=== PATIENT | male | born 1935 | race Caucasian/White ===

== ENCOUNTER 2017-07-12 15:07 | Inpatient (IN) | payer OTHER, MEDICARE ==
[~2017-07-12] VITALS: Ht 172.7 cm; Wt 68.7 kg
[2017-07-12] VITALS (7 sets, daily range): BP systolic 93–150; BP diastolic 59–80; PULSE 50–80; RESP 16–20; TEMP 96.1–97.6; O2SAT 94–99
[~2017-07-12 15:07] MED LIST: GLYB1TAB51 PO; HYDR-2768 PO; LISI-366 PO; METO25 PO; PRAV20TA PO; SPIR25TA PO
[2017-07-12] MEDS ORDERED: METO25TA3 PO (15:36)
[2017-07-12] MEDS ORDERED: SPIR25TA PO (15:36)
[2017-07-12] MEDS ORDERED: TAMS0.4C4 PO (15:36)
[2017-07-12] MEDS ORDERED: MULTTAB67 PO (15:36)
[2017-07-12] MEDS ORDERED: FURO20TA PO (15:36)
[2017-07-12] MEDS ORDERED: LISI40TA PO (15:36)
[2017-07-12] MEDS ORDERED: POTA10CA PO (15:36)
[2017-07-12] MEDS ORDERED: SODIUM CHLORIDE 0.9% FLUSH 10 ML FLUSH IV FLUSH PRN ×2 (15:45→17:15)
[2017-07-12 15:54] LABS: AUTOMATED NEUTROPHIL # 9.4 TH/MM3 (1.8-7.7); BASOPHIL # 0.1 TH/MM3 (0-0.2); BASOPHIL % 0.6 % (0.0-2.0); EOSINOPHIL # 0.1 TH/MM3 (0-0.4); EOSINOPHIL % 0.6 % (0.0-4.0); HEMATOCRIT 44.3 % (39.0-51.0); HEMOGLOBIN 14.8 GM/DL (13.0-17.0); LYMPH % 7.7 % (9.0-44.0); LYMPHOCYTE # 0.9 TH/MM3 (1.0-4.8); MEAN CELL VOLUME 103.2 FL (80.0-100.0); MEAN CORPUSCULAR HEMOGLOBIN 34.5 PG (27.0-34.0); MEAN CORPUSCULAR HGB CONC 33.4 % (32.0-36.0); MEAN PLATELET VOLUME 7.7 FL (7.0-11.0); MONO % 5.6 % (0.0-8.0); MONOCYTE # 0.6 TH/MM3 (0-0.9); NEUT % 85.5 % (16.0-70.0); PLATELET COUNT 197 TH/MM3 (150-450); RED BLOOD COUNT 4.29 MIL/MM3 (4.50-5.90); RED CELL DISTRIBUTION WIDTH 12.1 % (11.6-17.2); WHITE BLOOD COUNT 11.1 TH/MM3 (4.0-11.0)
--- NOTE | 2017-07-12 15:56 | PD ---
HPI Chief Complaint: General Weakness Time Seen by Provider: 15:21 Travel History International Travel<30 days: No Contact w/Intl Traveler<30days: No Traveled to known affect area: No History of Present Illness HPI 82-year-old male arrives with weakness a few months. Additional complaints include 10 days of abdominal distention. Any oral intake leads to vomiting. Appetite has been decreased. Patient reports he is not too weak to stand up. No new or different medication. The patient has not followed with the primary doctor in years. No fever. Patient reports if he stands for more than a few minutes he becomes weak and requires chair. PFSH Past Medical History Diabetes: Yes Hypertension: Yes ?: Not Social History Alcohol Use: Yes Tobacco Use: Yes Allergies-Medications (Allergen,Severity, Reaction): Coded Allergies: citalopram (Verified Allergy, Severe, 07/12/17) Reported Meds & Prescriptions Reported Meds & Active Scripts Active Reported Lisinopril 40 Mg Tab 40 Mg PO DAILY Spironolactone 25 Mg Tab 25 Mg PO DAILY Tamsulosin (Tamsulosin HCl) 0.4 Mg Cap 0.8 Mg PO HS Furosemide 20 Mg Tab 20 Mg PO DAILY Potassium Chloride ER (Potassium Chloride) 10 Meq Cap 10 Meq PO BID Multiple Vitamin 1 Tab 1 Tab PO DAILY Metoprolol Tartrate 25 Mg Tab 25 Mg PO BID Review of Systems Except as stated in HPI: all other systems reviewed are Neg General / Constitutional: No: Fever Eyes: No: Blurred Vision Physical Exam Narrative GENERAL: 82-year-old male well-nourished well-developed no acute distress Vital Signs Date Time Temp Pulse Resp B/P (MAP) Pulse Ox O2 Delivery O2 Flow Rate FiO2 07/12/17 15:11 97.6 80 18 134/63 (86) 98 SKIN: Warm and dry. HEAD: Atraumatic. Normocephalic. EYES: Pupils equal and round. No scleral icterus. No injection or drainage. ENT: No nasal bleeding or discharge. Mucous membranes pink and moist. NECK: Trachea midline. No JVD. CARDIOVASCULAR: Regular rate and rhythm. RESPIRATORY: No accessory muscle use. Clear to auscultation. Breath sounds equal bilaterally. GASTROINTESTINAL: Soft. Abdomen is slightly distended without tenderness. MUSCULOSKELETAL: Extremities without clubbing, cyanosis, or edema. No obvious deformities. NEUROLOGICAL: Awake and alert. No obvious cranial nerve deficits. Motor grossly within normal limits. Five out of 5 muscle strength in the arms and legs. Normal speech. PSYCHIATRIC: Appropriate mood and affect; insight and judgment normal. Data Data Last Documented VS Vital Signs Date Time Temp Pulse Resp B/P (MAP) Pulse Ox O2 Delivery O2 Flow Rate FiO2 07/12/17 15:20 80 16 98 07/12/17 15:11 97.6 134/63 (86) Orders Orders Electrocardiogram (07/12/17 15:32) Ammonia (07/12/17 15:32) Complete Blood Count With Diff (07/12/17 15:32) Comprehensive Metabolic Panel (07/12/17 15:32) Creatine Kinase (Cpk) (07/12/17 15:32) Prothrombin Time / Inr (Pt) (07/12/17 15:32) Act Partial Throm Time (Ptt) (07/12/17 15:32) Troponin I (07/12/17 15:32) Thyroid Stimulating Hormone (07/12/17 15:32) Urinalysis - C+S If Indicated (07/12/17 15:32) Blood Glucose (07/12/17 15:32) Ecg Monitoring (07/12/17 15:32) Iv Access Insert/Monitor (07/12/17 15:32) Oximetry (07/12/17 15:32) Sodium Chloride 0.9% Flush (Ns Flush) (07/12/17 15:45) Lipase (07/12/17 15:32) Drug Screen, Random Urine (07/12/17 15:32) Ct Abd/Pel W/O Iv Contrast (07/12/17 16:30) Urinary Catheter Insert/Apply (07/12/17 16:51) Admit Order (Ed Use Only) (07/12/17 ) Closing Supervisor / Telemetry BURT.Q8H (07/12/17 17:04) Vital Signs (Adult) Q4H (07/12/17 17:04) Diet Heart Healthy (07/12/17 Dinner) Activity Bed Rest (07/12/17 17:04) Labs Laboratory Tests Test 07/12/17 15:40 White Blood Count 11.1 TH/MM3 Red Blood Count 4.29 MIL/MM3 Hemoglobin 14.8 GM/DL Hematocrit 44.3 % Mean Corpuscular Volume 103.2 FL Mean Corpuscular Hemoglobin 34.5 PG Mean Corpuscular Hemoglobin Concent 33.4 % Red Cell Distribution Width 12.1 % Platelet Count 197 TH/MM3 Mean Platelet Volume 7.7 FL Neutrophils (%) (Auto) 85.5 % Lymphocytes (%) (Auto) 7.7 % Monocytes (%) (Auto) 5.6 % Eosinophils (%) (Auto) 0.6 % Basophils (%) (Auto) 0.6 % Neutrophils # (Auto) 9.4 TH/MM3 Lymphocytes # (Auto) 0.9 TH/MM3 Monocytes # (Auto) 0.6 TH/MM3 Eosinophils # (Auto) 0.1 TH/MM3 Basophils # (Auto) 0.1 TH/MM3 CBC Comment DIFF FINAL Differential Comment Prothrombin Time 9.9 SEC Prothromb Time International Ratio 1.0 RATIO Activated Partial Thromboplast Time 25.0 SEC Blood Urea Nitrogen 119 MG/DL Creatinine 7.30 MG/DL Random Glucose 126 MG/DL Total Protein 6.9 GM/DL Albumin 3.1 GM/DL Calcium Level 12.1 MG/DL Alkaline Phosphatase 92 U/L Aspartate Amino Transf (AST/SGOT) 12 U/L Alanine Aminotransferase (ALT/SGPT) 17 U/L Total Bilirubin 0.8 MG/DL Sodium Level 131 MEQ/L Potassium Level 5.8 MEQ/L Chloride Level 94 MEQ/L Carbon Dioxide Level 24.8 MEQ/L Anion Gap 12 MEQ/L Estimat Glomerular Filtration Rate 7 ML/MIN Protein Corrected Calcium 12.3 MG/DL Ammonia LESS THAN 10 MCMOL/L Total Creatine Kinase 43 U/L Troponin I 0.03 NG/ML Lipase 54 U/L Thyroid Stimulating Hormone 3rd Gen 1.620 uIU/ML [facility] Medical Decision Making Medical Screen Exam Complete: Yes Emergency Medical Condition: Yes Medical Record Reviewed: Yes Differential Diagnosis Constipation, Gastritis, Acute Cholecystitis, Biliary Colic, Pancreatitis, WARD , Hepatitis, Bowel Obstruction, Cystitis, Mesenteric Ischemia, AAA, Appendicitis , Renal Stone/Hydronephrosis, GERD, perforated viscous Narrative Course CBC & BMP Diagram 07/12/17 15:40 Total Protein 6.9, Albumin 3.1 L, Calcium Level 12.1 *H, Alkaline Phosphatase 92 , Aspartate Amino Transf (AST/SGOT) 12 L, Alanine Aminotransferase (ALT/SGPT) 17 , Total Bilirubin 0.8 Ammonia 10 Protein Corrected Calcium 12.3 TSH 1.620 Lipase 54 U tox negative Last Impressions Abdomen/Pelvis CT 07/12/17 1630 Signed Impressions: Service Date/Time: July 16:36 - CONCLUSION: 1. Markedly distended urinary bladder and bilateral hydronephrosis/hydroureter. Differential considerations include neurogenic bladder and bladder outlet obstruction. 2. 2 cm exophytic intermediate density lesion protruding from the midpole of the right kidney. Differential considerations include a solid tumor and complicated cysts. 3. Small calcified gallstone. 4. Small fat containing left inguinal hernia. Armando Luo MD Gann catheter placed Sacral wound noted, stage III, approx 10cm diameter EKG: Atrial fibrillation, rate 72, LBBB d/w Dr Muñoz for [facility] Critical Care Narrative Aggregate critical care time was 35 minutes. Time to perform other separately billable procedures was not included in the critical care time. My time did not include minutes spent treating any other patients simultaneously or on activities that did not directly contribute to the patient's treatment. The services I provided to this patient were to treat and/or prevent clinically significant deterioration that could result in: arrhythmia, cardiopulmonary arrest I provided critical care services requiring my management, as noted below: Chart data review, documentation time, medication orders and management, vital sign assessments/reviewing monitor data, ordering and reviewing lab tests, ordering and interpreting/reviewing x-rays and diagnostic studies, care of the patient and discussion of the patient with the admitting physicians. Diagnosis Primary Impression: Urinary (tract) obstruction Additional Impressions: Renal failure Qualified Codes: N17.9 - Acute kidney failure, unspecified Hyperkalemia Generalized weakness Sacral decubitus ulcer, stage III Admitting Information Admitting Physician Requests: Admit Shin Bruno MD Jul 12, 2017 15:56
[2017-07-12 16:10] LABS: PROTHROMBIN TIME - PATIENT 9.9 SEC (9.8-11.6)
[2017-07-12 16:15] LABS: ALBUMIN 3.1 GM/DL (3.4-5.0); BICARBONATE 24.8 MEQ/L (21.0-32.0); CALCIUM 12.1 MG/DL (8.5-10.1); CREATININE 7.3 MG/DL (0.60-1.30); TOTAL BILIRUBIN ADULT 0.8 MG/DL (0.2-1.0); TOTAL PROTEIN 6.9 GM/DL (6.4-8.2)
[2017-07-12 16:19] LABS: CALCIUM-PROTEIN CORRECTED 12.3 MG/DL (8.5-10.1)
[2017-07-12 16:26] LABS: TROPONIN I 0.03 NG/ML (0.02-0.05)
--- NOTE | 2017-07-12 16:56 | RADRPT ---
EXAM DATE/TIME: 07/12/2017 16:36 [place] COMPARISON: No previous studies available for comparison. INDICATIONS : General weakness. Abdominal pain. ORAL CONTRAST: No oral contrast ingested. RADIATION DOSE: 16.12 CTDIvol (mGy) MEDICAL HISTORY : Cardiovascular disease. Hypertension. Diabetes mellitus type 2. SURGICAL HISTORY : None. ENCOUNTER: Initial ACUITY: 1 day PAIN SCALE: 1/10 LOCATION: Abdomen. TECHNIQUE: Volumetric scanning of the abdomen and pelvis was performed. Using automated exposure control and ad justment of the mA and/or kV according to patient size, radiation dose was kept as low as reasonably achievable to obtain optimal diagnostic quality images. DICOM format image data is available electro nically for review and comparison. FINDINGS: LOWER LUNGS: The visualized lower lungs are clear. Multiple hemoclips in the GE junction. LIVER: Homogeneous density without lesion for noncontrast technique. There is no dilation of the biliary tr ee. There is a tiny calcified gallstone near the neck.. SPLEEN: Normal size without lesion. PANCREAS: The pancreas is atrophic. KIDNEYS: There is moderate severity bilateral hydronephrosis and bilateral hydroureter. No calcified stones s een on either side. There is an exophytic intermediate density lesion protruding from the posterior midpole the right kidney measuring 2.3 cm, mean CT density 40 Hounsfield units. No associated calcif ications. ADRENAL GLANDS: Within normal limits. VASCULAR: There is no aortic aneurysm. BOWEL/MESENTERY: No dilated loops of small or large bowel. Multiple hemoclips in the upper abdomen. ABDOMINAL WALL: Within normal limits. RETROPERITONEUM: There is no lymphadenopathy. BLADDER: Marked distention of the urinary bladder measuring in excess of 19 cm in superior/inferior extent. T here are 2 small diverticula protruding from the posterior lateral margin. No calcifications within the lumen of the ureter. Bladder. REPRODUCTIVE: The prostate is mildly prominent measuring 4.7 cm in superior inferior dimension and 4.8 cm in width. INGUINAL: Small fat containing left inguinal hernia. MUSCULOSKELETAL: Within normal limits for patient age. CONCLUSION: 1. Markedly distended urinary bladder and bilateral hydronephrosis/hydroureter. Differential conside rations include neurogenic bladder and bladder outlet obstruction. 2. 2 cm exophytic intermediate density lesion protruding from the midpole of the right kidney. Diffe rential considerations include a solid tumor and complicated cysts. 3. Small calcified gallstone. 4. Small fat containing left inguinal hernia. Armando Luo MD on July 12, 2017 at 16:46 Board Certified Radiologist. This report was verified electronically.
[2017-07-12] MEDS ORDERED: SODIUM CHLOR 0.45% 1000 ML INJ 1,000 ML IV SCH (17:10)
[2017-07-12] MEDS ORDERED: ACETAMINOPHEN 325 MG TAB PO PRN (17:15)
[2017-07-12] MEDS ORDERED: SENNOSIDES 8.6 MG TAB PO PRN (17:15)
[2017-07-12] MEDS ORDERED: NALOXONE HCL 0.4 MG/ML AMP IV PUSH PRN (17:15)
[2017-07-12] MEDS ORDERED: BISACODYL 10 MG SUPP RECTAL PRN (17:15)
[2017-07-12 17:32] LABS: BILIRUBIN, URINE NEG (NEG); BLOOD, URINE LARGE (NEG); GLUCOSE,URINE NEG (NEG); KETONE, URINE NEG (NEG); NITRITE,URINE NEG (NEG); PH, URINE 5.5 (5.0-8.5); URINE COLOR YELLOW (YELLW/STRAW); URINE LEUKOCYTE ESTERASE TRACE (NEG)
--- NOTE | 2017-07-12 17:55 | HHI.HP ---
[facility] Service [facility] Primary Care Physician Salas Lema MD Admission Diagnosis ARF; Urinary Obstruction; Sacral Wound; HyperK; AFib Diagnoses: Chief Complaint: Abdominal distention and pain Travel History International Travel<30 Days: No Contact w/Intl Traveler <30 Da: No Traveled to Known Affected Are: No History of Present Illness This is a pleasant 82-year-old male patient with a known medical history of hypertension and borderline diabetes who presented to the ED with complaints of abdominal disc distention and pain 10 days. Patient also admits that he has been generally weak for the past few weeks. He states that his appetite has been poor and he has been unable to tolerate anything by mouth for the last couple weeks due to nausea and vomiting. He does live at home alone, is visited by his significant other frequently. Patient denies any recent fever, chills, cough, headache, sore throat, diarrhea or dysuria. Patient last saw his PCP in November with no changes in medications. Patient does not follow with industrial coffee grinder or urologist. Microfilmer is Dr. Beach. He does state he has asymptomatic bradycardia. Denies any history of kidney disease or distention. He states that his last PSA was drawn roughly 5 years ago and was reportedly negative. He does admit to daily tobacco use. Creatinine on presentation 7.3, GFR 7, BUN 119, sodium 131, potassium 5.8, calcium 12.1. UA pending. Abdomen/pelvis CT showing distended urinary bladder and bilateral hydronephrosis hydroureter likely secondary to bladder outlet obstruction/ retention. Patient does state that he has been prescribed Lasix as needed for lower extremity swelling as well as supplemental potassium. Patient states that he has not been taking his Lasix really at all but has continued his daily potassium supplementation. Review of Systems Constitutional: COMPLAINS OF: Fatigue, DENIES: Fever, Chills Eyes: DENIES: Blurred vision, Diplopia Ears, nose, mouth, throat: DENIES: Hearing loss Respiratory: DENIES: Cough, Sputum production, Shortness of breath Cardiovascular: DENIES: Chest pain, Palpitations Gastrointestinal: COMPLAINS OF: Abdominal pain, Nausea, Vomiting, DENIES: Black stools, Bloody stools, Constipation, Diarrhea Genitourinary: DENIES: Urinary frequency, Urinary incontinence Musculoskeletal: DENIES: Joint pain Psychiatric: DENIES: Anxiety Except as stated in HPI: all other systems reviewed are Neg Past Family Social History Past Medical History Hypertension Borderline diabetes Tobaccoism Daily alcohol use Past Surgical History History of hemicolectomy History of resection and anastomosis Unspecified abdominal surgeries 4 Tonsillectomy Reported Medications Active Reported Lisinopril 40 Mg Tab 40 Mg PO DAILY Spironolactone 25 Mg Tab 25 Mg PO DAILY Tamsulosin (Tamsulosin HCl) 0.4 Mg Cap 0.8 Mg PO HS Furosemide 20 Mg Tab 20 Mg PO DAILY as needed for lower extremity swelling. Potassium Chloride ER (Potassium Chloride) 10 Meq Cap 10 Meq PO BID Multiple Vitamin 1 Tab 1 Tab PO DAILY Metoprolol Tartrate 25 Mg Tab 25 Mg PO BID Allergies: Coded Allergies: citalopram (Verified Allergy, Severe, 07/12/17) Active Ordered Medications Current Medications Medications (Trade) Dose Ordered Sig/Omar Route Start Time Stop Time Status Last Admin (NS Flush) 2 ml UNSCH PRN IV FLUSH 07/12/17 15:45 Sodium Chloride 1,000 ml @ 75 mls/hr [id number] IV 07/12/17 17:10 (NS Flush) 2 ml UNSCH PRN IV FLUSH 07/12/17 17:15 (NS Flush) 2 ml BID IV FLUSH 07/12/17 21:00 (Tylenol) 650 mg Q4H PRN PO 07/12/17 17:15 (Zofran Inj) 4 mg Q6H PRN IVP 07/12/17 18:00 (Heparin Inj) 5,000 units Q12HR SQ 07/12/17 21:00 (Narcan Inj) 0.4 mg UNSCH PRN IV PUSH 07/12/17 17:15 (July-Colace) 1 tab BID PO 07/12/17 21:00 (Milk Of Magnesia Liq) 30 ml Q12H PRN PO 07/12/17 18:00 (Senokot) 17.2 mg Q12H PRN PO 07/12/17 17:15 (Dulcolax Supp) 10 mg DAILY PRN RECTAL 07/12/17 17:15 Family History Family history significant for stroke and hypertension on paternal side. Social History Patient does admit to smoking two thirds pack per cigarettes daily. Does admit to 1 alcoholic drink daily. Denies any illicit drug use. Physical Exam Vital Signs Vital Signs Date Time Temp Pulse Resp B/P (MAP) Pulse Ox O2 Delivery O2 Flow Rate FiO2 07/12/17 15:20 80 16 98 07/12/17 15:11 97.6 80 18 134/63 (86) 98 Physical Exam GENERAL: Well-developed, well-nourished patient in NAD. SKIN: Warm and dry. No rash. Sacral wound present. HEAD: Normocephalic. Atraumatic. EYES: Pupils equal and round. No scleral icterus. No injection or drainage. ENT: No nasal bleeding or discharge. Mucous membranes pink and moist. NECK: Supple. Trachea midline. CARDIOVASCULAR: Regular rate and rhythm. S1, S2 noted. No murmur appreciated. RESPIRATORY: No accessory muscle use. Clear to auscultation. Breath sounds equal bilaterally. : Gann catheter present, ever colored urine. GASTROINTESTINAL: Abdomen soft, non-tender, nondistended. Normoactive bowel sounds x4. MUSCULOSKELETAL: No obvious deformities. Extremities without clubbing, cyanosis , or edema. NEUROLOGICAL: Awake and alert. No obvious cranial nerve deficits. Motor grossly within normal limits. 5/5 muscle strength in bilateral upper and lower extremities. Normal speech. PSYCHIATRIC: Appropriate mood and affect; insight and judgment normal. Laboratory Laboratory Tests Test 07/12/17 15:40 07/12/17 17:15 White Blood Count 11.1 Red Blood Count 4.29 Hemoglobin 14.8 Hematocrit 44.3 Mean Corpuscular Volume 103.2 Mean Corpuscular Hemoglobin 34.5 Mean Corpuscular Hemoglobin Concent 33.4 Red Cell Distribution Width 12.1 Platelet Count 197 Mean Platelet Volume 7.7 Neutrophils (%) (Auto) 85.5 Lymphocytes (%) (Auto) 7.7 Monocytes (%) (Auto) 5.6 Eosinophils (%) (Auto) 0.6 Basophils (%) (Auto) 0.6 Neutrophils # (Auto) 9.4 Lymphocytes # (Auto) 0.9 Monocytes # (Auto) 0.6 Eosinophils # (Auto) 0.1 Basophils # (Auto) 0.1 CBC Comment DIFF FINAL Differential Comment Prothrombin Time 9.9 Prothromb Time International Ratio 1.0 Activated Partial Thromboplast Time 25.0 Blood Urea Nitrogen 119 Creatinine 7.30 Random Glucose 126 Total Protein 6.9 Albumin 3.1 Calcium Level 12.1 Alkaline Phosphatase 92 Aspartate Amino Transf (AST/SGOT) 12 Alanine Aminotransferase (ALT/SGPT) 17 Total Bilirubin 0.8 Sodium Level 131 Potassium Level 5.8 Chloride Level 94 Carbon Dioxide Level 24.8 Anion Gap 12 Estimat Glomerular Filtration Rate 7 Protein Corrected Calcium 12.3 Ammonia LESS THAN 10 Total Creatine Kinase 43 Troponin I 0.03 Lipase 54 Thyroid Stimulating Hormone 3rd Gen 1.620 Urine Barbiturates Screen NEG Urine Amphetamines Screen NEG Urine Benzodiazepines Screen NEG Urine Cocaine Screen NEG Urine Cannabinoids Screen NEG Result Diagram: 07/12/17 1540 07/12/17 1540 Imaging Last Impressions Abdomen/Pelvis CT 07/12/17 1630 Signed Impressions: Service Date/Time: July 16:36 - CONCLUSION: 1. Markedly distended urinary bladder and bilateral hydronephrosis/hydroureter. Differential considerations include neurogenic bladder and bladder outlet obstruction. 2. 2 cm exophytic intermediate density lesion protruding from the midpole of the right kidney. Differential considerations include a solid tumor and complicated cysts. 3. Small calcified gallstone. 4. Small fat containing left inguinal hernia. Armando Luo MD Septic Shock Reassessment Septic shock perfusion: reassessment completed Caprini VTE Risk Assessment Caprini VTE Risk Assessment: Mod/High Risk (score >= 2) Caprini Risk Assessment Model Point Value = 1 Point Value = 2 Point Value = 3 Point Value = 5 Age 41-60 Minor surgery BMI > 25 kg/m2 Swollen legs Varicose veins or History of unexplained or recurrent spontaneous Oral contraceptives or hormone replacement Sepsis (< 1 month) Serious lung disease, including pneumonia (< 1 month) Abnormal pulmonary function Acute myocardial infarction Congestive heart failure (< 1 month) History of inflammatory bowel disease Medical patient at bed rest Age 61-74 Arthroscopic surgery Major open surgery (> 45 min) Laparoscopic surgery (> 45 min) Malignancy Confined to bed (> 72 hours) Immobilizing plaster cast Central venous access Age >= 75 History of VTE Family history of VTE Factor V Leiden Prothrombin [id number] Lupus anticoagulant Anticardiolipin antibodies Elevated serum homocysteine Heparin-induced thrombocytopenia Other congenital or acquired thrombophilia Stroke (< 1 month) Elective arthroplasty Hip, pelvis, or leg fracture Acute spinal cord injury (< 1 month) Prophylaxis Regimen Total Risk Factor Score Risk Level Prophylaxis Regimen 0-1 Low Early ambulation 2 Moderate Order ONE of the following: *Sequential Compression Device (SCD) *Heparin 5000 units SQ BID 3-4 Higher Order ONE of the following medications: *Heparin 5000 units SQ TID *Enoxaparin/Lovenox 40 mg SQ daily (WT < 150 kg, CrCl > 30 mL/min) *Enoxaparin/Lovenox 30 mg SQ daily (WT < 150 kg, CrCl > 10-29 mL/min) *Enoxaparin/Lovenox 30 mg SQ BID (WT < 150 kg, CrCl > 30 mL/min) AND/OR *Sequential Compression Device (SCD) 5 or more Highest Order ONE of the following medications: *Heparin 5000 units SQ TID (Preferred with Epidurals) *Enoxaparin/Lovenox 40 mg SQ daily (WT < 150 kg, CrCl > 30 mL/min) *Enoxaparin/Lovenox 30 mg SQ daily (WT < 150 kg, CrCl > 10-29 mL/min) *Enoxaparin/Lovenox 30 mg SQ BID (WT < 150 kg, CrCl > 30 mL/min) AND *Sequential Compression Device (SCD) Assessment and Plan Problem List: (1) Urinary (tract) obstruction ICD Code: N13.9 - Obstructive and reflux uropathy, unspecified Status: Acute (2) Hyperkalemia ICD Code: E87.5 - Hyperkalemia Status: Acute (3) Renal failure ICD Code: N19 - Unspecified kidney failure Status: Acute (4) Generalized weakness ICD Code: R53.1 - Weakness Status: Acute (5) Sacral decubitus ulcer, stage III ICD Code: L89.153 - Pressure ulcer of sacral region, stage 3 Status: Acute Assessment and Plan This is a pleasant 82-year-old male patient with a known medical history of hypertension and borderline diabetes who presented to the ED with complaints of abdominal disc distention and pain 10 days. Patient also admits that he has been generally weak for the past few weeks. Acute kidney injury with associated hyperkalemia suspect secondary to bladder outlet obstruction with urinary retention Hyperkalemia suspect secondary to above - Creatinine on presentation 7.3, GFR 7, BUN 119, sodium 131, potassium 5.8, calcium 12.1. - Patient denies any history of kidney disease or urinary retention in the past. - Abdominal/pelvis CT reviewed showing markedly distended urinary bladder and bilateral hydronephrosis/hydroureter. 2 cm exophytic intermediate density lesion protruding from the midpole of the right kidney. - Gann catheter placed in ED. Will continue. - Will administer IV insulin, IV dextrose and Kayexalate for hyperkalemia. - UA negative. - Repeat BMP at 2000 as well as with morning labs. - We will continue Flomax. Possible consult to nephrology/urology in a.m. if BMP does not improve. - Avoid nephrotoxins. Will hydrate with IV fluid. - Monitor intake and output closely. - Will place on cardiac telemetry overnight, monitor for any arrhythmias related to hyperkalemia. Patient does state he has history of asymptomatic bradycardia, will monitor closely. - Supportive care. Leukocytosis, mild: White blood cell 11.1. UA negative. Wound culture ordered for sacral wound, could be secondary to wound. Continue to monitor for infection. Afebrile at this time. Will hold off on antibiotics at this time. Hypertension, chronic: Continue home Lopressor. Will hold lisinopril due to kidney injury. Avoid nephrotoxins. Monitor BP trends. Tobaccoism: Encouraged cessation. Offered nicotine patch. Sacral decubitus ulcer, stage III - Present on presentation, states he has had this for many months. Will obtain wound culture. Monitor CBC for infection. Monitor for fever. - Case management consulted for discharge plans. Patient will likely need rehab upon discharge or arrangements for assisted living. - PT eval ordered, appreciate input recommendations. DVT prophylaxis: SCDs. Heparin. Problem Qualifiers (1) Renal failure: Qualified Codes: N17.9 - Acute kidney failure, unspecified Paulina Stokes Jul 12, 2017 17:55
[2017-07-12 17:58] LABS: SQUAMOUS EPITHELIAL CELL URINE 0-5 /hpf (0-5); WBC, URINE 0-2 /hpf (0-5)
[2017-07-12] MEDS ORDERED: ONDANSETRON HCL 4 MG/2 ML VIAL IVP PRN (18:00)
[2017-07-12] MEDS ORDERED: MAGNESIUM HYDROXIDE SUSP 30 ML CUP PO PRN (18:00)
[2017-07-12] MEDS ORDERED: DEXTROSE 50% IN WATER 50 ML VIAL(D50) IV PUSH ONE (18:00)
[2017-07-12] MEDS ORDERED: INSULIN HUMAN REGULAR 1,000 UNITS/10 ML VIAL IV PUSH ONE (18:45)
[2017-07-12] MEDS: SODIUM POLYSTYRENE SULFONATE SUSP 15 GM/60 ML CUP PO SCH ×2 (18:55→22:11)
[2017-07-12 20:47] LABS: CHLORIDE 98 MEQ/L (98-107); SODIUM (NA) 132 MEQ/L (136-145)
[2017-07-12] MEDS: METOPROLOL TARTRATE 25 MG TAB PO SCH (21:00)
[2017-07-12] MEDS: SODIUM CHLORIDE 0.9% FLUSH 10 ML FLUSH IV FLUSH SCH (21:00)
[2017-07-12 21:03] LABS: BICARBONATE 24.6 MEQ/L (21.0-32.0); BLOOD UREA NITROGEN 120 MG/DL (7-18); CALCIUM 11.7 MG/DL (8.5-10.1); GLOMERULAR FILTRATION RATE 8 ML/MIN (>89); GLUCOSE,RANDOM 177 MG/DL (74-106)
[2017-07-12] MEDS: DOCUSATE SODIUM 50 MG/SENNA 8.6 MG TAB PO SCH (22:12)
[2017-07-12] MEDS: HEPARIN SODIUM - SQ 10,000 UNITS/ML VIAL SQ SCH (22:12)
[2017-07-12] MEDS: TAMSULOSIN HCL 0.4 MG CAP PO SCH (22:12)
[2017-07-13] VITALS (11 sets, daily range): BP systolic 89–129; BP diastolic 54–85; PULSE 51–74; RESP 16–20; TEMP 96.3–98; O2SAT 94–98
--- NOTE | 2017-07-13 05:43 | EKG ---
Date Performed: 07/12/2017 Time Performed: 15:22:31 PTAGE: 82 years EKG: ATRIAL FIBRILLATION LEFT AXIS DEVIATION LEFT BUNDLE BRANCH BLOCK ABNORMAL ECG PREVIOUS TRACING : 12/05/2011 08.59 No significant change from previous tracing noted. DOCTOR: Efrain Cottrell Interpretating Date/Time 07/13/2017 05:42:51
[2017-07-13 07:02] LABS: AUTOMATED NEUTROPHIL # 6.4 TH/MM3 (1.8-7.7); BASOPHIL % 0.2 % (0.0-2.0); EOSINOPHIL # 0.2 TH/MM3 (0-0.4); EOSINOPHIL % 1.9 % (0.0-4.0); HEMATOCRIT 39.6 % (39.0-51.0); HEMOGLOBIN 13.7 GM/DL (13.0-17.0); LYMPH % 13.6 % (9.0-44.0); LYMPHOCYTE # 1.2 TH/MM3 (1.0-4.8); MEAN CELL VOLUME 103.6 FL (80.0-100.0); MEAN CORPUSCULAR HEMOGLOBIN 35.8 PG (27.0-34.0); MEAN CORPUSCULAR HGB CONC 34.6 % (32.0-36.0); MEAN PLATELET VOLUME 8.7 FL (7.0-11.0); MONO % 10.5 % (0.0-8.0); MONOCYTE # 0.9 TH/MM3 (0-0.9); NEUT % 73.8 % (16.0-70.0); PLATELET COUNT 167 TH/MM3 (150-450); RED BLOOD COUNT 3.83 MIL/MM3 (4.50-5.90); RED CELL DISTRIBUTION WIDTH 11.8 % (11.6-17.2); WHITE BLOOD COUNT 8.7 TH/MM3 (4.0-11.0)
[2017-07-13 07:53] LABS: BICARBONATE 23.9 MEQ/L (21.0-32.0); CALCIUM 10.6 MG/DL (8.5-10.1); CREATININE 5.3 MG/DL (0.60-1.30)
--- NOTE | 2017-07-13 08:17 | HHI.PR ---
Subjective Remarks Follow-up acute kidney injury electrolyte imbalance and sacral wound. Patient seen and examined lying in bed comfortably, had a good night slept well. Denies any pain. Has been urinating, Gann catheter in place, some hematuria noted. Creatinine trending down. Vital signs are stable. Afebrile. Patient eating well, denies any abdominal pain, nausea or vomiting. Nephrology consulted, appreciate input recommendations. Objective Vitals Vital Signs Date Time Temp Pulse Resp B/P (MAP) Pulse Ox O2 Delivery O2 Flow Rate FiO2 07/13/17 07:47 98 21 07/13/17 04:00 97.3 56 20 96/55 (69) 95 07/13/17 00:00 96.3 56 20 123/85 (98) 98 07/12/17 23:45 94 21 07/12/17 20:02 51 07/12/17 20:00 96.6 52 18 93/59 (70) 98 07/12/17 18:52 57 07/12/17 18:30 96.1 57 20 150/80 (103) 94 07/12/17 16:50 50 16 116/73 (87) 99 07/12/17 15:20 80 16 98 07/12/17 15:11 97.6 80 18 134/63 (86) 98 I/O 07/12/17 07/12/17 07/12/17 07/13/17 07/13/17 07/13/17 06:59 14:59 22:59 06:59 14:59 22:59 Intake Total 1362 ml Output Total 2000 ml 1000 ml Balance -2000 ml 362 ml Intake Oral 500 ml IV Total 862 ml Output Urine Total 2000 ml 1000 ml # Voids 0 # Bowel Movements 1 4 Result Diagram: 07/13/17 0610 07/13/17 0610 Imaging Last Impressions Abdomen/Pelvis CT 07/12/17 1630 Signed Impressions: Service Date/Time: July 16:36 - CONCLUSION: 1. Markedly distended urinary bladder and bilateral hydronephrosis/hydroureter. Differential considerations include neurogenic bladder and bladder outlet obstruction. 2. 2 cm exophytic intermediate density lesion protruding from the midpole of the right kidney. Differential considerations include a solid tumor and complicated cysts. 3. Small calcified gallstone. 4. Small fat containing left inguinal hernia. Armando Luo MD Objective Remarks GENERAL: Well-developed, well-nourished patient in NAD. SKIN: Warm and dry. No rash. Sacral wound with optic foam in place. Appears to be a DTI with some sloughing, minimal drainage and scattered erythema. HEAD: Normocephalic. Atraumatic. EYES: Pupils equal and round. No scleral icterus. No injection or drainage. ENT: No nasal bleeding or discharge. Mucous membranes pink and moist. NECK: Supple. Trachea midline. CARDIOVASCULAR: Regular rate and rhythm. S1, S2 noted. No murmur appreciated. RESPIRATORY: No accessory muscle use. Clear to auscultation. Breath sounds equal bilaterally. GASTROINTESTINAL: Abdomen soft, non-tender, nondistended. Normoactive bowel sounds x4. MUSCULOSKELETAL: No obvious deformities. Extremities without clubbing, cyanosis , or edema. NEUROLOGICAL: Awake and alert. No obvious cranial nerve deficits. Motor grossly within normal limits. 5/5 muscle strength in bilateral upper and lower extremities. Normal speech. PSYCHIATRIC: Appropriate mood and affect; insight and judgment normal. A/P Problem List: (1) Urinary (tract) obstruction ICD Code: N13.9 - Obstructive and reflux uropathy, unspecified Status: Acute (2) Hyperkalemia ICD Code: E87.5 - Hyperkalemia Status: Acute (3) Renal failure ICD Code: N19 - Unspecified kidney failure Status: Acute (4) Generalized weakness ICD Code: R53.1 - Weakness Status: Acute (5) Sacral decubitus ulcer, stage III ICD Code: L89.153 - Pressure ulcer of sacral region, stage 3 Status: Acute Assessment and Plan This is a pleasant 82-year-old male patient with a known medical history of hypertension and borderline diabetes who presented to the ED with complaints of abdominal disc distention and pain 10 days. Patient also admits that he has been generally weak for the past few weeks. Acute kidney injury with associated hyperkalemia suspect secondary to bladder outlet obstruction with urinary retention Hyperkalemia suspect secondary to above - Creatinine on presentation 7.3, GFR 7, BUN 119, sodium 131, potassium 5.8, calcium 12.1. - Patient denies any history of kidney disease or urinary retention in the past. - Creatinine is trending down. Nephrology consulted, appreciate input recommendations. Continue Gann catheter for now. - Abdominal/pelvis CT reviewed showing markedly distended urinary bladder and bilateral hydronephrosis/hydroureter. 2 cm exophytic intermediate density lesion protruding from the midpole of the right kidney. - Gann catheter placed in ED. Will continue. - Will administer IV insulin, IV dextrose and Kayexalate for hyperkalemia. Hyperkalemia resolved. Continue to monitor BMP. - UA negative. - We will continue Flomax. - Avoid nephrotoxins. Will hydrate with IV fluid. - Monitor intake and output closely. - Will place on cardiac telemetry overnight, monitor for any arrhythmias related to hyperkalemia. Patient does state he has history of asymptomatic bradycardia, will monitor closely. -Arrhythmia/10 beat run of V. tach noted on telemetry this a.m., patient has been asymptomatic, suspect secondary to electrolyte imbalance. We will continue to monitor. - Supportive care. Leukocytosis, mild: Improved. White blood cell 11.1. Down to 8000 today. UA negative. Wound culture ordered for sacral wound, could be secondary to wound. Continue to monitor for infection. Afebrile at this time. Will hold off on antibiotics at this time. Hypertension, chronic: Continue home Lopressor. Will hold lisinopril due to kidney injury. Avoid nephrotoxins. Monitor BP trends. Tobaccoism: Encouraged cessation. Offered nicotine patch. Sacral decubitus ulcer, stage III - Present on presentation, states he has had this for many months. Will obtain wound culture. Monitor CBC for infection. Monitor for fever. - Case management consulted for discharge plans. Patient will likely need rehab upon discharge or arrangements for assisted living. - PT eval ordered, appreciate input recommendations. DVT prophylaxis: SCDs. Heparin. Problem Qualifiers (1) Renal failure: Qualified Codes: N17.9 - Acute kidney failure, unspecified Paulina Stokes Jul 13, 2017 08:17
--- NOTE | 2017-07-13 08:50 | PD.CONS ---
HPI Service Nephrology Consult Requested By Reason for Consult HUSSEIN Primary Care Physician Salas Lema MD History of Present Illness This is an 82 y/o male patient who came to ER for severe abdominal distention for one week. On arrival imaging showed obstructive uropathy with bilateral hydronephrosis. His creatinine oin arrival was 7.3, and has improved to 5.3 today. He has some hematuria with 3L urine output since admission. He was hyperkalemci as well, treated with IV insulin and dextrose. He admits to taking KCL supplements without lasix as he noticed he was not able to make or drain his urine. Potassium has improved today. He is on IVF. Imaging also suggests possible renal mass. He is a full code. (Rose Mcgowan) Review of Systems Cardiovascular: DENIES: Chest pain Gastrointestinal: COMPLAINS OF: Abdominal pain, Nausea, DENIES: Vomiting Genitourinary: COMPLAINS OF: Hematuria (Rose Mcgowan) Past Family Social History Allergies: Coded Allergies: citalopram (Verified Allergy, Severe, 07/12/17) Past Medical History Hypertension Borderline diabetes Tobaccoism Daily alcohol use Past Surgical History History of hemicolectomy History of resection and anastomosis Unspecified abdominal surgeries 4 Tonsillectomy Reported Medications Lisinopril 40 Mg Tab 40 Mg PO DAILY Spironolactone 25 Mg Tab 25 Mg PO DAILY Tamsulosin (Tamsulosin HCl) 0.4 Mg Cap 0.8 Mg PO HS Furosemide 20 Mg Tab 20 Mg PO DAILY as needed for lower extremity swelling. Potassium Chloride ER (Potassium Chloride) 10 Meq Cap 10 Meq PO BID Multiple Vitamin 1 Tab 1 Tab PO DAILY Metoprolol Tartrate 25 Mg Tab 25 Mg PO BID Active Ordered Medications Current Medications Medications (Trade) Dose Ordered Sig/Omar Route Start Time Stop Time Status Last Admin (NS Flush) 2 ml UNSCH PRN IV FLUSH 07/12/17 15:45 (NS Flush) 2 ml UNSCH PRN IV FLUSH 07/12/17 17:15 (NS Flush) 2 ml BID IV FLUSH 07/12/17 21:00 (Tylenol) 650 mg Q4H PRN PO 07/12/17 17:15 (Zofran Inj) 4 mg Q6H PRN IVP 07/12/17 18:00 (Heparin Inj) 5,000 units Q12HR SQ 07/12/17 21:00 07/12/17 22:12 (Narcan Inj) 0.4 mg UNSCH PRN IV PUSH 07/12/17 17:15 (July-Colace) 1 tab BID PO 07/12/17 21:00 07/12/17 22:12 (Milk Of Magnesia Liq) 30 ml Q12H PRN PO 07/12/17 18:00 (Senokot) 17.2 mg Q12H PRN PO 07/12/17 17:15 (Dulcolax Supp) 10 mg DAILY PRN RECTAL 07/12/17 17:15 (Lopressor) 25 mg BID PO 07/12/17 21:00 (Flomax) 0.8 mg HS PO 07/12/17 21:00 07/12/17 22:12 (Theragran) 1 tab DAILY PO 07/13/17 09:00 (Lasix Inj) 20 mg DAILY IV PUSH 07/13/17 09:00 (Pneumovax-23 Inj) 25 mcg ONCE ONCE IM 07/13/17 10:00 07/13/17 10:01 Family History Non contributory Social History , lives alone Not very active Daily smoker Daily ETOH Full code (Rose Mcgowan) Physical Exam Vital Signs Vital Signs Date Time Temp Pulse Resp B/P (MAP) Pulse Ox O2 Delivery O2 Flow Rate FiO2 07/13/17 08:00 97.1 55 18 129/63 (85) 97 07/13/17 07:47 98 21 07/13/17 04:00 97.3 56 20 96/55 (69) 95 07/13/17 00:00 96.3 56 20 123/85 (98) 98 07/12/17 23:45 94 21 07/12/17 20:02 51 07/12/17 20:00 96.6 52 18 93/59 (70) 98 07/12/17 18:52 57 07/12/17 18:30 96.1 57 20 150/80 (103) 94 07/12/17 16:50 50 16 116/73 (87) 99 07/12/17 15:20 80 16 98 07/12/17 15:11 97.6 80 18 134/63 (86) 98 Physical Exam Disheveled elderly male Awake, alert, oriented S1/S2 RRR Lungs clear Abd soft Horton with clearing hematuria, some sediment is noted No edema, Laboratory Laboratory Tests Test 07/12/17 15:40 07/12/17 17:15 07/12/17 20:28 07/13/17 06:10 White Blood Count 11.1 8.7 Red Blood Count 4.29 3.83 Hemoglobin 14.8 13.7 Hematocrit 44.3 39.6 Mean Corpuscular Volume 103.2 103.6 Mean Corpuscular Hemoglobin 34.5 35.8 Mean Corpuscular Hemoglobin Concent 33.4 34.6 Red Cell Distribution Width 12.1 11.8 Platelet Count 197 167 Mean Platelet Volume 7.7 8.7 Neutrophils (%) (Auto) 85.5 73.8 Lymphocytes (%) (Auto) 7.7 13.6 Monocytes (%) (Auto) 5.6 10.5 Eosinophils (%) (Auto) 0.6 1.9 Basophils (%) (Auto) 0.6 0.2 Neutrophils # (Auto) 9.4 6.4 Lymphocytes # (Auto) 0.9 1.2 Monocytes # (Auto) 0.6 0.9 Eosinophils # (Auto) 0.1 0.2 Basophils # (Auto) 0.1 0.0 CBC Comment DIFF FINAL DIFF FINAL Differential Comment Prothrombin Time 9.9 Prothromb Time International Ratio 1.0 Activated Partial Thromboplast Time 25.0 Blood Urea Nitrogen 119 120 106 Creatinine 7.30 6.80 5.30 Random Glucose 126 177 73 Total Protein 6.9 6.0 Albumin 3.1 Calcium Level 12.1 11.7 10.6 Alkaline Phosphatase 92 Aspartate Amino Transf (AST/SGOT) 12 Alanine Aminotransferase (ALT/SGPT) 17 Total Bilirubin 0.8 Sodium Level 131 132 136 Potassium Level 5.8 5.1 4.4 Chloride Level 94 98 100 Carbon Dioxide Level 24.8 24.6 23.9 Anion Gap 12 9 12 Estimat Glomerular Filtration Rate 7 8 10 Protein Corrected Calcium 12.3 Ammonia LESS THAN 10 Total Creatine Kinase 43 Troponin I 0.03 Lipase 54 Thyroid Stimulating Hormone 3rd Gen 1.620 Urine Color YELLOW Urine Turbidity CLEAR Urine pH 5.5 Urine Specific [place] 1.010 Urine Protein NEG Urine Glucose (UA) NEG Urine Ketones NEG Urine Occult Blood LARGE Urine Nitrite NEG Urine Bilirubin NEG Urine Urobilinogen 0.2 Urine Leukocyte Esterase TRACE Urine RBC 10-14 Urine WBC 0-2 Urine Squamous Epithelial Cells 0-5 Microscopic Urinalysis Comment CATH-CULT NOT IND Urine Opiates Screen NEG Urine Barbiturates Screen NEG Urine Amphetamines Screen NEG Urine Benzodiazepines Screen NEG Urine Cocaine Screen NEG Urine Cannabinoids Screen NEG Date/Time Source Procedure Growth Status 07/12/17 23:13 Wound Buttock Gram Stain Pending Received 07/12/17 23:13 Wound Buttock Wound Culture Pending Received (Rose Mcgowan) Result Diagram: 07/13/17 0610 07/13/17 0610 Imaging Last 72 hours Impressions Abdomen/Pelvis CT 07/12/17 1630 Signed Impressions: Service Date/Time: July 16:36 - CONCLUSION: 1. Markedly distended urinary bladder and bilateral hydronephrosis/hydroureter. Differential considerations include neurogenic bladder and bladder outlet obstruction. 2. 2 cm exophytic intermediate density lesion protruding from the midpole of the right kidney. Differential considerations include a solid tumor and complicated cysts. 3. Small calcified gallstone. 4. Small fat containing left inguinal hernia. Armando Luo MD (Rose Mcgowan) Assessment and Plan Problem List: (1) Renal failure ICD Codes: N19 - Unspecified kidney failure Status: Acute Plan: Cr 1.2 in 2013 HUSSEIN due to obstructive uropathy, improved after horton placement (expect continued improvement) Creatinine improving Stop IVF, tolerating oral Stop scheduled Kayexalate Consult urology regarding possible mass Follow labs Avoid nephrotoxic agents (2) Urinary (tract) obstruction ICD Codes: N13.9 - Obstructive and reflux uropathy, unspecified Status: Acute Plan: Consult urology will need voiding trial See above (3) Hyperkalemia ICD Codes: E87.5 - Hyperkalemia Status: Acute Plan: Due to reduction in GFR and oral supplements Improved He was also on ESTEVAN inhibitor Assessment and Plan Obstructive uropathy related renal failure usually has rapid improvement in creatinine. We will sign off at this time. Please call us if needed. (Rose Mcgowan) Assessment and Plan Agree with above assessment and plan. Creatinine was 1.23 in 2013, HUSSEIN due to obstructive uropathy. Needs urology evaluation for renal mass. (Peewee Serrano MD) Problem Qualifiers (1) Renal failure: Qualified Codes: N17.9 - Acute kidney failure, unspecified Rose Mcgowan Jul 13, 2017 08:50 Peewee Serrano MD Jul 13, 2017 14:45
[2017-07-13] MEDS: FUROSEMIDE 20 MG/2 ML VIAL IV PUSH SCH (09:54)
[2017-07-13] MEDS: DOCUSATE SODIUM 50 MG/SENNA 8.6 MG TAB PO SCH ×2 (09:54→19:54)
[2017-07-13] MEDS: MULTIVITAMIN TAB PO SCH (09:54)
[2017-07-13] MEDS: METOPROLOL TARTRATE 25 MG TAB PO SCH ×2 (09:54→20:48)
[2017-07-13] MEDS: HEPARIN SODIUM - SQ 10,000 UNITS/ML VIAL SQ SCH ×2 (09:55→20:50)
[2017-07-13] MEDS: SODIUM CHLORIDE 0.9% FLUSH 10 ML FLUSH IV FLUSH SCH ×2 (09:58→20:49)
[2017-07-13] MEDS ORDERED: PNEUMOCOCCAL POLYVALENT INJ 25 MCG/0.5 ML SYR IM ONE (10:00)
--- NOTE | 2017-07-13 10:11 | PD.WCN.NOT ---
Wound Consult Description: Wound consult ordered by Marck MEDRANO Communicated with: Sandra GRAY , Marck MEDRANO Recommendation: 1. Please reposition patient every 2 hours for comfort and offloading.Ensure no devices are under patient. 2. Apply skin prep to bilateral heels (calcaneus) BID. Apply heel protector boots when in bed . 3. Cleanse sacral/buttocks area with warm soap and water rinse and pat dry. 4. Encrust Denuded areas BID (To encrust apply thin even layer of stoma powder spray with Cavilon skin prep repeat X2) creating artificial scab. 5. PLEASE DO NOT PLACE COTTON UNDERPADS UNDER PATIENT NOR USE FOAM DRESSING. Additional Information: Patient was seen today by procedure writer and DSC student on 3rd floor [facility] for wound management.Patient alert and oriented x3 laying in bed upon writers arrival.Denies any discomfort at this time.Containers Sales Representative was able to visualize bilateral calcaneus in which are reddened and boggy.Reddened areas are blanchable and cool to touch.Skin prep applied and heels were then floated on pillow to avoid contact with surface till heel protector boots available.Patient required 1 person assist to reposition to right side.Foam dressing removed from sacral area.Patient is incontinent of bowels/Gann catheter draining dark ileana urine.Containers Sales Representative performed mick/incontinent care.Containers Sales Representative was able to visualize sacral/buttock and notes blanchable Purple/ red Early stage DTI measuring ~10cm x ~12cm across bilateral buttocks presents in a butterfly shape.Patient has ~3 mixed etiology of moisture/friction denuded partial thickness wounds largest on R inner buttocks measuring ~1.8cm x ~0.3 liner in shape.Denuded areas were encrusted and skin prep applied to intact purple/red tissue.Patient tolerated wound care well and verbalized teaching of offloading using teach back method .Patient was offloaded to right side for comfort.Order placed for low air loss surface. Kb Fernandes [facility] Jul 13, 2017 10:11
--- NOTE | 2017-07-13 12:28 | RADRPT ---
EXAM DATE/TIME: 07/13/2017 11:32 [place] COMPARISON: CT ABDOMEN & PELVIS W/O CONTRAST, July 12, 2017, 16:36. INDICATIONS : Right renal mass seen on CT. MEDICAL HISTORY : Cardiovascular disease. Hypertension. Diabetes mellitus type 2. SURGICAL HISTORY : Colectomy. ENCOUNTER: Subsequent ACUITY: 1 day PAIN SCORE: 0/10 LOCATION: Bilateral flank MEASUREMENTS: RIGHT KIDNEY: 9.7 x 5.0 x 5.0 cm LEFT KIDNEY: 13.1 x 5.5 x 4.4 cm FINDINGS: RIGHT KIDNEY: Ultrasound confirms presence of multiple cortical and parapelvic cysts. In addition, there is a 3.1 x 2.8 x 2.2 cm lesion in the posterior lower pole of the right kidney which cannot be characterized as a simple cyst. This does show central vascularity. Findings are concerning for a neoplastic process. No stones. Pelvocaliectasis identified on the prior CT appears to have resolved. 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 Prior hydronephrosis appears to have resolved. BLADDER: Now decompressed with a Gann catheter. Hypoechoic area posterior to the urinary bladder may represen t the prostate. CONCLUSION: 1. 3.1 x 2.8 x 2.2 cm solid appearing lesion off the posterior mid to lower pole cortex of the right kidney shows internal vascularity and is concerning for a neoplastic process. 2. Otherwise, multiple bilateral renal cortical cysts, right greater than left. 3. On the prior CT, there was some pelvocaliectasis of the collecting systems bilaterally. This has r esolved, possibly secondary to interval decompression of the previously distended urinary bladder. 4. Hypoechoic area posterior to the urinary bladder may represent the prostate. Blayne Cha MD on July 13, 2017 at 12:20 Board Certified Radiologist. This report was verified electronically.
--- NOTE | 2017-07-13 15:42 | MB ---
cc: Grover Roberts DO DATE: 07/13/2017 HISTORY OF PRESENT ILLNESS: Mr. Lee is a pleasant 82-year-old male who presents with acute renal failure with bladder outlet obstruction. CT scan was performed in the emergency room, demonstrating bilateral hydroureteronephrosis with a marked distended bladder. A Gann catheter was put in to decompress the bladder. His creatinine on admission was up to 7.3 and today, it is 5.30. He does note a weak stream, which has been going on over quite some time, but states he only gets up 1 or 2 times at night. There is no family history of prostate cancer. ALLERGIES TO MEDICATIONS: . PAST MEDICAL HISTORY: Includes hypertension, borderline diabetes, tobacco usage and daily alcohol usage. PAST SURGICAL HISTORY: Noted for colon resection for diverticulitis, perirectal abscess drainage, pyloroplasty with vagotomy, tonsillectomy. MEDICATIONS: Please refer to the chart. FAMILY HISTORY: Denies any history of prostate cancer, although it is noted for CVA in the past and hypertension. SOCIAL HISTORY: Smokes 2/3 packs of cigarettes daily and drinks 1 alcoholic drink per day. Denies any drug use. REVIEW OF SYSTEMS: Denies chest pain, shortness of breath. Denies abdominal pain. Denies gait disturbances, bleeding disorders, psychiatric problems. The remaining review of systems were reviewed and were negative. PHYSICAL EXAMINATION: VITAL SIGNS: Presently, temperature 97.8, heart rate 57, respiratory rate 16, 95/54 blood pressure, 96% on room air. GENERAL: He is a well-developed, well-nourished, 82-year-old male in no acute distress. HEENT: Normocephalic, atraumatic. Pupils equal, round, regular, reactive to light. Extraocular movements intact. NECK: Supple. HEART: Regular rate and rhythm. LUNGS: Clear. ABDOMEN: Soft, nontender, nondistended. GENITOURINARY: Circumcised phallus. Testes are descended. Prostate is approximately 80 grams on exam. Gann catheter is in place. EXTREMITIES: Show no cyanosis, clubbing, or edema. NEUROLOGIC: Cranial nerves 2-12 are intact. LABORATORY DATA: White count 8.7, hemoglobin 13.7, hematocrit 39.6, platelet count of 167. Sodium 136, potassium 4.4, chloride 100, CO2 of 23.9, BUN of 12, creatinine is 5.3 today, down from 7.30. Glucose is 73. Urinalysis was negative. PT 9.9, INR 1.0, PTT 25.0. Initially, an abdominal CT scan without contrast showed markedly distended urinary bladder with bilateral hydroureteronephrosis and a 2.2 cm exophytic intermediate density protruding from the midpole of the right kidney. Followup renal ultrasound showed resolution of the hydronephrosis; however, there is a 2 x 3 cm exophytic renal mass involving the right lower pole of the kidney with increased vascularity concerning for a solid mass. ASSESSMENT: An 82-year-old male admitted with acute renal failure due to bladder outlet obstruction with urinary retention and findings of a 2 x 3 cm solid right renal mass on ultrasound with resolution of the hydroureteronephrosis. PLAN: Maintain the Gann catheter now and continue drainage for the next few weeks to allow the creatinine to baseline. The patient will need to follow up in the office to undergo a cystoscopy and possibly a transurethral resection of the prostate in the future. He is currently on Flomax, which has not been helpful in the past. Acute renal failure should resolve with bladder drainage. Would recommend possible a renal biopsy in the future after his creatinine has baselined. Would not do it in the acute setting in renal failure. May be amenable to cryoablation in the future, but this will be after his renal failure has resolved. Thank you for the consult and allowing me to participate in the care of this patient. DO GABRIELA Gifford/ABRAN , 03:22 PM , 03:41 PM
[2017-07-13 16:44] LABS: HEMOGLOBIN A1C 5.8 % (4.3-6.0)
[2017-07-13] MEDS: TAMSULOSIN HCL 0.4 MG CAP PO SCH (20:49)
[2017-07-14] VITALS (8 sets, daily range): BP systolic 82–112; BP diastolic 51–62; PULSE 46–80; RESP 20; TEMP 96–98.2; O2SAT 95–98
--- NOTE | 2017-07-14 08:34 | HHI.PR ---
Subjective Remarks Follow-up acute renal failure secondary to urinary obstruction and electrolyte imbalance. Patient seen and examined, lying in bed comfortably. Is eating well. Awaiting labs this morning. Creatinine improving. Urology has seen patient with recommendations to continue Gann catheter and follow-up in outpatient setting. Wound care recommendations appreciated. Wound care actually growing gram-negative rods. Will have to wait for wound culture before discharge. Objective Vitals Vital Signs Date Time Temp Pulse Resp B/P (MAP) Pulse Ox O2 Delivery O2 Flow Rate FiO2 07/14/17 04:00 96.0 80 20 82/53 (63) 95 07/14/17 00:00 96.4 79 20 109/57 (74) 96 07/13/17 20:49 94 21 07/13/17 20:11 52 07/13/17 20:00 98.0 64 20 89/54 (66) 96 07/13/17 16:00 96.6 51 20 113/62 (79) 95 07/13/17 12:49 97.8 57 16 95/54 (68) 96 I/O 07/13/17 07/13/17 07/13/17 07/14/17 07/14/17 07/14/17 07:00 15:00 23:00 07:00 15:00 23:00 Intake Total 1362 ml 200 ml 480 ml Output Total 1000 ml 1000 ml 1100 ml Balance 362 ml 200 ml -1000 ml -620 ml Intake Oral 500 ml 480 ml IV Total 862 ml 200 ml Output Urine Total 1000 ml 1000 ml 1100 ml # Bowel Movements 4 2 1 Result Diagram: 07/13/17 0610 07/13/17 0610 Imaging Last Impressions Renal Ultrasound 07/13/17 0000 Signed Impressions: Service Date/Time: Thursday, July 13, 2017 11:32 - CONCLUSION: 1. 3.1 x 2.8 x 2.2 cm solid appearing lesion off the posterior mid to lower pole cortex of the right kidney shows internal vascularity and is concerning for a neoplastic process. 2. Otherwise, multiple bilateral renal cortical cysts, right greater than left. 3. On the prior CT, there was some pelvocaliectasis of the collecting systems bilaterally. This has resolved, possibly secondary to interval decompression of the previously distended urinary bladder. 4. Hypoechoic area posterior to the urinary bladder may represent the prostate. Blayne Cha MD Abdomen/Pelvis CT 4/5/18 [id number] Signed Impressions: Service Date/Time: July 16:36 - CONCLUSION: 1. Markedly distended urinary bladder and bilateral hydronephrosis/hydroureter. Differential considerations include neurogenic bladder and bladder outlet obstruction. 2. 2 cm exophytic intermediate density lesion protruding from the midpole of the right kidney. Differential considerations include a solid tumor and complicated cysts. 3. Small calcified gallstone. 4. Small fat containing left inguinal hernia. Armando Luo MD Objective Remarks GENERAL: Well-developed, well-nourished patient in NAD. SKIN: Warm and dry. No rash. Sacral wound with optic foam in place. Appears to be a DTI with some sloughing, minimal drainage and scattered erythema. HEAD: Normocephalic. Atraumatic. EYES: Pupils equal and round. No scleral icterus. No injection or drainage. ENT: No nasal bleeding or discharge. Mucous membranes pink and moist. NECK: Supple. Trachea midline. CARDIOVASCULAR: Regular rate and rhythm. S1, S2 noted. No murmur appreciated. RESPIRATORY: No accessory muscle use. Clear to auscultation. Breath sounds equal bilaterally. GASTROINTESTINAL: Abdomen soft, non-tender, nondistended. Normoactive bowel sounds x4. MUSCULOSKELETAL: No obvious deformities. Extremities without clubbing, cyanosis , or edema. NEUROLOGICAL: Awake and alert. No obvious cranial nerve deficits. Motor grossly within normal limits. 5/5 muscle strength in bilateral upper and lower extremities. Normal speech. PSYCHIATRIC: Appropriate mood and affect; insight and judgment normal. A/P Problem List: (1) Urinary (tract) obstruction ICD Code: N13.9 - Obstructive and reflux uropathy, unspecified Status: Acute (2) Hyperkalemia ICD Code: E87.5 - Hyperkalemia Status: Acute (3) Renal failure ICD Code: N19 - Unspecified kidney failure Status: Acute (4) Generalized weakness ICD Code: R53.1 - Weakness Status: Acute (5) Sacral decubitus ulcer, stage III ICD Code: L89.153 - Pressure ulcer of sacral region, stage 3 Status: Acute Assessment and Plan This is a pleasant 82-year-old male patient with a known medical history of hypertension and borderline diabetes who presented to the ED with complaints of abdominal disc distention and pain 10 days. Patient also admits that he has been generally weak for the past few weeks. Acute kidney injury with associated hyperkalemia suspect secondary to bladder outlet obstruction with urinary retention Hyperkalemia suspect secondary to above - Creatinine on presentation 7.3, GFR 7, BUN 119, sodium 131, potassium 5.8, calcium 12.1. - Patient denies any history of kidney disease or urinary retention in the past. - Creatinine is trending down. Nephrology consulted, appreciate input/ recommendations. Urology has seen patient with recommendations to continue Gann catheter and follow-up in office. - Abdominal/pelvis CT reviewed showing markedly distended urinary bladder and bilateral hydronephrosis/hydroureter. 2 cm exophytic intermediate density lesion protruding from the midpole of the right kidney. - Status post IV insulin, IV dextrose and Kayexalate for hyperkalemia. Hyperkalemia resolved. Continue to monitor BMP. - UA negative. - We will continue Flomax. - Avoid nephrotoxins. Will hydrate with IV fluid. - Monitor intake and output closely. - Continue telemetry. patient does state he has history of asymptomatic bradycardia, will monitor closely. No events overnight. - Arrhythmia/10 beat run of V. tach noted on telemetry yesterday., patient has been asymptomatic, suspect secondary to electrolyte imbalance. We will continue to monitor. - Supportive care. Leukocytosis, mild: Improved. White blood cell 11.1. Down to 8000 today. UA negative. Wound culture ordered for sacral wound, could be secondary to wound. Growing gram-negative rods. Continue to monitor for infection. Afebrile at this time. Will place on Augmentin. Await JADIEL and sensitivity. Hypertension, chronic: Continue home Lopressor, decrease dose due to bradycardia. Will hold lisinopril due to kidney injury. Avoid nephrotoxins. Monitor BP trends. Tobaccoism: Encouraged cessation. Offered nicotine patch. Sacral decubitus ulcer, stage III - Present on presentation, states he has had this for many months. Culture growing gram-negative rods. Monitor CBC for infection. Monitor for fever. - Case management consulted for discharge plans, likely rehab placement. - PT eval ordered, appreciate input recommendations. DVT prophylaxis: SCDs. Heparin. Discharge Planning Awaiting wound culture growth, will discharge once sensitivity available. Problem Qualifiers (1) Renal failure: Qualified Codes: N17.9 - Acute kidney failure, unspecified Kike,Paulina CALCINER OPERATOR HELPER Jul 14, 2017 08:34
[2017-07-14] MEDS: DOCUSATE SODIUM 50 MG/SENNA 8.6 MG TAB PO SCH ×2 (09:01→21:00)
[2017-07-14] MEDS: MULTIVITAMIN TAB PO SCH (09:01)
[2017-07-14] MEDS: METOPROLOL TARTRATE 25 MG TAB PO SCH ×2 (09:01→21:00)
[2017-07-14] MEDS: HEPARIN SODIUM - SQ 10,000 UNITS/ML VIAL SQ SCH ×2 (09:02→21:00)
[2017-07-14] MEDS: FUROSEMIDE 20 MG/2 ML VIAL IV PUSH SCH (09:03)
[2017-07-14] MEDS: SODIUM CHLORIDE 0.9% FLUSH 10 ML FLUSH IV FLUSH SCH ×2 (09:03→21:00)
--- NOTE | 2017-07-14 11:05 | HHI.DS ---
Discharge Summary Admission Date Jul 13, 2017 at 10:19 Discharge Date: Jul 14, 2017 Admitting Diagnosis ARF; Urinary Obstruction; Sacral Wound; HyperK; AFib (1) Urinary (tract) obstruction ICD Code: N13.9 - Obstructive and reflux uropathy, unspecified Status: Acute (2) Hyperkalemia ICD Code: E87.5 - Hyperkalemia Status: Acute (3) Renal failure ICD Code: N19 - Unspecified kidney failure Status: Acute (4) Generalized weakness ICD Code: R53.1 - Weakness Status: Acute (5) Sacral decubitus ulcer, stage III ICD Code: L89.153 - Pressure ulcer of sacral region, stage 3 Status: Acute Procedures See below. Brief History - From Admission This is a pleasant 82-year-old male patient with a known medical history of hypertension and borderline diabetes who presented to the ED with complaints of abdominal disc distention and pain 10 days. Patient also admits that he has been generally weak for the past few weeks. He states that his appetite has been poor and he has been unable to tolerate anything by mouth for the last couple weeks due to nausea and vomiting. He does live at home alone, is visited by his significant other frequently. Patient denies any recent fever, chills, cough, headache, sore throat, diarrhea or dysuria. Patient last saw his PCP in November with no changes in medications. Patient does not follow with grocery department manager or urologist. Municipal Services Manager is Dr. Beach. He does state he has asymptomatic bradycardia. Denies any history of kidney disease or distention. He states that his last PSA was drawn roughly 5 years ago and was reportedly negative. He does admit to daily tobacco use. Creatinine on presentation 7.3, GFR 7, BUN 119, sodium 131, potassium 5.8, calcium 12.1. UA pending. Abdomen/pelvis CT showing distended urinary bladder and bilateral hydronephrosis hydroureter likely secondary to bladder outlet obstruction/ retention. Patient does state that he has been prescribed Lasix as needed for lower extremity swelling as well as supplemental potassium. Patient states that he has not been taking his Lasix really at all but has continued his daily potassium supplementation. CBC/BMP: 07/13/17 0610 07/13/17 0610 Significant Findings Laboratory Tests Test 07/12/17 15:40 07/12/17 17:15 07/12/17 20:28 07/13/17 06:10 White Blood Count 11.1 TH/MM3 (4.0-11.0) Red Blood Count 4.29 MIL/MM3 (4.50-5.90) 3.83 MIL/MM3 (4.50-5.90) Mean Corpuscular Volume 103.2 FL (80.0-100.0) 103.6 FL (80.0-100.0) Mean Corpuscular Hemoglobin 34.5 PG (27.0-34.0) 35.8 PG (27.0-34.0) Neutrophils (%) (Auto) 85.5 % (16.0-70.0) 73.8 % (16.0-70.0) Lymphocytes (%) (Auto) 7.7 % (9.0-44.0) Neutrophils # (Auto) 9.4 TH/MM3 (1.8-7.7) Lymphocytes # (Auto) 0.9 TH/MM3 (1.0-4.8) Blood Urea Nitrogen 119 MG/DL (7-18) 120 MG/DL (7-18) 106 MG/DL (7-18) Creatinine 7.30 MG/DL (0.60-1.30) 6.80 MG/DL (0.60-1.30) 5.30 MG/DL (0.60-1.30) Random Glucose 126 MG/DL (74-106) 177 MG/DL (74-106) 73 MG/DL (74-106) Albumin 3.1 GM/DL (3.4-5.0) Calcium Level 12.1 MG/DL (8.5-10.1) 11.7 MG/DL (8.5-10.1) 10.6 MG/DL (8.5-10.1) Aspartate Amino Transf (AST/SGOT) 12 U/L (15-37) Sodium Level 131 MEQ/L (136-145) 132 MEQ/L (136-145) Potassium Level 5.8 MEQ/L (3.5-5.1) Chloride Level 94 MEQ/L (98-107) Estimat Glomerular Filtration Rate 7 ML/MIN (>89) 8 ML/MIN (>89) 10 ML/MIN (>89) Protein Corrected Calcium 12.3 MG/DL (8.5-10.1) Ammonia LESS THAN 10 MCMOL/L Lipase 54 U/L (73-393) Urine Occult Blood LARGE (NEG) Urine Leukocyte Esterase TRACE (NEG) Urine RBC 10-14 /hpf (0-3) Total Protein 6.0 GM/DL (6.4-8.2) Monocytes (%) (Auto) 10.5 % (0.0-8.0) Imaging Last Impressions Renal Ultrasound 07/13/17 0000 Signed Impressions: Service Date/Time: Thursday, July 13, 2017 11:32 - CONCLUSION: 1. 3.1 x 2.8 x 2.2 cm solid appearing lesion off the posterior mid to lower pole cortex of the right kidney shows internal vascularity and is concerning for a neoplastic process. 2. Otherwise, multiple bilateral renal cortical cysts, right greater than left. 3. On the prior CT, there was some pelvocaliectasis of the collecting systems bilaterally. This has resolved, possibly secondary to interval decompression of the previously distended urinary bladder. 4. Hypoechoic area posterior to the urinary bladder may represent the prostate. Blayne Cha MD Abdomen/Pelvis CT 07/12/17 1630 Signed Impressions: Service Date/Time: July 16:36 - CONCLUSION: 1. Markedly distended urinary bladder and bilateral hydronephrosis/hydroureter. Differential considerations include neurogenic bladder and bladder outlet obstruction. 2. 2 cm exophytic intermediate density lesion protruding from the midpole of the right kidney. Differential considerations include a solid tumor and complicated cysts. 3. Small calcified gallstone. 4. Small fat containing left inguinal hernia. Armando Luo MD PE at Discharge GENERAL: Well-developed, well-nourished patient in NAD. SKIN: Warm and dry. No rash. Sacral wound with optic foam in place. Appears to be a DTI with some sloughing, minimal drainage and scattered erythema. HEAD: Normocephalic. Atraumatic. EYES: Pupils equal and round. No scleral icterus. No injection or drainage. ENT: No nasal bleeding or discharge. Mucous membranes pink and moist. NECK: Supple. Trachea midline. CARDIOVASCULAR: Regular rate and rhythm. S1, S2 noted. No murmur appreciated. RESPIRATORY: No accessory muscle use. Clear to auscultation. Breath sounds equal bilaterally. GASTROINTESTINAL: Abdomen soft, non-tender, nondistended. Normoactive bowel sounds x4. MUSCULOSKELETAL: No obvious deformities. Extremities without clubbing, cyanosis , or edema. NEUROLOGICAL: Awake and alert. No obvious cranial nerve deficits. Motor grossly within normal limits. 5/5 muscle strength in bilateral upper and lower extremities. Normal speech. PSYCHIATRIC: Appropriate mood and affect; insight and judgment normal. Hospital Course This is a pleasant 82-year-old male patient with a known medical history of hypertension and borderline diabetes who presented to the ED with complaints of abdominal disc distention and pain 10 days. Patient also admits that he has been generally weak for the past few weeks. Patient presented with acute kidney injury with associated hyperkalemia suspect secondary to bladder outlet obstruction with urinary retention as well as hyperkalemia. Creatinine on presentation 7.3, GFR 7, BUN 119, sodium 131, potassium 5.8, calcium 12.1. Patient does not have history of kidney disease or urinary retention in the past. Urology has seen patient in the hospital, continue Gann catheter follow- up in office in a few weeks upon discharge. Abdominal/pelvis CT showing markedly distended urinary bladder and bilateral hydronephrosis/hydroureter. 2 cm exophytic intermediate density lesion protruding from the midpole of the right kidney. Patient was given IV insulin, IV dextrose and Kayexalate for hyperkalemia. Hyperkalemia resolved upon discharge. UA was negative upon presentation. Continued on Flomax, voided nephrotoxins and monitor intake and output closely. Patient does have a history of asymptomatic bradycardia, some arrhythmia noted during hospitalization, suspect secondary to electrolyte imbalance. Monitored on cardiac telemetry throughout hospitalization with no further episodes. Patient also presented with a sacral decubitus ulcer, wound culture growing group D enterococcus. Wound care consulted during hospitalization. Specialty bed ordered. PT evaluation during hospitalization. Pt Condition on Discharge: Stable Discharge Disposition: Discharge to SNF Discharge Time: > 30 minutes Discharge Instructions DIET: Follow Instructions for: Heart Healthy Diet Speech Therapy-Diet Recommends: Regular Activities you can perform: Regular-No Restrictions Follow up Referrals: PCP Follow-up - 1 Week Urology - 1 Week New Medications: Metoprolol Tartrate (Metoprolol Tartrate) 25 Mg Tab 12.5 MG PO BID for 30 for 30 Days, #30 TAB 0 Refills Potassium Chloride ER (Potassium Chloride ER) 10 Meq Cap 10 MEQ PO DAILY for Electrolyte Replacement for 30 Days, #30 CAP 0 Refills Continued Medications: Furosemide (Furosemide) 20 Mg Tab 20 MG PO DAILY, #30 TAB 0 Refills Multiple Vitamin (Multiple Vitamin) 1 Tab 1 TAB PO DAILY for Nutritional Supplement, TAB 0 Refills Tamsulosin (Tamsulosin) 0.4 Mg Cap 0.8 MG PO HS for Manage Prostate Problems, #60 CAP 0 Refills Discontinued Medications: Lisinopril (Lisinopril) 40 Mg Tab 40 MG PO DAILY for Blood Pressure Management, #30 TAB 0 Refills Metoprolol Tartrate (Metoprolol Tartrate) 25 Mg Tab 25 MG PO BID, #60 TAB 0 Refills Potassium Chloride ER (Potassium Chloride ER) 10 Meq Cap 10 MEQ PO BID for Electrolyte Replacement, #60 CAP 0 Refills Spironolactone (Spironolactone) 25 Mg Tab 25 MG PO DAILY, #30 TAB 0 Refills Paulina Stokes Jul 14, 2017 11:05
[2017-07-14] MEDS ORDERED: POTA10CA PO (11:07)
[2017-07-14] MEDS ORDERED: METO25TA3 PO (11:07)
[2017-07-14 11:34] LABS: AUTOMATED NEUTROPHIL # 6.3 TH/MM3 (1.8-7.7); BASOPHIL # 0.1 TH/MM3 (0-0.2); BASOPHIL % 1.4 % (0.0-2.0); EOSINOPHIL # 0.3 TH/MM3 (0-0.4); EOSINOPHIL % 3.1 % (0.0-4.0); HEMATOCRIT 41.3 % (39.0-51.0); HEMOGLOBIN 13.6 GM/DL (13.0-17.0); LYMPH % 14.3 % (9.0-44.0); LYMPHOCYTE # 1.2 TH/MM3 (1.0-4.8); MEAN CELL VOLUME 103.3 FL (80.0-100.0); MEAN CORPUSCULAR HEMOGLOBIN 34.1 PG (27.0-34.0); MEAN PLATELET VOLUME 8.3 FL (7.0-11.0); MONO % 9.2 % (0.0-8.0); MONOCYTE # 0.8 TH/MM3 (0-0.9); PLATELET COUNT 186 TH/MM3 (150-450); RED CELL DISTRIBUTION WIDTH 11.7 % (11.6-17.2); WHITE BLOOD COUNT 8.7 TH/MM3 (4.0-11.0)
[2017-07-14 12:12] LABS: CALCIUM 9.2 MG/DL (8.5-10.1); CREATININE 3.4 MG/DL (0.60-1.30)
[2017-07-14] MEDS: AMOXICILLIN/CLAVULANATE K 875 MG TAB PO SCH ×2 (12:56→21:00)
[2017-07-14] MEDS: TAMSULOSIN HCL 0.4 MG CAP PO SCH (21:00)
[2017-07-15] VITALS (7 sets, daily range): BP systolic 95–175; BP diastolic 52–84; PULSE 51–68; RESP 16–20; TEMP 97–98.5; O2SAT 93–99
[2017-07-15] MEDS: SODIUM CHLORIDE 0.9% FLUSH 10 ML FLUSH IV FLUSH SCH ×2 (08:38→21:14)
[2017-07-15] MEDS: AMOXICILLIN/CLAVULANATE K 875 MG TAB PO SCH ×2 (08:38→21:15)
[2017-07-15] MEDS: HEPARIN SODIUM - SQ 10,000 UNITS/ML VIAL SQ SCH ×2 (08:38→21:17)
[2017-07-15] MEDS: MULTIVITAMIN TAB PO SCH (08:39)
[2017-07-15] MEDS: FUROSEMIDE 20 MG TAB PO SCH (08:39)
[2017-07-15] MEDS: DOCUSATE SODIUM 50 MG/SENNA 8.6 MG TAB PO SCH ×2 (08:39→21:15)
[2017-07-15] MEDS: METOPROLOL TARTRATE 25 MG TAB PO SCH ×2 (09:00→21:15)
--- NOTE | 2017-07-15 10:09 | HHI.PR ---
Subjective Remarks Follow-up acute renal failure secondary to urinary obstruction and electrolyte imbalance. Patient seen and examined, lying in bed comfortably, nursing at bedside. Eating well with no complaints of abdominal pain, nausea or vomiting. VSS and afebrile overnight. Wound growing group D enterococcus, awaiting JADIEL and sensitivity. Creatinine improving. Urinating well. Objective Vitals Vital Signs Date Time Temp Pulse Resp B/P (MAP) Pulse Ox O2 Delivery O2 Flow Rate FiO2 07/15/17 07:50 97.0 52 20 107/63 (78) 94 07/15/17 04:00 97.4 54 20 107/56 (73) 96 07/15/17 00:00 97.5 68 20 95/54 (68) 95 07/14/17 20:00 97.7 54 20 112/57 (75) 98 07/14/17 17:49 66 07/14/17 15:50 98.2 69 20 99/62 (74) 96 07/14/17 11:50 97.0 54 20 85/51 (62) 97 I/O 07/14/17 07/14/17 07/14/17 07/15/17 07/15/17 07/15/17 07:00 15:00 23:00 07:00 15:00 23:00 Intake Total 480 ml 900 ml 720 ml Output Total 1100 ml 800 ml 650 ml Balance -620 ml 100 ml 70 ml Intake Oral 480 ml 900 ml 720 ml Output Urine Total 1100 ml 800 ml 650 ml # Bowel Movements 1 1 1 Result Diagram: 07/14/17 1120 07/14/17 1120 Imaging Last Impressions Renal Ultrasound 07/13/17 0000 Signed Impressions: Service Date/Time: Thursday, July 13, 2017 11:32 - CONCLUSION: 1. 3.1 x 2.8 x 2.2 cm solid appearing lesion off the posterior mid to lower pole cortex of the right kidney shows internal vascularity and is concerning for a neoplastic process. 2. Otherwise, multiple bilateral renal cortical cysts, right greater than left. 3. On the prior CT, there was some pelvocaliectasis of the collecting systems bilaterally. This has resolved, possibly secondary to interval decompression of the previously distended urinary bladder. 4. Hypoechoic area posterior to the urinary bladder may represent the prostate. Blayne Cha MD Abdomen/Pelvis CT 07/12/17 1630 Signed Impressions: Service Date/Time: July 16:36 - CONCLUSION: 1. Markedly distended urinary bladder and bilateral hydronephrosis/hydroureter. Differential considerations include neurogenic bladder and bladder outlet obstruction. 2. 2 cm exophytic intermediate density lesion protruding from the midpole of the right kidney. Differential considerations include a solid tumor and complicated cysts. 3. Small calcified gallstone. 4. Small fat containing left inguinal hernia. Armando Luo MD Objective Remarks GENERAL: Well-developed, well-nourished patient in NAD. SKIN: Warm and dry. No rash. Sacral wound. Appears to be a DTI with some sloughing, minimal drainage and scattered erythema. HEAD: Normocephalic. Atraumatic. EYES: Pupils equal and round. No scleral icterus. No injection or drainage. ENT: No nasal bleeding or discharge. Mucous membranes pink and moist. NECK: Supple. Trachea midline. CARDIOVASCULAR: Regular rate and rhythm. S1, S2 noted. No murmur appreciated. RESPIRATORY: No accessory muscle use. Clear to auscultation. Breath sounds equal bilaterally. GASTROINTESTINAL: Abdomen soft, non-tender, nondistended. Normoactive bowel sounds x4. MUSCULOSKELETAL: No obvious deformities. Extremities without clubbing, cyanosis , or edema. NEUROLOGICAL: Awake and alert. No obvious cranial nerve deficits. Motor grossly within normal limits. 5/5 muscle strength in bilateral upper and lower extremities. Normal speech. PSYCHIATRIC: Appropriate mood and affect; insight and judgment normal. A/P Problem List: (1) Urinary (tract) obstruction ICD Code: N13.9 - Obstructive and reflux uropathy, unspecified Status: Acute (2) Hyperkalemia ICD Code: E87.5 - Hyperkalemia Status: Acute (3) Renal failure ICD Code: N19 - Unspecified kidney failure Status: Acute (4) Generalized weakness ICD Code: R53.1 - Weakness Status: Acute Assessment and Plan This is a pleasant 82-year-old male patient with a known medical history of hypertension and borderline diabetes who presented to the ED with complaints of abdominal disc distention and pain 10 days. Patient also admits that he has been generally weak for the past few weeks. Acute kidney injury with associated hyperkalemia suspect secondary to bladder outlet obstruction with urinary retention Hyperkalemia suspect secondary to above - Creatinine on presentation 7.3, GFR 7, BUN 119, sodium 131, potassium 5.8, calcium 12.1. - Patient denies any history of kidney disease or urinary retention in the past. - Creatinine is trending down. Nephrology consulted, appreciate input/ recommendations. Urology has seen patient with recommendations to continue Gann catheter and follow-up in office. - Abdominal/pelvis CT reviewed showing markedly distended urinary bladder and bilateral hydronephrosis/hydroureter. 2 cm exophytic intermediate density lesion protruding from the midpole of the right kidney. - Status post IV insulin, IV dextrose and Kayexalate for hyperkalemia. Hyperkalemia resolved. Continue to monitor BMP. Stable. - UA negative. - Will continue Flomax. - Avoid nephrotoxins. - Monitor intake and output closely. - Continue telemetry. Patient does state he has history of asymptomatic bradycardia, will monitor closely. No events overnight. - Arrhythmia/10 beat run of V. tach noted on telemetry early on during hospitalization, patient has been asymptomatic, suspect secondary to electrolyte imbalance. We will continue to monitor. No further episodes. - Supportive care. Leukocytosis, mild: Improved. White blood cell 11.1, improved. UA negative. Wound culture ordered for sacral wound, could be secondary to wound. Growing group D enterococcus. Continue to monitor for infection. Afebrile at this time. On Augmentin. Await JADIEL and sensitivity. Hypertension, chronic: Continue home Lopressor, decrease dose due to bradycardia. Will hold lisinopril due to kidney injury. Avoid nephrotoxins. Monitor BP trends. Tobaccoism: Encouraged cessation. Offered nicotine patch. Sacral decubitus ulcer, deep tendon injury - Present on presentation, states he has had this for many months. Group D enterococcus. Wound care nurse has seen patient with recommendations. - Specialty bed. - Case management consulted for discharge plans, likely rehab placement. - PT eval ordered, appreciate input recommendations. DVT prophylaxis: SCDs. Heparin. Discharge Planning Awaiting wound culture sensitivity. When available, plans to DC to rehab. CM assisting. Problem Qualifiers (1) Renal failure: Qualified Codes: N17.9 - Acute kidney failure, unspecified KikeMarybelPaulinamoshe MEDRANO Jul 15, 2017 10:09
[2017-07-15] MEDS: TAMSULOSIN HCL 0.4 MG CAP PO SCH (21:16)
[2017-07-16] VITALS: BP 121/63; PULSE 90; RESP 16; TEMP 98.3; O2SAT 93
[2017-07-16 04:00] VITALS: BP 99/55; PULSE 55; RESP 16; TEMP 97.7; O2SAT 95
[2017-07-16 08:39] LABS: CALCIUM 8.7 MG/DL (8.5-10.1)
[2017-07-16 08:40] LABS: BICARBONATE 26.7 MEQ/L (21.0-32.0)
[2017-07-16 08:43] LABS: CREATININE 2.4 MG/DL (0.60-1.30)
[2017-07-16 09:30] VITALS: BP 100/60
[2017-07-16] MEDS: METOPROLOL TARTRATE 25 MG TAB PO SCH ×2 (09:35→21:46)
[2017-07-16] MEDS: AMOXICILLIN/CLAVULANATE K 875 MG TAB PO SCH ×2 (09:50→21:45)
[2017-07-16] MEDS: HEPARIN SODIUM - SQ 10,000 UNITS/ML VIAL SQ SCH ×2 (09:53→21:48)
[2017-07-16] MEDS: FUROSEMIDE 20 MG TAB PO SCH (09:53)
[2017-07-16] MEDS: MULTIVITAMIN TAB PO SCH (09:53)
[2017-07-16] MEDS: DOCUSATE SODIUM 50 MG/SENNA 8.6 MG TAB PO SCH ×3 (09:53→21:46)
[2017-07-16] MEDS: SODIUM CHLORIDE 0.9% FLUSH 10 ML FLUSH IV FLUSH SCH ×2 (09:54→21:00)
[2017-07-16 13:01] VITALS: BP 94/60; PULSE 55; RESP 16; TEMP 98; O2SAT 96
[2017-07-16 17:31] VITALS: BP 115/71; PULSE 53; RESP 16; TEMP 97.7; O2SAT 97
--- NOTE | 2017-07-16 18:59 | HHI.PR ---
Subjective Remarks Patient seen and examined today for follow-up on urinary obstruction, renal failure, sacral wound. Patient is lying in bed comfortable. Denies any new complaints. Was awaiting culture for final disposition and possible discharge. However, nursing staff indicated that on telemetry patient was found to have ventricular tachycardia of 30+ beats. Previous documentation also indicates that the patient had a nonsustained V. tach of 10 beats. Review of telemetry indicates change in rhythm whether ventricular or atrial fibrillation unknown at this time. I contacted patient's mixer whipped topping, who indicated that she would be happy to come see him for evaluation. Patient is asymptomatic denies any lightheadedness, dizziness, chest pain Objective Vitals Vital Signs Date Time Temp Pulse Resp B/P (MAP) Pulse Ox O2 Delivery O2 Flow Rate FiO2 07/16/17 17:31 97.7 53 16 115/71 (86) 97 07/16/17 13:01 98.0 55 16 94/60 (71) 96 07/16/17 09:30 100/60 (73) 07/16/17 04:00 97.7 55 16 99/55 (70) 95 07/16/17 00:00 98.3 90 16 121/63 (82) 93 07/15/17 20:00 53 07/15/17 20:00 97.8 63 16 101/52 (68) 99 I/O 07/15/17 07/15/17 07/15/17 07/16/17 07/16/17 07/16/17 07:00 15:00 23:00 07:00 15:00 23:00 Intake Total 720 ml 1080 ml 700 ml Output Total 650 ml 800 ml 800 ml 300 ml Balance 70 ml 280 ml -800 ml 400 ml Intake Oral 720 ml 1080 ml 700 ml Output Urine Total 650 ml 800 ml 800 ml 300 ml # Bowel Movements 1 1 1 Result Diagram: 07/14/17 1120 07/16/17 0755 Imaging Last Impressions Renal Ultrasound 07/13/17 0000 Signed Impressions: Service Date/Time: Thursday, July 13, 2017 11:32 - CONCLUSION: 1. 3.1 x 2.8 x 2.2 cm solid appearing lesion off the posterior mid to lower pole cortex of the right kidney shows internal vascularity and is concerning for a neoplastic process. 2. Otherwise, multiple bilateral renal cortical cysts, right greater than left. 3. On the prior CT, there was some pelvocaliectasis of the collecting systems bilaterally. This has resolved, possibly secondary to interval decompression of the previously distended urinary bladder. 4. Hypoechoic area posterior to the urinary bladder may represent the prostate. Blayne Cha MD Abdomen/Pelvis CT 07/12/17 1630 Signed Impressions: Service Date/Time: July 16:36 - CONCLUSION: 1. Markedly distended urinary bladder and bilateral hydronephrosis/hydroureter. Differential considerations include neurogenic bladder and bladder outlet obstruction. 2. 2 cm exophytic intermediate density lesion protruding from the midpole of the right kidney. Differential considerations include a solid tumor and complicated cysts. 3. Small calcified gallstone. 4. Small fat containing left inguinal hernia. Armando Luo MD Objective Remarks GENERAL: Well-developed, well-nourished, in no acute distress. alert and orientated HEENT: Head is normocephalic without any lesions or masses noted. Facial features are symmetric. Eyes: Extraocular muscles are intact. Conjunctivae were clear. NECK: Supple without any masses. Trachea midline no deviation. No JVD, CARDIAC: Regular rhythm, regular rate. S1/S2 are heard. No murmurs gallops or rubs. LUNGS: Clear to auscultation bilaterally. No wheeze, rhonchi or rales. No use of accessory muscles on inspiration or expiration. ABDOMEN: Soft, nontender. Nondistended. Bowel sounds heard in all 4 quadrants. No organomegaly or masses. Negative rebound, negative guarding EXTREMITIES: No edema, pulses are equal bilaterally. No cyanosis or clubbing NEUROLOGY: Mood and affect appear appropriate. Cranial nerves II through XII grossly intact. Moving all extremities, speech is clear Procedures See below. Urinary Catheter: Yes Assessment to: Continue Gann insert reason: Obstruction/Retention Vascular Central Line Catheter: No A/P Assessment and Plan Acute renal failure with hyperkalemia secondary bladder outlet obstruction, improving CT scan was performed which did show a markedly distended urinary bladder with bilateral hydronephrosis/hydroureter Status post insulin, D50, Kayexalate for the hyperkalemia Nephrology consulted Urology consulted and following patient acute kidney injury with associated hyperkalemia suspect secondary to bladder outlet obstruction with urinary retention Gann inserted and recommended continue Gann management upon discharge Continue Flomax Discussed with urologist who indicated patient will likely require TURP for definitive treatment Arrhythmia with questionable ventricular tachycardia/atrial fibrillation Lamp Stack Developer consulted for recommendations Sacral decubitus ulcer, deep tendon injury Culture was taken which does show Enterococcus faecium Continue Augmentin Wound care nurse consulted for wound management Specially bed Case management consulted for rehab placement Hypertension, chronic: Continued home Lopressor, Lisinopril held due to acute kidney injury Tobaccoism: Encouraged cessation. Offered nicotine patch. DVT prevention Sequential compression devices Subcutaneous heparin Discharge Planning Anticipate discharge planning tomorrow to rehab facility once cleared by cardiology Keon Quiroz Jul 16, 2017 18:59
--- NOTE | 2017-07-16 19:03 | MB ---
cc: Selin Beach MD DATE: 07/16/2017 REASON FOR CONSULTATION: V-tach. HISTORY OF PRESENT ILLNESS: Mr. Lee is an 82-year-old man who does have a history of atrial fibrillation and ventricular tachycardia. He was hospitalized for acute renal failure and urinary obstruction. He has also had decubiti and is on antibiotics for this, currently on Augmentin for this. Cardiology was consulted secondary to concerns of a 10-beat and 30-beat run of ventricular tachycardia. The patient reports that he is asymptomatic from a cardiac perspective and specifically denies any chest pain, shortness of breath or palpitations. ALLERGIES: CITALOPRAM AND CELEXA. CURRENT MEDICATIONS: Per the record. OUTPATIENT MEDICATIONS: 1. Lasix 20 mg daily as needed. 2. Lisinopril 40 mg a day. 3. Metoprolol 25 mg b.i.d. 4. Potassium. 5. Spironolactone 25 mg a day. 6. Flomax. PAST MEDICAL HISTORY: Includes atrial fibrillation. His CHADS-VASc score is 6. The patient has declined anticoagulation secondary to prior GI bleed. He was also offered a Watchman left atrial occluder and ablation and as well declined those. He also has a history of cardiomyopathy, carotid stenosis, CHF, CKD, COPD, mild to moderate coronary artery disease with a recent nuclear stress test in October 2016 that did not show any ischemia. He has a history of diabetes, multiple falls, hypertension, hyperlipidemia, syncope and weakness. SOCIAL HISTORY: The patient does smoke and drink. FAMILY HISTORY: Noncontributory. PHYSICAL EXAMINATION: VITAL SIGNS: 97.7, 53, 16, 115/71. GENERAL: He is a well-appearing man, who is in no apparent distress. NECK: Free from JVD. LUNGS: Bilaterally clear to auscultation. CARDIOVASCULAR: He has a normal S1 and S2. Rhythm is irregularly irregular. ABDOMEN: Soft. EXTREMITIES: Free from edema. DATA: Telemetry was reviewed and shows atrial fibrillation with a preexisting interventricular conduction delay. The patient does appear to have episodes of rapid ventricular rate. I did not appreciate any atrial fibrillation. IMPRESSIONS: 1. Wide complex tachycardia - This is most consistent with atrial fibrillation and rapid ventricular rate. The patient has a history of mild coronary artery disease and a normal stress test in October of 2016. RECOMMENDATIONS: Thus, at this point, I would simply continue his metoprolol. The patient essentially still declines any anticoagulation. We did discuss anticoagulation again and the patient continues to decline any anticoagulation. I will be available on a p.r.n. basis. MD AAMIR Sousa/ABRAN , 06:26 PM , 07:01 PM
[2017-07-16 20:00] VITALS: BP 106/56; PULSE 58; PULSE 66; RESP 20; TEMP 96.1; O2SAT 97
[2017-07-16] MEDS: TAMSULOSIN HCL 0.4 MG CAP PO SCH (21:46)
[2017-07-17] VITALS: BP 123/65; PULSE 63; RESP 18; TEMP 97.1; O2SAT 95
[2017-07-17 04:00] VITALS: BP 90/55; PULSE 78; RESP 18; TEMP 97.1; O2SAT 96
[2017-07-17 08:00] VITALS: BP 96/59; PULSE 72; RESP 14; TEMP 96.4; O2SAT 95
[2017-07-17] MEDS: DOCUSATE SODIUM 50 MG/SENNA 8.6 MG TAB PO SCH (08:45)
[2017-07-17] MEDS: SODIUM CHLORIDE 0.9% FLUSH 10 ML FLUSH IV FLUSH SCH (08:45)
[2017-07-17] MEDS: FUROSEMIDE 20 MG TAB PO SCH (08:48)
[2017-07-17] MEDS: HEPARIN SODIUM - SQ 10,000 UNITS/ML VIAL SQ SCH (08:48)
[2017-07-17] MEDS: AMOXICILLIN/CLAVULANATE K 875 MG TAB PO SCH (08:48)
[2017-07-17] MEDS: MULTIVITAMIN TAB PO SCH (08:48)
[2017-07-17] MEDS: METOPROLOL TARTRATE 25 MG TAB PO SCH (08:49)
[2017-07-17] MEDS ORDERED: AMOX875T2 PO (08:57)
[2017-07-17 12:00] VITALS: BP 82/52; PULSE 90; RESP 14; TEMP 98; O2SAT 99
[2017-07-17 14:40] VITALS: PULSE 68
--- NOTE | 2017-07-17 15:02 | HHI.DS ---
Discharge Summary Admission Date Jul 13, 2017 at 10:19 Discharge Date: Jul 17, 2017 Admitting Diagnosis ARF; Urinary Obstruction; Sacral Wound; HyperK; AFib (1) Urinary (tract) obstruction ICD Code: N13.9 - Obstructive and reflux uropathy, unspecified Status: Acute (2) Hyperkalemia ICD Code: E87.5 - Hyperkalemia Status: Acute (3) Renal failure ICD Code: N19 - Unspecified kidney failure Status: Acute (4) Generalized weakness ICD Code: R53.1 - Weakness Status: Acute Procedures See below. Brief History - From Admission This is a pleasant 82-year-old male patient with a known medical history of hypertension and borderline diabetes who presented to the ED with complaints of abdominal disc distention and pain 10 days. Patient also admits that he has been generally weak for the past few weeks. He states that his appetite has been poor and he has been unable to tolerate anything by mouth for the last couple weeks due to nausea and vomiting. He does live at home alone, is visited by his significant other frequently. Patient denies any recent fever, chills, cough, headache, sore throat, diarrhea or dysuria. Patient last saw his PCP in November with no changes in medications. Patient does not follow with hook loader or urologist. Development Vice President is Dr. Beach. He does state he has asymptomatic bradycardia. Denies any history of kidney disease or distention. He states that his last PSA was drawn roughly 5 years ago and was reportedly negative. He does admit to daily tobacco use. Creatinine on presentation 7.3, GFR 7, BUN 119, sodium 131, potassium 5.8, calcium 12.1. UA pending. Abdomen/pelvis CT showing distended urinary bladder and bilateral hydronephrosis hydroureter likely secondary to bladder outlet obstruction/ retention. Patient does state that he has been prescribed Lasix as needed for lower extremity swelling as well as supplemental potassium. Patient states that he has not been taking his Lasix really at all but has continued his daily potassium supplementation. CBC/BMP: 07/14/17 1120 07/16/17 0755 Significant Findings Laboratory Tests Test 07/16/17 07:55 Blood Urea Nitrogen 82 MG/DL (7-18) Creatinine 2.40 MG/DL (0.60-1.30) Random Glucose 148 MG/DL (74-106) Sodium Level 132 MEQ/L (136-145) Estimat Glomerular Filtration Rate 26 ML/MIN (>89) Imaging Last Impressions Renal Ultrasound 07/13/17 0000 Signed Impressions: Service Date/Time: Thursday, July 13, 2017 11:32 - CONCLUSION: 1. 3.1 x 2.8 x 2.2 cm solid appearing lesion off the posterior mid to lower pole cortex of the right kidney shows internal vascularity and is concerning for a neoplastic process. 2. Otherwise, multiple bilateral renal cortical cysts, right greater than left. 3. On the prior CT, there was some pelvocaliectasis of the collecting systems bilaterally. This has resolved, possibly secondary to interval decompression of the previously distended urinary bladder. 4. Hypoechoic area posterior to the urinary bladder may represent the prostate. Blayne Cha MD Abdomen/Pelvis CT 07/12/17 1630 Signed Impressions: Service Date/Time: July 16:36 - CONCLUSION: 1. Markedly distended urinary bladder and bilateral hydronephrosis/hydroureter. Differential considerations include neurogenic bladder and bladder outlet obstruction. 2. 2 cm exophytic intermediate density lesion protruding from the midpole of the right kidney. Differential considerations include a solid tumor and complicated cysts. 3. Small calcified gallstone. 4. Small fat containing left inguinal hernia. Armando Luo MD PE at Discharge GENERAL: Well-developed, well-nourished, in no acute distress. alert and orientated HEENT: Head is normocephalic without any lesions or masses noted. Facial features are symmetric. Eyes: Extraocular muscles are intact. Conjunctivae were clear. NECK: Supple without any masses. Trachea midline no deviation. No JVD, CARDIAC: Regular rhythm, regular rate. S1/S2 are heard. No murmurs gallops or rubs. LUNGS: Clear to auscultation bilaterally. No wheeze, rhonchi or rales. No use of accessory muscles on inspiration or expiration. ABDOMEN: Soft, nontender. Nondistended. Bowel sounds heard in all 4 quadrants. No organomegaly or masses. Negative rebound, negative guarding EXTREMITIES: No edema, pulses are equal bilaterally. No cyanosis or clubbing NEUROLOGY: Mood and affect appear appropriate. Cranial nerves II through XII grossly intact. Moving all extremities, speech is clear Hospital Course This is a pleasant 82-year-old male patient with a known medical history of hypertension and borderline diabetes who presented to the ED with complaints of abdominal disc distention and pain 10 days. Patient also admits that he has been generally weak for the past few weeks. Patient presented with acute kidney injury with associated hyperkalemia suspect secondary to bladder outlet obstruction with urinary retention as well as hyperkalemia. Creatinine on presentation 7.3, GFR 7, BUN 119, sodium 131, potassium 5.8, calcium 12.1. Patient does not have history of kidney disease or urinary retention in the past. Urology has seen patient in the hospital, continue Gann catheter follow- up in office in a few weeks upon discharge. Abdominal/pelvis CT showing markedly distended urinary bladder and bilateral hydronephrosis/hydroureter. 2 cm exophytic intermediate density lesion protruding from the midpole of the right kidney. Patient was given IV insulin, IV dextrose and Kayexalate for hyperkalemia. Hyperkalemia resolved upon discharge. UA was negative upon presentation. Continued on Flomax, voided nephrotoxins and monitor intake and output closely. Patient does have a history of asymptomatic bradycardia, some arrhythmia noted during hospitalization, suspect secondary to electrolyte imbalance. Monitored on cardiac telemetry throughout hospitalization with no further episodes. Patient also presented with a sacral decubitus ulcer, wound culture growing group D enterococcus. Wound care consulted during hospitalization. Specialty bed ordered. PT evaluation during hospitalization. Previous information was taken from discharge summary that was performed on . Patient was asked to be discharged once culture came back for appropriate antibiotics. The culture did indicate enterococcus fast centimeters and is sensitive to ampicillin which patient was continued on Augmentin. Patient did have arrhythmias during his stay in the hospital with nonsustained ventricular tachycardia. Patient does have history of atrial fibrillation. Patient also had episodes of going in and out of atrial fibrillation, rhythm which did appear to look like sustained ventricular tachycardia. Cardiology was consulted who came and evaluated the patient who they have a long history together. There are previous discussions about anticoagulation due to his paroxysmal atrial fibrillation and patient did not want anticoagulation. This was again brought up and patient is still deferring it. Development Vice President indicated the continuation of the metoprolol and continue outpatient follow-up the patient may be discharged. Patient clinically stable at this time we will discharge patient accordingly. Pt Condition on Discharge: Stable Discharge Disposition: Discharge to SNF Discharge Time: > 30 minutes Discharge Instructions DIET: Follow Instructions for: Heart Healthy Diet Speech Therapy-Diet Recommends: Regular Activities you can perform: Regular-No Restrictions Follow up Referrals: PCP Follow-up - 1 Week Urology - 1 Week New Medications: Metoprolol Tartrate (Metoprolol Tartrate) 25 Mg Tab 12.5 MG PO BID for 30 for 30 Days, #30 TAB 0 Refills Amoxicillin-Clavulanate (Amoxicillin-Clavulanate) 875-125 mg Tab 875 MG PO Q12HR for Infection for 10 Days, TAB not for use in CrCl <30 mL/minute Continued Medications: Furosemide (Furosemide) 20 Mg Tab 20 MG PO DAILY, #30 TAB 0 Refills Multiple Vitamin (Multiple Vitamin) 1 Tab 1 TAB PO DAILY for Nutritional Supplement, TAB 0 Refills Tamsulosin (Tamsulosin) 0.4 Mg Cap 0.8 MG PO HS for Manage Prostate Problems, #60 CAP 0 Refills Discontinued Medications: Lisinopril (Lisinopril) 40 Mg Tab 40 MG PO DAILY for Blood Pressure Management, #30 TAB 0 Refills Metoprolol Tartrate (Metoprolol Tartrate) 25 Mg Tab 25 MG PO BID, #60 TAB 0 Refills Potassium Chloride ER (Potassium Chloride ER) 10 Meq Cap 10 MEQ PO BID for Electrolyte Replacement, #60 CAP 0 Refills Spironolactone (Spironolactone) 25 Mg Tab 25 MG PO DAILY, #30 TAB 0 Refills Keon Quiroz Jul 17, 2017 15:02
[2017-07-17 15:16] VITALS: BP 94/68
== END 2017-07-17 16:21 | DRG 682 ==
LOC: PHED 15:07 → INTOOBSV 17:05 → PHEDA 17:05 → PH3A 18:20 → OBSVTOIN 07-13 10:19
PROVIDERS: ADMIT Hospitalist; ATTEND Hospitalist
DX: N17.9 Acute kidney failure, unspecified (principal); L89.153 Pressure ulcer of sacral region, stage 3; B95.2 Enterococcus as the cause of diseases classified elsewhere; I47.2 Ventricular tachycardia; I42.9 Cardiomyopathy, unspecified; E87.5 Hyperkalemia; N32.0 Bladder-neck obstruction; R33.8 Other retention of urine; N13.30 Unspecified hydronephrosis; R73.03 Prediabetes; I10 Essential (primary) hypertension; F17.210 Nicotine dependence, cigarettes, uncomplicated; N28.89 Other specified disorders of kidney and ureter; I25.10 Atherosclerotic heart disease of native coronary artery without angina pectoris
CPT/HCPCS: 74176; 76775; 80048; 80053; 80307; 81001; 82140; 82550; 83036; 83690; 83970; 84155; 84443; 84484; 85025; 85610; 85730; 86403; 87070; 87077; 87186; 87205; 90732; 93005; 96372; G0378; J1644; J1815; J1940

== ENCOUNTER 2017-12-26 20:38 | Observation (INO) ==
[2017-12-26] MEDS ORDERED: Diphtheria/Tetanus/Pertussis Vaccine Inj 0.5 ML Syringe IM ONE (20:59)
--- NOTE | 2017-12-26 21:25 | ED ---
HPI General Chief Complaint: Fall Stated Complaint: Fall/Weakness Time Seen by Provider: 12/26/17 20:59 Source: patient Limitations: no limitations History of Present Illness HPI Narrative: Patient is in 82-year-old male, past medical history significant for prostate cancer and chronic self cathing, who presents with complaint of fall and generalized weakness. He states that he had cold symptoms about a week ago and has had worsening generalized weakness during that time, in addition to chronic lower extremity weakness last 40 years after he fractured his back. He denies any chest pain or shortness of breath at this time. He denies any abdominal pain, fever, chills. He denies nausea, vomiting, diarrhea. Today he was walking with his walker when he went to go to move to his chair. He miss-stepped and fell hitting the left side of his low chest/ upper abdominal area on an end table. He reports some pain with palpation of the area but no dyspnea. He did not hit his head nor lose consciousness. complaint: fall Onset (ago): hour(s) Fall from: standing Fall witnessed: yes, by family Place fall occurred: home Loss of consciousness: none Prolonged down time: no Symptoms prior to fall: none Severity: mild Associated symptoms (after fall): weakness Related Data Previous Rx's Medication Instructions Recorded cephalexin [Keflex] 500 mg PO QID 7 Days #28 cap 12/26/17 Allergies Allergy/AdvReac Type Severity Reaction Status Date / Time citalopram Allergy Severe Verified 07/12/17 15:17 Review of Systems ROS: all other systems reviewed are negative [facility] Social History Social History Substance History: No History of Abuse Smoking Status: Former smoker How Often Do You Have a Drink Containing Alcohol: Never Recent Travel in [facility] within the Last 8 Weeks: No Recent Out of Country Travel within the Last 8 Weeks: No Immunization History Tetanus Immunization: <5 Years Exam Narrative Exam Narrative: GENERAL: Well-appearing, elderly male in no acute distress SKIN: Focused skin assessment warm/dry. No bruises nor rashes. Skin tear to R forearm. HEAD: Atraumatic. Normocephalic. EYES: Pupils equal and round. No scleral icterus. No injection or drainage. ENT: No nasal bleeding or discharge. Mucous membranes pink and moist. NECK: Trachea midline. No JVD. CARDIOVASCULAR: Regular rate and rhythm. No murmur appreciated. RESPIRATORY: No accessory muscle use. Clear to auscultation. Breath sounds equal bilaterally. GASTROINTESTINAL: Abdomen soft, non-tender, nondistended. Hepatic and splenic margins not palpable. MUSCULOSKELETAL: No obvious deformities. No clubbing. No cyanosis. No edema. No tenderness on palpation of the C, T, L-spine. NEUROLOGICAL: Awake and alert. No obvious cranial nerve deficits. Motor within normal limits. Normal sensation. No past pointing. Normal speech. PSYCHIATRIC: Appropriate mood and affect; insight and judgment normal. Course Initial Documented Vital Signs Temperature 98.5 F 12/26/17 20:40 Pulse Rate 77 12/26/17 20:40 Respiratory Rate 18 12/26/17 20:40 Blood Pressure 160/83 H 12/26/17 20:40 Pulse Oximetry 93 L 12/26/17 20:40 Last Documented Vital Signs Temperature 98.5 F 12/26/17 20:40 Pulse Rate 64 12/26/17 22:40 Respiratory Rate 18 12/26/17 22:40 Blood Pressure 158/78 H 12/26/17 22:40 Pulse Oximetry 96 12/26/17 22:40 Medical Decision Making MDM Narrative Medical decision making narrative: 82-year-old male presents with complaint of worsening of his chronic lower extremity weakness over the last several days to weeks. He did fall today and sustained a skin tear to his right forearm. He refused CT of his head. Labs are unremarkable but urine is concerning for infection for which he has been started on Keflex. He was originally planned to be discharged home but the patient would have to be able to climb up several steps of stairs to get to his apartment and he is too weak to do so at this time. He lives alone and does not have anyone that would be able to help him do this. We called several different transport services and attempt to see if they would be able to assist him but this was not successful. I then spoke with Dr. Melendez, hospitalist on-call, who agreed to observation admission. Medical Screen Exam Complete: Yes Emergency Medical Condition: Yes Differential Diagnosis Differential Diagnosis: Differential diagnosis includes but is not limited to intracranial metastasis, electrolyte abnormality, infection, anemia. Medical Records Medical records reviewed: Yes I reviewed the patient's medical records. Lab Data Lab results reviewed: Yes I reviewed the patient's lab results. Result diagrams: 12/26/17 21:43 12/26/17 21:43 Lab Results 12/26/17 12/26/17 12/26/17 Range/Units 21:43 21:43 22:25 CBC w Diff Auto diff final WBC 9.2 (4.0-11.0) th/mm3 RBC 4.49 L (4.50-5.90) mil/mm3 Hgb 15.5 (13.0-17.0) gm/dL Hct 46.2 (39.0-51.0) % MCV 102.9 H (80.0-100.0) fL MCH 34.6 H (27.0-34.0) pg MCHC 33.6 (32.0-36.0) % RDW 13.9 (11.6-17.2) % Plt Count 180 (150-450) th/mm3 MPV 7.7 (7.0-11.0) fL Neut % (Auto) 84.8 H (16.0-70.0) % Lymph % (Auto) 6.4 L (9.0-44.0) % [place] % (Auto) 8.0 (0.0-8.0) % Eos % (Auto) 0.1 (0.0-4.0) % Baso % (Auto) 0.7 (0.0-2.0) % Neut # (Auto) 7.8 H (1.8-7.7) th/mm3 Lymph # (Auto) 0.6 L (1.0-4.8) th/mm3 [place] # (Auto) 0.7 (0.0-0.9) th/mm3 Eos # (Auto) 0.0 (0.0-0.4) th/mm3 Baso # (Auto) 0.1 (0.0-0.2) th/mm3 WBC Differential . Differential Comment . Sodium 135 L (136-145) meq/L Potassium 3.9 (3.5-5.1) meq/L Chloride 99 (98-107) meq/L Carbon Dioxide 27.4 (21.0-32.0) meq/L Anion Gap 9 (5-15) meq/L BUN 21 H (7-18) mg/dL Creatinine 1.30 (0.60-1.30) mg/dL Estimated GFR 53 L (>89) mL/min Random Glucose 153 H (74-106) mg/dL Calcium 8.4 L (8.5-10.1) mg/dL Total Bilirubin 2.7 H (0.2-1.0) mg/dL AST 23 (15-37) U/L ALT 23 (12-78) U/L Alkaline Phosphatase 123 H (45-117) U/L Troponin I Less than 0.02 L (0.02-0.05) ng/mL Total Protein 6.6 (6.4-8.2) g/dL Albumin 3.2 L (3.4-5.0) g/dL TSH 3.190 (0.358-3.740) uIU/mL Urine Color Yellow (Yellw/Straw) Urine Clarity Cloudy H (Clear) Urine pH 7.0 (5.0-8.5) Ur Specific [place] 1.015 (1.002-1.035) Urine Protein Trace (Neg-Trace) mg/dL Urine Glucose (UA) Negative (Negative) mg/dL Urine Ketones Negative (Negative) mg/dL Urine Occult Blood Trace (Negative) Urine Nitrate Positive H (Negative) Urine Bilirubin Negative (Negative) Urine Ictotest Negative (Negative) Urine Urobilinogen 1.0 (Less than 2) mg/dL Ur Leukocyte Esterase Large H (Negative) Urine RBC 0-3 (0-3) /hpf Urine WBC 51-189 H (0-5) /hpf Urine WBC Clumps Few H (None) Ur Squamous Epith Cells 0-5 (0-5) /hpf Urine Bacteria Many H (None) /hpf Micro UA Comment Cath-culture ind Ur Microscopic Review Microscopic reviewed Urine Culture Comments Cath-cult indicated Imaging Data Attestation: I personally reviewed and interpreted this imaging study as follows : My impression: CXR consistent with CHF. Patient refused Head CT. Radiologist's impression: Chest X-Ray 12/26/17 20:59 CONCLUSION: Cardiomegaly with bibasilar airspace disease and pleural effusions, likely CHF. ECG Data EKG Prior to Arrival: No Attestation: I personally reviewed and interpreted this ECG as follows: (Sinus rhythm at a rate of 100 bpm. There is a left bundle branch block. No ST or T- wave changes concerning for sgarbossa's criteria. This is unchanged from previous EKG.) Prior ECG tracings: available for review Discharge Plan Discharge Disposition Patient Disposition: 30 Still Patient Discharge Condition Condition: Stable Discharge Details Diagnosis: Acute UTI, Generalized weakness Physicians Team ED Provider: Tori Murillo Primary Care Provider: Primary Care Asiya Ames Attending Provider: Kelli Melendez Discharge Interventions Interventions: Vital Signs Last Done: 12/26/17 22:40 Status ED Status: Admitted Observation Patient
--- NOTE | 2017-12-26 21:27 | XR ---
EXAM DATE: 12/26/2017 9:24 PM EDT AGE/SEX: 82 years / Male INDICATIONS: . Fall, weakness. CLINICAL DATA: This is the patient's initial encounter. Patient reports that signs and symptoms have been present for 1 day and indicates a pain score of 0/10. MEDICAL/SURGICAL HISTORY: None. None. COMPARISON: No prior exams available for comparison. FINDINGS: PA and lateral views of the chest demonstrate cardiomegaly with small bilateral pleural effusions gre ater on the left. Bibasilar airspace disease and increase in pulmonary vascularity. Minimal patchy ai rspace disease in the right upper lobe. The cardiomediastinal contours are unremarkable. Osseous stru ctures are intact. CONCLUSION: Cardiomegaly with bibasilar airspace disease and pleural effusions, likely CHF. Electronically signed by: Micah Zhu MD 12/26/2017 9:26 PM EDT
[2017-12-26 21:49] LABS: Baso # (Auto) 0.1 th/mm3 (0.0-0.2); Baso % (Auto) 0.7 % (0.0-2.0); Eos % (Auto) 0.1 % (0.0-4.0); Hematocrit 46.2 % (39.0-51.0); Hemoglobin 15.5 gm/dL (13.0-17.0); Lymph # (Auto) 0.6 th/mm3 (1.0-4.8); Lymph % (Auto) 6.4 % (9.0-44.0); Mean Corpuscular HGB Conc 33.6 % (32.0-36.0); Mean Corpuscular Hemoglobin 34.6 pg (27.0-34.0); Mean Corpuscular Volume 102.9 fL (80.0-100.0); Mean Platelet Volume 7.7 fL (7.0-11.0); Mono # (Auto) 0.7 th/mm3 (0.0-0.9); Neut # (Auto) 7.8 th/mm3 (1.8-7.7); Neut % (Auto) 84.8 % (16.0-70.0); Platelet Count 180 th/mm3 (150-450); Red Blood Count 4.49 mil/mm3 (4.50-5.90); Red Cell Distribution Width 13.9 % (11.6-17.2); White Blood Count 9.2 th/mm3 (4.0-11.0)
[2017-12-26 21:55] LABS: Chloride 99 meq/L (98-107); Potassium 3.9 meq/L (3.5-5.1); Sodium 135 meq/L (136-145)
[2017-12-26 21:58] LABS: Calcium 8.4 mg/dL (8.5-10.1)
[2017-12-26 21:59] LABS: Albumin 3.2 g/dL (3.4-5.0); Anion Gap 9 meq/L (5-15); Blood Urea Nitrogen 21 mg/dL (7-18); Carbon Dioxide 27.4 meq/L (21.0-32.0); Glucose,Random 153 mg/dL (74-106)
[2017-12-26 22:02] LABS: Alanine Aminotransferase 23 U/L (12-78); Aspartate Aminotransferase 23 U/L (15-37); Glomerular Filtration Rate 53 mL/min (>89)
[2017-12-26 22:04] LABS: Total Protein 6.6 g/dL (6.4-8.2)
[2017-12-26 22:05] LABS: Alkaline Phosphatase 123 U/L (45-117)
[2017-12-26 22:31] LABS: Clarity,Urine Cloudy (Clear); Color,Urine Yellow (Yellw/Straw); Glucose,Urine (UA) Negative (Negative); Leukocyte Esterase,Urine Large (Negative); Nitrite,Urine Positive (Negative); Specific Gravity,Urine 1.015 (1.002-1.035)
[2017-12-26 22:43] LABS: Bilirubin,Urine Negative (Negative); Ictotest,Urine Negative (Negative)
[2017-12-26 22:45] LABS: RBC,Urine 0-3 /hpf (0-3); Squamous Epithelial Cell,Urine 0-5 /hpf (0-5); WBC,Urine 51-189 /hpf (0-5)
[2017-12-26 22:46] LABS: Bacteria,Urine Many /hpf
[2017-12-26] MEDS ORDERED: Bisacodyl 10 MG Supp RECTAL PRN (23:45)
[2017-12-26] MEDS ORDERED: Acetaminophen 325 MG Tablet PO PRN (23:45)
[2017-12-27 06:47] LABS: Baso % (Auto) 0.3 % (0.0-2.0); Eos # (Auto) 0.1 th/mm3 (0.0-0.4); Eos % (Auto) 0.8 % (0.0-4.0); Hematocrit 41.1 % (39.0-51.0); Lymph # (Auto) 1.3 th/mm3 (1.0-4.8); Lymph % (Auto) 15.4 % (9.0-44.0); Mean Corpuscular Hemoglobin 34.8 pg (27.0-34.0); Mean Corpuscular Volume 102.3 fL (80.0-100.0); Mean Platelet Volume 8.3 fL (7.0-11.0); Mono # (Auto) 0.9 th/mm3 (0.0-0.9); Mono % (Auto) 10.5 % (0.0-8.0); Neut # (Auto) 5.8 th/mm3 (1.8-7.7); Platelet Count 158 th/mm3 (150-450); Red Blood Count 4.02 mil/mm3 (4.50-5.90); Red Cell Distribution Width 13.7 % (11.6-17.2); White Blood Count 8.1 th/mm3 (4.0-11.0)
[2017-12-27 07:23] LABS: Chloride 102 meq/L (98-107); Potassium 3.5 meq/L (3.5-5.1); Sodium 138 meq/L (136-145)
[2017-12-27 07:32] LABS: Albumin 2.8 g/dL (3.4-5.0); Anion Gap 10 meq/L (5-15); Blood Urea Nitrogen 21 mg/dL (7-18); Carbon Dioxide 26.5 meq/L (21.0-32.0); Glucose,Random 106 mg/dL (74-106)
[2017-12-27 07:35] LABS: Alanine Aminotransferase 20 U/L (12-78); Aspartate Aminotransferase 19 U/L (15-37); Glomerular Filtration Rate 64 mL/min (>89)
[2017-12-27 07:37] LABS: Alkaline Phosphatase 106 U/L (45-117); Total Protein 5.8 g/dL (6.4-8.2)
[2017-12-27] MEDS: Senna/Docusate Sodium 8.6/50 MG Tablet PO SCH ×2 (09:09→21:21)
--- NOTE | 2017-12-27 10:02 | P.HP ---
History of Present Illness Primary Care Physician: No Primary Care Physician Chief Complaint: Generalized weakness History of Present Illness: This is an 82-year-old male patient with a known medical history of prostate cancer and Mnire's disease who presented to the ED status post fall and generalized weakness at home. Patient states that he has had generalized weakness and upper respiratory symptoms for about a week. He states that he was placed on Keflex a couple days ago from his primary care doctor for suspected UTI and over the course of the past week he has not been eating very much, with low appetite and has also generalized weakness and lost his balance, falling at home. He states he uses a walker and has a history of multiple falls in the past, states that he lives alone and at times he just feels like his legs give out from under him. He denies any dizziness, lightheadedness, headaches, denies ever hitting his head or losing consciousness. He does state that he hit the side of his left ribs and currently complains of pain and tenderness with activity. Denies any recent fevers, chills, cough, shortness of breath, abdominal pain, nausea, vomiting, diarrhea or dysuria. - Diagnosis (1) Acute UTI (2) Generalized weakness Review of Systems All other systems reviewed negative except as stated in HPI PMFSH - History History Provided By: Patient - Medical History Medical History: Medical History (Last Updated 12/27/17 @ 11:58 by Paulina Stokes) Fall at home Mnire's disease Prostate cancer Urinary retention - Surgical History Surgical History: Surgical History (Last Updated 12/27/17 @ 11:59 by Paulina Stokes) History of appendectomy History of hemicolectomy Hx of tonsillectomy - Family History Family History: Family History (Last Updated 12/27/17 @ 11:59 by Paulina Stokes) Other No pertinent family history - Tobacco History Second Hand Smoke Exposure: No Tobacco Use In Past 30 Days: Yes Smoking Status: Former smoker - Alcohol History How Often Do You Have a Drink Containing Alcohol: 4 or more times a week - Substance Use History Substance History: No History of Abuse - Travel History Recent Travel in the [place] Within the Last 8 Weeks: No Recent Travel Out of the Country Within the Last 8 Weeks: No - Immunization History Tetanus Immunization: <5 Years Medications and Allergies Active Medications: Active Medications Acetaminophen (Tylenol) 650 mg PO Q4H PRN PRN Reason: Temp > 100.4 Al Hydroxide/Mg Hydroxide (Milk Of Magnesia Liq) 30 ml PO Q12H PRN PRN Reason: Mild Constipation Bisacodyl (Dulcolax Supp) 10 mg RECTAL DAILY PRN PRN Reason: SEVERE CONSITIPATION Cephalexin Monohydrate (Keflex) 500 mg PO BID [facility] Last Admin: 12/27/17 09:09 Dose: 500 mg Lactulose (Lactulose Liq) 30 ml PO DAILY PRN PRN Reason: SEVERE CONSITIPATION Ondansetron HCl (Zofran Inj) 4 mg IV.PUSH Q6H PRN PRN Reason: NAUSEA OR VOMITING Senna/Docusate Sodium (July-Colace) 1 tab PO BID [facility] Last Admin: 12/27/17 09:09 Dose: Not Given Sennosides (Senokot) 17.2 mg PO Q12H PRN PRN Reason: Moderate Constipation Sodium Chloride (Ns Flush) 2 ml IV.FLUSH PRN PRN PRN Reason: FLUSH AFTER USING IV ACCESS Allergies Allergy/AdvReac Type Severity Reaction Status Date / Time citalopram Allergy Severe Verified 07/12/17 15:17 Home Medications Medication Instructions Recorded Confirmed Type bicalutamide 50 mg PO QID MDD 1 tab 12/27/17 12/27/17 History metoprolol tartrate 25 mg PO QID 12/27/17 12/27/17 History tamsulosin 0.4 mg PO QID 12/27/17 12/27/17 History Exam Vital signs: Vital Signs 12/26/17 20:40 12/26/17 21:17 12/26/17 22:40 Temperature 98.5 F Pulse Rate 77 63 64 Respiratory Rate 18 18 Blood Pressure 160/83 H 158/78 H Pulse Oximetry 93 L 96 12/27/17 01:30 12/27/17 04:00 12/27/17 08:00 Temperature 99.1 F 97.8 F 98.7 F Pulse Rate 93 H 84 93 H Respiratory Rate 20 20 20 Blood Pressure 137/96 H 135/86 128/81 Pulse Oximetry 93 L 94 L 95 Intake & Output 12/26/17 12/27/17 12/27/17 18:59 06:59 18:59 Intake Total 240 / 240 240 / 240 Output Total 125 / 125 201 / 201 Balance 115 / 115 39 / 39 Weight 73.5 kg Intake: Oral 240 / 240 240 / 240 Output: Urine 0 / 0 200 / 200 Stool 1 / 1 Urine Amount (Catheter) 125 / 125 Straight 125 / 125 Other: Date of Last Bowel Movement 12/27/17 # Bowel Movements 1 Weight On Admission 76.6 kg Narrative: GENERAL: Well-developed, well-nourished elderly male patient in [facility]. SKIN: Warm and dry. No rash. HEAD: Normocephalic. Atraumatic. EYES: Pupils equal and round. No scleral icterus. No injection or drainage. ENT: No nasal bleeding or discharge. Mucous membranes pink and moist. NECK: Supple. Trachea midline. CARDIOVASCULAR: Regular rate and rhythm. S1, S2 noted. No murmur appreciated. RESPIRATORY: No accessory muscle use. Clear to auscultation. Breath sounds equal bilaterally. GASTROINTESTINAL: Abdomen soft, non-tender, nondistended. Normoactive bowel sounds x4. MUSCULOSKELETAL: No obvious deformities. Extremities without clubbing, cyanosis , or edema. Tenderness to left rib cage area to palpation. No bruising. NEUROLOGICAL: Awake and alert. No obvious cranial nerve deficits. Motor grossly within normal limits. 5/5 muscle strength in bilateral upper and lower extremities. Normal speech. PSYCHIATRIC: Appropriate mood and affect; insight and judgment normal. Results - Labs CBC & Chem 7: 12/27/17 05:30 12/27/17 05:30 Labs: Laboratory Results - last 24 hr 12/26/17 12/26/17 12/26/17 21:43 21:43 22:25 CBC w Diff Auto diff final WBC 9.2 RBC 4.49 L Hgb 15.5 Hct 46.2 MCV 102.9 H MCH 34.6 H MCHC 33.6 RDW 13.9 Plt Count 180 MPV 7.7 Neut % (Auto) 84.8 H Lymph % (Auto) 6.4 L [place] % (Auto) 8.0 Eos % (Auto) 0.1 Baso % (Auto) 0.7 Neut # (Auto) 7.8 H Lymph # (Auto) 0.6 L [place] # (Auto) 0.7 Eos # (Auto) 0.0 Baso # (Auto) 0.1 WBC Differential . Differential Comment . Sodium 135 L Potassium 3.9 Chloride 99 Carbon Dioxide 27.4 Anion Gap 9 BUN 21 H Creatinine 1.30 Estimated GFR 53 L Random Glucose 153 H Calcium 8.4 L Total Bilirubin 2.7 H AST 23 ALT 23 Alkaline Phosphatase 123 H Troponin I Less than 0.02 L B-Natriuretic Peptide Total Protein 6.6 Albumin 3.2 L TSH 3.190 Urine Color Yellow Urine Clarity Cloudy H Urine pH 7.0 Ur Specific [place] 1.015 Urine Protein Trace Urine Glucose (UA) Negative Urine Ketones Negative Urine Occult Blood Trace Urine Nitrate Positive H Urine Bilirubin Negative Urine Ictotest Negative Urine Urobilinogen 1.0 Ur Leukocyte Esterase Large H Urine RBC 0-3 Urine WBC 51-189 H Urine WBC Clumps Few H Ur Squamous Epith Cells 0-5 Urine Bacteria Many H Micro UA Comment Cath-culture ind Ur Microscopic Review Microscopic reviewed Urine Culture Comments Cath-cult indicated 12/27/17 12/27/17 12/27/17 05:30 05:30 05:30 CBC w Diff Auto diff final WBC 8.1 RBC 4.02 L Hgb 14.0 Hct 41.1 MCV 102.3 H MCH 34.8 H MCHC 34.0 RDW 13.7 Plt Count 158 MPV 8.3 Neut % (Auto) 73.0 H Lymph % (Auto) 15.4 [place] % (Auto) 10.5 H Eos % (Auto) 0.8 Baso % (Auto) 0.3 Neut # (Auto) 5.8 Lymph # (Auto) 1.3 [place] # (Auto) 0.9 Eos # (Auto) 0.1 Baso # (Auto) 0.0 WBC Differential . Differential Comment . Sodium 138 Potassium 3.5 Chloride 102 Carbon Dioxide 26.5 Anion Gap 10 BUN 21 H Creatinine 1.10 Estimated GFR 64 L Random Glucose 106 Calcium 8.0 L Total Bilirubin 2.2 H AST 19 ALT 20 Alkaline Phosphatase 106 Troponin I B-Natriuretic Peptide 1529 H Total Protein 5.8 L D Albumin 2.8 L TSH Urine Color Urine Clarity Urine pH Ur Specific [place] Urine Protein Urine Glucose (UA) Urine Ketones Urine Occult Blood Urine Nitrate Urine Bilirubin Urine Ictotest Urine Urobilinogen Ur Leukocyte Esterase Urine RBC Urine WBC Urine WBC Clumps Ur Squamous Epith Cells Urine Bacteria Micro UA Comment Ur Microscopic Review Urine Culture Comments 12/27/17 05:55 CBC w Diff WBC RBC Hgb Hct MCV MCH MCHC RDW Plt Count MPV Neut % (Auto) Lymph % (Auto) [place] % (Auto) Eos % (Auto) Baso % (Auto) Neut # (Auto) Lymph # (Auto) [place] # (Auto) Eos # (Auto) Baso # (Auto) WBC Differential Differential Comment Sodium Cancelled Potassium Cancelled Chloride Cancelled Carbon Dioxide Cancelled Anion Gap Cancelled BUN Cancelled Creatinine Cancelled Estimated GFR Cancelled Random Glucose Cancelled Calcium Cancelled Total Bilirubin AST ALT Alkaline Phosphatase Troponin I B-Natriuretic Peptide Total Protein Albumin TSH Urine Color Urine Clarity Urine pH Ur Specific [place] Urine Protein Urine Glucose (UA) Urine Ketones Urine Occult Blood Urine Nitrate Urine Bilirubin Urine Ictotest Urine Urobilinogen Ur Leukocyte Esterase Urine RBC Urine WBC Urine WBC Clumps Ur Squamous Epith Cells Urine Bacteria Micro UA Comment Ur Microscopic Review Urine Culture Comments - Imaging Impressions Chest X-Ray 12/26/17 20:59 CONCLUSION: Cardiomegaly with bibasilar airspace disease and pleural effusions, likely CHF. Caprini VTE Risk Assessment Caprini VTE Risk Assessment: Moderate/High Risk (score >= 2) Caprini Risk Assessment Model: Point Value = 1 Point Value = 2 Point Value = 3 Point Value = 5 Age 41-60 Minor surgery BMI > 25 kg/m2 Swollen legs Varicose veins or History of unexplained or recurrent spontaneous Oral contraceptives or hormone replacement Sepsis (< 1 month) Serious lung disease, including pneumonia (< 1 month) Abnormal pulmonary function Acute myocardial infarction Congestive heart failure (< 1 month) History of inflammatory bowel disease Medical patient at bed rest Age 61-74 Arthroscopic surgery Major open surgery (> 45 min) Laparoscopic surgery (> 45 min) Malignancy Confined to bed (> 72 hours) Immobilizing plaster cast Central venous access Age >= 75 History of VTE Family history of VTE Factor V Leiden Prothrombin [id number] Lupus anticoagulant Anticardiolipin antibodies Elevated serum homocysteine Heparin-induced thrombocytopenia Other congenital or acquired thrombophilia Stroke (< 1 month) Elective arthroplasty Hip, pelvis, or leg fracture Acute spinal cord injury (< 1 month) Prophylaxis Regimen: Total Risk Factor Score Risk Level Prophylaxis Regimen 0-1 Low Early ambulation 2 Moderate Order ONE of the following: *Sequential Compression Device (SCD) *Heparin 5000 units SQ BID 3-4 Higher Order ONE of the following medications: *Heparin 5000 units SQ TID *Enoxaparin/Lovenox 40 mg SQ daily (WT < 150 kg, CrCl > 30 mL/min) *Enoxaparin/Lovenox 30 mg SQ daily (WT < 150 kg, CrCl > 10-29 mL/min) *Enoxaparin/Lovenox 30 mg SQ BID (WT < 150 kg, CrCl > 30 mL/min) AND/OR *Sequential Compression Device (SCD) 5 or more Highest Order ONE of the following medications: *Heparin 5000 units SQ TID (Preferred with Epidurals) *Enoxaparin/Lovenox 40 mg SQ daily (WT < 150 kg, CrCl > 30 mL/min) *Enoxaparin/Lovenox 30 mg SQ daily (WT < 150 kg, CrCl > 10-29 mL/min) *Enoxaparin/Lovenox 30 mg SQ BID (WT < 150 kg, CrCl > 30 mL/min) AND *Sequential Compression Device (SCD) Assessment and Plan - Assessment (1) Acute UTI Code(s): N39.0 - Urinary tract infection, site not specified Status: Acute (2) Generalized weakness Code(s): R53.1 - Weakness Status: Acute - Plan This is an 82-year-old male patient with: Generalized weakness Multiple falls at home Left sided rib pain secondary to above -Chest x-ray showing no rib fractures or abnormalities. -PT consulted, appreciate input and recommendations. At this time recs are for rehab upon discharge. -Supportive care. Denies any need for pain medication at this time. 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 -Continue home antineoplastic and home Flomax. Follows with Dr. Roberts. -Self cath as needed here while hospitalized. Monitor intake and output. -Continue Keflex as prescribed at home. Awaiting urine culture, follow growth. -CBC and BMP essentially unremarkable. Elevated BNP -Denies any prior history of heart failure. -CXR showing some cardiomegaly with bibasilar airspace disease possibly consistent with pleural effusions, CHF. -Patient is completely asymptomatic, denies any shortness of breath. Will hold on diuretics. Obtain ECHO. Continue beta jay. DVT prophylaxis: SCDs. Heparin.
[2017-12-27] MEDS ORDERED: Metoprolol Tartrate 25 MG Tablet PO SCH (13:00)
--- NOTE | 2017-12-27 20:40 | ECG ---
Date Performed: 12/26/2017 Time Performed: 21:06:38 PTAGE: 82 years EKG: SINUS TACHYCARDIA WITH FIRST DEGREE AV BLOCK MARKED LEFT AXIS DEVIATION LEFT BUNDLE BRANCH BLOCK Compared to previous tracing, rhythm is regular and appears to be sinus and the old EKG showed atrial fibrillation. Cannot exclude the possibility that this is not Sinus rhythm . Clinical correlation is recommended ABNORMAL ECG PREVIOUS TRACING : 07/12/2017 15.22 DOCTOR: Pa Hilario Interpretating Date/Time 12/27/2017 20:40:00
[2017-12-27] MEDS: Metoprolol Tartrate 25 MG Tablet PO SCH (21:21)
[2017-12-27] MEDS: Heparin - SQ 10,000 UNITS/ML Vial SQ SCH (21:21)
[2017-12-28 04:41] VITALS: O2SAT 95
--- NOTE | 2017-12-28 09:24 | P.PNIM ---
Subjective Interval history: Follow up UTI. Patient seen and examined, lying in bed comfortably in [facility]. No acute events overnight. Improved. Eating well with no n/v/d. Denies any fevers, headache, chest pain or sob. Urine culture + gram neg rods. Continue abx. Patient will be dcd to SNF today. Will follow urine culture for JADIEL and sensitivity. Physical Exam Vital signs: Vital Signs 12/27/17 12:00 12/27/17 16:00 12/27/17 20:00 Temperature 98.3 F 98.9 F 97 F L Pulse Rate 79 100 H 122 H Respiratory Rate 20 21 20 Blood Pressure 150/85 H 139/79 150/98 H Pulse Oximetry 95 96 94 L 12/28/17 00:00 12/28/17 04:00 12/28/17 08:00 Temperature 97.8 F 96.9 F L 97.2 F L Pulse Rate 82 90 93 H Respiratory Rate 20 20 19 Blood Pressure 126/76 136/94 H 152/90 H Pulse Oximetry 93 L 95 95 Intake & Output 12/27/17 12/28/17 12/28/17 18:59 06:59 18:59 Intake Total 480 / 480 120 / 120 360 / 360 Output Total 481 / 481 600 / 600 / 1 Balance -1 / -1 -480 / -480 359 / 359 Weight 73 kg Intake: Oral 480 / 480 120 / 120 360 / 360 Output: Urine 200 / 200 Stool / 1 Urine Amount (Catheter) 280 / 280 600 / 600 Straight 280 / 280 600 / 600 Other: Date of Last Bowel Movement 12/27/17 12/27/17 12/28/17 # Bowel Movements 1 Narrative: GENERAL: Well-developed, well-nourished patient in [facility]. SKIN: Warm and dry. No rash. HEAD: Normocephalic. Atraumatic. EYES: Pupils equal and round. No scleral icterus. No injection or drainage. ENT: No nasal bleeding or discharge. Mucous membranes pink and moist. NECK: Supple. Trachea midline. CARDIOVASCULAR: Regular rate and rhythm. S1, S2 noted. No murmur appreciated. RESPIRATORY: No accessory muscle use. Clear to auscultation. Breath sounds equal bilaterally. GASTROINTESTINAL: Abdomen soft, non-tender, nondistended. Normoactive bowel sounds x4. MUSCULOSKELETAL: No obvious deformities. Extremities without clubbing, cyanosis , or edema. NEUROLOGICAL: Awake and alert. No obvious cranial nerve deficits. Motor grossly within normal limits. 5/5 muscle strength in bilateral upper and lower extremities. Normal speech. PSYCHIATRIC: Appropriate mood and affect; insight and judgment normal. - Urinary Catheter Management Straight Cath placed during this visit: yes, but has since been removed by the nurse Reason for continuing: Not indwelling catheter Insertion date: 12/27/17 Insertion time: 13:12 Removal date: 12/27/17 Removal time: 13:12 Results - Labs CBC & Chem 7: 12/27/17 05:30 12/27/17 05:30 Laboratory Results - last 24 hr 12/26/17 22:25 Urine Color Yellow Urine Clarity Cloudy H Urine pH 7.0 Ur Specific [place] 1.015 Urine Protein Trace Urine Glucose (UA) Negative Urine Ketones Negative Urine Occult Blood Trace Urine Nitrate Positive H Urine Bilirubin Negative Urine Ictotest Negative Urine Urobilinogen 1.0 Ur Leukocyte Esterase Large H Urine RBC 0-3 Urine WBC 51-189 H Urine WBC Clumps Few H Ur Squamous Epith Cells 0-5 Urine Bacteria Many H Micro UA Comment Cath-culture ind Ur Microscopic Review Microscopic reviewed Urine Culture Comments Cath-cult indicated Microbiology 12/26/17 22:25 Catheterized Urine Urine Culture - Preliminary gram negative rods Assessment and Plan - Assessment (1) Acute UTI Code(s): N39.0 - Urinary tract infection, site not specified Status: Acute (2) Generalized weakness Code(s): R53.1 - Weakness Status: Acute - Plan This is an 82-year-old male patient with: Generalized weakness Multiple falls at home Left sided rib pain secondary to above. Improved. -Chest x-ray showing no rib fractures or abnormalities. -PT consulted, appreciate input and recommendations. At this time recs are for rehab upon discharge. -Supportive care. Denies any need for pain medication at this time. 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 -Continue home antineoplastic and home Flomax. Follows with Dr. Roberts. -Self cath as needed here while hospitalized. Monitor intake and output. -Continue Keflex as prescribed at home. UC growing gram neg kenneth. Will DC on Keflex and follow culture until JADIEL and sensitivity available. -CBC and BMP essentially unremarkable. Elevated BNP -Denies any prior history of heart failure. -CXR showing some cardiomegaly with bibasilar airspace disease possibly consistent with pleural effusions, CHF. -Patient is completely asymptomatic, denies any shortness of breath. Will hold on diuretics. Obtain ECHO, pending. Continue beta jay. DVT prophylaxis: SCDs. Heparin. Discharge Planning: Awaiting ECHO results. Will DC to SNF today.
[2017-12-28] MEDS: Heparin - SQ 10,000 UNITS/ML Vial SQ SCH (09:48)
[2017-12-28] MEDS: Metoprolol Tartrate 25 MG Tablet PO SCH (09:50)
[2017-12-28] MEDS: Senna/Docusate Sodium 8.6/50 MG Tablet PO SCH (09:50)
--- NOTE | 2017-12-28 13:29 | ECHRPT ---
Indication: HEART FAILURE CONCLUSIONS Normal left ventricular size. Mild concentric left ventricular hypertrophy. The left ventricular systolic function is severely reduced with an estimated ejection fraction in th e range of 30-35%. There is abnormal septal motion consistent with an intraventricular conduction delay. The left atrial size is lvtmfruj-hv-ubaavjqa dilated. The right atrial size is moderately dilated. Dmbanxdf-of-cjxctg mitral valve regurgitation. There is moderate tricuspid regurgitation. The estimated pulmonary arterial pressure is 52 mmHg. Small pleural effusion. BP: / HR: Rhythm: Atrial fibrillation MEASUREMENTS (Male / Female) Normal Values Technical Quality:Fair 2D ECHO LVOT Diameter 1.9 cm Aortic Root Diameter 3.5 cm M-MODE AV Cusp Separation MM 1.9 cm DOPPLER AV Peak Velocity 130.0 cm/s AV Peak Gradient 6.8 mmHg AV Mean Gradient 4.0 mmHg AV Velocity Time Integral 18.0 cm LVOT Peak Velocity 91.0 cm/s LVOT Peak Gradient 3.3 mmHg LVOT Velocity Time Integral 11.1 cm AV Area Cont Eq vti 1.7 cm AV Area Cont Eq pk 2.0 cm Mitral E Point Velocity 88.8 cm/s LV E' Lateral Velocity 6.2 cm/s Mitral E to LV E' Lateral Ratio 14.2 LV E' Septal Velocity 3.6 cm/s Mitral E to LV E' Septal Ratio 24.6 TR Peak Velocity 324.0 cm/s TR Peak Gradient 42.0 mmHg Right Atrial Pressure 10.0 mmHg Pulmonary Artery Systolic Pressu 52.0 mmHg Right Ventricular Systolic Press 52.0 mmHg PV Peak Velocity 59.4 cm/s PV Peak Gradient 1.4 mmHg FINDINGS LEFT VENTRICLE Normal left ventricular size. Mild concentric left ventricular hypertrophy. The left ventricular systolic function is severely reduced with an estimated ejection fraction in th e range of 30-35%. There is abnormal septal motion consistent with an intraventricular conduction delay. RIGHT VENTRICLE Normal right ventricular size and systolic function. LEFT ATRIUM The left atrial size is feacrpzn-es-cjbztnbj dilated. RIGHT ATRIUM The right atrial size is moderately dilated. ATRIAL SEPTUM No atrial level shunt is demonstrated by color flow Doppler interrogation. AORTA The aortic root and proximal ascending aorta are normal in size on limited imaging. MITRAL VALVE Nltgxqab-io-iqoacy mitral valve regurgitation. AORTIC VALVE Trileaflet aortic valve. No aortic valve stenosis or regurgitation. TRICUSPID VALVE There is moderate tricuspid regurgitation. The estimated pulmonary arterial pressure is 52 mmHg. PULMONARY VALVE No pulmonary valve regurgitation or stenosis. VESSELS The inferior vena cava is normal in size. PERICARDIUM Small pleural effusion. No pericardial effusion. Michael Bach MD, FACC (Electronically Signed) Final Date:28 December 2017 13:29
[2017-12-28] MEDS ORDERED: Lisinopril 10 MG Tablet PO SCH (14:15)
[2017-12-28 16:44] VITALS: BP 147/84; PULSE 94; RESP 20; TEMP 97.7
== END 2017-12-28 18:23 ==
LOC: PHEDA 20:38 → PHED 20:38 → PH3 12-27 01:32
PROVIDERS: ADMIT Internal Medicine; ATTEND Internal Medicine
DX: R29.6 Repeated falls; S51.811A Laceration without foreign body of right forearm, initial encounter; B96.20 Unspecified Escherichia coli [E. coli] as the cause of diseases classified elsewhere; R94.31 Abnormal electrocardiogram [ECG] [EKG]; W18.30XA Fall on same level, unspecified, initial encounter; Z87.891 Personal history of nicotine dependence; R53.1 Weakness; R79.89 Other specified abnormal findings of blood chemistry; N39.0 Urinary tract infection, site not specified; Y92.009 Unspecified place in unspecified non-institutional (private) residence as the place of occurrence of the external cause; I51.7 Cardiomegaly; Z90.49 Acquired absence of other specified parts of digestive tract

== ENCOUNTER 2018-02-05 07:11 | Inpatient (IN) ==
[2018-02-05] MEDS ORDERED: RESP: Albuterol Concentrated 2.5 MG/0.5 ML Neb ONE (08:00)
--- NOTE | 2018-02-05 08:03 | XR ---
EXAM DATE: 02/05/2018 7:57 AM EDT AGE/SEX: 82 years / Male INDICATIONS: Evaluate for pneumonia, pneumothorax, or any communicable disease. Pre op right side cr yo. Short of breath. CLINICAL DATA: This is the patient's initial encounter. Patient reports that signs and symptoms have been present for 1 day and indicates a pain score of 0/10. MEDICAL/SURGICAL HISTORY: . Cardiovascular disease. Hypertension. Diabetes mellitus type 2. No ne. COMPARISON: [facility], CHEST 2V PA&LAT, 12/26/2017. . FINDINGS: A single frontal expiratory view of the chest was performed. Patient is rotated to the left. There ar e diminished lung volumes. Cardiomegaly with increase in pulmonary vascularity and some interstitial prominence. Small left pleural effusion and left basilar density. No evidence of pneumothorax. Medi astinal structures are in the midline. CONCLUSION: 1. Cardiomegaly with increase in pulmonary vascularity and some interstitial prominence. 2. Small left pleural effusion and left basilar density likely atelectasis. 3. Would recommend PA and lateral views with better inspiration. Electronically signed by: Micah Zhu MD 02/05/2018 8:02 AM EDT
[2018-02-05] MEDS ORDERED: Sod Chloride 0.9% Inj 1,000 ML IV.SIG SCH (08:30)
[2018-02-05] MEDS ORDERED: ceFAZolin 2 GM IV; once IV.SIG SCH (08:30)
[2018-02-05 09:12] LABS: Baso % (Auto) 0.3 % (0.0-2.0); Eos # (Auto) 0.1 th/mm3 (0.0-0.4); Eos % (Auto) 2.3 % (0.0-4.0); Hematocrit 40.1 % (39.0-51.0); Hemoglobin 13.6 gm/dL (13.0-17.0); Lymph # (Auto) 0.4 th/mm3 (1.0-4.8); Lymph % (Auto) 6.3 % (9.0-44.0); Mean Corpuscular Hemoglobin 35.4 pg (27.0-34.0); Mean Corpuscular Volume 104.2 fL (80.0-100.0); Mean Platelet Volume 8.4 fL (7.0-11.0); Mono # (Auto) 0.6 th/mm3 (0.0-0.9); Mono % (Auto) 9.6 % (0.0-8.0); Neut # (Auto) 5.1 th/mm3 (1.8-7.7); Neut % (Auto) 81.5 % (16.0-70.0); Platelet Count 177 th/mm3 (150-450); Red Blood Count 3.85 mil/mm3 (4.50-5.90); Red Cell Distribution Width 15.4 % (11.6-17.2); White Blood Count 6.3 th/mm3 (4.0-11.0)
[2018-02-05 09:20] LABS: Activated Partial Thrombo Time 26.7 sec (24.3-30.1); Prothrombin Time 10.1 sec (9.8-11.6)
[2018-02-05 09:26] LABS: Calcium 8.7 mg/dL (8.5-10.1); Carbon Dioxide 27.1 meq/L (21.0-32.0); Potassium 4.8 meq/L (3.5-5.1)
[2018-02-05] MEDS ORDERED: Neostigmine Inj 5 MG/5 ML Syringe IV.PUSH ONE (10:15)
[2018-02-05] MEDS ORDERED: Lidocaine PF 1% Inj 5 ML Syringe OTHER ONE (10:15)
[2018-02-05] MEDS ORDERED: Phenylephrine/NS 1000 MCG/10ML Syringe IV.PUSH ONE (10:15)
[2018-02-05] MEDS ORDERED: Glycopyrrolate Inj 1 MG/5 ML Syringe IV.PUSH ONE (10:15)
--- NOTE | 2018-02-05 12:09 | P.RAD ---
Post Procedure Progress Note - Pre Procedure Diagnosis (1) Right renal mass - Post Procedure Diagnosis (1) Right renal mass - Procedure Information Procedure Date: 02/05/18 Supervising Radiologist: Shin Castro MD Estimated blood loss (mL): 0 Anesthesia: General - Plan of Activity Patient to Unit: PACU Patient Condition: Fair Additional Comments: Right renal mass biopsy and cryoablation preformed by Dr. Baxter. Excellent coverage of the lesion. No complication evident on follow up CT. Pt. tolerated the procedure well Full dictated report to follow. See PACS Report for procedural detail/treatment.
[2018-02-05] MEDS ORDERED: fentaNYL Citrate Inj 100 MCG/2 ML Ampul ONE (12:29)
[2018-02-05 13:18] LABS: Baso % (Auto) 0.3 % (0.0-2.0); Eos # (Auto) 0.1 th/mm3 (0.0-0.4); Eos % (Auto) 2.5 % (0.0-4.0); Hematocrit 40.3 % (39.0-51.0); Hemoglobin 13.9 gm/dL (13.0-17.0); Lymph # (Auto) 0.4 th/mm3 (1.0-4.8); Lymph % (Auto) 8.9 % (9.0-44.0); Mean Corpuscular HGB Conc 34.4 % (32.0-36.0); Mean Corpuscular Hemoglobin 35.6 pg (27.0-34.0); Mean Corpuscular Volume 103.5 fL (80.0-100.0); Mean Platelet Volume 8.1 fL (7.0-11.0); Mono # (Auto) 0.4 th/mm3 (0.0-0.9); Mono % (Auto) 7.7 % (0.0-8.0); Neut % (Auto) 80.6 % (16.0-70.0); Platelet Count 147 th/mm3 (150-450); Red Cell Distribution Width 15.5 % (11.6-17.2)
[2018-02-05 14:27] LABS: Baso % (Auto) 0.2 % (0.0-2.0); Eos # (Auto) 0.1 th/mm3 (0.0-0.4); Eos % (Auto) 1.4 % (0.0-4.0); Hematocrit 36.1 % (39.0-51.0); Hemoglobin 12.2 gm/dL (13.0-17.0); Lymph # (Auto) 0.4 th/mm3 (1.0-4.8); Lymph % (Auto) 5.7 % (9.0-44.0); Mean Corpuscular HGB Conc 33.8 % (32.0-36.0); Mean Corpuscular Hemoglobin 34.9 pg (27.0-34.0); Mean Corpuscular Volume 103.2 fL (80.0-100.0); Mean Platelet Volume 7.7 fL (7.0-11.0); Mono # (Auto) 0.6 th/mm3 (0.0-0.9); Mono % (Auto) 9.2 % (0.0-8.0); Neut # (Auto) 5.8 th/mm3 (1.8-7.7); Neut % (Auto) 83.5 % (16.0-70.0); Platelet Count 144 th/mm3 (150-450); Red Cell Distribution Width 15.7 % (11.6-17.2)
[2018-02-05] MEDS ORDERED: Acetaminophen 325 MG Tablet PO PRN (15:00)
--- NOTE | 2018-02-05 15:24 | XR ---
EXAM DATE: 02/05/2018 3:17 PM EDT AGE/SEX: 82 years / Male INDICATIONS: . Cough, short of breath. CLINICAL DATA: This is the patient's subsequent encounter. Patient reports that signs and symptoms h ave been present for 4 - 6 days and indicates a pain score of 0/10. MEDICAL/SURGICAL HISTORY: Cardiovascular disease. Hypertension. Diabetes mellitus type II. No ne. COMPARISON: [facility] [place], CHEST EXPIRATION ONLY, 02/05/2018. . FINDINGS: 2 view chest some associated bilateral pleural effusions left greater than right. There is perihilar vascular congestion. No visible pneumothorax. The heart is enlarged. Mild kyphosis lower thoracic spi ne CONCLUSION: Bilateral pleural effusions left greater than right. Diffuse pulmonary vascular prominence. Electronically signed by: Michael Steve MD 02/05/2018 3:22 PM EDT
--- NOTE | 2018-02-05 16:07 | P.HPIM ---
History of Present Illness Primary Care Physician: Salas Lema Chief Complaint: Here for procedure History of Present Illness: The patient is an 82-year-old male with a past medical history of atrial fibrillation, CHF and prostate cancer who is presenting to the hospital for an elective renal biopsy and cryoablation. The patient says that a right sided renal mass was noted on an ultrasound. He follows with the urologist and arrangements were made to have right renal biopsy with cryoablation. Following the procedure the patient started to require a significant amount of oxygen. Per nursing the patient was saturating in the low 90s and high 80s here. He is currently on 6 L of nasal cannula. He says he has a history of COPD and CHF. He has endorsed weakness recently. He has been working on getting home oxygen. He states he normally has a low blood pressure and heart rate. Review of Systems All other systems reviewed negative except as stated in HPI FORMERLY [facility], [facility] - History History Provided By: Patient, Family Member - Medical History Medical History: Medical History (Last Updated 02/05/18 @ 16:06 by Dale Barba DO) Atrial fibrillation CHF (congestive heart failure) COPD (chronic obstructive pulmonary disease) Fall at home Mnire's disease Prostate cancer Urinary retention - Surgical History Surgical History: Surgical History (Last Reviewed 02/05/18 @ 16:06 by Dale Barba DO) History of appendectomy History of hemicolectomy Hx of tonsillectomy - Family History Family History: Family History (Last Reviewed 02/05/18 @ 16:06 by Dale Barba DO) Other No pertinent family history - Social History I have reviewed the patient's Social History: Yes - Tobacco History Second Hand Smoke Exposure: No Tobacco Use In Past 30 Days: No Smoking Status: Former smoker - Alcohol History How Often Do You Have a Drink Containing Alcohol: 4 or more times a week - Substance Use History Substance History: No History of Abuse - Travel History Recent Travel in the [place] Within the Last 8 Weeks: No Recent Travel Out of the Country Within the Last 8 Weeks: No Medications and Allergies Active Medications: Active Medications Acetaminophen (Tylenol) 650 mg PO Q4H PRN PRN Reason: Temp > 100.4, pain 1-2 Albuterol (Duoneb Neb (Prn)) 1 ampul NEB Q2HR NEB PRN PRN Reason: DYSPNEA Bicalutamide (Casodex) 50 mg PO DAILY JEANMARIE Cefazolin Sodium/Dextrose (Ancef 2 Gm Premix Inj) 2 gm in 50 mls @ 100 mls/hr IV.SIG FIELD TECHNICIAN [facility] Stop: 02/05/18 23:59 Metoprolol Tartrate (Lopressor) 25 mg PO BID [facility] Miscellaneous Information (Misc Nursing Information) 0 each OTHER UNSCH PRN PRN Reason: SEE LABEL COMMENTS Stop: 02/06/18 12:21 Tamsulosin HCl (Flomax) 0.4 mg PO DAILY [facility] Trazodone HCl (Desyrel) 50 mg PO DAILY [facility] Allergies Allergy/AdvReac Type Severity Reaction Status Date / Time citalopram Allergy Severe Itching Verified 02/05/18 08:09 Home Medications Medication Instructions Recorded Confirmed Type bicalutamide 50 mg PO DAILY MDD 1 tab 12/27/17 02/05/18 History metoprolol tartrate 25 mg PO BID 12/27/17 02/05/18 History tamsulosin 0.4 mg PO DAILY 12/27/17 02/05/18 History ascorbic acid (vitamin C) [Vitamin 500 mg PO DAILY 02/05/18 02/05/18 History C] lisinopril 10 mg PO DAILY 02/05/18 02/05/18 History multivitamin 1 cap PO DAILY 02/05/18 02/05/18 History sulfamethoxazole-trimethoprim 2 tab PO Q12H 02/05/18 02/05/18 History trazodone 50 mg PO DAILY 02/05/18 02/05/18 History zinc 50 mg PO DAILY 02/05/18 02/05/18 History Exam Vital signs: Vital Signs 02/05/18 07:43 02/05/18 07:44 02/05/18 12:24 Temperature 97.9 F 98.0 F Pulse Rate 69 93 H Respiratory Rate 18 16 Blood Pressure 148/101 H 154/99 H Pulse Oximetry 84 L 95 91 L 02/05/18 12:30 02/05/18 12:45 02/05/18 13:10 Temperature 98.0 F Pulse Rate 92 H 86 89 Respiratory Rate 17 17 17 Blood Pressure 165/89 H 155/73 H 165/77 H Pulse Oximetry 92 L 91 L 94 L 02/05/18 13:25 02/05/18 13:55 02/05/18 14:25 Temperature 97.8 F Pulse Rate 92 H 60 89 Respiratory Rate 20 20 20 Blood Pressure 141/86 H 129/81 137/84 Pulse Oximetry 94 L 93 L 92 L 02/05/18 15:25 Temperature Pulse Rate 75 Respiratory Rate 20 Blood Pressure 135/88 Pulse Oximetry 94 L Intake & Output 02/04/18 02/05/18 02/05/18 18:59 06:59 18:59 Intake Total 1000 / 1000 Output Total 200 / 200 Balance 800 / 800 Weight 160 kg Intake: IV 1000 / 1000 NS Inj 1,000 ML @ 30 mls/hr IV. 1000 / 1000 SIG .Q24H JEANMARIE Rx#:[id number] Output: Urine 200 / 200 Other: Weight On Admission 160 kg Narrative: General: NAD HEENT: NC, AT Heart: RRR Lungs: CTAB GI: Soft, nontender Extremities: No edema Neuro: No gross deficits Results - Labs CBC & Chem 7: 02/05/18 14:14 02/05/18 08:40 Labs: Short CBC 02/05/18 02/05/18 02/05/18 Range/Units 08:40 12:47 14:14 WBC 6.3 5.0 7.0 (4.0-11.0) th/mm3 Hgb 13.6 13.9 12.2 L (13.0-17.0) gm/dL Hct 40.1 40.3 36.1 L (39.0-51.0) % Plt Count 177 147 L 144 L (150-450) th/mm3 BMP 02/05/18 08:40 Sodium 137 Potassium 4.8 Chloride 102 Carbon Dioxide 27.1 BUN 20 H Creatinine 1.69 H Calcium 8.7 - Imaging Impressions Chest X-Ray 02/05/18 07:40 CONCLUSION: 1. Cardiomegaly with increase in pulmonary vascularity and some interstitial prominence. 2. Small left pleural effusion and left basilar density likely atelectasis. 3. Would recommend PA and lateral views with better inspiration. Chest X-Ray 02/05/18 14:45 CONCLUSION: Bilateral pleural effusions left greater than right. Diffuse pulmonary vascular prominence. Caprini VTE Risk Assessment Caprini VTE Risk Assessment: Moderate/High Risk (score >= 2) Caprini Risk Assessment Model: Point Value = 1 Point Value = 2 Point Value = 3 Point Value = 5 Age 41-60 Minor surgery BMI > 25 kg/m2 Swollen legs Varicose veins or History of unexplained or recurrent spontaneous Oral contraceptives or hormone replacement Sepsis (< 1 month) Serious lung disease, including pneumonia (< 1 month) Abnormal pulmonary function Acute myocardial infarction Congestive heart failure (< 1 month) History of inflammatory bowel disease Medical patient at bed rest Age 61-74 Arthroscopic surgery Major open surgery (> 45 min) Laparoscopic surgery (> 45 min) Malignancy Confined to bed (> 72 hours) Immobilizing plaster cast Central venous access Age >= 75 History of VTE Family history of VTE Factor V Leiden Prothrombin [id number] Lupus anticoagulant Anticardiolipin antibodies Elevated serum homocysteine Heparin-induced thrombocytopenia Other congenital or acquired thrombophilia Stroke (< 1 month) Elective arthroplasty Hip, pelvis, or leg fracture Acute spinal cord injury (< 1 month) Prophylaxis Regimen: Total Risk Factor Score Risk Level Prophylaxis Regimen 0-1 Low Early ambulation 2 Moderate Order ONE of the following: *Sequential Compression Device (SCD) *Heparin 5000 units SQ BID 3-4 Higher Order ONE of the following medications: *Heparin 5000 units SQ TID *Enoxaparin/Lovenox 40 mg SQ daily (WT < 150 kg, CrCl > 30 mL/min) *Enoxaparin/Lovenox 30 mg SQ daily (WT < 150 kg, CrCl > 10-29 mL/min) *Enoxaparin/Lovenox 30 mg SQ BID (WT < 150 kg, CrCl > 30 mL/min) AND/OR *Sequential Compression Device (SCD) 5 or more Highest Order ONE of the following medications: *Heparin 5000 units SQ TID (Preferred with Epidurals) *Enoxaparin/Lovenox 40 mg SQ daily (WT < 150 kg, CrCl > 30 mL/min) *Enoxaparin/Lovenox 30 mg SQ daily (WT < 150 kg, CrCl > 10-29 mL/min) *Enoxaparin/Lovenox 30 mg SQ BID (WT < 150 kg, CrCl > 30 mL/min) AND *Sequential Compression Device (SCD) Assessment and Plan - Plan Right sided renal mass S/p renal biopsy and cryoablation. -outpt follow-up as scheduled. Acute on chronic respiratory failure/Acute systolic CHF exacerbation/COPD Currently requiring 6L NC. CXR indicative of pulmonary congestion. Recent echo with EF 30-35%. He also has COPD. Has been working on home oxygen. -Lasix 40 mg IV x 1. -oxygen and nebs as needed. -check an ABG. -cardiology consult requested. -check a lipid profile. -walk test prior to discharge. -PT eval. Renal insufficiency Creatinine is elevated. Has chronic Gann for urinary retention. -check UA, calculate FENa. -monitor BMP while diuresing. -continue Gann. PPx: SCDs H&P: Quality - VTE Deep Vein Thrombosis/Pulmonary Embolism Present on Admission: No
[2018-02-05 17:01] LABS: Hematocrit 36.9 % (39.0-51.0); Hemoglobin 12.4 gm/dL (13.0-17.0)
[2018-02-05 17:32] LABS: ABG Base Excess -1.7 mmol/L (-2-2); ABG PCO2 38 mmHg (38-42); ABG PO2 77 mmHG (61-120)
[2018-02-05 17:44] LABS: Chol/HDL Ratio 1.55 Ratio; HDL Cholesterol 93.7 mg/dL (40.0-60.0)
[2018-02-05 18:13] LABS: Bacteria,Urine Occasional /hpf; Bilirubin,Urine Negative (Negative); Clarity,Urine Hazy (Clear); Color,Urine Straw (Yellw/Straw); Glucose,Urine (UA) Negative (Negative); Leukocyte Esterase,Urine Moderate (Negative); Nitrite,Urine Negative (Negative); Specific Gravity,Urine 1.005 (1.002-1.035)
[2018-02-05] MEDS: Metoprolol Tartrate 25 MG Tablet PO SCH (20:03)
--- NOTE | 2018-02-06 01:01 | MB ---
cc: Reza Bruno DO DATE: 02/05/2018 REASON FOR CONSULTATION: Congestive heart failure. HISTORY OF PRESENT ILLNESS: Aris Lee is a pleasant 82-year-old male who sees my partner, Dr. Beach, in the office and underwent an elective renal biopsy and cryoablation today. He was found to have a right-sided renal mass noted on ultrasound, and arrangements were made by his urologist to have the right renal biopsy with cryoablation. Post-procedure, he was requiring a significant amount of oxygen with pulse oximetries in the high 80s and low 90s. He does have a history of cardiomyopathy which is apparently nonischemic as he had a stress test in 10/2016 which was normal other than a lowered ejection fraction. He also underwent an echocardiogram which showed an ejection fraction of 40%-45%. During the procedure, he was given 1 L of fluids. In seeing the patient, he states that he feels relatively okay but recently has been weak and has been trying to get on home oxygen for some time. PAST MEDICAL HISTORY: 1. Atrial fibrillation. 2. Nonischemic cardiomyopathy with an ejection fraction of 40%-45%. 3. Chronic obstructive pulmonary disease. 4. Meniere's disease. 5. Prostate cancer. 6. Urinary retention. 7. Right-sided renal mass. 8. History of GI bleeds. PAST SURGICAL HISTORY: 1. Renal biopsy and cryoablation (02/05/2018). 2. Appendectomy. 3. Hemicolectomy. 4. Tonsillectomy. ALLERGIES: CITALOPRAM. MEDICATIONS: 1. Flomax 0.4 mg daily. 2. Bicalutamide 50 mg daily. 3. Metoprolol tartrate 25 mg b.i.d. 4. Sulfamethoxazole/trimethoprim 800/160 two tablets b.i.d. 5. Zinc 50 mg daily. 6. Lisinopril 10 mg daily. 7. Trazodone 50 mg daily. FAMILY HISTORY: He denies premature coronary artery disease or sudden cardiac within the family. SOCIAL HISTORY: The patient is a former smoker. He occasionally drinks alcohol. He denies drug abuse. REVIEW OF SYSTEMS: Fourteen systems were reviewed including osteopathic. Pertinent positives and negatives above, otherwise negative. PHYSICAL EXAMINATION: VITAL SIGNS: Temperature 97.8, heart rate 60, blood pressure 129/81, respirations 20, pulse oximetry 93% on 6 L. GENERAL: The patient appears well, in no acute distress. Alert, awake and oriented x3. HEENT: Extraocular muscles intact. Mucous membranes moist. NECK: Supple. No JVD at 45 degrees. No carotid bruits heard bilaterally. Carotid upstroke is brisk in nature. HEART: Regular rate and rhythm. Positive first and second heart sounds with no noted murmurs, gallops, or rubs. LUNGS: Decreased breath sounds bilaterally with minimal rales at the bases. ABDOMEN: Soft, nontender, nondistended. No organomegaly noted. EXTREMITIES: No clubbing, cyanosis, or edema. Femoral and distal pulses intact bilaterally. NEUROLOGIC: No focal deficits. SKIN: Warm, dry, and intact. OSTEOPATHIC: No kyphoscoliosis, lordosis or paraspinal tender points. LABORATORY DATA: Hemoglobin 12.4, hematocrit 36.9, platelets 144, potassium 4.8, BUN 20, creatinine 1.69. IMPRESSION: 1. Acute on chronic systolic heart failure. 1. Renal mass, status post biopsy and cryoablation. Postoperative day 0. 2. History of atrial fibrillation. 3. Known nonischemic cardiomyopathy with an ejection fraction of 40%-45%. 4. Previous negative nuclear stress test. RECOMMENDATIONS: 1. Mr. Lee appears to be in acute on chronic systolic heart failure. This is most likely due to receiving 1 L of fluids during the procedure with minimal urine output. 2. He will be given Lasix to try to diurese him. 3. He has a previous nonischemic cardiomyopathy with a known ejection fraction of 40%-45%. 4. We will continue him on his normal outpatient medications other than lisinopril due to his acute kidney injury. After diuresing him, consideration will be made on starting this upon discharge. 5. Further recommendations will be made based on the hospital course. Thank you for allowing me to see Aris Lee. If there are any questions, please do not hesitate to call. DO MICHELLE Stewart/vaughn , 12:26 AM , 12:39 AM
[2018-02-06 07:55] LABS: Baso % (Auto) 0.2 % (0.0-2.0); Eos # (Auto) 0.2 th/mm3 (0.0-0.4); Hematocrit 36.2 % (39.0-51.0); Hemoglobin 12.4 gm/dL (13.0-17.0); Lymph # (Auto) 0.7 th/mm3 (1.0-4.8); Lymph % (Auto) 11.4 % (9.0-44.0); Mean Corpuscular HGB Conc 34.2 % (32.0-36.0); Mean Corpuscular Hemoglobin 35.6 pg (27.0-34.0); Mean Corpuscular Volume 103.9 fL (80.0-100.0); Mean Platelet Volume 8.2 fL (7.0-11.0); Mono # (Auto) 0.9 th/mm3 (0.0-0.9); Mono % (Auto) 14.9 % (0.0-8.0); Neut # (Auto) 4.5 th/mm3 (1.8-7.7); Neut % (Auto) 70.5 % (16.0-70.0); Platelet Count 141 th/mm3 (150-450); Red Blood Count 3.49 mil/mm3 (4.50-5.90); Red Cell Distribution Width 15.6 % (11.6-17.2); White Blood Count 6.4 th/mm3 (4.0-11.0)
[2018-02-06 08:16] LABS: Albumin 2.9 g/dL (3.4-5.0); Anion Gap 6 meq/L (5-15); Aspartate Aminotransferase 27 U/L (15-37); Blood Urea Nitrogen 20 mg/dL (7-18); Calcium 8.3 mg/dL (8.5-10.1); Carbon Dioxide 30.5 meq/L (21.0-32.0); Chloride 98 meq/L (98-107); Glomerular Filtration Rate 34 mL/min (>89); Glucose,Random 109 mg/dL (74-106); Potassium 4.4 meq/L (3.5-5.1); Sodium 134 meq/L (136-145)
[2018-02-06 08:20] LABS: Alanine Aminotransferase 18 U/L (12-78); Alkaline Phosphatase 107 U/L (45-117); Total Protein 5.8 g/dL (6.4-8.2)
[2018-02-06] MEDS: traZODone 50 MG Tablet PO SCH (09:21)
[2018-02-06] MEDS: Metoprolol Tartrate 25 MG Tablet PO SCH ×2 (09:22→20:17)
--- NOTE | 2018-02-06 10:10 | CT ---
EXAM DATE: 02/05/2018 2:30 PM EDT AGE/SEX: 82 years / Male INDICATIONS: 82-year-old male with history of 3 cm right renal mass. Patient presents for biopsy and cryoablation. CLINICAL DATA: This is the patient's initial encounter. Patient reports that signs and symptoms have been present for 1 day and indicates a pain score of 0/10. MEDICAL/SURGICAL HISTORY: Carcinoma, prostatic. Chronic obstructive pulmonary disease. Renal f ailure None. Anesthesia and pain control was provided by the Anesthesia department. DEVICE(S): . 2.4 cryo needle Prophylactic antibiotics were administered with appropriate pre-procedure timing. . . COMPARISON: [facility] [place] BIOPSY RENAL RIGHT, 02/05/2018. . PROCEDURE : 1. CT guided cryoablation. 2. 3. Under sterile conditions and using aseptic technique with CT guidance the mass was localized and sati sfactory approach was taken to access the lesion. Using automated exposure control and adjustment of the mA and/or kV according to patient size, radiation dose was kept as low as reasonably achievable to obtain optimal diagnostic quality images. DICOM format image data is available electronically for review and comparison. Slice Cryoprobes were employed using percutaneous technique employing the prescribed probes. A freeze-thaw, freeze-thaw technique was employed and serial imaging demonstrated an ice ball encomp assing the entire lesion. Post procedure images demonstrate expected postoperative changes without e vidence of hematoma. FINDINGS: Appropriate progression of the ablation zone during the procedure. CONCLUSION: 1. Uncomplicated cryoablation as above. Electronically signed by: Nestor Castillo MD 02/06/2018 10:08 AM EDT
--- NOTE | 2018-02-06 10:11 | CT ---
EXAM DATE: 02/05/2018 2:30 PM EDT AGE/SEX: 82 years / Male INDICATIONS: 82-year-old male with history of 3 cm right renal mass. Patient presents for biopsy and cryoablation. CLINICAL DATA: This is the patient's initial encounter. Patient reports that signs and symptoms have been present for 1 day and indicates a pain score of 0/10. MEDICAL/SURGICAL HISTORY: Carcinoma, prostatic. Chronic obstructive pulmonary disease. Renal f ailure None. COMPARISON: [facility] – [place], CT CRYOABLATION RENAL RIGHT, 02/05/2018. . BIOPSY SITE: Right renal Anesthesia and pain control was provided by the Anesthesia department. DEVICE(S): 17 gauge Introducer 18 gauge BARD biopsy needle Two . . PROCEDURE: CT guided Right renal biopsy Prior to the procedure informed consent was obtained. Any appropriate prior imaging studies were rev iewed. Using automated exposure control and adjustment of the mA and/or kV according to patient size, radiat ion dose was kept as low as reasonably achievable to obtain optimal diagnostic quality images. DICOM format image data is available electronically for review and comparison. The site was prepped in a sterile fashion. Full sterile technique was used, including cap, mask, nicole rile gloves and gown and a large sterile sheet. Hand hygiene and 2% chlorhexidine and/or betadine/al cohol prep was utilized per protocol for cutaneous antisepsis. The skin and subcutaneous tissues wer e infiltrated with local anesthetic solution. With CT guidance the previously identified target was localized. Biopsy was performed using the presc ribed needle as above. Adequate hemostasis was obtained with compression at the puncture site. Follow-up CT scan reveals no hemorrhage. The patient tolerated the procedure well and there were no complications. The patient was returned to the Radiology Outpatient Unit in stable condition. FINDINGS: Two 18-gauge core biopsies were obtained. CONCLUSION: 1. Uncomplicated CT guided biopsy. Electronically signed by: Nestor Castillo MD 02/06/2018 10:10 AM EDT
--- NOTE | 2018-02-06 10:59 | P.PNIM ---
Subjective Interval history: The patient was resting in bed comfortably. He stated that he had an itchy rash at the site of the procedure. He said he did not get much sleep last night. He says he has been very weak lately and would be open to going back to rehab. Discussed with nursing. Physical Exam Vital signs: Vital Signs 02/05/18 12:24 02/05/18 12:30 02/05/18 12:45 Temperature 98.0 F Pulse Rate 93 H 92 H 86 Respiratory Rate 16 17 17 Blood Pressure 154/99 H 165/89 H 155/73 H Pulse Oximetry 91 L 92 L 91 L 02/05/18 13:10 02/05/18 13:25 02/05/18 13:55 Temperature 98.0 F 97.8 F Pulse Rate 89 92 H 60 Respiratory Rate 17 20 20 Blood Pressure 165/77 H 141/86 H 129/81 Pulse Oximetry 94 L 94 L 93 L 02/05/18 14:25 02/05/18 15:25 02/05/18 16:25 Temperature Pulse Rate 89 75 62 Respiratory Rate 20 20 18 Blood Pressure 137/84 135/88 146/87 H Pulse Oximetry 92 L 94 L 97 02/05/18 17:25 02/05/18 20:00 02/06/18 00:00 Temperature 97.9 F 98.8 F Pulse Rate 66 75 72 Respiratory Rate 20 16 17 Blood Pressure 142/75 H 131/71 108/57 L Pulse Oximetry 93 L 99 17 L 02/06/18 04:00 02/06/18 08:00 02/06/18 08:44 Temperature 97.9 F 98.8 F Pulse Rate 65 70 64 Respiratory Rate 17 20 18 Blood Pressure 121/72 110/70 Pulse Oximetry 98 93 L 96 Intake & Output 02/05/18 02/06/18 02/06/18 18:59 06:59 18:59 Intake Total 1000 / 1000 600 / 600 Output Total 650 / 650 1100 / 1100 Balance 350 / 350 -500 / -500 Weight 160 kg 73.4 kg Intake: IV 1000 / 1000 NS Inj 1,000 ML @ 30 mls/hr IV. 1000 / 1000 SIG .Q24H [facility] Rx#:[id number] Oral 600 / 600 Output: Urine 200 / 200 Urine Amount (Catheter) 450 / 450 1100 / 1100 Indwelling Urethral Catheter 450 / 450 1100 / 1100 Other: Weight On Admission 160 kg Narrative: General: NAD Skin: Mild erythema around lower back. HEENT: NC, AT Heart: RRR Lungs: CTAB GI: Soft, nontender Extremities: No edema Neuro: No gross deficits - Urinary Catheter Management Indwelling Urethral Catheter Cath placed during this visit: no Reason for continuing: Chronic Urinary Retention Results - Labs CBC & Chem 7: 02/06/18 06:01 02/06/18 06:01 Laboratory Results - last 24 hr 02/05/18 02/05/18 02/05/18 08:40 12:47 14:14 WBC 5.0 7.0 RBC 3.90 L 3.50 L Hgb 13.9 12.2 L Hct 40.3 36.1 L MCV 103.5 H 103.2 H MCH 35.6 H 34.9 H MCHC 34.4 33.8 RDW 15.5 15.7 Plt Count 147 L 144 L MPV 8.1 7.7 Neut % (Auto) 80.6 H 83.5 H Lymph % (Auto) 8.9 L 5.7 L [place] % (Auto) 7.7 9.2 H Eos % (Auto) 2.5 1.4 Baso % (Auto) 0.3 0.2 Neut # (Auto) 4.0 5.8 Lymph # (Auto) 0.4 L 0.4 L [place] # (Auto) 0.4 0.6 Eos # (Auto) 0.1 0.1 Baso # (Auto) 0.0 0.0 WBC Differential . . Differential Comment Auto diff final Auto diff final Puncture Site Patient Temperature O2 Saturation ABG pH ABG pCO2 ABG pO2 ABG HCO3 ABG O2 Content ABG Base Excess ABG Methemoglobin Harjeet Test Hemoglobin Carboxyhemoglobin O2 Delivery Device Liter Flow Critical Value Sodium Potassium Chloride Carbon Dioxide Anion Gap BUN Creatinine Estimated GFR Random Glucose Calcium Total Bilirubin AST ALT Alkaline Phosphatase Total Protein Albumin Triglycerides 71 Cholesterol 146 LDL Cholesterol, Calc 38 HDL Cholesterol 93.7 H Cholesterol/HDL Ratio 1.55 Urine Color Urine Clarity Urine pH Ur Specific [place] Urine Protein Urine Glucose (UA) Urine Ketones Urine Occult Blood Urine Nitrate Urine Bilirubin Urine Urobilinogen Ur Leukocyte Esterase Urine RBC Urine WBC Urine Bacteria Micro UA Comment Ur Microscopic Review Urine Culture Comments Ur Random Creatinine Ur Random Sodium 02/05/18 02/05/18 02/05/18 16:45 17:14 17:15 WBC RBC Hgb 12.4 L Hct 36.9 L MCV MCH MCHC RDW Plt Count MPV Neut % (Auto) Lymph % (Auto) [place] % (Auto) Eos % (Auto) Baso % (Auto) Neut # (Auto) Lymph # (Auto) [place] # (Auto) Eos # (Auto) Baso # (Auto) WBC Differential Differential Comment Puncture Site Right radial Patient Temperature 98.6 O2 Saturation 92 ABG pH 7.39 ABG pCO2 38 ABG pO2 77 ABG HCO3 23 ABG O2 Content 15.9 ABG Base Excess -1.7 ABG Methemoglobin 1.7 Harjeet Test Present Hemoglobin 12.3 Carboxyhemoglobin 1.5 O2 Delivery Device Nasal cannula Liter Flow 6.00 Critical Value No Sodium Potassium Chloride Carbon Dioxide Anion Gap BUN Creatinine Estimated GFR Random Glucose Calcium Total Bilirubin AST ALT Alkaline Phosphatase Total Protein Albumin Triglycerides Cholesterol LDL Cholesterol, Calc HDL Cholesterol Cholesterol/HDL Ratio Urine Color Urine Clarity Urine pH Ur Specific [place] Urine Protein Urine Glucose (UA) Urine Ketones Urine Occult Blood Urine Nitrate Urine Bilirubin Urine Urobilinogen Ur Leukocyte Esterase Urine RBC Urine WBC Urine Bacteria Micro UA Comment Ur Microscopic Review Urine Culture Comments Ur Random Creatinine Less than 13 L Ur Random Sodium 132 02/05/18 02/06/18 02/06/18 17:15 06:01 06:01 WBC 6.4 RBC 3.49 L Hgb 12.4 L Hct 36.2 L MCV 103.9 H MCH 35.6 H MCHC 34.2 RDW 15.6 Plt Count 141 L MPV 8.2 Neut % (Auto) 70.5 H Lymph % (Auto) 11.4 [place] % (Auto) 14.9 H Eos % (Auto) 3.0 Baso % (Auto) 0.2 Neut # (Auto) 4.5 Lymph # (Auto) 0.7 L [place] # (Auto) 0.9 Eos # (Auto) 0.2 Baso # (Auto) 0.0 WBC Differential . Differential Comment Auto diff final Puncture Site Patient Temperature O2 Saturation ABG pH ABG pCO2 ABG pO2 ABG HCO3 ABG O2 Content ABG Base Excess ABG Methemoglobin Harjeet Test Hemoglobin Carboxyhemoglobin O2 Delivery Device Liter Flow Critical Value Sodium 134 L Potassium 4.4 Chloride 98 Carbon Dioxide 30.5 Anion Gap 6 BUN 20 H Creatinine 1.89 H Estimated GFR 34 L Random Glucose 109 H Calcium 8.3 L Total Bilirubin 0.7 AST 27 ALT 18 Alkaline Phosphatase 107 Total Protein 5.8 L Albumin 2.9 L Triglycerides Cholesterol LDL Cholesterol, Calc HDL Cholesterol Cholesterol/HDL Ratio Urine Color Straw Urine Clarity Hazy H Urine pH 5.0 Ur Specific [place] 1.005 Urine Protein Negative Urine Glucose (UA) Negative Urine Ketones Negative Urine Occult Blood Large H Urine Nitrate Negative Urine Bilirubin Negative Urine Urobilinogen Less than 2 Ur Leukocyte Esterase Moderate H Urine RBC 102 H Urine WBC 18 H Urine Bacteria Occasional H Micro UA Comment Cath-culture ind Ur Microscopic Review Not Reportable Urine Culture Comments Cath-cult indicated Ur Random Creatinine Ur Random Sodium - Imaging Impressions CT Guided Tissue Ablation 02/05/18 00:00 CONCLUSION: 1. Uncomplicated cryoablation as above. Renal Biopsy CT 02/05/18 00:00 CONCLUSION: 1. Uncomplicated CT guided biopsy. Chest X-Ray 02/05/18 14:45 CONCLUSION: Bilateral pleural effusions left greater than right. Diffuse pulmonary vascular prominence. Assessment and Plan - Plan Right sided renal mass S/p renal biopsy and cryoablation. -outpt follow-up as scheduled. Acute on chronic respiratory failure/Acute systolic CHF exacerbation/COPD Currently requiring 6L NC. CXR indicative of pulmonary congestion. Recent echo with EF 30-35%. He also has COPD. Has been working on home oxygen. ABG noted. Cardiology consult appreciated. LDL 38. -S/p Lasix 40 mg IV x 1. -oxygen and nebs as needed. -walk test prior to discharge. -PT eval. Renal insufficiency Creatinine is elevated. 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 -monitor BMP while diuresing. -continue Gann. -consult urology if needed. Follows with Dr. Roberts as an outpt. UTI UA indicative of infection. -ceftriaxone 1 g IV daily. -follow urine culture. PPx: SCDs Discharge Planning: Await PT eval. May need SNF.
--- NOTE | 2018-02-06 13:07 | P.RAD ---
Radiology Note Patient denies having any pain or acute symptoms after a right renal mass biopsy and cryoablation which was performed yesterday. He denies having any fevers, chills, N/V, headaches, or hematuria. Unfortunately he did have an acute on chronic CHF/COPD exacerbation and it wasnt safe for him to be discharged home. Currently, hes requiring 6 Liters of oxygen via NC. The medical service was consulted for further evaluation and management. Patient was discharged from the IR service and has a follow-up appointment with Dr. Matson next week. Patient and the nursing staff is aware. Patient denies having any further concerns or complaints to report at this time. He also tolerated the procedure well.
--- NOTE | 2018-02-06 22:20 | P.PNCA ---
Subjective Interval history: No events overnight Feels like he's breathing better No chest pain Oxygen requirements down, on 3L now Medications and Allergies Active Medications: Active Medications Acetaminophen (Tylenol) 650 mg PO Q4H PRN PRN Reason: Temp > 100.4, pain 1-2 Albuterol (Duoneb Neb (Prn)) 1 ampul NEB Q2HR NEB PRN PRN Reason: DYSPNEA Last Admin: 02/06/18 08:43 Dose: 1 ampul Bicalutamide (Casodex) 50 mg PO DAILY [facility] Last Admin: 02/06/18 09:22 Dose: 50 mg Diphenhydramine HCl (Benadryl) 50 mg PO Q6H PRN PRN Reason: itching/rash Last Admin: 02/06/18 12:31 Dose: 50 mg Ceftriaxone Sodium 1,000 mg/ (Sodium Chloride) 100 mls @ 200 mls/hr IV.SIG Q24H [facility] Last Infusion: 02/06/18 13:02 Dose: Infused Metoprolol Tartrate (Lopressor) 25 mg PO BID [facility] Last Admin: 02/06/18 20:17 Dose: Not Given Tamsulosin HCl (Flomax) 0.4 mg PO DAILY [facility] Last Admin: 02/06/18 09:22 Dose: 0.4 mg Trazodone HCl (Desyrel) 50 mg PO DAILY [facility] Last Admin: 02/06/18 09:21 Dose: 50 mg Allergies Allergy/AdvReac Type Severity Reaction Status Date / Time citalopram Allergy Severe Itching Verified 02/05/18 08:09 Home Medications Medication Instructions Recorded Confirmed Type bicalutamide 50 mg PO DAILY MDD 1 tab 12/27/17 02/05/18 History metoprolol tartrate 25 mg PO BID 12/27/17 02/05/18 History tamsulosin 0.4 mg PO DAILY 12/27/17 02/05/18 History ascorbic acid (vitamin C) [Vitamin 500 mg PO DAILY 02/05/18 02/05/18 History C] lisinopril 10 mg PO DAILY 02/05/18 02/05/18 History multivitamin 1 cap PO DAILY 02/05/18 02/05/18 History sulfamethoxazole-trimethoprim 2 tab PO Q12H 02/05/18 02/05/18 History trazodone 50 mg PO DAILY 02/05/18 02/05/18 History zinc 50 mg PO DAILY 02/05/18 02/05/18 History Physical Exam Vital signs: Vital Signs 02/06/18 00:00 02/06/18 04:00 02/06/18 08:00 Temperature 98.8 F 97.9 F 98.8 F Pulse Rate 72 65 70 Respiratory Rate 17 17 20 Blood Pressure 108/57 L 121/72 110/70 Pulse Oximetry 17 L 98 93 L 02/06/18 08:44 02/06/18 12:00 02/06/18 16:00 Temperature 99.2 F 97.9 F Pulse Rate 64 70 61 Respiratory Rate 18 19 19 Blood Pressure 102/59 L 92/57 L Pulse Oximetry 96 95 95 02/06/18 18:49 Temperature Pulse Rate Respiratory Rate Blood Pressure Pulse Oximetry 95 Intake & Output 02/06/18 02/06/18 02/07/18 06:59 18:59 06:59 Intake Total 600 / 600 1060 / 1060 Output Total 1100 / 1100 400 / 400 Balance -500 / -500 660 / 660 Weight 73.4 kg Intake: IV 100 / 100 Rocephin Inj 1,000 MG In NS Inj 100 / 100 100 ML @ 200 mls/hr IV.SIG Q24H [facility] Rx#:[id number] Oral 600 / 600 960 / 960 Output: Urine 400 / 400 Urine Amount (Catheter) 1100 / 1100 Indwelling Urethral Catheter 1100 / 1100 Narrative: General: NAD Skin: Mild erythema around lower back. HEENT: NC, AT Heart: RRR Lungs: CTAB GI: Soft, nontender Extremities: No edema Neuro: No gross deficits - Urinary Catheter Management Indwelling Urethral Catheter Cath placed during this visit: no Reason for continuing: Chronic Urinary Retention Results 02/06/18 06:01 02/06/18 06:01 Cardiac Enzymes 02/06/18 Range/Units 06:01 AST 27 (15-37) U/L Coagulation 02/05/18 Range/Units 08:40 PT 10.1 (9.8-11.6) sec APTT 26.7 (24.3-30.1) sec Lipids 02/05/18 Range/Units 08:40 Triglycerides 71 (42-150) mg/dL Cholesterol 146 (120-200) mg/dL HDL Cholesterol 93.7 H (40.0-60.0) mg/dL Cholesterol/HDL Ratio 1.55 Ratio CBC 02/05/18 02/05/18 02/05/18 Range/Units 08:40 12:47 14:14 WBC 6.3 5.0 7.0 (4.0-11.0) th/mm3 RBC 3.85 L 3.90 L 3.50 L (4.50-5.90) mil/mm3 Hgb 13.6 13.9 12.2 L (13.0-17.0) gm/dL Hct 40.1 40.3 36.1 L (39.0-51.0) % Plt Count 177 147 L 144 L (150-450) th/mm3 Neut # (Auto) 5.1 4.0 5.8 (1.8-7.7) th/mm3 Lymph # (Auto) 0.4 L 0.4 L 0.4 L (1.0-4.8) th/mm3 [place] # (Auto) 0.6 0.4 0.6 (0.0-0.9) th/mm3 Eos # (Auto) 0.1 0.1 0.1 (0.0-0.4) th/mm3 Baso # (Auto) 0.0 0.0 0.0 (0.0-0.2) th/mm3 02/05/18 02/06/18 Range/Units 16:45 06:01 WBC 6.4 (4.0-11.0) th/mm3 RBC 3.49 L (4.50-5.90) mil/mm3 Hgb 12.4 L 12.4 L (13.0-17.0) gm/dL Hct 36.9 L 36.2 L (39.0-51.0) % Plt Count 141 L (150-450) th/mm3 Neut # (Auto) 4.5 (1.8-7.7) th/mm3 Lymph # (Auto) 0.7 L (1.0-4.8) th/mm3 [place] # (Auto) 0.9 (0.0-0.9) th/mm3 Eos # (Auto) 0.2 (0.0-0.4) th/mm3 Baso # (Auto) 0.0 (0.0-0.2) th/mm3 Comprehensive Metabolic Panel 02/05/18 02/06/18 Range/Units 08:40 06:01 Sodium 137 134 L (136-145) meq/L Potassium 4.8 4.4 (3.5-5.1) meq/L Chloride 102 98 (98-107) meq/L Carbon Dioxide 27.1 30.5 (21.0-32.0) meq/L BUN 20 H 20 H (7-18) mg/dL Creatinine 1.69 H 1.89 H (0.60-1.30) mg/dL Calcium 8.7 8.3 L (8.5-10.1) mg/dL AST 27 (15-37) U/L ALT 18 (12-78) U/L Alkaline Phosphatase 107 (45-117) U/L Total Protein 5.8 L (6.4-8.2) g/dL Albumin 2.9 L (3.4-5.0) g/dL Intake and Output 02/06/18 02/06/18 02/06/18 06:59 14:59 22:59 Intake Total 600 / 600 100 / 100 960 / 960 Output Total 350 / 350 400 / 400 Balance 250 / 250 100 / 100 560 / 560 Intake: IV 100 / 100 Rocephin Inj 1,000 MG In NS Inj 100 / 100 100 ML @ 200 mls/hr IV.SIG Q24H [facility] Rx#:[id number] Oral 600 / 600 960 / 960 Output: Urine 400 / 400 Urine Amount (Catheter) 350 / 350 Indwelling Urethral Catheter 350 / 350 Other: Weight 73.4 kg - Imaging and Cardiology Imaging: Impressions CT Guided Tissue Ablation 02/05/18 00:00 CONCLUSION: 1. Uncomplicated cryoablation as above. Renal Biopsy CT 02/05/18 00:00 CONCLUSION: 1. Uncomplicated CT guided biopsy. Chest X-Ray 02/05/18 07:40 CONCLUSION: 1. Cardiomegaly with increase in pulmonary vascularity and some interstitial prominence. 2. Small left pleural effusion and left basilar density likely atelectasis. 3. Would recommend PA and lateral views with better inspiration. Chest X-Ray 02/05/18 14:45 CONCLUSION: Bilateral pleural effusions left greater than right. Diffuse pulmonary vascular prominence. Assessment and Plan - Assessment (1) Acute on chronic systolic (congestive) heart failure Code(s): I50.23 - Acute on chronic systolic (congestive) heart failure Status : Acute (2) Acute UTI Code(s): N39.0 - Urinary tract infection, site not specified Status: Acute (3) Generalized weakness Code(s): R53.1 - Weakness Status: Acute (4) Right renal mass Code(s): N28.89 - Other specified disorders of kidney and ureter Status: Acute - Plan 1) Acute on chronic systolic heart failure Given 1L of fluid during procedure with minimal urine output Diuresing Oxygen requirement down today 2) NICM EF 40-45% Previously nuclear scan showing no ischemia No signs of acute coronary syndrome 3) Renal mass s/p biopsy and cryoablation 4) Paroxysmal Afib He discussed this previously outpatient and revisited during this hospital course, does not want to be on anticoagulation due to previous bleeding episodes Recommend ASA 81mg daily once possible
[2018-02-07] MEDS: Metoprolol Tartrate 25 MG Tablet PO SCH ×2 (08:51→20:06)
[2018-02-07] MEDS: traZODone 50 MG Tablet PO SCH (08:51)
[2018-02-07 12:42] LABS: Baso % (Auto) 0.2 % (0.0-2.0); Eos # (Auto) 0.2 th/mm3 (0.0-0.4); Eos % (Auto) 2.7 % (0.0-4.0); Hematocrit 35.3 % (39.0-51.0); Lymph # (Auto) 0.9 th/mm3 (1.0-4.8); Lymph % (Auto) 15.5 % (9.0-44.0); Mean Corpuscular Hemoglobin 35.5 pg (27.0-34.0); Mean Corpuscular Volume 104.5 fL (80.0-100.0); Mean Platelet Volume 7.8 fL (7.0-11.0); Mono # (Auto) 0.7 th/mm3 (0.0-0.9); Mono % (Auto) 12.4 % (0.0-8.0); Neut # (Auto) 3.9 th/mm3 (1.8-7.7); Neut % (Auto) 69.2 % (16.0-70.0); Platelet Count 138 th/mm3 (150-450); Red Blood Count 3.38 mil/mm3 (4.50-5.90); Red Cell Distribution Width 15.6 % (11.6-17.2); White Blood Count 5.6 th/mm3 (4.0-11.0)
[2018-02-07 13:01] LABS: Calcium 8.2 mg/dL (8.5-10.1); Carbon Dioxide 28.2 meq/L (21.0-32.0); Potassium 4.2 meq/L (3.5-5.1)
--- NOTE | 2018-02-07 13:46 | P.PNIM ---
Subjective Interval history: The patient was resting in bed. He said he was too weak to really work with physical therapy. He was agreeable with going to a rehabilitation facility. Physical Exam Vital signs: Vital Signs 02/06/18 16:00 02/06/18 18:49 02/06/18 20:00 Temperature 97.9 F 97.7 F Pulse Rate 61 55 L Respiratory Rate 19 16 Blood Pressure 92/57 L 112/68 Pulse Oximetry 95 95 97 02/07/18 00:00 02/07/18 08:00 02/07/18 12:00 Temperature 98.1 F 98.2 F 97.8 F Pulse Rate 96 H 77 62 Respiratory Rate 18 16 16 Blood Pressure 135/80 136/82 108/61 Pulse Oximetry 98 98 99 Intake & Output 02/06/18 02/07/18 02/07/18 18:59 06:59 18:59 Intake Total 1060 / 1060 Output Total 400 / 400 0 / 0 Balance 660 / 660 0 / 0 Weight 75.4 kg Intake: IV 100 / 100 Rocephin Inj 1,000 MG In NS Inj 100 / 100 100 ML @ 200 mls/hr IV.SIG Q24H [facility] Rx#:[id number] Oral 960 / 960 Output: Urine 400 / 400 0 / 0 Narrative: General: NAD. Skin: Mild erythema around lower back. HEENT: NC, AT. Heart: RRR. Lungs: Wheezing noted. GI: Soft, nontender. Extremities: No edema. Neuro: No gross deficits. - Urinary Catheter Management Indwelling Urethral Catheter Cath placed during this visit: no Reason for continuing: Chronic Urinary Retention Results - Labs CBC & Chem 7: 02/07/18 11:06 02/07/18 11:06 Laboratory Results - last 24 hr 02/05/18 02/07/18 02/07/18 17:15 11:06 11:06 WBC 5.6 RBC 3.38 L Hgb 12.0 L Hct 35.3 L MCV 104.5 H MCH 35.5 H MCHC 34.0 RDW 15.6 Plt Count 138 L MPV 7.8 Neut % (Auto) 69.2 Lymph % (Auto) 15.5 [place] % (Auto) 12.4 H Eos % (Auto) 2.7 Baso % (Auto) 0.2 Neut # (Auto) 3.9 Lymph # (Auto) 0.9 L [place] # (Auto) 0.7 Eos # (Auto) 0.2 Baso # (Auto) 0.0 WBC Differential . Differential Comment Auto diff final Sodium 136 Potassium 4.2 Chloride 100 Carbon Dioxide 28.2 Anion Gap 8 BUN 22 H Creatinine 1.74 H Estimated GFR 38 L Random Glucose 139 H Calcium 8.2 L Urine Color Straw Urine Clarity Hazy H Urine pH 5.0 Ur Specific [place] 1.005 Urine Protein Negative Urine Glucose (UA) Negative Urine Ketones Negative Urine Occult Blood Large H Urine Nitrate Negative Urine Bilirubin Negative Urine Urobilinogen Less than 2 Ur Leukocyte Esterase Moderate H Urine RBC 102 H Urine WBC 18 H Urine Bacteria Occasional H Micro UA Comment Cath-culture ind Urine Culture Comments Cath-cult indicated Microbiology 02/05/18 17:15 Catheterized Urine Urine Culture - Preliminary Pseudomonas aeruginosa Assessment and Plan - Plan Right sided renal mass S/p renal biopsy and cryoablation. -outpt follow-up as scheduled. Acute on chronic respiratory failure/Acute systolic CHF exacerbation/COPD Currently requiring 6L NC. CXR indicative of pulmonary congestion. Recent echo with EF 30-35%. He also has COPD. Has been working on home oxygen. ABG noted. Cardiology consult appreciated. LDL 38. -S/p Lasix 40 mg IV x 1. -oxygen and nebs as needed. Add scheduled nebs. -Solu-Medrol 40 mg IV every 8 hours. -PT eval. Case management consult. Renal insufficiency Creatinine is elevated. 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 -monitor BMP. Stable. -continue Gann. -consult urology if needed. Follows with Dr. Roberts as an outpt. UTI UA indicative of infection. Urine culture growing pseudomonas. -change antibiotics to Zosyn. -follow urine culture sensitivities. PPx: Heparin Discharge Planning: Await PT eval. May need SNF.
[2018-02-07] MEDS: Heparin - SQ 10,000 UNITS/ML Vial SQ SCH ×2 (14:18→22:05)
[2018-02-07] MEDS: MethylPREDNISolone Sod Succinate Inj 40 MG/ML Vial IV.PUSH SCH ×2 (14:19→22:05)
--- NOTE | 2018-02-07 14:48 | XR ---
EXAM DATE: 02/07/2018 2:41 PM EDT AGE/SEX: 82 years / Male INDICATIONS: Short of breath. CLINICAL DATA: This is the patient's subsequent encounter. Patient reports that signs and symptoms h ave been present for 4 - 6 days and indicates a pain score of 0/10. MEDICAL/SURGICAL HISTORY: . Carcinoma, prostatic. Chronic obstructive pulmonary disease. Renal failure. None. COMPARISON: [facility] [place], CHEST 2V PA&LAT, 02/05/2018. . FINDINGS: A single AP view of the chest demonstrates cardiomegaly with increase in pulmonary vascularity and so me minimal interstitial edema. Small bilateral pleural effusions and bibasilar densities. The cardio mediastinal contours are unremarkable. Osseous structures are intact. CONCLUSION: Cardiomegaly with interstitial edema. The overall appearance has improved from previous study. Small pleural effusions. Electronically signed by: Micah Zhu MD 02/07/2018 2:46 PM EDT
[2018-02-07] MEDS: Piperacil/Tazo 2.25 GM Premix 50 ML IV.SIG SCH ×2 (15:33→22:06)
--- NOTE | 2018-02-07 18:47 | P.PNCA ---
Subjective Interval history: No chest pain SOB better Overall weak Medications and Allergies Active Medications: Active Medications Acetaminophen (Tylenol) 650 mg PO Q4H PRN PRN Reason: Temp > 100.4, pain 1-2 Albuterol (Duoneb Neb (Prn)) 1 ampul NEB Q2HR NEB PRN PRN Reason: DYSPNEA Last Admin: 02/06/18 08:43 Dose: 1 ampul Albuterol (Duoneb Neb ([facility])) 1 ampul NEB Q6HR WHILE AWAKE NEB [facility] Bicalutamide (Casodex) 50 mg PO DAILY [facility] Last Admin: 02/07/18 08:52 Dose: 50 mg Diphenhydramine HCl (Benadryl) 50 mg PO Q6H PRN PRN Reason: itching/rash Last Admin: 02/07/18 08:52 Dose: 50 mg Heparin Sodium (Porcine) (Heparin Inj) 5,000 units SQ Q8HR [facility] Last Admin: 02/07/18 14:18 Dose: 5,000 units Piperacillin/Tazobactam/Dextrose (Zosyn 2.25 Gm Premix) 50 mls @ 100 mls/hr IV.SIG Q6H [facility] Last Infusion: 02/07/18 16:03 Dose: Infused Methylprednisolone Sodium Succinate (Solumedrol Inj) 40 mg IV.PUSH Q8HR [facility] Last Admin: 02/07/18 14:19 Dose: 40 mg Metoprolol Tartrate (Lopressor) 25 mg PO BID [facility] Last Admin: 02/07/18 08:51 Dose: 25 mg Tamsulosin HCl (Flomax) 0.4 mg PO DAILY [facility] Last Admin: 02/07/18 08:51 Dose: 0.4 mg Trazodone HCl (Desyrel) 50 mg PO DAILY [facility] Last Admin: 02/07/18 08:51 Dose: 50 mg Allergies Allergy/AdvReac Type Severity Reaction Status Date / Time citalopram Allergy Severe Itching Verified 02/05/18 08:09 Home Medications Medication Instructions Recorded Confirmed Type bicalutamide 50 mg PO DAILY MDD 1 tab 12/27/17 02/05/18 History metoprolol tartrate 25 mg PO BID 12/27/17 02/05/18 History tamsulosin 0.4 mg PO DAILY 12/27/17 02/05/18 History ascorbic acid (vitamin C) [Vitamin 500 mg PO DAILY 02/05/18 02/05/18 History C] lisinopril 10 mg PO DAILY 02/05/18 02/05/18 History multivitamin 1 cap PO DAILY 02/05/18 02/05/18 History sulfamethoxazole-trimethoprim 2 tab PO Q12H 02/05/18 02/05/18 History trazodone 50 mg PO DAILY 02/05/18 02/05/18 History zinc 50 mg PO DAILY 02/05/18 02/05/18 History Physical Exam Vital signs: Vital Signs 02/06/18 18:49 02/06/18 20:00 02/07/18 00:00 Temperature 97.7 F 98.1 F Pulse Rate 55 L 96 H Respiratory Rate 16 18 Blood Pressure 112/68 135/80 Pulse Oximetry 95 97 98 02/07/18 08:00 02/07/18 12:00 02/07/18 16:00 Temperature 98.2 F 97.8 F 97.9 F Pulse Rate 77 62 71 Respiratory Rate 16 16 17 Blood Pressure 136/82 108/61 116/68 Pulse Oximetry 98 99 95 Intake & Output 02/06/18 02/07/18 02/07/18 18:59 06:59 18:59 Intake Total 1060 / 1060 510 / 510 Output Total 400 / 400 0 / 0 875 / 875 Balance 660 / 660 0 / 0 -365 / -365 Weight 75.4 kg Intake: IV 100 / 100 150 / 150 Zosyn 2.25 GM Premix 50 ML @ 50 / 50 100 mls/hr IV.SIG Q6H [facility] Rx#: [id number] Rocephin Inj 1,000 MG In NS Inj 100 / 100 100 / 100 100 ML @ 200 mls/hr IV.SIG Q24H [facility] Rx#:[id number] Oral 960 / 960 360 / 360 Output: Urine 400 / 400 0 / 0 350 / 350 Urine Amount (Catheter) 525 / 525 Indwelling Urethral Catheter 525 / 525 Other: Date of Last Bowel Movement 02/07/18 # Bowel Movements 2 Narrative: General: NAD. Skin: Mild erythema around lower back. HEENT: NC, AT. Heart: RRR. Lungs: Wheezing noted. GI: Soft, nontender. Extremities: No edema. Neuro: No gross deficits. - Urinary Catheter Management Indwelling Urethral Catheter Cath placed during this visit: no Reason for continuing: Chronic Urinary Retention Results 02/07/18 11:06 02/07/18 11:06 Cardiac Enzymes 02/06/18 Range/Units 06:01 AST 27 (15-37) U/L CBC 02/06/18 02/07/18 Range/Units 06:01 11:06 WBC 6.4 5.6 (4.0-11.0) th/mm3 RBC 3.49 L 3.38 L (4.50-5.90) mil/mm3 Hgb 12.4 L 12.0 L (13.0-17.0) gm/dL Hct 36.2 L 35.3 L (39.0-51.0) % Plt Count 141 L 138 L (150-450) th/mm3 Neut # (Auto) 4.5 3.9 (1.8-7.7) th/mm3 Lymph # (Auto) 0.7 L 0.9 L (1.0-4.8) th/mm3 [place] # (Auto) 0.9 0.7 (0.0-0.9) th/mm3 Eos # (Auto) 0.2 0.2 (0.0-0.4) th/mm3 Baso # (Auto) 0.0 0.0 (0.0-0.2) th/mm3 Comprehensive Metabolic Panel 02/06/18 02/07/18 Range/Units 06:01 11:06 Sodium 134 L 136 (136-145) meq/L Potassium 4.4 4.2 (3.5-5.1) meq/L Chloride 98 100 (98-107) meq/L Carbon Dioxide 30.5 28.2 (21.0-32.0) meq/L BUN 20 H 22 H (7-18) mg/dL Creatinine 1.89 H 1.74 H (0.60-1.30) mg/dL Calcium 8.3 L 8.2 L (8.5-10.1) mg/dL AST 27 (15-37) U/L ALT 18 (12-78) U/L Alkaline Phosphatase 107 (45-117) U/L Total Protein 5.8 L (6.4-8.2) g/dL Albumin 2.9 L (3.4-5.0) g/dL Intake and Output 02/07/18 02/07/1818 06:59 14:59 22:59 Intake Total 100 / 100 410 / 410 Output Total 0 / 0 525 / 525 350 / 350 Balance 0 / 0 -425 / -425 60 / 60 Intake: IV 100 / 100 50 / 50 Zosyn 2.25 GM Premix 50 ML @ 50 / 50 100 mls/hr IV.SIG Q6H [facility] Rx#: [id number] Rocephin Inj 1,000 MG In NS Inj 100 / 100 100 ML @ 200 mls/hr IV.SIG Q24H [facility] Rx#:[id number] Oral 360 / 360 Output: Urine 0 / 0 350 / 350 Urine Amount (Catheter) 525 / 525 Indwelling Urethral Catheter 525 / 525 Other: Date of Last Bowel Movement 02/07/18 02/07/18 # Bowel Movements 2 Weight 75.4 kg - Imaging and Cardiology Imaging: Impressions CT Guided Tissue Ablation 02/05/18 00:00 CONCLUSION: 1. Uncomplicated cryoablation as above. Renal Biopsy CT 02/05/18 00:00 CONCLUSION: 1. Uncomplicated CT guided biopsy. Chest X-Ray 02/07/18 13:37 CONCLUSION: Cardiomegaly with interstitial edema. The overall appearance has improved from previous study. Small pleural effusions. Assessment and Plan - Assessment (1) Acute on chronic systolic (congestive) heart failure Code(s): I50.23 - Acute on chronic systolic (congestive) heart failure Status : Acute (2) Acute UTI Code(s): N39.0 - Urinary tract infection, site not specified Status: Acute (3) Generalized weakness Code(s): R53.1 - Weakness Status: Acute (4) Right renal mass Code(s): N28.89 - Other specified disorders of kidney and ureter Status: Acute - Plan 1) Acute on chronic systolic heart failure Given 1L of fluid during procedure with minimal urine output Diuresing Oxygen requirement down today 2) NICM EF 40-45% Previously nuclear scan showing no ischemia No signs of acute coronary syndrome 3) Renal mass s/p biopsy and cryoablation 4) Paroxysmal Afib He discussed this previously outpatient and revisited during this hospital course, does not want to be on anticoagulation due to previous bleeding episodes Recommend ASA 81mg daily once possible 5) Weak Plan on rehab on discharge
[2018-02-08] MEDS: Piperacil/Tazo 2.25 GM Premix 50 ML IV.SIG SCH ×2 (04:09→09:08)
[2018-02-08] MEDS: MethylPREDNISolone Sod Succinate Inj 40 MG/ML Vial IV.PUSH SCH ×2 (05:49→13:29)
[2018-02-08] MEDS: Heparin - SQ 10,000 UNITS/ML Vial SQ SCH ×3 (05:49→21:01)
[2018-02-08 08:27] LABS: Hematocrit 38.1 % (39.0-51.0); Hemoglobin 12.8 gm/dL (13.0-17.0); Lymph # (Auto) 0.3 th/mm3 (1.0-4.8); Lymph % (Auto) 4.6 % (9.0-44.0); Mean Corpuscular HGB Conc 33.5 % (32.0-36.0); Mean Corpuscular Volume 104.3 fL (80.0-100.0); Mean Platelet Volume 8.7 fL (7.0-11.0); Mono # (Auto) 0.2 th/mm3 (0.0-0.9); Mono % (Auto) 2.9 % (0.0-8.0); Neut # (Auto) 5.4 th/mm3 (1.8-7.7); Neut % (Auto) 92.5 % (16.0-70.0); Platelet Count 148 th/mm3 (150-450); Red Blood Count 3.65 mil/mm3 (4.50-5.90); Red Cell Distribution Width 15.4 % (11.6-17.2); White Blood Count 5.8 th/mm3 (4.0-11.0)
[2018-02-08] MEDS: Metoprolol Tartrate 25 MG Tablet PO SCH ×2 (08:39→21:01)
[2018-02-08] MEDS: traZODone 50 MG Tablet PO SCH (08:39)
[2018-02-08 08:55] LABS: Calcium 8.5 mg/dL (8.5-10.1); Carbon Dioxide 29.5 meq/L (21.0-32.0); Potassium 4.5 meq/L (3.5-5.1)
[2018-02-08] MEDS ORDERED: Dextrose 50% in Water 50 ML Vial IV.PUSH PRN (10:15)
--- NOTE | 2018-02-08 11:03 | P.CONID ---
History of Present Illness Service: Infectious Disease Consult date: 02/08/18 Requesting Physician: Dale Barba Reason for Consult: Evaluate patient with UTI, has chronic horton cath Primary Care Provider: Salas Lema Chief Complaint: Here for procedure History of Present Illness: Patient seen and examined. Records reviewed. Patient is a very poor historian. Patient is an 82-year-old male, scheduled for an elective procedure, underwent an elective renal biopsy and cryoablation of a renal cell mass on the right kidney. He apparently had problem with oxygenation, and so he was admitted for further evaluation and treatment. He was found to probably have acute on chronic heart failure. He is stabilized. There was a urinalysis done on admission and it showed pyuria and hematuria. 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 The urine culture is now growing Pseudomonas. Patient has not been febrile. Patient could not say when the Horton catheter was last changed. Infectious disease consultation has been requested to assist with evaluation and treatment. Review of Systems Constitutional: Denies chills, Denies fever(s) Eyes: Denies discharge, Denies dry eyes Ears, Nose, Mouth, and Throat: Denies difficulty swallowing, Denies ear pain, Denies nasal discharge, Denies sore throat Cardiovascular: Reports shortness of breath, Denies chest pain Respiratory: Reports shortness of breath, Denies chest congestion, Denies cough Gastrointestinal: Denies abdominal pain, Denies loose stools, Denies nausea, Denies pain with swallowing, Denies vomiting Genitourinary: Denies testicle pain Musculoskeletal: Denies joint pain, Denies joint swelling Skin/Breast: Denies rash, Denies wounds PMFSH - History History Provided By: Patient, Family Member - Medical History Medical History: Medical History (Last Reviewed 02/08/18 @ 11:06 by Nydia Tidwell MD) Atrial fibrillation CHF (congestive heart failure) COPD (chronic obstructive pulmonary disease) Fall at home Mnire's disease Prostate cancer Urinary retention - Surgical History Surgical History: Surgical History (Last Reviewed 02/08/18 @ 11:06 by Nydia Tidwell MD) History of appendectomy History of hemicolectomy Hx of tonsillectomy - Family History Family History: Family History (Last Reviewed 02/08/18 @ 11:06 by Nydia Tidwell MD) Other No pertinent family history - Tobacco History Second Hand Smoke Exposure: No Tobacco Use In Past 30 Days: No Smoking Status: Former smoker - Alcohol History How Often Do You Have a Drink Containing Alcohol: 4 or more times a week - Substance Use History Substance History: No History of Abuse - Travel History Recent Travel in the [place] Within the Last 8 Weeks: No Recent Travel Out of the Country Within the Last 8 Weeks: No - Immunization History Hx Influenza Vaccine This Season: Yes Medications and Allergies Active Medications: Active Medications Acetaminophen (Tylenol) 650 mg PO Q4H PRN PRN Reason: Temp > 100.4, pain 1-2 Albuterol (Duoneb Neb (Prn)) 1 ampul NEB Q2HR NEB PRN PRN Reason: DYSPNEA Last Admin: 02/06/18 08:43 Dose: 1 ampul Albuterol (Duoneb Neb (Omar)) 1 ampul NEB Q6HR WHILE AWAKE NEB OMAR Last Admin: 02/08/18 08:22 Dose: 1 ampul Bicalutamide (Casodex) 50 mg PO DAILY [facility] Last Admin: 02/08/18 08:46 Dose: 50 mg Dextrose (D50w Vial) 50 ml IV.PUSH UNSCH PRN PRN Reason: PER HYPOGLYCEMIA PROTOCOL Diphenhydramine HCl (Benadryl) 50 mg PO Q6H PRN PRN Reason: itching/rash Last Admin: 02/07/18 08:52 Dose: 50 mg Glucagon (Glucagon Inj) 1 mg OTHER PRN PRN PRN Reason: for Hypoglycemia Protocol Heparin Sodium (Porcine) (Heparin Inj) 5,000 units SQ Q8HR [facility] Last Admin: 02/08/18 05:49 Dose: 5,000 units Piperacillin/Tazobactam/Dextrose (Zosyn 2.25 Gm Premix) 50 mls @ 100 mls/hr IV.SIG Q6H [facility] Last Infusion: 02/08/18 10:24 Dose: Infused Insulin Aspart (Novolog Insulin Correctional Sugar Inj) 0 unit SQ ACHS [facility]; Protocol Methylprednisolone Sodium Succinate (Solumedrol Inj) 40 mg IV.PUSH Q8HR [facility] Last Admin: 02/08/18 05:49 Dose: 40 mg Metoprolol Tartrate (Lopressor) 25 mg PO BID [facility] Last Admin: 02/08/18 08:39 Dose: 25 mg Tamsulosin HCl (Flomax) 0.4 mg PO DAILY [facility] Last Admin: 02/08/18 08:39 Dose: 0.4 mg Trazodone HCl (Desyrel) 50 mg PO DAILY [facility] Last Admin: 02/08/18 08:39 Dose: 50 mg Allergies Allergy/AdvReac Type Severity Reaction Status Date / Time citalopram Allergy Severe Itching Verified 02/05/18 08:09 Home Medications Medication Instructions Recorded Confirmed Type bicalutamide 50 mg PO DAILY MDD 1 tab 12/27/17 02/05/18 History metoprolol tartrate 25 mg PO BID 12/27/17 02/05/18 History tamsulosin 0.4 mg PO DAILY 12/27/17 02/05/18 History ascorbic acid (vitamin C) [Vitamin 500 mg PO DAILY 02/05/18 02/05/18 History C] lisinopril 10 mg PO DAILY 02/05/18 02/05/18 History multivitamin 1 cap PO DAILY 02/05/18 02/05/18 History sulfamethoxazole-trimethoprim 2 tab PO Q12H 02/05/18 02/05/18 History trazodone 50 mg PO DAILY 02/05/18 02/05/18 History zinc 50 mg PO DAILY 02/05/18 02/05/18 History Exam Vital signs: Vital Signs 02/07/18 12:00 02/07/18 16:00 02/07/18 20:00 Temperature 97.8 F 97.9 F 98.3 F Pulse Rate 62 71 103 H Respiratory Rate 16 17 20 Blood Pressure 108/61 116/68 111/66 Pulse Oximetry 99 95 94 L 02/07/18 20:20 02/08/18 00:00 02/08/18 08:00 Temperature 97.7 F 97.3 F L Pulse Rate 71 50 L 65 Respiratory Rate 17 20 16 Blood Pressure 113/58 L 115/66 Pulse Oximetry 95 96 95 02/08/18 08:24 Temperature Pulse Rate 57 L Respiratory Rate 18 Blood Pressure Pulse Oximetry 96 Intake & Output 02/07/18 02/08/18 02/08/18 18:59 06:59 18:59 Intake Total 510 / 510 580 / 580 50 / 50 Output Total 875 / 875 400 / 400 Balance -365 / -365 180 / 180 50 / 50 Weight 74.3 kg Intake: IV 150 / 150 100 / 100 50 / 50 Zosyn 2.25 GM Premix 50 ML @ 50 / 50 100 / 100 50 / 50 100 mls/hr IV.SIG Q6H [facility] Rx#: [id number] Rocephin Inj 1,000 MG In NS Inj 100 / 100 100 ML @ 200 mls/hr IV.SIG Q24H [facility] Rx#:[id number] Oral 360 / 360 480 / 480 Output: Urine 350 / 350 400 / 400 Urine Amount (Catheter) 525 / 525 Indwelling Urethral Catheter 525 / 525 Other: Date of Last Bowel Movement 02/07/18 02/07/18 # Bowel Movements 2 Narrative: Physical examination GENERAL: Patient is a well-nourished, well-developed male, awake and alert, not in respiratory distress. SKIN: Cool and dry. No generalized rash. Has keratotic lesions in his trunk , alena in the back. HEAD: Atraumatic. Normocephalic. No temporal wasting, or tenderness. EYES: [place] conjunctiva. No petechia or hemorrhage. Pupils equal, round and reactive to light. Extraocular movements full and intact. No scleral icterus. No injection or drainage. EARS, NOSE AND THROAT: Nose without bleeding or purulent nasal discharge. No sinus tenderness. Mucous membranes pink and moist. No oral lesions noted. No exudate. No oral thrush. NECK: Trachea midline. Supple and not tender, no meningeal signs CARDIOVASCULAR: Regular rate and rhythm. No murmurs, rubs or gallops heard RESPIRATORY: Clear to auscultation. Breath sounds equal bilaterally. No rales , wheezing or rhonchi ABDOMEN: Soft, non-tender, nondistended. Bowel sounds present and normoactive. No guarding. No rebound. No organomegaly. : Horton catheter, urine looks clear EXTREMITIES: No clubbing, cyanosis, or edema.No joint effusion, has good ROM. No calf tenderness. Well perfused and warm. NEUROLOGICAL: Awake and alert. Cranial nerves grossly intact. Motor grossly within normal limits. PSYCHIATRIC: Normal affect, calm and cooperative. LINE: No evidence of infection Results - Labs CBC & Chem 7: 02/08/18 08:05 02/08/18 06:05 Labs: Laboratory Results - last 24 hr 02/07/18 02/07/18 02/08/18 11:06 11:06 06:05 WBC 5.6 RBC 3.38 L Hgb 12.0 L Hct 35.3 L MCV 104.5 H MCH 35.5 H MCHC 34.0 RDW 15.6 Plt Count 138 L MPV 7.8 Neut % (Auto) 69.2 Lymph % (Auto) 15.5 [place] % (Auto) 12.4 H Eos % (Auto) 2.7 Baso % (Auto) 0.2 Neut # (Auto) 3.9 Lymph # (Auto) 0.9 L [place] # (Auto) 0.7 Eos # (Auto) 0.2 Baso # (Auto) 0.0 WBC Differential . Differential Comment Auto diff final Sodium 136 136 Potassium 4.2 4.5 Chloride 100 98 Carbon Dioxide 28.2 29.5 Anion Gap 8 9 BUN 22 H 24 H Creatinine 1.74 H 1.65 H Estimated GFR 38 L 40 L Random Glucose 139 H 241 H D Calcium 8.2 L 8.5 02/08/18 08:05 WBC 5.8 RBC 3.65 L Hgb 12.8 L Hct 38.1 L MCV 104.3 H MCH 35.0 H MCHC 33.5 RDW 15.4 Plt Count 148 L MPV 8.7 Neut % (Auto) 92.5 H Lymph % (Auto) 4.6 L [place] % (Auto) 2.9 Eos % (Auto) 0.0 Baso % (Auto) 0.0 Neut # (Auto) 5.4 Lymph # (Auto) 0.3 L [place] # (Auto) 0.2 Eos # (Auto) 0.0 Baso # (Auto) 0.0 WBC Differential . Differential Comment Auto diff final Sodium Potassium Chloride Carbon Dioxide Anion Gap BUN Creatinine Estimated GFR Random Glucose Calcium - Imaging Impressions Chest X-Ray 02/07/18 13:37 CONCLUSION: Cardiomegaly with interstitial edema. The overall appearance has improved from previous study. Small pleural effusions. Assessment and Plan - Plan Impression UTI due to indwelling hortno, C/S PSAE Prostate CA with obstructive uropathy Renal Cell CA R, S/P biopsy and cryoablation Renal insufficiency Recommendation IV Cefepime - at least 7 days Repeat UA and C/S and follow new C/S Monitor progress Thank you for this consultation D/W MARINA
--- NOTE | 2018-02-08 11:19 | P.PNWCN ---
Wound Care Nurse Consult Description: Received consult for possible pressure injury on buttocks Communicated with: RN Paulina tanner and Doctor Freda Recommendation: 1.Please cleanse buttock area gently with Remedy barrier cloth and pat dry. Apply Calazime skin protectant paste to bilateral buttock and gluteal cleft with denuded, friable skin, with blanchable light purple to pink discoloration BID and PRN.Leave buttocks, gluteal cleft areas open to air. 2.Do not apply briefs on patient unless he is ambulating in room with P.T. 3.Use 1 ultra sorb pad or 2 staggered ultrasorb pads for moisture management, do not use cotton pull pads under patient, as these will hold moisture ad create more pressure under patient. 4.Please encourage patient to turn and reposition himself in bed every 2 hours and PRN for comfort and offloading of pressure from andie prominences. Additional information: Patient seen on for evaluation of possible pressure injury to buttock area. Patient needs minimal assist with turning and repositioning in bed. Patient was assisted to the L side lying position to reveal denuded, friable skin to bilateral buttocks, and gluteal cleft. Skin has a light purple to pink discoloration that is blanchable on bilateral buttocks. This is not pressure related, denuded, friable skin with blanchable discoloration is moisture and friction related. Patient was cleansed with Remedy barrier cloths. Applied Calazime skin protectant paste to bilateral buttocks and gluteal cleft and left open to air.
[2018-02-08] MEDS: Insulin NovoLOG Aspart Correctional Sugar Inj SQ SCH ×3 (13:28→21:40)
[2018-02-08 14:09] LABS: Hemoglobin A1c 5.5 % (4.3-6.0)
--- NOTE | 2018-02-08 15:37 | P.PNIM ---
Subjective Interval history: The patient said that his breathing was better today. He has been working with physical therapy. He had no acute complaints. Physical Exam Vital signs: Vital Signs 02/07/18 16:00 02/07/18 20:00 02/07/18 20:20 Temperature 97.9 F 98.3 F Pulse Rate 71 103 H 71 Respiratory Rate 17 20 17 Blood Pressure 116/68 111/66 Pulse Oximetry 95 94 L 95 02/08/18 00:00 02/08/18 08:00 02/08/18 08:24 Temperature 97.7 F 97.3 F L Pulse Rate 50 L 65 57 L Respiratory Rate 20 16 18 Blood Pressure 113/58 L 115/66 Pulse Oximetry 96 95 96 02/08/18 12:00 Temperature 97.4 F L Pulse Rate 58 L Respiratory Rate 16 Blood Pressure 123/59 L Pulse Oximetry 95 Intake & Output 02/07/18 02/08/18 02/08/18 18:59 06:59 18:59 Intake Total 510 / 510 580 / 580 150 / 150 Output Total 875 / 875 400 / 400 Balance -365 / -365 180 / 180 150 / 150 Weight 74.3 kg Intake: IV 150 / 150 100 / 100 150 / 150 Maxipime Inj 2,000 MG In NS Inj 100 / 100 100 ML @ 200 mls/hr IV.SIG Q12H [facility] Rx#:[id number] Zosyn 2.25 GM Premix 50 ML @ 50 / 50 100 / 100 50 / 50 100 mls/hr IV.SIG Q6H [facility] Rx#: [id number] Rocephin Inj 1,000 MG In NS Inj 100 / 100 100 ML @ 200 mls/hr IV.SIG Q24H [facility] Rx#:[id number] Oral 360 / 360 480 / 480 Output: Urine 350 / 350 400 / 400 Urine Amount (Catheter) 525 / 525 Indwelling Urethral Catheter 525 / 525 Other: Date of Last Bowel Movement 02/07/18 02/07/18 02/07/18 # Bowel Movements 2 Narrative: General: NAD. Skin: Mild erythema around lower back. HEENT: NC, AT. Heart: RRR. Lungs: Wheezing improved. GI: Soft, nontender. Extremities: No edema. Neuro: No gross deficits. - Urinary Catheter Management Indwelling Urethral Catheter Cath placed during this visit: no Reason for continuing: Chronic Urinary Retention Results - Labs CBC & Chem 7: 02/08/18 08:05 02/08/18 06:05 Laboratory Results - last 24 hr 02/08/18 02/08/18 02/08/18 06:05 08:05 13:16 WBC 5.8 RBC 3.65 L Hgb 12.8 L Hct 38.1 L MCV 104.3 H MCH 35.0 H MCHC 33.5 RDW 15.4 Plt Count 148 L MPV 8.7 Neut % (Auto) 92.5 H Lymph % (Auto) 4.6 L [place] % (Auto) 2.9 Eos % (Auto) 0.0 Baso % (Auto) 0.0 Neut # (Auto) 5.4 Lymph # (Auto) 0.3 L [place] # (Auto) 0.2 Eos # (Auto) 0.0 Baso # (Auto) 0.0 WBC Differential . Differential Comment Auto diff final Sodium 136 Potassium 4.5 Chloride 98 Carbon Dioxide 29.5 Anion Gap 9 BUN 24 H Creatinine 1.65 H Estimated GFR 40 L POC Glucose 391 H Random Glucose 241 H D Calcium 8.5 Microbiology 02/05/18 17:15 Catheterized Urine Urine Culture - Final Pseudomonas aeruginosa Assessment and Plan - Plan Right sided renal mass S/p renal biopsy and cryoablation. Pathology reveals renal cell carcinoma. -outpt follow-up as scheduled. Acute on chronic respiratory failure/Acute systolic CHF exacerbation/COPD Currently requiring 6L NC. CXR indicative of pulmonary congestion. Recent echo with EF 30-35%. He also has COPD. Has been working on home oxygen. ABG noted. Cardiology consult appreciated. LDL 38. Wheezing has improved. -oxygen and nebs as needed. Added scheduled nebs. -switch Solu-Medrol to prednisone 20 mg daily. -PT eval. Case management consult appreciated. Will need SNF placement. Renal insufficiency Creatinine is elevated. 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 -monitor BMP. Stable. -continue Gann. -consult urology if needed. Follows with Dr. Roberts. UTI UA indicative of infection. Urine culture growing pseudomonas. Sensitivities noted. ID consult appreciated. -change antibiotics to cefepime per ID. -follow repeat urine culture. PPx: Heparin Discharge Planning: On IV cefepime per ID. Repeat UA pending. Anticipate d/c to SNF in a few days once cleared by ID. Will need close urology follow-up.
[2018-02-08 19:38] LABS: Bilirubin,Urine Negative (Negative); Clarity,Urine Hazy (Clear); Color,Urine Yellow (Yellw/Straw); Glucose,Urine (UA) 500 or Greater mg/dL (Negative); Leukocyte Esterase,Urine Small (Negative); Mucus,Urine Few /lpf (Occasional); Nitrite,Urine Positive (Negative); Specific Gravity,Urine 1.024 (1.002-1.035)
--- NOTE | 2018-02-08 22:53 | P.PNCA ---
Subjective Interval history: No events overnight Off oxygen, feels like he's breathing better Medications and Allergies Active Medications: Active Medications Acetaminophen (Tylenol) 650 mg PO Q4H PRN PRN Reason: Temp > 100.4, pain 1-2 Albuterol (Duoneb Neb (Prn)) 1 ampul NEB Q2HR NEB PRN PRN Reason: DYSPNEA Last Admin: 02/06/18 08:43 Dose: 1 ampul Albuterol (Duoneb Neb (Omar)) 1 ampul NEB Q6HR WHILE AWAKE NEB [facility] Last Admin: 02/08/18 19:44 Dose: 1 ampul Bicalutamide (Casodex) 50 mg PO DAILY [facility] Last Admin: 02/08/18 08:46 Dose: 50 mg Dextrose (D50w Vial) 50 ml IV.PUSH UNSCH PRN PRN Reason: PER HYPOGLYCEMIA PROTOCOL Diphenhydramine HCl (Benadryl) 50 mg PO Q6H PRN PRN Reason: itching/rash Last Admin: 02/07/18 08:52 Dose: 50 mg Glucagon (Glucagon Inj) 1 mg OTHER PRN PRN PRN Reason: for Hypoglycemia Protocol Heparin Sodium (Porcine) (Heparin Inj) 5,000 units SQ Q8HR [facility] Last Admin: 02/08/18 21:01 Dose: 5,000 units Cefepime HCl 2,000 mg/ Sodium (Chloride) 100 mls @ 200 mls/hr IV.SIG Q12H [facility] Stop: 02/15/18 11:59 Last Infusion: 02/08/18 13:47 Dose: Infused Insulin Aspart (Novolog Insulin Correctional Sugar Inj) 0 unit SQ ACHS [facility]; Protocol Last Admin: 02/08/18 21:40 Dose: 7 unit Metoprolol Tartrate (Lopressor) 25 mg PO BID [facility] Last Admin: 02/08/18 21:01 Dose: 25 mg Prednisone (Deltasone) 20 mg PO DAILY [facility] Tamsulosin HCl (Flomax) 0.4 mg PO DAILY [facility] Last Admin: 02/08/18 08:39 Dose: 0.4 mg Trazodone HCl (Desyrel) 50 mg PO DAILY [facility] Last Admin: 02/08/18 08:39 Dose: 50 mg Allergies Allergy/AdvReac Type Severity Reaction Status Date / Time citalopram Allergy Severe Itching Verified 10/30/18 08:09 Home Medications Medication Instructions Recorded Confirmed Type bicalutamide 50 mg PO DAILY MDD 1 tab 12/27/17 02/05/18 History metoprolol tartrate 25 mg PO BID 12/27/17 02/05/18 History tamsulosin 0.4 mg PO DAILY 12/27/17 02/05/18 History ascorbic acid (vitamin C) [Vitamin 500 mg PO DAILY 02/05/18 02/05/18 History C] lisinopril 10 mg PO DAILY 02/05/18 02/05/18 History multivitamin 1 cap PO DAILY 02/05/18 02/05/18 History sulfamethoxazole-trimethoprim 2 tab PO Q12H 02/05/18 02/05/18 History trazodone 50 mg PO DAILY 02/05/18 02/05/18 History zinc 50 mg PO DAILY 02/05/18 02/05/18 History Physical Exam Vital signs: Vital Signs 02/08/18 00:00 02/08/18 08:00 02/08/18 08:24 Temperature 97.7 F 97.3 F L Pulse Rate 50 L 65 57 L Respiratory Rate 20 16 18 Blood Pressure 113/58 L 115/66 Pulse Oximetry 96 95 96 02/08/18 12:00 02/08/18 16:00 02/08/18 19:46 Temperature 97.4 F L 97.1 F L Pulse Rate 58 L 56 L 66 Respiratory Rate 16 16 15 Blood Pressure 123/59 L 116/57 L Pulse Oximetry 95 95 93 L 02/08/18 20:00 Temperature 97.2 F L Pulse Rate 83 Respiratory Rate 22 Blood Pressure 121/59 L Pulse Oximetry 92 L Intake & Output 02/08/18 02/08/18 02/09/18 06:59 18:59 06:59 Intake Total 580 / 580 1688 / 1688 Output Total 400 / 400 400 / 400 Balance 180 / 180 1288 / 1288 Weight 74.3 kg Intake: IV 100 / 100 150 / 150 Maxipime Inj 2,000 MG In NS Inj 100 / 100 100 ML @ 200 mls/hr IV.SIG Q12H [facility] Rx#:[id number] Zosyn 2.25 GM Premix 50 ML @ 100 / 100 50 / 50 100 mls/hr IV.SIG Q6H [facility] Rx#: [id number] Oral 480 / 480 1538 / 1538 Output: Urine 400 / 400 400 / 400 Other: Date of Last Bowel Movement 02/07/18 02/07/18 Narrative: General: NAD. Skin: Mild erythema around lower back. HEENT: NC, AT. Heart: RRR. Lungs: Wheezing improved. GI: Soft, nontender. Extremities: No edema. Neuro: No gross deficits. - Urinary Catheter Management Indwelling Urethral Catheter Cath placed during this visit: no Reason for continuing: Chronic Urinary Retention Results 02/08/18 08:05 02/08/18 06:05 CBC 02/07/18 02/08/18 Range/Units 11: 08:05 WBC 5.6 5.8 (4.0-11.0) th/mm3 RBC 3.38 L 3.65 L (4.50-5.90) mil/mm3 Hgb 12.0 L 12.8 L (13.0-17.0) gm/dL Hct 35.3 L 38.1 L (39.0-51.0) % Plt Count 138 L 148 L (150-450) th/mm3 Neut # (Auto) 3.9 5.4 (1.8-7.7) th/mm3 Lymph # (Auto) 0.9 L 0.3 L (1.0-4.8) th/mm3 [place] # (Auto) 0.7 0.2 (0.0-0.9) th/mm3 Eos # (Auto) 0.2 0.0 (0.0-0.4) th/mm3 Baso # (Auto) 0.0 0.0 (0.0-0.2) th/mm3 Comprehensive Metabolic Panel 02/07/18 02/08/18 Range/Units 11:06 06:05 Sodium 136 136 (136-145) meq/L Potassium 4.2 4.5 (3.5-5.1) meq/L Chloride 100 98 (98-107) meq/L Carbon Dioxide 28.2 29.5 (21.0-32.0) meq/L BUN 22 H 24 H (7-18) mg/dL Creatinine 1.74 H 1.65 H (0.60-1.30) mg/dL Calcium 8.2 L 8.5 (8.5-10.1) mg/dL Intake and Output 02/08/18 02/08/18 02/08/18 06:59 14:59 22:59 Intake Total 530 / 530 150 / 150 1538 / 1538 Output Total 400 / 400 400 / 400 Balance 130 / 130 150 / 150 1138 / 1138 Intake: IV 50 / 50 150 / 150 Maxipime Inj 2,000 MG In NS Inj 100 / 100 100 ML @ 200 mls/hr IV.SIG Q12H [facility] Rx#:[id number] Zosyn 2.25 GM Premix 50 ML @ 50 / 50 50 / 50 100 mls/hr IV.SIG Q6H [facility] Rx#: [id number] Oral 480 / 480 1538 / 1538 Output: Urine 400 / 400 400 / 400 Other: Date of Last Bowel Movement 02/07/18 Weight 74.3 kg - Imaging and Cardiology Imaging: Impressions Chest X-Ray 02/07/18 13:37 CONCLUSION: Cardiomegaly with interstitial edema. The overall appearance has improved from previous study. Small pleural effusions. Assessment and Plan - Assessment (1) Acute on chronic systolic (congestive) heart failure Code(s): I50.23 - Acute on chronic systolic (congestive) heart failure Status : Acute (2) Acute UTI Code(s): N39.0 - Urinary tract infection, site not specified Status: Acute (3) Generalized weakness Code(s): R53.1 - Weakness Status: Acute (4) Right renal mass Code(s): N28.89 - Other specified disorders of kidney and ureter Status: Acute - Plan 1) Acute on chronic systolic heart failure Given 1L of fluid during procedure with minimal urine output Diuresing Off oxygen 2) NICM EF 40-45% Previously nuclear scan showing no ischemia No signs of acute coronary syndrome 3) Renal mass s/p biopsy and cryoablation Renal cell carcinoma per pathology report 4) Paroxysmal Afib He discussed this previously outpatient and revisited during this hospital course, does not want to be on anticoagulation due to previous bleeding episodes Recommend ASA 81mg daily once possible 5) Weak Plan on rehab on discharge
[2018-02-09] MEDS: Heparin - SQ 10,000 UNITS/ML Vial SQ SCH ×3 (06:15→21:37)
[2018-02-09] MEDS: Insulin NovoLOG Aspart Correctional Sugar Inj SQ SCH ×4 (09:01→21:37)
[2018-02-09] MEDS: Metoprolol Tartrate 25 MG Tablet PO SCH ×2 (09:03→21:36)
[2018-02-09] MEDS: traZODone 50 MG Tablet PO SCH (09:03)
[2018-02-09] MEDS: predniSONE 20 MG Tablet PO SCH (09:03)
--- NOTE | 2018-02-09 09:21 | P.PNIM ---
Subjective Interval history: f/u; UTI in no acute distress. denies pain. no fever. no new complaints. Physical Exam Vital signs: Vital Signs 02/08/18 12:00 02/08/18 16:00 02/08/18 19:46 Temperature 97.4 F L 97.1 F L Pulse Rate 58 L 56 L 66 Respiratory Rate 16 16 15 Blood Pressure 123/59 L 116/57 L Pulse Oximetry 95 95 93 L 02/08/18 20:00 02/09/18 00:00 02/09/18 07:45 Temperature 97.2 F L 97.3 F L Pulse Rate 83 51 L 84 Respiratory Rate 22 22 19 Blood Pressure 121/59 L 126/62 Pulse Oximetry 92 L 93 L 02/09/18 08:00 Temperature 97.7 F Pulse Rate 64 Respiratory Rate 17 Blood Pressure 130/70 Pulse Oximetry 93 L Intake & Output 02/08/18 02/09/18 02/09/18 18:59 06:59 18:59 Intake Total 1688 / 1688 420 / 420 Output Total 400 / 400 500 / 500 700 / 700 Balance 1288 / 1288 -80 / -80 -700 / -700 Weight 76.4 kg Intake: IV 150 / 150 100 / 100 Maxipime Inj 2,000 MG In NS Inj 100 / 100 100 / 100 100 ML @ 200 mls/hr IV.SIG Q12H JEANMARIE Rx#:[id number] Zosyn 2.25 GM Premix 50 ML @ 50 / 50 100 mls/hr IV.SIG Q6H JEANMARIE Rx#: [id number] Oral 1538 / 1538 320 / 320 Output: Urine 400 / 400 700 / 700 Urine Amount (Catheter) 500 / 500 Indwelling Urethral Catheter 500 / 500 Other: Date of Last Bowel Movement 02/07/18 # Bowel Movements 1 - Constitutional no acute distress - Routine Respiratory Exam Present: CTA bilaterally - Routine Cardiovascular Exam Present: RRR - Routine Abdominal Exam Present: soft - Routine Extremities Exam Comments: no pedal edema. - Routine Neurological Exam Present: alert, oriented X3 - Urinary Catheter Management Indwelling Urethral Catheter Cath placed during this visit: no Reason for continuing: Chronic Urinary Retention Results - Labs CBC & Chem 7: 02/08/18 08:05 02/08/18 06:05 Laboratory Results - last 24 hr 02/08/18 02/08/18 02/08/18 08:05 13:16 16:37 POC Glucose 391 H 278 H Hemoglobin A1c 5.5 Urine Color Urine Clarity Urine pH Ur Specific Fajardo Urine Protein Urine Glucose (UA) Urine Ketones Urine Occult Blood Urine Nitrate Urine Bilirubin Urine Urobilinogen Ur Leukocyte Esterase Urine RBC Urine WBC Urine Mucus Micro UA Comment Ur Microscopic Review Urine Culture Comments 02/08/18 02/08/18 02/09/18 17:14 21:01 01:05 POC Glucose 308 H 160 H Hemoglobin A1c Urine Color Yellow Urine Clarity Hazy H Urine pH 5.0 Ur Specific Fajardo 1.024 Urine Protein 100 H Urine Glucose (UA) 500 or greater Urine Ketones Negative Urine Occult Blood Large H Urine Nitrate Positive H Urine Bilirubin Negative Urine Urobilinogen Less than 2 Ur Leukocyte Esterase Small H Urine RBC 18 H Urine WBC 16 H Urine Mucus Few H Micro UA Comment Cath-culture ind Ur Microscopic Review Not Reportable Urine Culture Comments Cath-cult indicated 02/09/18 06:52 POC Glucose 193 H Hemoglobin A1c Urine Color Urine Clarity Urine pH Ur Specific F[place]ardo Urine Protein Urine Glucose (UA) Urine Ketones Urine Occult Blood Urine Nitrate Urine Bilirubin Urine Urobilinogen Ur Leukocyte Esterase Urine RBC Urine WBC Urine Mucus Micro UA Comment Ur Microscopic Review Urine Culture Comments Microbiology 02/05/18 17:15 Catheterized Urine Urine Culture - Final Pseudomonas aeruginosa Assessment and Plan - Plan Right sided renal mass S/p renal biopsy and cryoablation. Pathology reveals renal cell carcinoma. -outpt follow-up as scheduled. Acute on chronic respiratory failure/Acute systolic CHF exacerbation/COPD- improved. CXR indicative of pulmonary congestion. Recent echo with EF 30-35%. He also has COPD. Has been working on home oxygen. ABG noted. Cardiology consult appreciated. LDL 38. -oxygen and nebs as needed. -switched Solu-Medrol to prednisone 20 mg daily. -PT eval. Case management consult appreciated. Will need SNF placement. Renal insufficiency Creatinine is elevated. Has chronic Gann for urinary retention. -monitor BMP. Stable. -continue Gann. -consult urology if needed. Follows with Dr. Roberts. UTI UA indicative of infection. Urine culture growing pseudomonas. Sensitivities noted. ID consult appreciated. -change antibiotics to cefepime per ID. -follow repeat urine culture. PPx: Heparin Discharge Planning: SNF vs [place]- needs to be on IV antibiotic for a seven-day course- pending repeated UC.
--- NOTE | 2018-02-09 17:10 | P.PNCA ---
Subjective Interval history: No events overnight Breathing well, no complaints Medications and Allergies Active Medications: Active Medications Acetaminophen (Tylenol) 650 mg PO Q4H PRN PRN Reason: Temp > 100.4, pain 1-2 Albuterol (Duoneb Neb (Prn)) 1 ampul NEB Q2HR NEB PRN PRN Reason: DYSPNEA Last Admin: 02/06/18 08:43 Dose: 1 ampul Albuterol (Duoneb Neb (Omar)) 1 ampul NEB Q6HR WHILE AWAKE NEB [facility] Last Admin: 02/09/18 13:02 Dose: 1 ampul Bicalutamide (Casodex) 50 mg PO DAILY [facility] Last Admin: 02/09/18 09:03 Dose: 50 mg Dextrose (D50w Vial) 50 ml IV.PUSH UNSCH PRN PRN Reason: PER HYPOGLYCEMIA PROTOCOL Diphenhydramine HCl (Benadryl) 50 mg PO Q6H PRN PRN Reason: itching/rash Last Admin: 02/07/18 08:52 Dose: 50 mg Glucagon (Glucagon Inj) 1 mg OTHER PRN PRN PRN Reason: for Hypoglycemia Protocol Heparin Sodium (Porcine) (Heparin Inj) 5,000 units SQ Q8HR [facility] Last Admin: 02/09/18 13:40 Dose: 5,000 units Cefepime HCl 2,000 mg/ Sodium (Chloride) 100 mls @ 200 mls/hr IV.SIG Q12H [facility] Stop: 02/15/18 11:59 Last Infusion: 02/09/18 13:23 Dose: Infused Insulin Aspart (Novolog Insulin Correction[employer] Sugar Inj) 0 unit SQ ACHS [facility]; Protocol Last Admin: 02/09/18 12:30 Dose: 3 unit Metoprolol Tartrate (Lopressor) 25 mg PO BID [facility] Last Admin: 02/09/18 09:03 Dose: 25 mg Prednisone (Deltasone) 20 mg PO DAILY [facility] Last Admin: 02/09/18 09:03 Dose: 20 mg Tamsulosin HCl (Flomax) 0.4 mg PO DAILY [facility] Last Admin: 02/09/18 09:03 Dose: 0.4 mg Trazodone HCl (Desyrel) 50 mg PO DAILY [facility] Last Admin: 02/09/18 09:03 Dose: 50 mg Allergies Allergy/AdvReac Type Severity Reaction Status Date / Time citalopram Allergy Severe Itching Verified 02/05/18 08:09 Home Medications Medication Instructions Recorded Confirmed Type bicalutamide 50 mg PO DAILY MDD 1 tab 12/27/17 02/05/18 History metoprolol tartrate 25 mg PO BID 12/27/17 02/05/18 History tamsulosin 0.4 mg PO DAILY 12/27/17 02/05/18 History ascorbic acid (vitamin C) [Vitamin 500 mg PO DAILY 02/05/18 02/05/18 History C] lisinopril 10 mg PO DAILY 02/05/18 02/05/18 History multivitamin 1 cap PO DAILY 02/05/18 02/05/18 History sulfamethoxazole-trimethoprim 2 tab PO Q12H 02/05/18 02/05/18 History trazodone 50 mg PO DAILY 02/05/18 02/05/18 History zinc 50 mg PO DAILY 02/05/18 02/05/18 History Physical Exam Vital signs: Vital Signs 02/08/18 19:46 02/08/18 20:00 02/09/18 00:00 Temperature 97.2 F L 97.3 F L Pulse Rate 66 83 51 L Respiratory Rate 15 22 22 Blood Pressure 121/59 L 126/62 Pulse Oximetry 93 L 92 L 93 L 02/09/18 07:45 02/09/18 08:00 02/09/18 12:00 Temperature 97.7 F 97.2 F L Pulse Rate 84 64 73 Respiratory Rate 19 17 16 Blood Pressure 130/70 129/62 Pulse Oximetry 93 L 94 L 02/09/18 13:04 Temperature Pulse Rate 94 H Respiratory Rate 22 Blood Pressure Pulse Oximetry Intake & Output 02/08/18 02/09/18 02/09/18 18:59 06:59 18:59 Intake Total 1688 / 1688 420 / 420 100 / 100 Output Total 400 / 400 500 / 500 700 / 700 Balance 1288 / 1288 -80 / -80 -600 / -600 Weight 76.4 kg Intake: IV 150 / 150 100 / 100 100 / 100 Maxipime Inj 2,000 MG In NS Inj 100 / 100 100 / 100 100 / 100 100 ML @ 200 mls/hr IV.SIG Q12H OMAR Rx#:[id number] Zosyn 2.25 GM Premix 50 ML @ 50 / 50 100 mls/hr IV.SIG Q6H OMAR Rx#: [id number] Oral 1538 / 1538 320 / 320 Output: Urine 400 / 400 700 / 700 Urine Amount (Catheter) 500 / 500 Indwelling Urethral Catheter 500 / 500 Other: Date of Last Bowel Movement 02/07/18 02/08/18 # Bowel Movements 1 Narrative: General: NAD. Skin: Mild erythema around lower back. HEENT: NC, AT. Heart: RRR. Lungs: Wheezing improved. GI: Soft, nontender. Extremities: No edema. Neuro: No gross deficits. - Urinary Catheter Management Indwelling Urethral Catheter Cath placed during this visit: no Reason for continuing: Chronic Urinary Retention Results 02/08/18 08:05 02/08/18 06:05 CBC 02/08/18 Range/Units 08:05 WBC 5.8 (4.0-11.0) th/mm3 RBC 3.65 L (4.50-5.90) mil/mm3 Hgb 12.8 L (13.0-17.0) gm/dL Hct 38.1 L (39.0-51.0) % Plt Count 148 L (150-450) th/mm3 Neut # (Auto) 5.4 (1.8-7.7) th/mm3 Lymph # (Auto) 0.3 L (1.0-4.8) th/mm3 Gonzales # (Auto) 0.2 (0.0-0.9) th/mm3 Eos # (Auto) 0.0 (0.0-0.4) th/mm3 Baso # (Auto) 0.0 (0.0-0.2) th/mm3 Comprehensive Metabolic Panel 02/08/18 Range/Units 06:05 Sodium 136 (136-145) meq/L Potassium 4.5 (3.5-5.1) meq/L Chloride 98 (98-107) meq/L Carbon Dioxide 29.5 (21.0-32.0) meq/L BUN 24 H (7-18) mg/dL Creatinine 1.65 H (0.60-1.30) mg/dL Calcium 8.5 (8.5-10.1) mg/dL Intake and Output 02/09/18 02/09/18 02/09/18 06:59 14:59 22:59 Intake Total 420 / 420 100 / 100 Output Total 500 / 500 700 / 700 Balance -80 / -80 -600 / -600 Intake: IV 100 / 100 100 / 100 Maxipime Inj 2,000 MG In NS Inj 100 / 100 100 / 100 100 ML @ 200 mls/hr IV.SIG Q12H OMAR Rx#:[id number] Oral 320 / 320 Output: Urine 700 / 700 Urine Amount (Catheter) 500 / 500 Indwelling Urethral Catheter 500 / 500 Other: Date of Last Bowel Movement 02/08/18 # Bowel Movements 1 Weight 76.4 kg Assessment and Plan - Assessment (1) Acute on chronic systolic (congestive) heart failure Code(s): I50.23 - Acute on chronic systolic (congestive) heart failure Status : Acute (2) Acute UTI Code(s): N39.0 - Urinary tract infection, site not specified Status: Acute (3) Generalized weakness Code(s): R53.1 - Weakness Status: Acute (4) Right renal mass Code(s): N28.89 - Other specified disorders of kidney and ureter Status: Acute - Plan 1) Acute on chronic systolic heart failure Given 1L of fluid during procedure with minimal urine output Diuresing Off oxygen 2) NICM EF 40-45% Previously nuclear scan showing no ischemia No signs of acute coronary syndrome 3) Renal mass s/p biopsy and cryoablation Renal cell carcinoma per pathology report 4) Paroxysmal Afib He discussed this previously outpatient and revisited during this hospital course, does not want to be on anticoagulation due to previous bleeding episodes Recommend ASA 81mg daily once possible 5) Weak Plan on rehab on discharge 6) Will see PRN, call with questions
[2018-02-10] MEDS: Heparin - SQ 10,000 UNITS/ML Vial SQ SCH ×2 (05:09→14:08)
[2018-02-10] MEDS: traZODone 50 MG Tablet PO SCH (08:09)
[2018-02-10] MEDS: Metoprolol Tartrate 25 MG Tablet PO SCH ×2 (08:10→20:14)
[2018-02-10] MEDS: predniSONE 20 MG Tablet PO SCH (08:10)
[2018-02-10] MEDS: Insulin NovoLOG Aspart Correctional Sugar Inj SQ SCH ×4 (08:12→20:14)
--- NOTE | 2018-02-10 08:41 | P.PNIM ---
Subjective Interval history: f/u; renal mass/ UTI in no acute distress. but complaining of pain to the left upper abdomen. no nausea/vomiting or fever. still with some sob/wheezing. d/w the RN. Physical Exam Vital signs: Vital Signs 02/09/18 12:00 02/09/18 13:04 02/09/18 16:00 Temperature 97.2 F L 97.9 F Pulse Rate 73 94 H 70 Respiratory Rate 16 22 18 Blood Pressure 129/62 128/80 Pulse Oximetry 94 L 91 L 02/09/18 19:54 02/09/18 20:00 02/10/18 06:15 Temperature 97.4 F L Pulse Rate 103 H 73 104 H Respiratory Rate 18 17 24 Blood Pressure 146/98 H Pulse Oximetry 94 L 02/10/18 07:36 02/10/18 08:00 Temperature 97.3 F L Pulse Rate 107 H 106 H Respiratory Rate 23 18 Blood Pressure 166/97 H Pulse Oximetry 91 L 93 L Intake & Output 02/09/18 02/10/18 02/10/18 19:59 06:59 18:59 Intake Total Output Total Balance Weight Intake: IV Maxipime Inj 2,000 MG In NS Inj 100 ML @ 200 mls/hr IV.SIG Q12H JEANMARIE Rx#:[id number] Output: Urine Other: Date of Last Bowel Movement # Bowel Movements - Constitutional no acute distress - Routine Respiratory Exam Present: wheezes - Routine Cardiovascular Exam Present: RRR - Routine Abdominal Exam Present: soft, tenderness (left upper abdomen.) - Routine Extremities Exam Comments: no pedal edema. - Routine Neurological Exam Present: alert, oriented X3 - Urinary Catheter Management Indwelling Urethral Catheter Cath placed during this visit: no Reason for continuing: Chronic Urinary Retention Results - Labs CBC & Chem 7: 02/08/18 08:05 02/08/18 06:05 Laboratory Results - last 24 hr 02/09/18 02/10/18 20:04 07:27 POC Glucose 304 H 161 H Microbiology 02/08/18 17:14 Catheterized Urine Urine Culture - Preliminary Immature growth - reincubate Assessment and Plan - Plan Right sided renal mass S/p renal biopsy and cryoablation. Pathology reveals renal cell carcinoma. -outpt follow-up as scheduled. Acute on chronic respiratory failure/Acute systolic CHF exacerbation/COPD- improved. CXR indicative of pulmonary congestion. Recent echo with EF 30-35%. He also has COPD. Has been working on home oxygen. ABG noted. Cardiology consult appreciated. LDL 38. -oxygen and nebs as needed. -switched Solu-Medrol to prednisone 20 mg daily. -PT eval. Case management consult appreciated. Will need SNF placement. -continue neb treatment Abdominal pain/ tenderness will check CT of the abdomen. Renal insufficiency Creatinine is elevated. Has chronic Gann for urinary retention. -monitor BMP. Stable. -continue Gann. -consult urology if needed. Follows with Dr. Roberts. UTI UA indicative of infection. Urine culture growing pseudomonas. Sensitivities noted. ID consult appreciated. -change antibiotics to cefepime per ID. -follow repeat urine culture. PPx: Heparin Discharge Planning: [facility] vs [place]- needs to be on IV antibiotic for a seven-day course- pending repeated UC.
[2018-02-10] MEDS ORDERED: Diatrizoate Meglum/Diatrizoate Sod Liq 9 ML UDC PO ONE (09:00)
[2018-02-10] MEDS ORDERED: Morphine Inj 4 MG/ML Vial IV.PUSH PRN (09:00)
[2018-02-10] MEDS: Sodium Chlor 0.9% Inj 500 ML IV.CONT SCH ×2 (09:04→18:44)
[2018-02-10 10:48] LABS: Hematocrit 34.8 % (39.0-51.0); Hemoglobin 11.9 gm/dL (13.0-17.0); Lymph % (Auto) 10.4 % (9.0-44.0); Mean Corpuscular HGB Conc 34.1 % (32.0-36.0); Mean Corpuscular Hemoglobin 35.3 pg (27.0-34.0); Mean Corpuscular Volume 103.3 fL (80.0-100.0); Mean Platelet Volume 8.2 fL (7.0-11.0); Mono # (Auto) 1.2 th/mm3 (0.0-0.9); Mono % (Auto) 12.6 % (0.0-8.0); Neut # (Auto) 7.1 th/mm3 (1.8-7.7); Platelet Count 173 th/mm3 (150-450); Red Blood Count 3.37 mil/mm3 (4.50-5.90); Red Cell Distribution Width 15.3 % (11.6-17.2); White Blood Count 9.2 th/mm3 (4.0-11.0)
[2018-02-10 11:18] LABS: Albumin 2.9 g/dL (3.4-5.0); Anion Gap 8 meq/L (5-15); Aspartate Aminotransferase 19 U/L (15-37); Blood Urea Nitrogen 34 mg/dL (7-18); Calcium 8.9 mg/dL (8.5-10.1); Carbon Dioxide 28.8 meq/L (21.0-32.0); Chloride 101 meq/L (98-107); Glomerular Filtration Rate 47 mL/min (>89); Glucose,Random 149 mg/dL (74-106); Potassium 4.1 meq/L (3.5-5.1); Sodium 138 meq/L (136-145)
[2018-02-10 11:21] LABS: Alanine Aminotransferase 20 U/L (12-78); Alkaline Phosphatase 76 U/L (45-117); Total Protein 6.2 g/dL (6.4-8.2)
--- NOTE | 2018-02-10 15:06 | CT ---
EXAM DATE: 02/10/2018 2:40 PM EST AGE/SEX: 82 years / Male INDICATIONS: Right upper abdomen pain. CLINICAL DATA: This is the patient's initial encounter. Patient reports that signs and symptoms have been present for 1 day and indicates a pain score of 8/10. MEDICAL/SURGICAL HISTORY: Chronic obstructive pulmonary disease. Congestive heart failure. Ca rcinoma, prostatic. Colon resection. Appendectomy. RADIATION DOSE: 13.97 CTDI (mGy) COMPARISON: [facility] – [place], CT BIOPSY RENAL RIGHT, 02/05/2018. . TECHNIQUE: Multiple contiguous axial images were obtained through the abdomen. Images were obtained using multiple row detector helical technique. Using automated exposure control and adjustment of the mA and/or kV according to patient size, radiation dose was kept as low as reasonably achievable to o btain optimal diagnostic quality images. DICOM format image data is available electronically for rev iew and comparison. FINDINGS: Lower Lungs: Moderate bilateral pleural effusions with underlying airspace disease are identified in both lung bases. Liver: The liver has a homogeneous density without space-occupying lesion. There is no dilation of th e biliary tree. Small gallstones are noted. Spleen: Homogeneous density without enlargement. Pancreas: Unremarkable without mass or calcification. Kidneys: Perinephric stranding is identified surrounding the lower pole of the right kidney. Patient has undergone recent cryoablation of a right upper pole mass. Is no evidence of significant hematoma or abnormal fluid collections. Kidneys are otherwise stable. Adrenal Glands: Unremarkable. Aorta: The aorta and proximal iliac vessels are grossly unremarkable without aneurysmal dilation. Bowel/Mesentery: The bowel loops are grossly unremarkable. The cecum and sigmoid colon have a normal configuration. Abdominal Wall: A complex mass has developed in the left anterior abdominal wall inferior to the subx iphoid region. A complex mass is hyperdense and measures 10.8 x 4.7 cm in size. It extends along the course of the left rectus abdominis muscle. Retroperitoneum: No evidence of adenopathy in the retrocrural, para-aortic, or deep pelvic regions. Bladder: Gann catheter is noted in place. Bladder is collapsed. Reproductive Organs: No abnormal masses or calcifications seen. Inguinal: Small right-sided fat-containing hernia is noted. Bony Structures: Degenerative disc disease is evident throughout the lumbar spine. CONCLUSION: 1. Masslike swelling of the left rectus abdominis muscle most characteristic of a muscular hematoma. 2. Moderate bilateral pleural effusions with bibasilar airspace disease. 3. Perinephric stranding surrounding the lower pole the right kidney following recent cryoablation. There is no evidence of hemorrhage or abscess. 4. Small right inguinal hernia. Electronically signed by: Brando Jacob MD 02/10/2018 3:05 PM EST
--- NOTE | 2018-02-10 18:37 | P.CONGS ---
[facility] Gen Surgery Consult Note Consult date: 02/10/18 Reason for consult: other (Left rectus hematoma) Narrative: CONSULTATION NOTE FOR SURGICAL ATTENDING, DR. JOEL MOORE Review of Systems Patient came into the hospital he is been here for couple days after having a cryoablation of a renal tumor and then last night experiencing some left abdominal discomfort CT scan was done which showed a rectus hematoma surgery was consulted to comment on the rectus hematoma He says his pain is a lot better than it was yesterday All other systems reviewed negative except as stated in [facility] - History History Provided By: Patient, Family Member - Medical History Medical History: Medical History (Last Reviewed 02/10/18 @ 18:32 by Joel Moore MD) Atrial fibrillation CHF (congestive heart failure) COPD (chronic obstructive pulmonary disease) Fall at home Mnire's disease Prostate cancer Urinary retention - Surgical History Surgical History: Surgical History (Last Reviewed 02/10/18 @ 18:32 by Joel Moore MD) History of appendectomy History of hemicolectomy Hx of tonsillectomy - Family History Family History: Family History (Last Reviewed 02/10/18 @ 18:32 by Joel Moore MD) Other No pertinent family history - Social History I have reviewed the patient's Social History: Yes - Tobacco History Second Hand Smoke Exposure: No Tobacco Use In Past 30 Days: No Smoking Status: Former smoker - Alcohol History How Often Do You Have a Drink Containing Alcohol: 4 or more times a week - Substance Use History Substance History: No History of Abuse - Travel History Recent Travel in the [place] Within the Last 8 Weeks: No Recent Travel Out of the Country Within the Last 8 Weeks: No - Immunization History Hx Influenza Vaccine This Season: Yes Medications and Allergies Active Medications: Active Medications Acetaminophen (Tylenol) 650 mg PO Q4H PRN PRN Reason: Temp > 100.4, pain 1-2 Albuterol (Duoneb Neb (Prn)) 1 ampul NEB Q2HR NEB PRN PRN Reason: DYSPNEA Last Admin: 02/10/18 06:15 Dose: 1 ampul Albuterol (Duoneb Neb (Omar)) 1 ampul NEB Q6HR WHILE AWAKE NEB OMAR Last Admin: 02/10/18 12:32 Dose: 1 ampul Bicalutamide (Casodex) 50 mg PO DAILY [facility] Last Admin: 02/10/18 08:10 Dose: 50 mg Dextrose (D50w Vial) 50 ml IV.PUSH UNSCH PRN PRN Reason: PER HYPOGLYCEMIA PROTOCOL Diphenhydramine HCl (Benadryl) 50 mg PO Q6H PRN PRN Reason: itching/rash Last Admin: 02/07/18 08:52 Dose: 50 mg Glucagon (Glucagon Inj) 1 mg OTHER PRN PRN PRN Reason: for Hypoglycemia Protocol Cefepime HCl 2,000 mg/ Sodium (Chloride) 100 mls @ 200 mls/hr IV.SIG Q12H [facility] Stop: 02/15/18 11:59 Last Infusion: 02/10/18 12:45 Dose: Infused Sodium Chloride (Ns Inj) 500 mls @ 60 mls/hr IV.CONT .Q8H20M [facility] Last Admin: 02/10/18 09:04 Dose: 50 mls/hr Insulin Aspart (Novolog Insulin Correctional Sugar Inj) 0 unit SQ ACHS [facility]; Protocol Last Admin: 02/10/18 17:16 Dose: 1 unit Metoprolol Tartrate (Lopressor) 25 mg PO BID [facility] Last Admin: 02/10/18 08:10 Dose: 25 mg Morphine Sulfate (Morphine Inj) 2 mg IV.PUSH Q4H PRN PRN Reason: pain Prednisone (Deltasone) 20 mg PO DAILY [facility] Last Admin: 02/10/18 08:10 Dose: 20 mg Tamsulosin HCl (Flomax) 0.4 mg PO DAILY [facility] Last Admin: 02/10/18 08:10 Dose: 0.4 mg Trazodone HCl (Desyrel) 50 mg PO DAILY [facility] Last Admin: 02/10/18 08:09 Dose: 50 mg Allergies Allergy/AdvReac Type Severity Reaction Status Date / Time citalopram Allergy Severe Itching Verified 02/05/18 08:09 Home Medications Medication Instructions Recorded Confirmed Type bicalutamide 50 mg PO DAILY MDD 1 tab 12/27/17 02/05/18 History metoprolol tartrate 25 mg PO BID 12/27/17 02/05/18 History tamsulosin 0.4 mg PO DAILY 12/27/17 02/05/18 History ascorbic acid (vitamin C) [Vitamin 500 mg PO DAILY 02/05/18 02/05/18 History C] lisinopril 10 mg PO DAILY 02/05/18 02/05/18 History multivitamin 1 cap PO DAILY 02/05/18 02/05/18 History sulfamethoxazole-trimethoprim 2 tab PO Q12H 02/05/18 02/05/18 History trazodone 50 mg PO DAILY 02/05/18 02/05/18 History zinc 50 mg PO DAILY 02/05/18 02/05/18 History Exam Vital signs: Vital Signs 02/09/18 19:54 02/09/18 20:00 02/10/18 06:15 Temperature 97.4 F L Pulse Rate 103 H 73 104 H Respiratory Rate 18 17 24 Blood Pressure 146/98 H Pulse Oximetry 94 L 02/10/18 07:36 02/10/18 08:00 02/10/18 12:00 Temperature 97.3 F L 98.0 F Pulse Rate 107 H 106 H 110 H Respiratory Rate 23 18 19 Blood Pressure 166/97 H 155/103 H Pulse Oximetry 91 L 93 L 94 L 02/10/18 12:34 02/10/18 16:00 Temperature 97.5 F L Pulse Rate 112 H 85 Respiratory Rate 20 18 Blood Pressure 143/83 H Pulse Oximetry 95 Intake & Output 11/06/2402/10/18 02/10/18 19:59 06:59 18:59 Intake Total 700 / 700 Output Total 900 / 900 Balance -200 / -200 Weight Intake: IV 100 / 100 Maxipime Inj 2,000 MG In NS Inj 100 / 100 100 ML @ 200 mls/hr IV.SIG Q12H [facility] Rx#:[id number] Oral 600 / 600 Output: Urine 900 / 900 Other: Date of Last Bowel Movement # Bowel Movements 0 Narrative: Neurologic alert oriented x3 Sitting up in bed Atrial fibrillation Chest is clear Abdomen soft midline surgical scar from a colectomy from years ago Rectus hematoma left side slightly tender Upper extremities petechiae bruising throughout Moves all extremities well Results - Labs 02/10/18 09:30 02/10/18 09:30 Laboratory Results - last 24 hr 02/09/18 02/10/18 02/10/18 20:04 07:27 09:30 WBC 9.2 RBC 3.37 L Hgb 11.9 L Hct 34.8 L MCV 103.3 H MCH 35.3 H MCHC 34.1 RDW 15.3 Plt Count 173 MPV 8.2 Neut % (Auto) 77.0 H Lymph % (Auto) 10.4 [place] % (Auto) 12.6 H Eos % (Auto) 0.0 Baso % (Auto) 0.0 Neut # (Auto) 7.1 Lymph # (Auto) 1.0 [place] # (Auto) 1.2 H Eos # (Auto) 0.0 Baso # (Auto) 0.0 WBC Differential . Differential Comment Auto diff final Sodium Potassium Chloride Carbon Dioxide Anion Gap BUN Creatinine Estimated GFR POC Glucose 304 H 161 H Random Glucose Calcium Total Bilirubin AST ALT Alkaline Phosphatase Total Protein Albumin Lipase 02/10/18 02/10/18 02/10/18 09:30 09:30 11:45 WBC RBC Hgb Hct MCV MCH MCHC RDW Plt Count MPV Neut % (Auto) Lymph % (Auto) [place] % (Auto) Eos % (Auto) Baso % (Auto) Neut # (Auto) Lymph # (Auto) [place] # (Auto) Eos # (Auto) Baso # (Auto) WBC Differential Differential Comment Sodium 138 Potassium 4.1 Chloride 101 Carbon Dioxide 28.8 Anion Gap 8 BUN 34 H Creatinine 1.42 H Estimated GFR 47 L POC Glucose 141 H Random Glucose 149 H Calcium 8.9 Total Bilirubin 0.5 AST 19 ALT 20 Alkaline Phosphatase 76 Total Protein 6.2 L Albumin 2.9 L Lipase 30 L 02/10/18 16:59 WBC RBC Hgb Hct MCV MCH MCHC RDW Plt Count MPV Neut % (Auto) Lymph % (Auto) [place] % (Auto) Eos % (Auto) Baso % (Auto) Neut # (Auto) Lymph # (Auto) [place] # (Auto) Eos # (Auto) Baso # (Auto) WBC Differential Differential Comment Sodium Potassium Chloride Carbon Dioxide Anion Gap BUN Creatinine Estimated GFR POC Glucose 195 H Random Glucose Calcium Total Bilirubin AST ALT Alkaline Phosphatase Total Protein Albumin Lipase - Imaging Imaging: ITS Impressions CT Guided Tissue Ablation 02/05/18 00:00 CONCLUSION: 1. Uncomplicated cryoablation as above. Renal Biopsy CT 02/05/18 00:00 CONCLUSION: 1. Uncomplicated CT guided biopsy. Chest X-Ray 02/07/18 13:37 CONCLUSION: Cardiomegaly with interstitial edema. The overall appearance has improved from previous study. Small pleural effusions. Abdomen/Pelvis CT 02/10/18 00:00 CONCLUSION: 1. Masslike swelling of the left rectus abdominis muscle most characteristic of a muscular hematoma. 2. Moderate bilateral pleural effusions with bibasilar airspace disease. 3. Perinephric stranding surrounding the lower pole the right kidney following recent cryoablation. There is no evidence of hemorrhage or abscess. 4. Small right inguinal hernia. CT scan - abdomen: report reviewed, image reviewed CT scan - pelvis: report reviewed, image reviewed Assessment and Plan - Assessment (1) Hematoma of rectus sheath Code(s): S30.1XXA - Contusion of abdominal wall, initial encounter Status: Acute (2) Right renal mass Code(s): N28.89 - Other specified disorders of kidney and ureter Status: Acute (3) Acute on chronic systolic (congestive) heart failure Code(s): I50.23 - Acute on chronic systolic (congestive) heart failure Status : Acute (4) Atrial fibrillation Code(s): I48.91 - Unspecified atrial fibrillation Status: Chronic Qualifiers: Atrial fibrillation type: chronic Qualified Code(s): I48.2 - Chronic atrial fibrillation - Plan 81-year-old gentleman who was recently admitted for cryoablation of a renal tumor to the right kidney. He has been in the hospital on heparin recently found to have a rectus hematoma on the left side that is self-limiting. Most of these resolve over time without any intervention His pain is better today. At this time no surgical Increase activities and diet as tolerated We will follow during this hospitalization - Attending Attestation CONSULTATION NOTE FOR SURGICAL ATTENDING, DR. JOEL MOORE I attest that I had a [id number] encounter with the patient on the same day, and personally performed and documented my assessment and findings in the medical record. The following services were provided during this hospital visit: Chart data review, vital sign assessments/reviewing monitor data Review of consultations notes if present. Medication orders/review and/or management Ordering and/or reviewing lab tests Ordering and/or interpreting/reviewing x-rays and/or diagnostic studies Care of the patient and discussion of the patient with the care team Documentation time To help prompt me to consider important information that might be impacting today's encounter and assessment, Information from prior notes written by myself or my colleagues may have been "brought forward/copy and pasted" into today's note.
[2018-02-10 19:29] LABS: Hematocrit 32.9 % (39.0-51.0)
[2018-02-11] MEDS: Sodium Chlor 0.9% Inj 500 ML IV.CONT SCH (02:31)
[2018-02-11 04:40] LABS: Baso % (Auto) 0.1 % (0.0-2.0); Hemoglobin 10.9 gm/dL (13.0-17.0); Lymph # (Auto) 0.9 th/mm3 (1.0-4.8); Lymph % (Auto) 9.7 % (9.0-44.0); Mean Corpuscular HGB Conc 34.1 % (32.0-36.0); Mean Corpuscular Volume 102.4 fL (80.0-100.0); Mean Platelet Volume 8.6 fL (7.0-11.0); Mono # (Auto) 1.1 th/mm3 (0.0-0.9); Mono % (Auto) 12.3 % (0.0-8.0); Neut % (Auto) 77.9 % (16.0-70.0); Platelet Count 167 th/mm3 (150-450); Red Blood Count 3.13 mil/mm3 (4.50-5.90); White Blood Count 8.9 th/mm3 (4.0-11.0)
[2018-02-11] MEDS: Insulin NovoLOG Aspart Correctional Sugar Inj SQ SCH ×4 (08:05→20:57)
--- NOTE | 2018-02-11 09:12 | P.PNIM ---
Subjective Interval history: f/u; UTI/ abdominal wall hematoma in no acute distress. looks more comfortable today. abdominal pain has much improved. no fever. Physical Exam Vital signs: Vital Signs 02/10/18 12:00 02/10/18 12:34 02/10/18 16:00 Temperature 98.0 F 97.5 F L Pulse Rate 110 H 112 H 85 Respiratory Rate 19 20 18 Blood Pressure 155/103 H 143/83 H Pulse Oximetry 94 L 95 02/10/18 19:41 02/10/18 20:00 02/11/18 00:00 Temperature 97.5 F L 97.6 F Pulse Rate 85 79 74 Respiratory Rate 18 18 17 Blood Pressure 127/69 121/64 Pulse Oximetry 93 L 95 02/11/18 08:00 Temperature 97.6 F Pulse Rate 108 H Respiratory Rate 17 Blood Pressure 157/104 H Pulse Oximetry 95 Intake & Output 02/10/18 02/11/18 02/11/18 18:59 06:59 18:59 Intake Total 700 / 700 580 / 580 Output Total 900 / 900 1000 / 1000 Balance -200 / -200 -420 / -420 Weight 75.7 kg Intake: IV 100 / 100 100 / 100 Maxipime Inj 2,000 MG In NS Inj 100 / 100 100 / 100 100 ML @ 200 mls/hr IV.SIG Q12H [facility] Rx#:[id number] Oral 600 / 600 480 / 480 Output: Urine 900 / 900 Urine Amount (Catheter) 1000 / 1000 Indwelling Urethral Catheter 1000 / 1000 Other: # Bowel Movements 0 - Constitutional no acute distress - Routine Respiratory Exam Present: CTA bilaterally - Routine Cardiovascular Exam Present: RRR - Routine Abdominal Exam Present: soft, tenderness (mild tenderness - left upper abdomen- but has much improved since yesterday.) - Routine Extremities Exam Comments: no pedal edema. - Routine Neurological Exam Present: alert, oriented X3 - Urinary Catheter Management Indwelling Urethral Catheter Cath placed during this visit: no Reason for continuing: Chronic Urinary Retention Results - Labs CBC & Chem 7: 02/11/18 03:50 02/10/18 09:30 Laboratory Results - last 24 hr 02/10/18 02/10/18 02/10/18 09:30 09:30 09:30 WBC 9.2 RBC 3.37 L Hgb 11.9 L Hct 34.8 L MCV 103.3 H MCH 35.3 H MCHC 34.1 RDW 15.3 Plt Count 173 MPV 8.2 Neut % (Auto) 77.0 H Lymph % (Auto) 10.4 [place] % (Auto) 12.6 H Eos % (Auto) 0.0 Baso % (Auto) 0.0 Neut # (Auto) 7.1 Lymph # (Auto) 1.0 [place] # (Auto) 1.2 H Eos # (Auto) 0.0 Baso # (Auto) 0.0 WBC Differential . Differential Comment Auto diff final Sodium 138 Potassium 4.1 Chloride 101 Carbon Dioxide 28.8 Anion Gap 8 BUN 34 H Creatinine 1.42 H Estimated GFR 47 L POC Glucose Random Glucose 149 H Calcium 8.9 Total Bilirubin 0.5 AST 19 ALT 20 Alkaline Phosphatase 76 Total Protein 6.2 L Albumin 2.9 L Lipase 30 L 02/10/18 02/10/18 02/10/18 11:45 16:59 18:43 WBC RBC Hgb 11.0 L Hct 32.9 L MCV MCH MCHC RDW Plt Count MPV Neut % (Auto) Lymph % (Auto) [place] % (Auto) Eos % (Auto) Baso % (Auto) Neut # (Auto) Lymph # (Auto) [place] # (Auto) Eos # (Auto) Baso # (Auto) WBC Differential Differential Comment Sodium Potassium Chloride Carbon Dioxide Anion Gap BUN Creatinine Estimated GFR POC Glucose 141 H 195 H Random Glucose Calcium Total Bilirubin AST ALT Alkaline Phosphatase Total Protein Albumin Lipase 02/10/18 02/11/18 02/11/18 19:56 03:50 07:58 WBC 8.9 RBC 3.13 L Hgb 10.9 L Hct 32.0 L MCV 102.4 H MCH 35.0 H MCHC 34.1 RDW 15.0 Plt Count 167 MPV 8.6 Neut % (Auto) 77.9 H Lymph % (Auto) 9.7 [place] % (Auto) 12.3 H Eos % (Auto) 0.0 Baso % (Auto) 0.1 Neut # (Auto) 7.0 Lymph # (Auto) 0.9 L [place] # (Auto) 1.1 H Eos # (Auto) 0.0 Baso # (Auto) 0.0 WBC Differential . Differential Comment Auto diff final Sodium Potassium Chloride Carbon Dioxide Anion Gap BUN Creatinine Estimated GFR POC Glucose 163 H 115 H Random Glucose Calcium Total Bilirubin AST ALT Alkaline Phosphatase Total Protein Albumin Lipase Microbiology 02/08/18 17:14 Catheterized Urine Urine Culture - Final Pseudomonas aeruginosa - Imaging Impressions Abdomen/Pelvis CT 02/10/18 00:00 CONCLUSION: 1. Masslike swelling of the left rectus abdominis muscle most characteristic of a muscular hematoma. 2. Moderate bilateral pleural effusions with bibasilar airspace disease. 3. Perinephric stranding surrounding the lower pole the right kidney following recent cryoablation. There is no evidence of hemorrhage or abscess. 4. Small right inguinal hernia. Assessment and Plan - Plan Right sided renal mass S/p renal biopsy and cryoablation. Pathology reveals renal cell carcinoma. -outpt follow-up as scheduled. Acute on chronic respiratory failure/Acute systolic CHF exacerbation/COPD- improved. CXR indicative of pulmonary congestion. Recent echo with EF 30-35%. He also has COPD. Has been working on home oxygen. ABG noted. Cardiology consult appreciated. LDL 38. -oxygen and nebs as needed. -switched Solu-Medrol to prednisone 20 mg daily. -PT eval. Case management consult appreciated. Will need SNF placement. -continue neb treatment Abdominal wall hematoma abdominal pain has much improved and H/H stable. dc'ed Heparin subq- general surgery evaluation appreciated. Renal insufficiency Creatinine is elevated. Has chronic Gann for urinary retention. -monitor BMP. Stable. -continue Gann. -consult urology if needed. Follows with Dr. Roberts. UTI UA indicative of infection. Urine culture growing pseudomonas. Sensitivities noted. ID consult appreciated. -change antibiotics to cefepime per ID. -repeated UC with pseudomonas. -awaiting ID f/u and recommendations. PPx: SCD's- subq Heparin was dc'ed due to abdominal wall Hematoma. Discharge Planning: SNF vs [facility]- awaiting ID f/u and recommendations.
[2018-02-11] MEDS: Metoprolol Tartrate 25 MG Tablet PO SCH ×2 (09:42→20:56)
[2018-02-11] MEDS: traZODone 50 MG Tablet PO SCH (09:42)
[2018-02-11] MEDS: predniSONE 20 MG Tablet PO SCH (09:42)
--- NOTE | 2018-02-11 15:38 | P.PNID ---
Subjective Remarks: Patient is an 82-year-old male, scheduled for an elective procedure, underwent an elective renal biopsy and cryoablation of a renal cell mass on the right kidney. He apparently had problem with oxygenation, and so he was admitted for further evaluation and treatment. He was found to probably have acute on chronic heart failure. He is stabilized. There was a urinalysis done on admission and it showed pyuria and hematuria. 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 The urine culture is now growing Pseudomonas. Patient has not been febrile. Patient could not say when the Horton catheter was last changed. Infectious disease consultation has been requested to assist with evaluation and treatment. Notes reviewed Temps ok Repeat UC <10,000 cfu PSAE Has L rectus hematoma on CT Pain better Cant recall when his cath was last changed Antibiotics: Cefepime Lines: PIV Past Medical History: Atrial fibrillation CHF (congestive heart failure) COPD (chronic obstructive pulmonary disease) Fall at home Mnire's disease Prostate cancer Urinary retention History of appendectomy History of hemicolectomy Hx of tonsillectomy Allergies/Adverse Reactions: Allergies citalopram Allergy (Severe, Verified 02/05/18 08:09) Itching Objective Vital Signs 02/10/18 16:00 02/10/18 19:41 02/10/18 20:00 Temperature 97.5 F L 97.5 F L Pulse Rate 85 85 79 Respiratory Rate 18 18 18 Blood Pressure 143/83 H 127/69 Pulse Oximetry 95 93 L 02/11/18 00:00 02/11/18 08:00 02/11/18 09:15 Temperature 97.6 F 97.6 F Pulse Rate 74 108 H 109 H Respiratory Rate 17 17 16 Blood Pressure 121/64 157/104 H Pulse Oximetry 95 95 02/11/18 09:16 02/11/18 12:00 Temperature 98.5 F Pulse Rate 109 H Respiratory Rate 17 Blood Pressure 103/63 Pulse Oximetry 96 98 Intake & Output 02/10/18 02/11/18 02/11/18 18:59 06:59 18:59 Intake Total 700 / 700 580 / 580 500 / 500 Output Total 900 / 900 1000 / 1000 Balance -200 / -200 -420 / -420 500 / 500 Weight 75.7 kg Intake: IV 100 / 100 100 / 100 500 / 500 Maxipime Inj 2,000 MG In NS Inj 100 / 100 100 / 100 100 / 100 100 ML @ 200 mls/hr IV.SIG Q12H [facility] Rx#:[id number] Oral 600 / 600 480 / 480 Output: Urine 900 / 900 Urine Amount (Catheter) 1000 / 1000 Indwelling Urethral Catheter 1000 / 1000 Other: Date of Last Bowel Movement 02/10/18 # Bowel Movements 0 02/08/18 17:14 Catheterized Urine Urine Culture - Final Pseudomonas aeruginosa Lab - Hematology Results 02/10/18 02/10/18 02/11/18 09:30 18:43 03:50 WBC 9.2 8.9 RBC 3.37 L 3.13 L Hgb 11.9 L 11.0 L 10.9 L Hct 34.8 L 32.9 L 32.0 L MCV 103.3 H 102.4 H MCH 35.3 H 35.0 H MCHC 34.1 34.1 RDW 15.3 15.0 Plt Count 173 167 MPV 8.2 8.6 Neut % (Auto) 77.0 H 77.9 H Lymph % (Auto) 10.4 9.7 [place] % (Auto) 12.6 H 12.3 H Eos % (Auto) 0.0 0.0 Baso % (Auto) 0.0 0.1 Neut # (Auto) 7.1 7.0 Lymph # (Auto) 1.0 0.9 L [place] # (Auto) 1.2 H 1.1 H Eos # (Auto) 0.0 0.0 Baso # (Auto) 0.0 0.0 WBC Differential . . Differential Comment Auto diff final Auto diff final Lab - Chemistry Results 02/09/18 02/10/18 02/10/18 20:04 07:27 09:30 Sodium 138 Potassium 4.1 Chloride 101 Carbon Dioxide 28.8 Anion Gap 8 BUN 34 H Creatinine 1.42 H Estimated GFR 47 L POC Glucose 304 H 161 H Random Glucose 149 H Calcium 8.9 Total Bilirubin 0.5 AST 19 ALT 20 Alkaline Phosphatase 76 Total Protein 6.2 L Albumin 2.9 L Lipase 02/10/18 02/10/18 02/10/18 09:30 11:45 16:59 Sodium Potassium Chloride Carbon Dioxide Anion Gap BUN Creatinine Estimated GFR POC Glucose 141 H 195 H Random Glucose Calcium Total Bilirubin AST ALT Alkaline Phosphatase Total Protein Albumin Lipase 30 L 11/07/2502/11/18 02/11/18 19:56 07:58 11:55 Sodium Potassium Chloride Carbon Dioxide Anion Gap BUN Creatinine Estimated GFR POC Glucose 163 H 115 H 127 H Random Glucose Calcium Total Bilirubin AST ALT Alkaline Phosphatase Total Protein Albumin Lipase Imaging: ITS Impressions CT Guided Tissue Ablation 02/05/18 00:00 CONCLUSION: 1. Uncomplicated cryoablation as above. Renal Biopsy CT 02/05/18 00:00 CONCLUSION: 1. Uncomplicated CT guided biopsy. Chest X-Ray 02/07/18 13:37 CONCLUSION: Cardiomegaly with interstitial edema. The overall appearance has improved from previous study. Small pleural effusions. Abdomen/Pelvis CT 02/10/18 00:00 CONCLUSION: 1. Masslike swelling of the left rectus abdominis muscle most characteristic of a muscular hematoma. 2. Moderate bilateral pleural effusions with bibasilar airspace disease. 3. Perinephric stranding surrounding the lower pole the right kidney following recent cryoablation. There is no evidence of hemorrhage or abscess. 4. Small right inguinal hernia. Physical Exam: GENERAL: awake and alert, not in respiratory distress. SKIN: Cool and dry. No generalized rash. Has keratotic lesions in his trunk , alena in the back. HEAD: Atraumatic. Normocephalic. No temporal wasting, or tenderness. EYES: [place] conjunctiva. No petechia or hemorrhage. Pupils equal, round and reactive to light. Extraocular movements full and intact. No scleral icterus. No injection or drainage. EARS, NOSE AND THROAT: Mucous membranes pink and moist. No oral lesions noted. No exudate. No oral thrush. NECK: Trachea midline. Supple and not tender, no meningeal signs CARDIOVASCULAR: Regular rate and rhythm. No murmurs, rubs or gallops heard RESPIRATORY: Clear to auscultation. Breath sounds equal bilaterally. No rales , wheezing or rhonchi ABDOMEN: Soft, nondistended. Has firm mass on L side, not tender, no redness - hematoma seen on CT. Bowel sounds present and normoactive. No guarding. No rebound. : Horton catheter, urine with some sediment EXTREMITIES: No clubbing, cyanosis, or edema.No joint effusion, has good ROM. No calf tenderness. Well perfused and warm. NEUROLOGICAL: Awake and alert. Cranial nerves grossly intact. Motor grossly within normal limits. PSYCHIATRIC: Normal affect, calm and cooperative. LINE: No evidence of infection Assessment and Plan - Plan Impression UTI due to indwelling horton, C/S PSAE Prostate CA with obstructive uropathy Renal Cell CA R, S/P biopsy and cryoablation Renal insufficiency, better L rectus hematoma Recommendation IV Cefepime - at least 7 days Will have horton changed if not done on this admission Explained plan to the patient
--- NOTE | 2018-02-11 16:41 | P.PNGS ---
Subjective Interval history: DAILY PROGRESS NOTE FOR SURGICAL ATTENDING, DR. JOEL KEEN Watching TV No events overnight Physical Exam Vital signs: Vital Signs 02/10/18 19:41 02/10/18 20:00 02/11/18 00:00 Temperature 97.5 F L 97.6 F Pulse Rate 85 79 74 Respiratory Rate 18 18 17 Blood Pressure 127/69 121/64 Pulse Oximetry 93 L 95 02/11/18 08:00 02/11/18 09:15 02/11/18 09:16 Temperature 97.6 F Pulse Rate 108 H 109 H Respiratory Rate 17 16 Blood Pressure 157/104 H Pulse Oximetry 95 96 02/11/18 12:00 02/11/18 16:00 Temperature 98.5 F 97.9 F Pulse Rate 109 H 71 Respiratory Rate 17 18 Blood Pressure 103/63 131/61 Pulse Oximetry 98 95 Intake & Output 02/10/18 02/11/18 02/11/18 18:59 06:59 18:59 Intake Total 700 / 700 580 / 580 500 / 500 Output Total 900 / 900 1000 / 1000 Balance -200 / -200 -420 / -420 500 / 500 Weight 75.7 kg Intake: IV 100 / 100 100 / 100 500 / 500 Maxipime Inj 2,000 MG In NS Inj 100 / 100 100 / 100 100 / 100 100 ML @ 200 mls/hr IV.SIG Q12H JEANMARIE Rx#:[id number] Oral 600 / 600 480 / 480 Output: Urine 900 / 900 Urine Amount (Catheter) 1000 / 1000 Indwelling Urethral Catheter 1000 / 1000 Other: Date of Last Bowel Movement 02/10/18 # Bowel Movements 0 Narrative: Alert and awake Tenderness to palpation on LEFT side of abdomen - Urinary Catheter Management Indwelling Urethral Catheter Cath placed during this visit: no Reason for continuing: Chronic Urinary Retention Results - Labs 02/11/18 03:50 02/10/18 09:30 Laboratory Results - last 24 hr 02/10/18 02/10/18 02/10/18 16:59 18:43 19:56 WBC RBC Hgb 11.0 L Hct 32.9 L MCV MCH MCHC RDW Plt Count MPV Neut % (Auto) Lymph % (Auto) Ashley % (Auto) Eos % (Auto) Baso % (Auto) Neut # (Auto) Lymph # (Auto) Ashley # (Auto) Eos # (Auto) Baso # (Auto) WBC Differential Differential Comment POC Glucose 195 H 163 H 02/11/18 02/11/18 02/11/18 03:50 07:58 11:55 WBC 8.9 RBC 3.13 L Hgb 10.9 L Hct 32.0 L MCV 102.4 H MCH 35.0 H MCHC 34.1 RDW 15.0 Plt Count 167 MPV 8.6 Neut % (Auto) 77.9 H Lymph % (Auto) 9.7 Ashley % (Auto) 12.3 H Eos % (Auto) 0.0 Baso % (Auto) 0.1 Neut # (Auto) 7.0 Lymph # (Auto) 0.9 L Ashley # (Auto) 1.1 H Eos # (Auto) 0.0 Baso # (Auto) 0.0 WBC Differential . Differential Comment Auto diff final POC Glucose 115 H 127 H - Imaging Imaging: ITS Impressions CT Guided Tissue Ablation 02/05/18 00:00 CONCLUSION: 1. Uncomplicated cryoablation as above. Renal Biopsy CT 02/05/18 00:00 CONCLUSION: 1. Uncomplicated CT guided biopsy. Chest X-Ray 02/07/18 13:37 CONCLUSION: Cardiomegaly with interstitial edema. The overall appearance has improved from previous study. Small pleural effusions. Abdomen/Pelvis CT 02/10/18 00:00 CONCLUSION: 1. Masslike swelling of the left rectus abdominis muscle most characteristic of a muscular hematoma. 2. Moderate bilateral pleural effusions with bibasilar airspace disease. 3. Perinephric stranding surrounding the lower pole the right kidney following recent cryoablation. There is no evidence of hemorrhage or abscess. 4. Small right inguinal hernia. Assessment and Plan - Assessment (1) Hematoma of rectus sheath Code(s): S30.1XXA - Contusion of abdominal wall, initial encounter Status: Acute Plan: 81 year old male who was recently admitted for cryoablation of a renal tumor to the right kidney. He has been in the hospital on heparin recently found to have a rectus hematoma on the left side that is self-limiting. -Exam improved -Regular diet -Continue to hold anticoagulation -OOB as tolerated -Continue non surgical management (2) Right renal mass Code(s): N28.89 - Other specified disorders of kidney and ureter Status: Acute (3) Acute on chronic systolic (congestive) heart failure Code(s): I50.23 - Acute on chronic systolic (congestive) heart failure Status : Acute (4) Atrial fibrillation Code(s): I48.91 - Unspecified atrial fibrillation Status: Chronic - Attending Attestation NOTE FOR SURGICAL ATTENDING, DR. JOEL KEEN I agree with above assessment and plan. The exam, history, and the medical decision-making described in the above note were completed with the assistance of the mid-level provider. I reviewed and agree with the findings presented. I attest that I had a [id number] encounter with the patient on the same day, and personally performed and documented my assessment and findings in the medical record. The following services were provided during this hospital visit: Chart data review, vital sign assessments/reviewing monitor data Review of consultations notes if present. Medication orders/review and/or management Ordering and/or reviewing lab tests Ordering and/or interpreting/reviewing x-rays and/or diagnostic studies Care of the patient and discussion of the patient with the care team Documentation time To help prompt me to consider important information that might be impacting today's encounter and assessment, Information from prior notes written by myself or my colleagues may have been "brought forward/copy and pasted" into today's note. (4) Atrial fibrillation Qualifiers: Atrial fibrillation type: chronic Qualified Code(s): I48.2 - Chronic atrial fibrillation
[2018-02-12] MEDS: traZODone 50 MG Tablet PO SCH (08:38)
[2018-02-12] MEDS: Metoprolol Tartrate 25 MG Tablet PO SCH (08:38)
[2018-02-12] MEDS: Insulin NovoLOG Aspart Correctional Sugar Inj SQ SCH ×3 (08:39→17:56)
--- NOTE | 2018-02-12 08:43 | P.PNIM ---
Subjective Interval history: f/u; UTI/ abdominal wall hematoma in no acute distress. looks comfortable. abdominal pain has much improved. horton was changes yesterday. d/w the RN and no acute issues over night. Physical Exam Vital signs: Vital Signs 02/11/18 09:15 02/11/18 09:16 02/11/18 12:00 Temperature 98.5 F Pulse Rate 109 H 109 H Respiratory Rate 16 17 Blood Pressure 103/63 Pulse Oximetry 96 98 02/11/18 16:00 02/11/18 20:00 02/12/18 00:00 Temperature 97.9 F 97.6 F 97.6 F Pulse Rate 71 53 L 58 L Respiratory Rate 18 18 17 Blood Pressure 131/61 135/60 136/80 Pulse Oximetry 95 96 96 02/12/18 03:15 02/12/18 07:50 Temperature Pulse Rate 60 60 Respiratory Rate 15 16 Blood Pressure Pulse Oximetry 93 L Intake & Output 02/11/18 02/12/18 02/12/18 18:59 06:59 18:59 Intake Total 900 / 900 680 / 680 Output Total 500 / 500 800 / 800 Balance 400 / 400 -120 / -120 Weight 75 kg Intake: IV 500 / 500 100 / 100 Maxipime Inj 2,000 MG In NS Inj 100 / 100 100 / 100 100 ML @ 200 mls/hr IV.SIG Q12H JEANMARIE Rx#:[id number] Oral 400 / 400 580 / 580 Output: Urine 500 / 500 Urine Amount (Catheter) 800 / 800 Indwelling Urethral Catheter 800 / 800 Other: Date of Last Bowel Movement 02/10/18 # Bowel Movements 2 - Constitutional no acute distress - Routine Respiratory Exam Present: CTA bilaterally - Routine Cardiovascular Exam Present: RRR - Routine Abdominal Exam Present: soft - Routine Extremities Exam Comments: no pedal edema. - Routine Neurological Exam Present: alert, oriented X3 - Urinary Catheter Management Indwelling Urethral Catheter Cath placed during this visit: yes, but has since been removed by the nurse Reason for continuing: Chronic Urinary Retention Insertion date: 02/11/18 Insertion time: 18:40 Removal date: 02/11/18 Removal time: 18:20 Results - Labs CBC & Chem 7: 02/11/18 03:50 02/10/18 09:30 Laboratory Results - last 24 hr 02/11/18 02/11/18 02/11/18 11:55 16:57 19:51 POC Glucose 127 H 219 H 293 H 02/12/18 07:07 POC Glucose 203 H Assessment and Plan - Plan Right sided renal mass S/p renal biopsy and cryoablation. Pathology reveals renal cell carcinoma. -outpt follow-up as scheduled. Acute on chronic respiratory failure/Acute systolic CHF exacerbation/COPD- improved. CXR indicative of pulmonary congestion. Recent echo with EF 30-35%. He also has COPD. Has been working on home oxygen. ABG noted. Cardiology consult appreciated. LDL 38. -oxygen and nebs as needed. -switched Solu-Medrol to prednisone which will be tapered off. -PT eval. Case management consult appreciated. Will need SNF placement. -continue neb treatment -no ESTEVAN-I at this time due to renal insufficiency; this can be resumed as outpatient when renal function remains stable. Abdominal wall hematoma abdominal pain has much improved and H/H stable. dc'ed Heparin subq- general surgery evaluation appreciated; cleared for discharge per general surgery. Renal insufficiency Creatinine is elevated. Has chronic Horton for urinary retention. -monitor BMP. Stable. -continue Horton; horton was changed on 02/11/18. -consult urology if needed. Follows with Dr. Roberts. UTI UA indicative of infection. Urine culture growing pseudomonas. Sensitivities noted. ID consult appreciated. -change antibiotics to cefepime per ID. -repeated UC with pseudomonas. PPx: SCD's- subq Heparin was dc'ed due to abdominal wall Hematoma. Discharge Planning: dc to rehab when arrangements made. f/u; pcp, urology and cardiology. see med list. d/w the patient, RN, case management and general surgery. time spent 35 min.
--- NOTE | 2018-02-12 08:53 | P.DS ---
Date of admission: 02/05/18 14:42 Primary care physician: Salas Lema Brief History from admission: The patient is an 82-year-old male with a past medical history of atrial fibrillation, CHF and prostate cancer who is presenting to the hospital for an elective renal biopsy and cryoablation. The patient says that a right sided renal mass was noted on an ultrasound. He follows with the urologist and arrangements were made to have right renal biopsy with cryoablation. Following the procedure the patient started to require a significant amount of oxygen. Per nursing the patient was saturating in the low 90s and high 80s here. He is currently on 6 L of nasal cannula. He says he has a history of COPD and CHF. He has endorsed weakness recently. He has been working on getting home oxygen. He states he normally has a low blood pressure and heart rate. DS: Medications - Discharge Medications Prescriptions: prednisone 5 mg PO DAILY 4 Days tab DS: Summary Hospital Course: Right sided renal mass S/p renal biopsy and cryoablation. Pathology reveals renal cell carcinoma. -outpt follow-up as scheduled. Acute on chronic respiratory failure/Acute systolic CHF exacerbation/COPD- improved. CXR indicative of pulmonary congestion. Recent echo with EF 30-35%. He also has COPD. Has been working on home oxygen. ABG noted. Cardiology consult appreciated. LDL 38. -oxygen and nebs as needed. -switched Solu-Medrol to prednisone which will be tapered off. -PT eval. Case management consult appreciated. Will need SNF placement. -continue neb treatment -no ESTEVAN-I at this time due to renal insufficiency; this can be resumed as outpatient when renal function remains stable. Abdominal wall hematoma abdominal pain has much improved and H/H stable. dc'ed Heparin subq- general surgery evaluation appreciated; cleared for discharge per general surgery. Renal insufficiency Creatinine is elevated. Has chronic Horton for urinary retention. -monitor BMP. Stable. -continue Horton; horton was changed on 02/11/18. -consult urology if needed. Follows with Dr. Roberts. UTI UA indicative of infection. Urine culture growing pseudomonas. Sensitivities noted. ID consult appreciated. -change antibiotics to cefepime per ID. -repeated UC with pseudomonas. - Time Spent with Patient Total time spent providing and/or coordinating discharge services: Greater than 30 minutes (35 min.) - Quality: VTE Deep Vein Thrombosis/Pulmonary Embolism Present on Admission: No Exam Vital signs: Vital Signs 02/11/18 09:15 02/11/18 09:16 02/11/18 12:00 Temperature 98.5 F Pulse Rate 109 H 109 H Respiratory Rate 16 17 Blood Pressure 103/63 Pulse Oximetry 96 98 02/11/18 16:00 02/11/18 20:00 02/12/18 00:00 Temperature 97.9 F 97.6 F 97.6 F Pulse Rate 71 53 L 58 L Respiratory Rate 18 18 17 Blood Pressure 131/61 135/60 136/80 Pulse Oximetry 95 96 96 02/12/18 03:15 02/12/18 07:50 02/12/18 08:00 Temperature 97.4 F L Pulse Rate 60 60 86 Respiratory Rate 15 16 17 Blood Pressure 152/72 H Pulse Oximetry 93 L 95 Intake & Output 02/11/18 02/12/18 02/12/18 18:59 06:59 18:59 Intake Total 900 / 900 680 / 680 Output Total 500 / 500 800 / 800 Balance 400 / 400 -120 / -120 Weight 75 kg Intake: IV 500 / 500 100 / 100 Maxipime Inj 2,000 MG In NS Inj 100 / 100 100 / 100 100 ML @ 200 mls/hr IV.SIG Q12H JEANMARIE Rx#:[id number] Oral 400 / 400 580 / 580 Output: Urine 500 / 500 Urine Amount (Catheter) 800 / 800 Indwelling Urethral Catheter 800 / 800 Other: Date of Last Bowel Movement 02/10/18 # Bowel Movements 2 - Constitutional no acute distress - Routine Respiratory Exam Present: CTA bilaterally - Routine Cardiovascular Exam Present: RRR - Routine Abdominal Exam Present: soft - Routine Extremities Exam Comments: no pedal edema. - Routine Neurological Exam Present: alert, oriented X3 Results Procedures completed during hospitalization: S/p renal biopsy and cryoablation Labs on day of discharge: Labs from last 24 hours 02/12/18 02/11/18 02/11/18 07:07 19:51 16:57 POC Glucose 203 H 293 H 219 H 02/11/18 11:55 POC Glucose 127 H - Impressions ITS Impressions CT Guided Tissue Ablation 02/05/18 00:00 CONCLUSION: 1. Uncomplicated cryoablation as above. Renal Biopsy CT 02/05/18 00:00 CONCLUSION: 1. Uncomplicated CT guided biopsy. Chest X-Ray 02/07/18 13:37 CONCLUSION: Cardiomegaly with interstitial edema. The overall appearance has improved from previous study. Small pleural effusions. Abdomen/Pelvis CT 02/10/18 00:00 CONCLUSION: 1. Masslike swelling of the left rectus abdominis muscle most characteristic of a muscular hematoma. 2. Moderate bilateral pleural effusions with bibasilar airspace disease. 3. Perinephric stranding surrounding the lower pole the right kidney following recent cryoablation. There is no evidence of hemorrhage or abscess. 4. Small right inguinal hernia. Discharge Plan - Discharge Disposition Patient Disposition: Discharge to SNF - Discharge Condition Condition: Fair - Physicians Team Primary Care Provider: Salas Lema Attending Provider: Yennifer Lucas Other Providers: Reza Bruno DO ; Louis Myers ; [facility] ; [facility] ; [facility] ; Nydia Tidwell MD ; Suresh Moore MD - Rxs /Orders / Referrals /Forms Prescriptions: New insulin aspart U-100 [Novolog U-100 Insulin aspart] 100 unit/mL Solution 0 unit subcut ACHS RF: 0 ipratropium-albuterol 0.5 mg-3 mg(2.5 mg base)/3 mL Solution For Nebulization 1 amp NEB Q6HR NEB PRN (Reason: Dyspnea) RF: 0 prednisone 5 mg Tablet,Delayed Release (Dr/Ec) 5 mg PO DAILY 4 Days RF: 0 Continue ascorbic acid (vitamin C) [Vitamin C] 1,000 mg Tablet 500 mg PO DAILY bicalutamide 50 mg Tablet 50 mg PO DAILY MDD 1 tab metoprolol tartrate 25 mg Tablet 25 mg PO BID multivitamin Capsule 1 cap PO DAILY tamsulosin 0.4 mg Capsule,Extended Release 24hr 0.4 mg PO DAILY trazodone 50 mg Tablet 50 mg PO DAILY zinc 50 mg Tablet 50 mg PO DAILY Discontinued lisinopril 10 mg Tablet 10 mg PO DAILY sulfamethoxazole-trimethoprim 800-160 mg Tablet 2 tab PO Q12H Referrals: Salas Lema MD [Primary Care Provider] - See Instructions
[2018-02-12] MEDS ORDERED: predniSONE 10 MG Tablet PO SCH (09:00)
--- NOTE | 2018-02-12 12:38 | P.PNGS ---
Subjective Patient reports: no new complaints, feels better Interval history: DAILY PROGRESS NOTE FOR SURGICAL ATTENDING, DR. JOEL KEEN Patient overall feels better He thinks he is going to rehab today rectus hematoma small Physical Exam Vital signs: Vital Signs 02/11/18 16:00 02/11/18 20:00 02/12/18 00:00 Temperature 97.9 F 97.6 F 97.6 F Pulse Rate 71 53 L 58 L Respiratory Rate 18 18 17 Blood Pressure 131/61 135/60 136/80 Pulse Oximetry 95 96 96 02/12/18 03:15 02/12/18 07:50 02/12/18 08:00 Temperature 97.4 F L Pulse Rate 60 60 86 Respiratory Rate 15 16 17 Blood Pressure 152/72 H Pulse Oximetry 93 L 95 Intake & Output 02/11/18 02/12/18 02/12/18 18:59 06:59 18:59 Intake Total 900 / 900 680 / 680 Output Total 500 / 500 800 / 800 Balance 400 / 400 -120 / -120 Weight 75 kg Intake: IV 500 / 500 100 / 100 Maxipime Inj 2,000 MG In NS Inj 100 / 100 100 / 100 100 ML @ 200 mls/hr IV.SIG Q12H JEANMARIE Rx#:[id number] Oral 400 / 400 580 / 580 Output: Urine 500 / 500 Urine Amount (Catheter) 800 / 800 Indwelling Urethral Catheter 800 / 800 Other: Date of Last Bowel Movement 02/10/18 02/11/18 # Bowel Movements 2 Narrative: Alert and awake Tenderness to palpation on LEFT side of abdomen Hematoma appears smaller - Urinary Catheter Management Indwelling Urethral Catheter Cath placed during this visit: yes, but has since been removed by the nurse Reason for continuing: Chronic Urinary Retention Insertion date: 02/11/18 Insertion time: 18:40 Removal date: 02/11/18 Removal time: 18:20 Results - Labs 02/11/18 03:50 02/10/18 09:30 Laboratory Results - last 24 hr 02/11/18 02/11/18 02/12/18 16:57 19:51 07:07 POC Glucose 219 H 293 H 203 H 02/12/18 11:26 POC Glucose 169 H - Imaging Imaging: ITS Impressions CT Guided Tissue Ablation 02/05/18 00:00 CONCLUSION: 1. Uncomplicated cryoablation as above. Renal Biopsy CT 02/05/18 00:00 CONCLUSION: 1. Uncomplicated CT guided biopsy. Chest X-Ray 02/07/18 13:37 CONCLUSION: Cardiomegaly with interstitial edema. The overall appearance has improved from previous study. Small pleural effusions. Abdomen/Pelvis CT 02/10/18 00:00 CONCLUSION: 1. Masslike swelling of the left rectus abdominis muscle most characteristic of a muscular hematoma. 2. Moderate bilateral pleural effusions with bibasilar airspace disease. 3. Perinephric stranding surrounding the lower pole the right kidney following recent cryoablation. There is no evidence of hemorrhage or abscess. 4. Small right inguinal hernia. Assessment and Plan - Assessment (1) Hematoma of rectus sheath Code(s): S30.1XXA - Contusion of abdominal wall, initial encounter Status: Acute (2) Right renal mass Code(s): N28.89 - Other specified disorders of kidney and ureter Status: Acute (3) Acute on chronic systolic (congestive) heart failure Code(s): I50.23 - Acute on chronic systolic (congestive) heart failure Status : Acute (4) Atrial fibrillation Code(s): I48.91 - Unspecified atrial fibrillation Status: Chronic - Plan 81-year-old gentleman who was recently admitted for cryoablation of a renal tumor to the right kidney. He has been in the hospital on heparin recently found to have a rectus hematoma on the left side that is self-limiting. Most of these resolve over time without any intervention His pain is better today. Hematoma is smaller At this time no surgical Increase activities and diet as tolerated We will follow during this hospitalization Okay to be discharged from general surgery standpoint (4) Atrial fibrillation Qualifiers: Atrial fibrillation type: chronic Qualified Code(s): I48.2 - Chronic atrial fibrillation
[2018-02-12 13:06] VITALS: TEMP 97.6; O2SAT 97
--- NOTE | 2018-02-12 13:13 | P.DCO ---
Post Hospital Infusion Therapy - Infusion Therapy Location of Infusion Therapy: [facility] Infusion Therapy Order - Patient Information Patient Weight: 75 kg - Diagnosis (1) Pseudomonas aeruginosa infection Code(s): A49.8 - Other bacterial infections of unspecified site (2) Acute UTI Code(s): N39.0 - Urinary tract infection, site not specified - Administer Medication Cefepime Dose: 2 grams IV Directions: q 12 hours Stop Treatment: 02/15/18 - Additional Information Venous Access: Other (Midline) Additional Instructions: [x] Peripheral flush and dressing changes per protocol [x] Implanted port and central business line manager: * Implanted port: 10 ml Normal Saline followed by 5 ml Heparin 100 units/ml Heparin flush after each use and monthly to maintain. [] May leave port accessed during therapy. [] May leave peripheral site accessed for duration of therapy. [x] If patient has SOB or respiratory distress, check oxygen saturation. If less than 90% or clinical signs of respiratory distress, administer oxygen at 2 L/min. via nasal cannula and notify physician. [x] Anaphylaxis/Reaction orders: * Stop infusion. * Keep IV line open with saline flush. * Notify physician. * Monitor vital signs every 15 minutes until symptoms resolve. * Check Oxygen saturation; Oxygen at 2 L/min. via nasal cannula if less than 90% or clinical signs of respiratory distress. * Administer diphenhydramine (Benadryl) 25 mg IV STAT, (unless patient has received as pre-med). May repeat once, if necessary. * Solu-Cortef 250 mg IVP over 30-60 seconds, use 100 mg vials for each dissolution. * Epinephrine (1mg/1 ml) 0.3 mg subcutaneously or IVP now with any signs of respiratory distress. * Check with physician for new additional pre-med orders if patient is re- challenged or re-treated. [x] May remove midline line when treatment complete. x] If the patient is admitted to the hospital, the ED, or transferred via [facility], complete transfer form including medication reconciliation order sheet. - Patient Information Allergies citalopram Allergy (Severe, Verified 02/05/18 08:09) Itching
--- NOTE | 2018-02-12 13:14 | P.PNID ---
Subjective Remarks: Patient is an 82-year-old male, scheduled for an elective procedure, underwent an elective renal biopsy and cryoablation of a renal cell mass on the right kidney. He apparently had problem with oxygenation, and so he was admitted for further evaluation and treatment. He was found to probably have acute on chronic heart failure. He is stabilized. There was a urinalysis done on admission and it showed pyuria and hematuria. 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 The urine culture is now growing Pseudomonas. Patient has not been febrile. Patient could not say when the Horton catheter was last changed. Infectious disease consultation has been requested to assist with evaluation and treatment. Notes reviewed Temps ok Repeat UC <10,000 cfu PSAE Has L rectus hematoma on CT Pain better Antibiotics: Cefepime Lines: PIV Past Medical History: Atrial fibrillation CHF (congestive heart failure) COPD (chronic obstructive pulmonary disease) Fall at home Mnire's disease Prostate cancer Urinary retention History of appendectomy History of hemicolectomy Hx of tonsillectomy Allergies/Adverse Reactions: Allergies citalopram Allergy (Severe, Verified 02/05/18 08:09) Itching Objective Vital Signs 02/11/18 16:00 02/11/18 20:00 02/12/18 00:00 Temperature 97.9 F 97.6 F 97.6 F Pulse Rate 71 53 L 58 L Respiratory Rate 18 18 17 Blood Pressure 131/61 135/60 136/80 Pulse Oximetry 95 96 96 02/12/18 03:15 02/12/18 07:50 02/12/18 08:00 Temperature 97.4 F L Pulse Rate 60 60 86 Respiratory Rate 15 16 17 Blood Pressure 152/72 H Pulse Oximetry 93 L 95 02/12/18 12:00 Temperature 97.6 F Pulse Rate 60 Respiratory Rate 16 Blood Pressure 112/61 Pulse Oximetry 97 Intake & Output 02/11/18 02/12/18 02/12/18 18:59 06:59 18:59 Intake Total 900 / 900 680 / 680 Output Total 500 / 500 800 / 800 Balance 400 / 400 -120 / -120 Weight 75 kg 75 kg Intake: IV 500 / 500 100 / 100 Maxipime Inj 2,000 MG In NS Inj 100 / 100 100 / 100 100 ML @ 200 mls/hr IV.SIG Q12H [facility] Rx#:[id number] Oral 400 / 400 580 / 580 Output: Urine 500 / 500 Urine Amount (Catheter) 800 / 800 Indwelling Urethral Catheter 800 / 800 Other: Date of Last Bowel Movement 02/10/18 02/11/18 # Bowel Movements 2 02/08/18 17:14 Catheterized Urine Urine Culture - Final Pseudomonas aeruginosa Lab - Hematology Results 02/10/18 02/11/18 18:43 03:50 WBC 8.9 RBC 3.13 L Hgb 11.0 L 10.9 L Hct 32.9 L 32.0 L MCV 102.4 H MCH 35.0 H MCHC 34.1 RDW 15.0 Plt Count 167 MPV 8.6 Neut % (Auto) 77.9 H Lymph % (Auto) 9.7 Craig % (Auto) 12.3 H Eos % (Auto) 0.0 Baso % (Auto) 0.1 Neut # (Auto) 7.0 Lymph # (Auto) 0.9 L Craig # (Auto) 1.1 H Eos # (Auto) 0.0 Baso # (Auto) 0.0 WBC Differential . Differential Comment Auto diff final Lab - Chemistry Results 02/10/18 02/10/18 02/11/18 16:59 19:56 07:58 POC Glucose 195 H 163 H 115 H 02/11/18 02/11/18 02/11/18 11:55 16:57 19:51 POC Glucose 127 H 219 H 293 H 02/12/18 02/12/18 07:07 11:26 POC Glucose 203 H 169 H Imaging: ITS Impressions CT Guided Tissue Ablation 02/05/18 00:00 CONCLUSION: 1. Uncomplicated cryoablation as above. Renal Biopsy CT 02/05/18 00:00 CONCLUSION: 1. Uncomplicated CT guided biopsy. Chest X-Ray 02/07/18 13:37 CONCLUSION: Cardiomegaly with interstitial edema. The overall appearance has improved from previous study. Small pleural effusions. Abdomen/Pelvis CT 02/10/18 00:00 CONCLUSION: 1. Masslike swelling of the left rectus abdominis muscle most characteristic of a muscular hematoma. 2. Moderate bilateral pleural effusions with bibasilar airspace disease. 3. Perinephric stranding surrounding the lower pole the right kidney following recent cryoablation. There is no evidence of hemorrhage or abscess. 4. Small right inguinal hernia. Physical Exam: GENERAL: awake and alert, not in respiratory distress. SKIN: Cool and dry. No generalized rash. Has keratotic lesions in his trunk , alena in the back. HEAD: Atraumatic. Normocephalic. No temporal wasting, or tenderness. EYES: Trout conjunctiva. No petechia or hemorrhage. Pupils equal, round and reactive to light. Extraocular movements full and intact. No scleral icterus. No injection or drainage. EARS, NOSE AND THROAT: Mucous membranes pink and moist. No oral lesions noted. No exudate. No oral thrush. NECK: Trachea midline. Supple and not tender, no meningeal signs CARDIOVASCULAR: Regular rate and rhythm. No murmurs, rubs or gallops heard RESPIRATORY: Clear to auscultation. Breath sounds equal bilaterally. No rales , wheezing or rhonchi ABDOMEN: Soft, nondistended. Has firm mass on L side, not tender, no redness - hematoma seen on CT. Bowel sounds present and normoactive. No guarding. No rebound. : Horton catheter, urine with some sediment EXTREMITIES: No clubbing, cyanosis, or edema.No joint effusion, has good ROM. No calf tenderness. Well perfused and warm. NEUROLOGICAL: Awake and alert. Cranial nerves grossly intact. Motor grossly within normal limits. PSYCHIATRIC: Normal affect, calm and cooperative. LINE: No evidence of infection Assessment and Plan (1) Pseudomonas aeruginosa infection Status: Acute Code(s): A49.8 - Other bacterial infections of unspecified site (2) Acute UTI Status: Acute Code(s): N39.0 - Urinary tract infection, site not specified - Plan Impression UTI due to indwelling horton, C/S PSAE Prostate CA with obstructive uropathy Renal Cell CA R, S/P biopsy and cryoablation Renal insufficiency, better L rectus hematoma Recommendation IV Cefepime - at least 7 days Midline To go to SNF and complete abx Rx there Abx infusion form filled out D/W Dr Lucas Spoke with CM
[2018-02-12 18:00] VITALS: BP 127/72; PULSE 84; RESP 17
== END 2018-02-12 18:11 ==
LOC: HRAD 07:11 → HRIP 07:17 → N07 14:42
PROVIDERS: ADMIT Internal Medicine; ATTEND Internal Medicine

== ENCOUNTER 2018-03-30 18:52 | Observation (INO) ==
--- NOTE | 2018-03-30 19:19 | ED ---
HPI General Chief complaint: Weakness Stated complaint: general weakness Time Seen by Provider: 03/30/18 18:54 Source: patient Mode of arrival: EMS Limitations: no limitations History of Present Illness Complaint: Reports generalized weakness Onset (ago): day(s) (1) Duration: intermittent Location: Reports LLE and RLE Migration: Reports none Severity: moderate Severity scale (1-10): 5 Quality: Reports other (Patient reports a chronic lower back injury which intermittently causes his legs to give out and not function. States he normally rests until he is able to get going again. States he unable to stand for more than 15 or 30 seconds today.) Relieving factors: rest Exacerbating factors: none Context: Reports new medication (He recently did start on a new antibiotic for UTI. Undergoing prostate cancer treatment with Gann catheter in place) Associated symptoms: Reports denies other symptoms Related Data Home Medications Medication Instructions Recorded Confirmed bicalutamide 50 mg PO DAILY MDD 1 tab 12/27/17 03/30/18 metoprolol tartrate 25 mg PO BID 12/27/17 03/30/18 tamsulosin 0.4 mg PO DAILY 12/27/17 03/30/18 ascorbic acid (vitamin C) [Vitamin 500 mg PO DAILY 02/05/18 03/30/18 C] multivitamin 1 cap PO DAILY 02/05/18 03/30/18 trazodone 50 mg PO HS 02/05/18 03/30/18 spironolactone 25 mg PO DAILY 03/22/18 03/30/18 leuprolide (3 month) [Lupron Depot 11.25 mg IM [id number] 03/30/18 (3 month)] Previous Rx's Medication Instructions Recorded ipratropium-albuterol 1 amp NEB Q6HR NEB PRN ml 02/12/18 Allergies Allergy/AdvReac Type Severity Reaction Status Date / Time citalopram Allergy Severe Itching Verified 03/30/18 19:01 Review of Systems ROS: all other systems reviewed are negative [facility] Medical History Medical History Atrial fibrillation (Acute) CHF (congestive heart failure) (Acute) COPD (chronic obstructive pulmonary disease) (Acute) Cancer of kidney (Acute) Fall at home (Acute) History of MRSA infection (Acute ~03/22/18) Hypertension (Acute) Mnire's disease (Acute) Prostate cancer (Acute) Urinary retention (Acute) Surgical History Surgical History History of appendectomy (Acute) History of hemicolectomy (Acute) Hx of tonsillectomy (Acute) Family History Family History Other No pertinent family history Social History Social History Substance History: No History of Abuse Second Hand Smoke Exposure: No Smoking Status: Former smoker Tobacco Type: Cigarettes How Often Do You Have a Drink Containing Alcohol: 4 or more times a week Recent Travel in [facility] [place] within the Last 8 Weeks: No Recent Out of Country Travel within the Last 8 Weeks: No Immunization History Tetanus Immunization: Unsure Exam Narrative Exam Narrative: CARDIOVASCULAR: Regular rate and rhythm without murmurs, gallops , or rubs. RESPIRATORY: Breath sounds equal bilaterally. No accessory muscle use. GASTROINTESTINAL: Abdomen soft, normal bowel sounds, non-tender, nondistended. MUSCULOSKELETAL: No cyanosis, or edema. BACK: Nontender without obvious deformity. No CVA tenderness. Urinary catheter in place Course Initial Documented Vital Signs Temperature 98.4 F 03/30/18 19:01 Pulse Rate 88 03/30/18 19:01 Respiratory Rate 20 03/30/18 19:01 Blood Pressure 150/76 H 03/30/18 19:01 Pulse Oximetry 97 03/30/18 19:01 Last Documented Vital Signs Temperature 98.4 F 03/30/18 19:01 Pulse Rate 75 03/30/18 19:34 Respiratory Rate 17 03/30/18 19:34 Blood Pressure 150/76 H 03/30/18 19:01 Pulse Oximetry 98 03/30/18 19:34 Medical Decision Making MDM Narrative Medical decision making narrative: Acute renal injury noted, spoke to Dr. Melendez who is in agreement will admit to observation and moved to rehabilitation Medical Screen Exam Complete: Yes Emergency Medical Condition: Yes Differential Diagnosis Differential Diagnosis: Generalized weakness, degenerative disc disease, sciatica, medication side effect Medical Records Medical records reviewed: Yes I reviewed the patient's medical records. Lab Data Lab results reviewed: Yes I reviewed the patient's lab results. Result diagrams: 03/30/18 19:22 12/22/18 19:22 Lab Results 03/30/18 03/30/18 03/30/18 Range/Units 19:22 19:22 19:22 CBC w Diff Auto diff final WBC 9.7 (4.0-11.0) th/mm3 RBC 3.70 L (4.50-5.90) mil/mm3 Hgb 12.0 L (13.0-17.0) gm/dL Hct 36.8 L (39.0-51.0) % MCV 99.5 (80.0-100.0) fL MCH 32.6 (27.0-34.0) pg MCHC 32.7 (32.0-36.0) % RDW 15.1 (11.6-17.2) % Plt Count 201 (150-450) th/mm3 MPV 7.9 (7.0-11.0) fL Neut % (Auto) 72.5 H (16.0-70.0) % Lymph % (Auto) 10.9 (9.0-44.0) % [place] % (Auto) 9.2 H (0.0-8.0) % Eos % (Auto) 6.5 H (0.0-4.0) % Baso % (Auto) 0.9 (0.0-2.0) % Neut # (Auto) 7.0 (1.8-7.7) th/mm3 Lymph # (Auto) 1.1 (1.0-4.8) th/mm3 [place] # (Auto) 0.9 (0.0-0.9) th/mm3 Eos # (Auto) 0.6 H (0.0-0.4) th/mm3 Baso # (Auto) 0.1 (0.0-0.2) th/mm3 WBC Differential . Differential Comment . Sodium 137 (136-145) meq/L Potassium 4.4 (3.5-5.1) meq/L Chloride 103 (98-107) meq/L Carbon Dioxide 25.3 (21.0-32.0) meq/L Anion Gap 9 (5-15) meq/L BUN 43 H (7-18) mg/dL Creatinine 2.20 H (0.60-1.30) mg/dL Estimated GFR 29 L (>89) mL/min Random Glucose 111 H (74-106) mg/dL Calcium 8.7 (8.5-10.1) mg/dL Magnesium 1.7 (1.5-2.5) mg/dL Total Bilirubin 0.4 (0.2-1.0) mg/dL AST 17 (15-37) U/L ALT 11 L (12-78) U/L Alkaline Phosphatase 107 (45-117) U/L Troponin I Less than 0.02 L (0.02-0.05) ng/mL Total Protein 6.9 (6.4-8.2) g/dL Albumin 3.1 L (3.4-5.0) g/dL Urine Color Yellow (Yellw/Straw) Urine Clarity Slightly cloudy (Clear) Urine pH 5.5 (5.0-8.5) Ur Specific [place] Greater/equal 1.030 (1.002-1.035) Urine Protein 100 H (Neg-Trace) mg/dL Urine Glucose (UA) Negative (Negative) mg/dL Urine Ketones Trace H (Negative) mg/dL Urine Occult Blood Moderate H (Negative) Urine Nitrate Negative (Negative) Urine Bilirubin Negative (Negative) Urine Urobilinogen 0.2 (Less than 2) mg/dL Ur Leukocyte Esterase Moderate H (Negative) Urine RBC 4-15 H (0-3) /hpf Urine WBC 21-50 H (0-5) /hpf Ur Squamous Epith Cells 0-5 (0-5) /hpf Urine Bacteria Few H (None) /hpf Micro UA Comment Cath-culture ind Ur Microscopic Review Microscopic reviewed Urine Culture Comments Cath-cult indicated ECG Data Attestation: I personally reviewed and interpreted this ECG as follows: (EKG reveals A. fib rate of [address] segment elevations or depressions) Discharge Plan Discharge Order Discharge Orders: ED Use Only Admit Order (Routine); Ordered 03/30/18 Ordered By: Willam Liu Physicians Team ED Provider: Willam Liu Primary Care Provider: Salas Lema Attending Provider: Kelli Melendez Rxs /Orders / Referrals /Forms Prescriptions: No Action ascorbic acid (vitamin C) [Vitamin C] 1,000 mg Tablet 500 mg PO DAILY RF: 0 trazodone 50 mg Tablet 50 mg PO HS RF: 0 multivitamin Capsule 1 cap PO DAILY RF: 0 ipratropium-albuterol 0.5 mg-3 mg(2.5 mg base)/3 mL Solution For Nebulization 1 amp NEB Q6HR NEB PRN (Reason: Dyspnea) RF: 0 bicalutamide 50 mg Tablet 50 mg PO DAILY MDD 1 tab RF: 0 tamsulosin 0.4 mg Capsule,Extended Release 24hr 0.4 mg PO DAILY RF: 0 metoprolol tartrate 25 mg Tablet 25 mg PO BID RF: 0 leuprolide (3 month) [Lupron Depot (3 month)] 11.25 mg Syringe Kit 11.25 mg IM [id number] RF: 0 spironolactone 25 mg Tablet 25 mg PO DAILY RF: 0 Discharge Interventions Interventions: Vital Signs Last Done: 03/30/18 19:34 Status ED Status: Admitted Observation Patient
[2018-03-30 19:35] LABS: Bilirubin,Urine Negative (Negative); Clarity,Urine Slightly Cloudy (Clear); Color,Urine Yellow (Yellw/Straw); Glucose,Urine (UA) Negative (Negative); Leukocyte Esterase,Urine Moderate (Negative); Nitrite,Urine Negative (Negative); PH,Urine 5.5 (5.0-8.5); Specific Gravity,Urine Greater/Equal 1.030 (1.002-1.035); Urobilinogen,Urine 0.2 mg/dL (Less than 2)
[2018-03-30 19:36] LABS: Baso # (Auto) 0.1 th/mm3 (0.0-0.2); Baso % (Auto) 0.9 % (0.0-2.0); Eos # (Auto) 0.6 th/mm3 (0.0-0.4); Eos % (Auto) 6.5 % (0.0-4.0); Hematocrit 36.8 % (39.0-51.0); Lymph # (Auto) 1.1 th/mm3 (1.0-4.8); Lymph % (Auto) 10.9 % (9.0-44.0); Mean Corpuscular HGB Conc 32.7 % (32.0-36.0); Mean Corpuscular Hemoglobin 32.6 pg (27.0-34.0); Mean Corpuscular Volume 99.5 fL (80.0-100.0); Mean Platelet Volume 7.9 fL (7.0-11.0); Mono # (Auto) 0.9 th/mm3 (0.0-0.9); Mono % (Auto) 9.2 % (0.0-8.0); Neut % (Auto) 72.5 % (16.0-70.0); Platelet Count 201 th/mm3 (150-450); Red Cell Distribution Width 15.1 % (11.6-17.2); White Blood Count 9.7 th/mm3 (4.0-11.0)
[2018-03-30 19:42] LABS: Bacteria,Urine Few /hpf; Squamous Epithelial Cell,Urine 0-5 /hpf (0-5); WBC,Urine 21-50 /hpf (0-5)
[2018-03-30 19:45] LABS: Chloride 103 meq/L (98-107); Potassium 4.4 meq/L (3.5-5.1); Sodium 137 meq/L (136-145)
[2018-03-30 19:48] LABS: Albumin 3.1 g/dL (3.4-5.0); Anion Gap 9 meq/L (5-15); Blood Urea Nitrogen 43 mg/dL (7-18); Calcium 8.7 mg/dL (8.5-10.1); Carbon Dioxide 25.3 meq/L (21.0-32.0); Glucose,Random 111 mg/dL (74-106); Magnesium 1.7 mg/dL (1.5-2.5)
[2018-03-30 19:51] LABS: Alanine Aminotransferase 11 U/L (12-78)
[2018-03-30 19:52] LABS: Aspartate Aminotransferase 17 U/L (15-37); Glomerular Filtration Rate 29 mL/min (>89)
[2018-03-30 19:53] LABS: Total Protein 6.9 g/dL (6.4-8.2)
[2018-03-30 19:54] LABS: Alkaline Phosphatase 107 U/L (45-117)
[2018-03-30] MEDS ORDERED: Acetaminophen 325 MG Tablet PO PRN (20:58)
[2018-03-30] MEDS ORDERED: Bisacodyl 10 MG Supp RECTAL PRN (20:58)
[2018-03-30] MEDS: Senna/Docusate Sodium 8.6/50 MG Tablet PO SCH (22:07)
[2018-03-30] MEDS: Sod Chloride 0.9% Inj 1,000 ML IV.CONT SCH (22:22)
[2018-03-30] MEDS: traZODone 50 MG Tablet PO SCH (22:22)
[2018-03-30] MEDS: Metoprolol Tartrate 25 MG Tablet PO SCH (22:22)
[2018-03-30] MEDS: Heparin - SQ 10,000 UNITS/ML Vial SQ SCH (22:23)
[2018-03-31 07:43] LABS: Baso % (Auto) 0.1 % (0.0-2.0); Eos # (Auto) 0.5 th/mm3 (0.0-0.4); Eos % (Auto) 6.2 % (0.0-4.0); Hematocrit 32.1 % (39.0-51.0); Hemoglobin 10.6 gm/dL (13.0-17.0); Lymph # (Auto) 1.1 th/mm3 (1.0-4.8); Lymph % (Auto) 14.2 % (9.0-44.0); Mean Corpuscular HGB Conc 32.9 % (32.0-36.0); Mean Corpuscular Hemoglobin 32.9 pg (27.0-34.0); Mean Corpuscular Volume 99.9 fL (80.0-100.0); Mean Platelet Volume 8.5 fL (7.0-11.0); Mono # (Auto) 0.8 th/mm3 (0.0-0.9); Mono % (Auto) 9.6 % (0.0-8.0); Neut # (Auto) 5.5 th/mm3 (1.8-7.7); Neut % (Auto) 69.9 % (16.0-70.0); Platelet Count 168 th/mm3 (150-450); Red Blood Count 3.21 mil/mm3 (4.50-5.90); Red Cell Distribution Width 14.9 % (11.6-17.2); White Blood Count 7.9 th/mm3 (4.0-11.0)
[2018-03-31 07:53] LABS: Potassium 3.9 meq/L (3.5-5.1)
[2018-03-31 07:55] LABS: Calcium 8.2 mg/dL (8.5-10.1)
[2018-03-31] MEDS: Metoprolol Tartrate 25 MG Tablet PO SCH ×2 (09:13→21:02)
[2018-03-31] MEDS: Heparin - SQ 10,000 UNITS/ML Vial SQ SCH ×2 (09:13→21:03)
[2018-03-31] MEDS: Senna/Docusate Sodium 8.6/50 MG Tablet PO SCH ×2 (09:13→21:03)
[2018-03-31] MEDS: Sod Chloride 0.9% Inj 1,000 ML IV.CONT SCH ×2 (09:14→19:15)
--- NOTE | 2018-03-31 10:29 | P.HPIM ---
History of Present Illness Primary Care Physician: Salas Lema Chief Complaint: Inability to ambulate History of Present Illness: 82-year-old male with known history of hypertension, atrial fibrillation, congestive heart failure, chronic obstructive pulmonary disease urinary retention, chronic back pain, renal cell carcinoma who presented the hospital because of inability to ambulate. Patient indicates that he was just recently in the hospital little over month ago. It appears as if he was discharged 02/12/18 which he went to rehab facility. He states that he got home approximately 2 weeks ago and has been undergoing outpatient IV antibiotics for urinary tract infection, chronic Gann for urinary retention, home health care with physical therapy. Patient states that he was actually improving until yesterday when he tried to get up and he could not stand or walk. Because of that he came to the emergency department for evaluation. Upon workup patient was found to have acute renal failure superimposed on chronic kidney disease stage III. Patient cannot ambulate so was recommended by the ER physician that the patient be observed in the hospital for possible placement to rehab facility. Upon evaluating the patient he was able to get out of bed and transferred to a bedside commode. He appears to be doing well. Only complaint was his difficulty in ambulating and transferring. He denies any fever, chills, chest pain, shortness of breath, abdominal pain, unilateral weakness. He indicates that he has chronic back pain and this happens to him quite frequently. Patient indicates that he has had multiple evaluations with x-rays, MRI studies of his lumbar spine. Diagnosis (1) Inability to ambulate due to ankle or foot: (2) Acute renal failure superimposed on stage 3 chronic kidney disease: (3) Urinary tract infection: Review of Systems Review of Systems: all other systems reviewed are negative Genitourinary: Reports other (Urinary retention) Neurologic: Reports abnormal gait and Reports frequent falls PMFSH History History Provided By: Patient and Medical Record Medical History Medical History Atrial fibrillation (Acute) CHF (congestive heart failure) (Acute) COPD (chronic obstructive pulmonary disease) (Acute) Cancer of kidney (Acute) Fall at home (Acute) History of MRSA infection (Acute ~03/22/18) Hypertension (Acute) Mnire's disease (Acute) Prostate cancer (Acute) Urinary retention (Acute) Surgical History Surgical History History of appendectomy (Acute) History of hemicolectomy (Acute) Hx of tonsillectomy (Acute) Social History Social History Substance History: No History of Abuse Second Hand Smoke Exposure: No Smoking Status: Former smoker Tobacco Type: Cigarettes How Often Do You Have a Drink Containing Alcohol: 4 or more times a week Recent Travel in [place] within the Last 8 Weeks: No Recent Out of Country Travel within the Last 8 Weeks: No Immunization History Tetanus Immunization: Unsure Medications and Allergies Allergies Allergy/AdvReac Type Severity Reaction Status Date / Time citalopram Allergy Severe Itching Verified 03/30/18 19:01 Home Medications Medication Instructions Recorded Confirmed Type bicalutamide 50 mg PO DAILY MDD 1 tab 12/27/17 03/30/18 History metoprolol tartrate 25 mg PO BID 12/27/17 03/30/18 History tamsulosin 0.4 mg PO DAILY 12/27/17 03/30/18 History ascorbic acid (vitamin C) [Vitamin 500 mg PO DAILY 02/05/18 03/30/18 History C] multivitamin 1 cap PO DAILY 02/05/18 03/30/18 History trazodone 50 mg PO HS 02/05/18 03/30/18 History spironolactone 25 mg PO DAILY 03/22/18 03/30/18 History leuprolide (3 month) [Lupron Depot 11.25 mg IM [id number] 03/30/18 History (3 month)] Active Medications: Active Medications Acetaminophen (Tylenol) 650 mg PO Q4H PRN PRN Reason: Temp > 100.4 Al Hydroxide/Mg Hydroxide (Milk Of Magnesia Liq) 30 ml PO Q12H PRN PRN Reason: Mild Constipation Bisacodyl (Dulcolax Supp) 10 mg RECTAL DAILY PRN PRN Reason: SEVERE CONSITIPATION Heparin Sodium (Porcine) (Heparin Inj) 5,000 units SQ Q12H [facility] Last Admin: 03/31/18 09:13 Dose: 5,000 units Cefepime HCl 1,000 mg/ Sodium (Chloride) 100 mls @ 200 mls/hr IV.SIG Q24H [facility] Last Infusion: 03/31/18 09:45 Dose: Infused Sodium Chloride (Ns Inj) 1,000 mls @ 84 mls/hr IV.CONT .[id number] [facility] Last Admin: 03/31/18 09:14 Dose: 84 mls/hr Lactulose (Lactulose Liq) 30 ml PO DAILY PRN PRN Reason: SEVERE CONSITIPATION Metoprolol Tartrate (Lopressor) 25 mg PO BID [facility] Last Admin: 03/31/18 09:13 Dose: 25 mg Ondansetron HCl (Zofran Inj) 4 mg IV.PUSH Q6H PRN PRN Reason: NAUSEA OR VOMITING Senna/Docusate Sodium (July-Colace) 1 tab PO BID [facility] Last Admin: 03/31/18 09:13 Dose: 1 tab Sennosides (Senokot) 17.2 mg PO Q12H PRN PRN Reason: Moderate Constipation Sodium Chloride (Ns Flush) 2 ml IV.FLUSH BID [facility] Last Admin: 03/31/18 09:14 Dose: Not Given Sodium Chloride (Ns Flush) 2 ml IV.FLUSH PRN PRN PRN Reason: FLUSH AFTER USING IV ACCESS Tamsulosin HCl (Flomax) 0.4 mg PO DAILY [facility] Last Admin: 03/31/18 09:13 Dose: 0.4 mg Trazodone HCl (Desyrel) 50 mg PO HS [facility] Last Admin: 03/30/18 22:22 Dose: 50 mg Physical Exam Vital signs: Last Vital Signs Temp 97.2 F L 03/31/18 00:00 Pulse 75 03/31/18 00:00 Resp 20 03/31/18 00:00 BP 121/74 03/31/18 00:00 Pulse Ox 99 03/31/18 00:00 Intake & Output 03/29/18 03/30/18 03/31/18 04/01/18 06:59 06:59 06:59 06:59 Intake Total 730 / 730 1100 / 1100 Output Total 150 / 150 Balance 580 / 580 1100 / 1100 Weight 69 kg Narrative: GENERAL: Well-developed, frail and cachectic, in no acute distress. alert and orientated HEENT: Head is normocephalic without any lesions or masses noted. Facial features are symmetric. Eyes: Pupils equal round reactive to light. Extraocular muscles are intact. Conjunctivae were clear. Oropharyngeal: Pharynx without any erythema edema. Tongue is midline without deviation. Buccal mucosa is moist without any masses or lesions NECK: Supple without any masses. Trachea midline no deviation. No JVD, no bruits are appreciated CARDIAC: Regular rhythm, regular rate. S1/S2 are heard. No murmurs gallops or rubs. LUNGS: Clear to auscultation bilaterally. No wheeze, rhonchi or rales. No use of accessory muscles on inspiration or expiration. ABDOMEN: Soft, nontender. Nondistended. Bowel sounds heard in all 4 quadrants. No organomegaly or masses. Negative rebound, negative guarding. Urinary Gann in place EXTREMITIES: No edema, pulses are equal bilaterally. No cyanosis or clubbing NEUROLOGY: Mood and affect appear appropriate. Cranial nerves II through XII grossly intact. Muscle strength 5/5 in upper and lower extremities bilaterally. Deep tendon reflexes are 2+ in upper and lower extremities bilaterally. Results Labs CBC & Chem 7: 04/01/18 06:00 04/01/18 06:00 Caprini VTE Risk Assessment Caprini VTE Risk Assessment: Moderate/High Risk (score >= 2) Caprini Risk Assessment Model: Point Value = 1 Point Value = 2 Point Value = 3 Point Value = 5 Age 41-60 Minor surgery BMI > 25 kg/m2 Swollen legs Varicose veins or History of unexplained or recurrent spontaneous Oral contraceptives or hormone replacement Sepsis (< 1 month) Serious lung disease, including pneumonia (< 1 month) Abnormal pulmonary function Acute myocardial infarction Congestive heart failure (< 1 month) History of inflammatory bowel disease Medical patient at bed rest Age 61-74 Arthroscopic surgery Major open surgery (> 45 min) Laparoscopic surgery (> 45 min) Malignancy Confined to bed (> 72 hours) Immobilizing plaster cast Central venous access Age >= 75 History of VTE Family history of VTE Factor V Leiden Prothrombin [id number] Lupus anticoagulant Anticardiolipin antibodies Elevated serum homocysteine Heparin-induced thrombocytopenia Other congenital or acquired thrombophilia Stroke (< 1 month) Elective arthroplasty Hip, pelvis, or leg fracture Acute spinal cord injury (< 1 month) Prophylaxis Regimen: Total Risk Factor Score Risk Level Prophylaxis Regimen 0-1 Low Early ambulation 2 Moderate Order ONE of the following: *Sequential Compression Device (SCD) *Heparin 5000 units SQ BID 3-4 Higher Order ONE of the following medications: *Heparin 5000 units SQ TID *Enoxaparin/Lovenox 40 mg SQ daily (WT < 150 kg, CrCl > 30 mL/min) *Enoxaparin/Lovenox 30 mg SQ daily (WT < 150 kg, CrCl > 10-29 mL/min) *Enoxaparin/Lovenox 30 mg SQ BID (WT < 150 kg, CrCl > 30 mL/min) AND/OR *Sequential Compression Device (SCD) 5 or more Highest Order ONE of the following medications: *Heparin 5000 units SQ TID (Preferred with Epidurals) *Enoxaparin/Lovenox 40 mg SQ daily (WT < 150 kg, CrCl > 30 mL/min) *Enoxaparin/Lovenox 30 mg SQ daily (WT < 150 kg, CrCl > 10-29 mL/min) *Enoxaparin/Lovenox 30 mg SQ BID (WT < 150 kg, CrCl > 30 mL/min) AND *Sequential Compression Device (SCD) Assessment and Plan (1) Inability to ambulate due to ankle or foot: Code(s): R26.2 - Difficulty in walking, not elsewhere classified Status: Acute (2) Acute renal failure superimposed on stage 3 chronic kidney disease: Code(s): N17.9 - Acute kidney failure, unspecified; N18.3 - Chronic kidney disease, stage 3 (moderate) Status: Acute (3) Urinary tract infection: Code(s): N39.0 - Urinary tract infection, site not specified Status: Acute Plan Inability to ambulate -Patient does have history of chronic back pain and problems. Patient indicates that he does have episodes of the symptoms of inability to ambulate. States that his legs are very weak and gives out on him. Patient does also have urinary retention -We will obtain CT scan of the brain to rule out any intracranial abnormality -We will obtain MRI of the lumbar spine to rule out any spinal stenosis or neurological problems -Consult physical therapy for further evaluation -Consult case management for possible placement Urinary tract infection -Patient is being treated in outpatient setting with IV cefepime -We will continue medication at this time -Continue to follow culture for appropriate antibiotics Acute renal failure superimposed on chronic kidney disease stage III, improving -Continue cautious hydration -Continue monitor renal function -Avoid nephrotoxins Hypertension, atrial fibrillation, congestive heart failure -Continue home medications DVT prevention -Sequential compression devices -Subcutaneous heparin H&P: Quality VTE Deep Vein Thrombosis/Pulmonary Embolism Present on Admission: No
--- NOTE | 2018-03-31 11:37 | CT ---
EXAM DATE: 03/31/2018 11:25 AM EST AGE/SEX: 82 years / Male INDICATIONS: Inability to ambulate. CLINICAL DATA: This is the patient's initial encounter. Patient reports that signs and symptoms have been present for 1 day and indicates a pain score of 0/10. MEDICAL/SURGICAL HISTORY: Chronic obstructive pulmonary disease. Carcinoma, prostatic. Hypertensi on. Renal cancer. Atrial fibrillation. Meniere's Disease. Appendectomy. Tonsillectomy. Geoff colect karrie. RADIATION DOSE: 57.57 CTDI (mGy) COMPARISON: No prior exams available for comparison. TECHNIQUE: CT of the head without contrast. Using automated exposure control and adjustment of the mA and/or kV according to patient size, radiation dose was kept as low as reasonably achievable to ob tain optimal diagnostic quality images. DICOM format image data is available electronically for revi ew and comparison. FINDINGS: Cerebrum: The ventricles are normal for age. There is widening of the cortical sulci. There is mild decreased density in the cerebral white matter. There is an old lacunar infarct at the posterior rig ht basal ganglia region. There is an old lacunar infarct at the inferior right caudate head. No evide nce of midline shift, mass lesion, hemorrhage or acute infarction. No extraaxial fluid collections a re seen. Posterior Fossa: The cerebellum and brainstem are intact. The 4th ventricle is midline. The cerebe llopontine angle is unremarkable. Extracranial: The visualized portion of the orbits is intact. Skull: The calvaria is intact. No evidence of skull fracture. CONCLUSION: 1. No acute abnormality seen. 2. Cortical atrophy. 3. Suspected old lacunar infarct at the posterior right basal ganglia and the inferior right caudate head. . Electronically signed by: Alejandro Persaud MD Board Certified Radiologist 03/31/2018 11:36 AM EST
--- NOTE | 2018-03-31 14:58 | MR ---
EXAM DATE: 03/31/2018 2:42 PM EST AGE/SEX: 82 years / Male INDICATIONS: Inability to ambulate. CLINICAL DATA: This is the patient's initial encounter. Patient reports that signs and symptoms have been present for 2 days and indicates a pain score of 3/10. MEDICAL/SURGICAL HISTORY: Carcinoma, prostatic. Chronic obstructive pulmonary disease. Conges tive heart failure. Appendectomy. Colon resection. Tonsillectomy. COMPARISON: POI, MR LUMBAR SPINE W/O CONTRAST, 03/09/2017. . TECHNIQUE: Multiplanar, multisequence MRI of the lumbar spine was performed without contrast. Patie nt was scanned in a sitting position; neutral, flexion, and extension scans were performed in the sa gittal plane. FINDINGS: Vertebra: The lumbar vertebral bodies are normal in height. There are type I endplate changes at the L2-L3 and L3-L4 levels. There is minimal posterior subluxation of L2 on L3 and L3 on L4. Conus: Normal level and configuration. T12-L1: The thecal sac has a normal diameter. No evidence of disc bulge or protrusion. The neural foramina are patent bilaterally. L1-L2: The disc demonstrates mild decreased height. A significant impression on thecal sac not seen . The neural foramina are patent bilaterally. L2-L3: The disc demonstrates decreased height. There is mild diffuse disc bulge. This causes modera te narrowing of thecal sac with very little CSF seen around the nerve roots. There is mild narrowing of the right neural foramina. The left neural foramina is patent. L3-L4: The disc demonstrates decreased height. There is mild diffuse disc bulge. There is moderate facet and ligamentum flavum hypertrophy leading to moderate to severe stenosis with very little CSF s een around the nerve roots. There is narrowing of the neural foramina bilaterally being worse on the right. L4-L5: There is mild diffuse disc bulge. In addition there is a more focal right paracentral to lat eral recess disc protrusion. There is moderate facet and ligament flavum hypertrophy. These changes l ead to moderate to severe stenosis with minimal CSF seen around the nerve roots. The neural foramina are grossly patent. L5-S1: The thecal sac has a normal diameter. No evidence of disc bulge or protrusion. The neural foramina are patent bilaterally. There is mild facet hypertrophy. CONCLUSION: 1. Moderate to severe stenosis at the L3-L4 and L4-L5 levels. 2. Moderate stenosis at the L2-L3 level. 3. Mild disc bulge without significant stenosis at the L1-L2 level. 4. Neural foraminal narrowing at the L2-L3 and L3-L4 levels. Electronically signed by: Alejandro Persaud MD Board Certified Radiologist 03/31/2018 2:57 PM EST
[2018-03-31] MEDS: traZODone 50 MG Tablet PO SCH (21:02)
--- NOTE | 2018-04-01 01:32 | ECG ---
Date Performed: 03/30/2018 Time Performed: 19:07:55 PTAGE: 82 years EKG: ATRIAL FIBRILLATION MARKED LEFT AXIS DEVIATION LEFT BUNDLE BRANCH BLOCK ABNORMAL ECG PREVIOUS TRACING : 12/26/2017 21.06 Compared to previous tracing, now noted to be in AFib DOCTOR: Reza Bruno Interpretating Date/Time 04/01/2018 01:32:18
[2018-04-01] MEDS: Sod Chloride 0.9% Inj 1,000 ML IV.CONT SCH ×2 (06:24→08:39)
[2018-04-01 06:54] LABS: Baso % (Auto) 0.4 % (0.0-2.0); Eos # (Auto) 0.4 th/mm3 (0.0-0.4); Eos % (Auto) 4.9 % (0.0-4.0); Hematocrit 32.2 % (39.0-51.0); Hemoglobin 10.4 gm/dL (13.0-17.0); Lymph # (Auto) 1.3 th/mm3 (1.0-4.8); Lymph % (Auto) 16.8 % (9.0-44.0); Mean Corpuscular HGB Conc 32.1 % (32.0-36.0); Mean Corpuscular Volume 99.6 fL (80.0-100.0); Mean Platelet Volume 8.5 fL (7.0-11.0); Mono # (Auto) 0.7 th/mm3 (0.0-0.9); Mono % (Auto) 9.5 % (0.0-8.0); Neut # (Auto) 5.5 th/mm3 (1.8-7.7); Neut % (Auto) 68.4 % (16.0-70.0); Platelet Count 170 th/mm3 (150-450); Red Blood Count 3.23 mil/mm3 (4.50-5.90); Red Cell Distribution Width 14.5 % (11.6-17.2); White Blood Count 7.9 th/mm3 (4.0-11.0)
[2018-04-01 07:15] LABS: Calcium 8.2 mg/dL (8.5-10.1); Carbon Dioxide 22.9 meq/L (21.0-32.0); Potassium 4.7 meq/L (3.5-5.1)
--- NOTE | 2018-04-01 08:35 | P.PNIM ---
Subjective Interval history: 82-year-old male who is seen examined today for follow-up on inability to ambulate. MRI results are back indicating severe lumbar spinal stenosis. I reviewed the results with the patient personally and discussed with him treatment plans to include conservative measures with physical therapy, outpatient management, as well as neurosurgical evaluation. Patient indicates that there is a possibility that a neurosurgical evaluation and possible procedure can preserve his ambulation he wants to pursue that at this time. Patient still having urinary retention, fecal incontinence. Vital signs are stable. Patient remains afebrile. Physical Exam Vital signs: Last Vital Signs Temp 98.6 F 04/01/18 00:00 Pulse 62 04/01/18 00:00 Resp 18 04/01/18 00:00 BP 124/72 04/01/18 00:00 Pulse Ox 97 04/01/18 00:00 Intake & Output 03/30/18 03/31/18 04/01/18 04/02/18 06:59 06:59 06:59 06:59 Intake Total 730 / 730 3700 / 3700 Output Total 150 / 150 1300 / 1300 Balance 580 / 580 2400 / 2400 Weight 69 kg 71.2 kg Narrative: GENERAL: Well-developed, frail and cachectic, in no acute distress. alert and orientated HEENT: Head is normocephalic without any lesions or masses noted. Facial features are symmetric. Eyes: Extraocular muscles are intact. Conjunctivae were clear. NECK: Supple without any masses. Trachea midline no deviation. No JVD, CARDIAC: Regular rhythm, regular rate. S1/S2 are heard. No murmurs gallops or rubs. LUNGS: Clear to auscultation bilaterally. No wheeze, rhonchi or rales. No use of accessory muscles on inspiration or expiration. ABDOMEN: Soft, nontender. Nondistended. Bowel sounds heard in all 4 quadrants. No organomegaly or masses. Negative rebound, negative guarding. Urinary Gann in place EXTREMITIES: No edema, pulses are equal bilaterally. No cyanosis or clubbing NEUROLOGY: Mood and affect appear appropriate. Cranial nerves II through XII grossly intact. Moving all extremities, speech is clear. Deep tendon reflexes are intact in bilateral lower extremities. Urinary Catheter Management Indwelling Urethral Catheter: Cath placed during this visit: yes Urethral indwelling: Yes Reason for continuing: Chronic Urinary Retention Insertion date: 03/29/18 Insertion time: 08:00 Results Labs CBC & Chem 7: 04/01/18 06:00 04/01/18 06:00 Imaging Imaging: Impressions Lumbar Spine MRI 03/31/18 09:55 CONCLUSION: 1. Moderate to severe stenosis at the L3-L4 and L4-L5 levels. 2. Moderate stenosis at the L2-L3 level. 3. Mild disc bulge without significant stenosis at the L1-L2 level. 4. Neural foraminal narrowing at the L2-L3 and L3-L4 levels. Head CT 03/31/18 10:28 CONCLUSION: 1. No acute abnormality seen. 2. Cortical atrophy. 3. Suspected old lacunar infarct at the posterior right basal ganglia and the inferior right caudate head. . Assessment and Plan (1) Inability to ambulate due to ankle or foot: Code(s): R26.2 - Difficulty in walking, not elsewhere classified Status: Acute (2) Acute renal failure superimposed on stage 3 chronic kidney disease: Code(s): N17.9 - Acute kidney failure, unspecified; N18.3 - Chronic kidney disease, stage 3 (moderate) Status: Acute (3) Urinary tract infection: Code(s): N39.0 - Urinary tract infection, site not specified Status: Acute Plan Inability to ambulate -Patient does have history of chronic back pain and problems. Patient indicates that he does have episodes of the symptoms of inability to ambulate. States that his legs are very weak and gives out on him. Patient does also have urinary retention and fecal incontinence -CT scan of the brain did not indicate any acute abnormality -MRI of the lumbar spine did indicate moderate to severe spinal stenosis at L3- L4, L4-L5 -Neurosurgical consultation has been requested. Patient does want to have evaluation done to see what his options are -Physical therapy evaluated patient recommending home with home health care PT and wheelchair -Consult case management for possible placement Urinary tract infection -Patient is being treated in outpatient setting with IV cefepime -Continue to follow culture for appropriate antibiotics Acute renal failure superimposed on chronic kidney disease stage III, improving -Continue cautious hydration -Continue monitor renal function -Avoid nephrotoxins Hypertension, atrial fibrillation, congestive heart failure -Continue home medications DVT prevention -Sequential compression devices -Subcutaneous heparin Progress Note: Quality VTE Deep Vein Thrombosis/Pulmonary Embolism Present on Admission: No
[2018-04-01] MEDS: Senna/Docusate Sodium 8.6/50 MG Tablet PO SCH ×2 (08:40→21:22)
[2018-04-01] MEDS: Metoprolol Tartrate 25 MG Tablet PO SCH ×2 (08:42→21:22)
[2018-04-01] MEDS: Heparin - SQ 10,000 UNITS/ML Vial SQ SCH ×2 (14:15→21:23)
[2018-04-01] MEDS: traZODone 50 MG Tablet PO SCH (21:22)
--- NOTE | 2018-04-01 22:25 | MR ---
EXAM DATE: 04/01/2018 10:17 PM EST AGE/SEX: 82 years / Male INDICATIONS: . Mid back pain with weakness. CLINICAL DATA: This is the patient's initial encounter. Patient reports that signs and symptoms have been present for 1 day and indicates a pain score of 6/10. MEDICAL/SURGICAL HISTORY: Carcinoma, prostatic. Chronic obstructive pulmonary disease. Meniere 's disease. Appendectomy. Tonsillectomy. Hemicolectomy. COMPARISON: No prior exams available for comparison. TECHNIQUE: Multiplanar, multisequence MRI of the thoracic spine was performed. FINDINGS: Vertebrae: Normal vertebral body height. Homogeneous marrow signal. Alignment: Mild kyphotic accentuation and slight scoliosis Cord: Normal position and configuration. T1-T2: The thecal sac has a normal diameter. No evidence of disc bulge or protrusion. T2-T3: The thecal sac has a normal diameter. No evidence of disc bulge or protrusion. T3-T4: The thecal sac has a normal diameter. No evidence of disc bulge or protrusion. T4-T5: The thecal sac has a normal diameter. No evidence of disc bulge or protrusion. T5-T6: The thecal sac has a normal diameter. No evidence of disc bulge or protrusion. T6-T7: The thecal sac has a normal diameter. No evidence of disc bulge or protrusion. T7-T8: The thecal sac has a normal diameter. No evidence of disc bulge or protrusion. T8-T9: The thecal sac has a normal diameter. No evidence of disc bulge or protrusion. T9-T10: The thecal sac has a normal diameter. No evidence of disc bulge or protrusion. T10-T11: The thecal sac has a normal diameter. No evidence of disc bulge or protrusion. T11-T12: The thecal sac has a normal diameter. No evidence of disc bulge or protrusion. T12-L1: The thecal sac has a normal diameter. No evidence of disc bulge or protrusion. CONCLUSION: No acute findings Electronically signed by: Alejandro Rodriguez MD Board Certified Radiologist 04/01/2018 10:24 PM EST
--- NOTE | 2018-04-01 23:07 | MB ---
cc: Michael Aleman MD DATE: 04/01/2018 TIME: 7:30 p.m. Report of initial comprehensive floor inpatient neurosurgical consultation. The patient was interviewed and examined. The documentation, laboratory evaluation, and imaging reviewed. CHIEF COMPLAINT: Proximal lower extremity weakness with frequent falling. HISTORY OF PRESENT ILLNESS: This is an 82-year-old retired right-handed white male who over the last 2 years, has developed progressive proximal lower extremity weakness and has fallen multiple times. He denies any real low back pain or pain radiating to his lower extremities. 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 He has progressive gait disturbance and initially last year was walking with a cane and now has progressed to a walker around the house. He has fallen multiple times. He also apparently has developed urinary retention over 6 months ago with the inability to urinate and has a Gann catheter in place. He apparently is continent of bowel. He also has multiple comorbidities. He feels his symptoms have been progressive. He has been treated with physical therapy without much improvement. PAST MEDICAL HISTORY: Remarkable for history of atrial fibrillation, congestive heart failure, COPD, cancer of the kidney and the prostate, recent MRSA infection, hypertension, Meniere disease, urinary retention. PAST SURGICAL HISTORY: Remarkable for a history of an appendectomy and hemicolectomy for diverticulitis and tonsillectomy. Also, apparently has a history of bilateral shoulder injuries resulting in bilateral rotator cuff tears. MEDICATIONS: 1. Bicalutamide. 2. Metoprolol. 3. Tamsulosin. 4. Ascorbic acid. 5. Multivitamins. 6. Trazodone. 7. Spironolactone. 8. Lupron. ALLERGIES: CITALOPRAM. SOCIAL HISTORY: He lives alone. He is independent. He is retired. He denies a history of illicit drug use. 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 He has a heavy smoking history in the past, but now has quit. He apparently has home health care on a continuous basis to maintain his independence. FAMILY HISTORY: Remarkable for a history of stroke, that is his father had a stroke and his mother had a heart attack and a stroke. REVIEW OF SYSTEMS: He admits to weight loss. He denies any fever, chills or night sweats. He has some difficulty with his thinking and his memory. He denies any difficulty with speech or swallowing or chest pain or increased shortness of breath. He denies any abdominal pain. Denies any change in bowel or bladder function, except as described above. He denies any abdominal pain. He denies any rash, itching, but does have easy bruising. He also has apparently some history of depression, but he denies any anxiety. NEUROLOGICAL EXAMINATION: VITAL SIGNS: Temperature is 98, heart rate 75, blood pressure is 121/74, respiratory rate is 20, SpO2 is 99% on room air. MENTAL STATUS: Testing finds him to be awake and alert. He is oriented x3. EXTREMITIES: Cognitive function is grossly intact, but he has some difficulty with recent recall. His speech is fluent. Cranial nerve testing 2-12 are grossly intact. Funduscopic examination was deferred. Visual robertson were full to confrontation. Extraocular movements were full, without diplopia or nystagmus. He does have a history of bilateral cataracts and macular degeneration. Motor examination found bulk to be within normal limits. There may be some subtle interosseous wasting. Power testing was 5+/5+ with 4+/5+ weakness proximally of both lower extremities, right greater than left. Sensory examination was intact to light touch and position throughout. Deep tendon reflexes were 2+ in his upper extremities with absent knee and ankle jerks bilaterally. There are no pathological reflexes noted. Cerebellar testing found no dysmetria. Fine coordination was grossly intact. There was no gross truncal nor appendicular ataxia noted. Gait, Romberg and tandem could not be tested. His head was normocephalic. External auditory canals are clear. There was no sign of CSF otorrhea or rhinorrhea. Cervical spine evaluation revealed limited range of motion without pain to palpation. There was no pain to palpation of the thoracic spine and no real pain to palpation of the lumbosacral spine. There was limited range of motion in the thoracic and lumbosacral spine. Hip rotation was mildly limited, but not really painful bilaterally. Straight leg raising was negative bilaterally, but hindered by tight hamstrings. Pulses were 4+, present and symmetrical throughout. Rectal sensation and tone was present. My impression is that the patient has suffered with chronic progressive proximal lower extremity weakness and apparent urinary retention with a question of a neurogenic bladder. This is in a patient whose MRI scan reveals multilevel mildly progressive moderate to severe lumbar stenosis from L2 through L5 with bilateral lateral recess stenosis. This is slightly worse on comparing an MRI scan performed on this admission to one obtained last year. RECOMMENDATIONS: Include an MRI scan of the thoracic spine to be done without contrast as well as a whole body bone scan and a neurology consultation as well as an EMG with nerve conduction velocity of both lower extremities if possible. I also would initiate a physical therapy consultation for evaluation and treatment and mobilize the patient. In any case, depending on the results of the workup, as well as his clinical course, will determine the appropriate further diagnostic and therapeutic approach. Neurosurgery will be happy to follow along and discuss. Thank you for allowing me to participate in the care of this patient. MD FELISA Merino/latia , 08:39 PM , 08:51 PM YAHIR
[2018-04-02] MEDS: Sod Chloride 0.9% Inj 1,000 ML IV.CONT SCH ×3 (00:09→22:45)
[2018-04-02 05:58] LABS: Baso % (Auto) 0.4 % (0.0-2.0); Eos # (Auto) 0.4 th/mm3 (0.0-0.4); Hematocrit 31.7 % (39.0-51.0); Hemoglobin 10.5 gm/dL (13.0-17.0); Lymph # (Auto) 1.3 th/mm3 (1.0-4.8); Lymph % (Auto) 18.6 % (9.0-44.0); Mean Corpuscular HGB Conc 33.2 % (32.0-36.0); Mean Corpuscular Hemoglobin 33.3 pg (27.0-34.0); Mean Corpuscular Volume 100.2 fL (80.0-100.0); Mean Platelet Volume 7.9 fL (7.0-11.0); Mono # (Auto) 0.7 th/mm3 (0.0-0.9); Mono % (Auto) 9.6 % (0.0-8.0); Neut # (Auto) 4.8 th/mm3 (1.8-7.7); Neut % (Auto) 66.4 % (16.0-70.0); Platelet Count 157 th/mm3 (150-450); Red Blood Count 3.17 mil/mm3 (4.50-5.90); Red Cell Distribution Width 14.8 % (11.6-17.2); White Blood Count 7.2 th/mm3 (4.0-11.0)
[2018-04-02 06:22] LABS: Calcium 8.3 mg/dL (8.5-10.1); Carbon Dioxide 23.4 meq/L (21.0-32.0); Potassium 4.6 meq/L (3.5-5.1)
[2018-04-02] MEDS: Senna/Docusate Sodium 8.6/50 MG Tablet PO SCH ×2 (08:14→22:48)
[2018-04-02] MEDS: Metoprolol Tartrate 25 MG Tablet PO SCH ×2 (08:15→22:47)
--- NOTE | 2018-04-02 08:47 | P.PN ---
Subjective Interval history: Follow up for inability to ambulate, BLE weakness, lumbar spinal stenosis, HUSSEIN. Patient reports continued bilateral lower extremity weakness. He denies any headache, slurred speech, visual changes, lightheadedness, dizziness, chest pain , palpitations, shortness of breath. Reports some diarrhea which he states is chronic for him, requesting Imodium. Discussed with RN, BP elevated overnight, however now improved spontaneously. No other concerns reported at this time. Planning for bone scan by nuclear medicine tomorrow. Physical Exam Vital signs: Vital Signs 04/01/18 12:00 04/01/18 16:00 04/01/18 20:00 Temperature 97.4 F L 97.3 F L 97.6 F Pulse Rate 66 58 L 69 Respiratory Rate 20 20 20 Blood Pressure 148/59 H 146/95 H 166/77 H Pulse Oximetry 97 98 97 04/02/18 00:00 04/02/18 04:00 Temperature 97.6 F 97.9 F Pulse Rate 63 57 L Respiratory Rate 20 20 Blood Pressure 172/74 H 151/65 H Pulse Oximetry 99 97 Intake & Output 04/01/18 04/02/18 04/02/18 18:59 06:59 18:59 Intake Total 1460 / 1460 1000 / 1000 1000 / 1000 Output Total 475 / 475 1400 / 1400 Balance 985 / 985 -400 / -400 1000 / 1000 Weight 72.5 kg Intake: IV 1100 / 1100 1000 / 1000 1000 / 1000 NS Inj 1,000 ML @ 84 mls/hr IV. 1000 / 1000 1000 / 1000 1000 / 1000 CONT .[id number] JEANMARIE Rx#: [id number] Maxipime Inj 1,000 MG In NS Inj 100 / 100 100 ML @ 200 mls/hr IV.SIG Q24H JEANMARIE Rx#:[id number] Oral 360 / 360 Output: Urine 475 / 475 800 / 800 Urine Amount (Catheter) 600 / 600 Indwelling Urethral Catheter 600 / 600 Other: Date of Last Bowel Movement 03/31/18 04/01/18 # Incontinent Bowel Movements 2 Narrative: GENERAL: Well-nourished, well-developed elderly frail male patient in [facility]. SKIN: Warm and dry. No rash. HEENT: Normocephalic. Atraumatic. Pupils equal and round. Mucous membranes pink and moist. CARDIOVASCULAR: Regular rate and rhythm. No murmur appreciated. RESPIRATORY: No accessory muscle use. Clear to auscultation. Breath sounds equal bilaterally. GASTROINTESTINAL: Abdomen soft, non-tender, nondistended. Normoactive bowel sounds x4. MUSCULOSKELETAL: No obvious deformities. Extremities without clubbing, cyanosis , or edema. NEUROLOGICAL: Awake and alert. No obvious cranial nerve deficits. Motor grossly within normal limits. Moving all extremities spontaneously. 4/5 bilateral lower extremity weakness. 5/5 strength of bilateral upper extremities. Normal speech. PSYCHIATRIC: Appropriate mood and affect; insight and judgment normal. - Urinary Catheter Management Indwelling Urethral Catheter Cath placed during this visit: yes Urethral indwelling: Yes Reason for continuing: Chronic Urinary Retention Insertion date: 03/29/18 Insertion time: 08:00 Results - Labs CBC & Chem 7: 04/02/18 05:20 04/02/18 05:20 Laboratory Results - last 24 hr 04/02/18 04/02/18 05:20 05:20 WBC 7.2 RBC 3.17 L Hgb 10.5 L Hct 31.7 L MCV 100.2 H MCH 33.3 MCHC 33.2 RDW 14.8 Plt Count 157 MPV 7.9 Neut % (Auto) 66.4 Lymph % (Auto) 18.6 Fulton % (Auto) 9.6 H Eos % (Auto) 5.0 H Baso % (Auto) 0.4 Neut # (Auto) 4.8 Lymph # (Auto) 1.3 [place]ulton # (Auto) 0.7 Eos # (Auto) 0.4 Baso # (Auto) 0.0 WBC Differential . Differential Comment Auto diff final Sodium 137 Potassium 4.6 Chloride 108 H Carbon Dioxide 23.4 Anion Gap 6 BUN 36 H Creatinine 1.69 H Estimated GFR 39 L Random Glucose 106 Calcium 8.3 L Microbiology 03/30/18 19:22 Catheterized Urine Urine Culture - Preliminary Yeast - ID to follow - Imaging Impressions Thoracic Spine MRI 04/01/18 00:00 CONCLUSION: No acute findings Assessment and Plan - Assessment (1) Inability to ambulate due to ankle or foot Code(s): R26.2 - Difficulty in walking, not elsewhere classified Status: Acute (2) Acute renal failure superimposed on stage 3 chronic kidney disease Code(s): N17.9 - Acute kidney failure, unspecified; N18.3 - Chronic kidney disease, stage 3 (moderate) Status: Acute (3) Urinary tract infection Code(s): N39.0 - Urinary tract infection, site not specified Status: Acute - Plan 82-year-old male with: Inability to ambulate Spinal Stenosis -Patient does have history of chronic back pain and problems. Patient indicates that he does have episodes of the symptoms of inability to ambulate. States that his legs are very weak and gives out on him. Patient does also have urinary retention and fecal incontinence -CT brain did not indicate any acute abnormality -MRI lumbar spine did indicate moderate to severe spinal stenosis at L3-L4, L4- L5 -MRI t-spine unremarkable -Neurosurgical consultation has been requested. Patient does want to have evaluation done to see what his options are -Neurology consulted -Physical therapy evaluated patient recommending home with home health care PT and wheelchair -Consult case management for possible placement -Nuclear medicine bone scan planned for tomorrow 04/03 -MRI cervical spine, MRI brain, MRA head, and carotid ultrasound all ordered and pending. Urinary tract infection -Patient is being treated in outpatient setting with IV cefepime -Continue to follow culture for appropriate antibiotics Acute renal failure superimposed on chronic kidney disease stage III, improving -Continue cautious hydration -Continue monitor renal function -Avoid nephrotoxins -Renal function slowly improving, creatinine 2.2 --> 1.90 --> 1.80 --> 1.69 today Hypertension, atrial fibrillation, congestive heart failure -Continue home medications Diarrhea -Patient reports chronic history of diarrhea however with hospitalizations, will check C. difficile -Start Lactinex -Imodium as needed if C. difficile negative COPD/emphysema: Chronic -Continue patient's duo nebs as needed DVT prevention -Sequential compression devices -Subcutaneous heparin
--- NOTE | 2018-04-02 10:13 | P.CONNEU ---
History of Present Illness Service: Neurology Primary Care Provider: Salas Lema Chief Complaint: Inability to ambulate History of Present Illness: 82-year-old male admitted for difficulty with ambulation acute weakness. This is resolved. States he lives alone and does not have any children get a sister lives out of [facility]. Denies any pain any spinal pain or radicular symptomatology. Denies any history of TIA or stroke. Does all his ADLs independently. Denies any head or neck trauma. He is being treated for chronic UTI does have a indwelling catheter in place. MRI T-spine L-spine performed L-spine demonstrated couple of areas of moderate to severe spinal canal stenosis. Is been evaluated neurosurgery who suggested physical therapy. Does have a history of gait imbalance from time to time as well as dizziness releases to a diagnosis of Mnire's disease. Denies any current vertigo. Denies any lightheadedness going from sitting to standing or any tremors. Review of Systems All other systems reviewed negative except as stated in HPI [facility] - History History Provided By: Patient, Medical Record - Medical History Medical History: Medical History (Last Reviewed 04/01/18 @ 07:04 by Vipin Garcia) Atrial fibrillation CHF (congestive heart failure) COPD (chronic obstructive pulmonary disease) Cancer of kidney Fall at home History of MRSA infection Onset Date: ~03/22/18 Hypertension Mnire's disease Prostate cancer Urinary retention - Surgical History Surgical History: Surgical History (Last Reviewed 04/01/18 @ 07:04 by Vipin Garcia) History of appendectomy History of hemicolectomy Hx of tonsillectomy - Family History Family History: Family History (Last Updated 03/31/18 @ 10:23 by MANPREET Her) Father Family history of stroke Mother Family history of heart disease - Tobacco History Second Hand Smoke Exposure: No Tobacco Use In Past 30 Days: No Smoking Status: Former smoker Tobacco Type: Cigarettes - Alcohol History How Often Do You Have a Drink Containing Alcohol: 4 or more times a week - Substance Use History Substance History: No History of Abuse - Travel History Recent Travel in the [facility] Within the Last 8 Weeks: No Recent Travel Out of the Country Within the Last 8 Weeks: No - Immunization History Tetanus Immunization: Unsure Medications and Allergies Active Medications: Active Medications Acetaminophen (Tylenol) 650 mg PO Q4H PRN PRN Reason: Temp > 100.4 Al Hydroxide/Mg Hydroxide (Milk Of Magnesia Liq) 30 ml PO Q12H PRN PRN Reason: Mild Constipation Bisacodyl (Dulcolax Supp) 10 mg RECTAL DAILY PRN PRN Reason: SEVERE CONSITIPATION Heparin Sodium (Porcine) (Heparin Inj) 5,000 units SQ Q12H [facility] Last Admin: 04/01/18 21:23 Dose: 5,000 units Cefepime HCl 1,000 mg/ Sodium (Chloride) 100 mls @ 200 mls/hr IV.SIG Q24H [facility] Last Infusion: 04/02/18 08:55 Dose: Infused Sodium Chloride (Ns Inj) 1,000 mls @ 84 mls/hr IV.CONT .[id number] [facility] Last Admin: 04/02/18 08:14 Dose: 84 mls/hr Lactulose (Lactulose Liq) 30 ml PO DAILY PRN PRN Reason: SEVERE CONSITIPATION Metoprolol Tartrate (Lopressor) 25 mg PO BID [facility] Last Admin: 04/02/18 08:15 Dose: 25 mg Ondansetron HCl (Zofran Inj) 4 mg IV.PUSH Q6H PRN PRN Reason: NAUSEA OR VOMITING Senna/Docusate Sodium (July-Colace) 1 tab PO BID [facility] Last Admin: 04/02/18 08:14 Dose: Not Given Sennosides (Senokot) 17.2 mg PO Q12H PRN PRN Reason: Moderate Constipation Sodium Chloride (Ns Flush) 2 ml IV.FLUSH BID [facility] Last Admin: 04/02/18 08:18 Dose: 2 ml Sodium Chloride (Ns Flush) 2 ml IV.FLUSH PRN PRN PRN Reason: FLUSH AFTER USING IV ACCESS Tamsulosin HCl (Flomax) 0.4 mg PO DAILY [facility] Last Admin: 04/02/18 08:15 Dose: 0.4 mg Trazodone HCl (Desyrel) 50 mg PO HS [facility] Last Admin: 04/01/18 21:22 Dose: 50 mg Allergies Allergy/AdvReac Type Severity Reaction Status Date / Time citalopram Allergy Severe Itching Verified 03/30/18 19:01 Home Medications Medication Instructions Recorded Confirmed Type bicalutamide 50 mg PO DAILY MDD 1 tab 12/27/17 03/30/18 History metoprolol tartrate 25 mg PO BID 12/27/17 03/30/18 History tamsulosin 0.4 mg PO DAILY 12/27/17 03/30/18 History ascorbic acid (vitamin C) [Vitamin 500 mg PO DAILY 02/05/18 03/30/18 History C] multivitamin 1 cap PO DAILY 02/05/18 03/30/18 History trazodone 50 mg PO HS 02/05/18 03/30/18 History spironolactone 25 mg PO DAILY 03/22/18 03/30/18 History leuprolide (3 month) [Lupron Depot 11.25 mg IM [id number] 03/30/18 History (3 month)] Exam Vital signs: Vital Signs 04/01/18 12:00 04/01/18 16:00 04/01/18 20:00 Temperature 97.4 F L 97.3 F L 97.6 F Pulse Rate 66 58 L 69 Respiratory Rate 20 20 20 Blood Pressure 148/59 H 146/95 H 166/77 H Pulse Oximetry 97 98 97 04/02/18 00:00 04/02/18 04:00 04/02/18 08:20 Temperature 97.6 F 97.9 F 98.1 F Pulse Rate 63 57 L 60 Respiratory Rate 20 20 20 Blood Pressure 172/74 H 151/65 H 135/73 Pulse Oximetry 99 97 98 Intake & Output 04/01/18 04/02/18 04/02/18 18:59 06:59 18:59 Intake Total 1460 / 1460 1000 / 1000 1100 / 1100 Output Total 475 / 475 1400 / 1400 Balance 985 / 985 -400 / -400 1100 / 1100 Weight 72.5 kg Intake: IV 1100 / 1100 1000 / 1000 1100 / 1100 NS Inj 1,000 ML @ 84 mls/hr IV. 1000 / 1000 1000 / 1000 1000 / 1000 CONT .[id number] [facility] Rx#: [id number] Maxipime Inj 1,000 MG In NS Inj 100 / 100 100 / 100 100 ML @ 200 mls/hr IV.SIG Q24H [facility] Rx#:[id number] Oral 360 / 360 Output: Urine 475 / 475 800 / 800 Urine Amount (Catheter) 600 / 600 Indwelling Urethral Catheter 600 / 600 Other: Date of Last Bowel Movement 03/31/18 04/01/18 # Incontinent Bowel Movements 2 Narrative: GENERAL: in NAD, SKIN: Warm and dry. HEAD: Atraumatic. Normocephalic. EYES: Pupils equal and round. No scleral icterus. ENT: No nasal bleeding or discharge. NECK: Trachea midline. No JVD. CARDIOVASCULAR: Regular rate and rhythm. RESPIRATORY: No accessory muscle use. GASTROINTESTINAL: Abdomen soft, non-tender, nondistended. MUSCULOSKELETAL: Extremities without clubbing, cyanosis, or edema. No obvious deformities. NEUROLOGICAL: Awake and alert. No aphasia, oriented x3 fluent articulate, No facial asymmetry, OU 3-2mm, eomi, VFF, No drift, Motor grossly within normal limits. Able raise all 4 extremity gravity without difficulty distal foot strength 5 out of 5 dorsiflexion and plantar flexion, mild calf atrophy. Tone normal in all 4 limbs, Sensory normal in all 4 extremities to pin, msr 2+ sym, no clonus, planterflexor, gait not assessed secondary fall risk PSYCHIATRIC: Appropriate mood and affect; insight and judgment normal. - Constitutional no acute distress - Routine HEENT Exam Head: Present: normocephalic Eye: Present: EOMI Results - Labs CBC & Chem 7: 04/02/18 05:20 04/02/18 05:20 Labs: Laboratory Results - last 24 hr 04/02/18 04/02/18 04/02/18 05:20 05:20 05:20 WBC 7.2 RBC 3.17 L Hgb 10.5 L Hct 31.7 L MCV 100.2 H MCH 33.3 MCHC 33.2 RDW 14.8 Plt Count 157 MPV 7.9 Neut % (Auto) 66.4 Lymph % (Auto) 18.6 Angelina % (Auto) 9.6 H Eos % (Auto) 5.0 H Baso % (Auto) 0.4 Neut # (Auto) 4.8 Lymph # (Auto) 1.3 Angelina # (Auto) 0.7 Eos # (Auto) 0.4 Baso # (Auto) 0.0 WBC Differential . Differential Comment Auto diff final Sodium 137 Potassium 4.6 Chloride 108 H Carbon Dioxide 23.4 Anion Gap 6 BUN 36 H Creatinine 1.69 H Estimated GFR 39 L Random Glucose 106 Calcium 8.3 L Total Creatine Kinase 23 L - Imaging Impressions Thoracic Spine MRI 04/01/18 00:00 CONCLUSION: No acute findings Review/Management - Diagnosis (1) Lumbar spinal stenosis Code(s): M48.061 - Spinal stenosis, lumbar region without neurogenic claudication Status: Acute Current Visit: Yes (2) Urinary tract infection Code(s): N39.0 - Urinary tract infection, site not specified Status: Acute Current Visit: Yes (3) Generalized weakness Code(s): R53.1 - Weakness Status: Acute Current Visit: No (4) Acute on chronic systolic (congestive) heart failure Code(s): I50.23 - Acute on chronic systolic (congestive) heart failure Status : Acute Current Visit: No (5) Mnire's disease in remission Code(s): H81.09 - Meniere's disease, unspecified ear Status: Acute Current Visit: Yes - Review/Management Plan: Currently do not detect any focal weakness on his exam he has got good strength upper lower limbs good distal foot strength Given acute decompensation spasm versus lumbar spinal stenosis although he denies any back pain. Spinal cord TIA or bilateral SIXTO territory TIA would be another possibility although less likely culprits Recommendation Get an MRI brain MRA will check MRI C-spine with is brisker lower examinee reflexes Therapy Aspirin Can get EMG nerve conduction studies in outpatient setting Can be discharged from neurology standpoint after the above completed follow-up outpatient
[2018-04-02] MEDS: Heparin - SQ 10,000 UNITS/ML Vial SQ SCH ×2 (10:20→22:48)
--- NOTE | 2018-04-02 11:18 | P.PNNS ---
Subjective Interval history: April 02, 2018 Patient has remained stable overnight. He has no real complaints except for persistent proximal lower extremity weakness. Physical Exam Vital signs: Vital Signs 04/01/18 12:00 04/01/18 16:00 04/01/18 20:00 Temperature 97.4 F L 97.3 F L 97.6 F Pulse Rate 66 58 L 69 Respiratory Rate 20 20 20 Blood Pressure 148/59 H 146/95 H 166/77 H Pulse Oximetry 97 98 97 04/02/18 00:00 04/02/18 04:00 04/02/18 08:20 Temperature 97.6 F 97.9 F 98.1 F Pulse Rate 63 57 L 60 Respiratory Rate 20 20 20 Blood Pressure 172/74 H 151/65 H 135/73 Pulse Oximetry 99 97 98 Intake & Output 04/01/18 04/02/18 04/02/18 18:59 06:59 18:59 Intake Total 1460 / 1460 1000 / 1000 1100 / 1100 Output Total 475 / 475 1400 / 1400 Balance 985 / 985 -400 / -400 1100 / 1100 Weight 72.5 kg Intake: IV 1100 / 1100 1000 / 1000 1100 / 1100 NS Inj 1,000 ML @ 84 mls/hr IV. 1000 / 1000 1000 / 1000 1000 / 1000 CONT .[id number] [facility] Rx#: [id number] Maxipime Inj 1,000 MG In NS Inj 100 / 100 100 / 100 100 ML @ 200 mls/hr IV.SIG Q24H [facility] Rx#:[id number] Oral 360 / 360 Output: Urine 475 / 475 800 / 800 Urine Amount (Catheter) 600 / 600 Indwelling Urethral Catheter 600 / 600 Other: Date of Last Bowel Movement 03/31/18 04/01/18 # Incontinent Bowel Movements 2 - Routine Neurological Exam April 02, 2018 The patient is lying in bed as I enter the room. He is in no acute distress. On neurological examination, mental status testing finds him to be awake and alert. He is oriented by 3. His speech is fluent. Cranial nerve testing 2 through 12 is grossly intact. Motor examination found to be within normal limits. Tone was mildly increased in his upper extremities and lower extremities. Power testing revealed 4.545+/5 right deltoid with some very subtle weakness of finger extensors. There may have been some subtle interosseous wasting bilaterally. He has 4+/5+ hip flexor on the right with 4.5 over 5+ weakness of the hip flexor on the left. Deep tendon reflexes 2-3+ and symmetric in his upper extremities and diminished to absent in his lower extremities. He remains nonambulatory. There is a Gann catheter in place. An MRI scan of the thoracic spine is obtained which revealed degenerative and spondylitic changes without significant stenosis or neural compromise. - Urinary Catheter Management Indwelling Urethral Catheter Cath placed during this visit: yes Urethral indwelling: Yes Reason for continuing: Chronic Urinary Retention Insertion date: 03/29/18 Insertion time: 08:00 Assessment and Plan - Plan April 02, 2018 This patient continues to suffer with chronic progressive lower extremity weakness the etiology of which is unclear. He has moderate to severe multilevel lumbar spinal stenosis with lateral recess stenosis from L2 through L5. A neurology consultation has been obtained and appreciated. He has been scheduled to undergo further imaging including an MRI scan of brain and cervical spine as well as MRA of the brain. He is also scheduled to undergo dynamic lumbosacral spine x-rays as well as a whole-body bone scan. I have ordered an EMG with nerve conduction velocity of both lower extremities, and this might be done as an outpatient. Physical therapy and also been ordered for evaluation and treatment as well as mobilization. In any case, depending on the results of the workup as well as clinical course will determine the appropriate further diagnostic and therapeutic approach. Neurosurgery will follow.
[2018-04-02 11:45] LABS: Chol/HDL Ratio 2.4 Ratio; HDL Cholesterol 52.4 mg/dL (40.0-60.0)
--- NOTE | 2018-04-02 11:50 | XR ---
EXAM DATE: 04/02/2018 11:35 AM EST AGE/SEX: 82 years / Male INDICATIONS: Low back pain and evaluate for instability CLINICAL DATA: This is the patient's subsequent encounter. Patient reports that signs and symptoms h ave been present for 4 - 6 days and indicates a pain score of 1/10. MEDICAL/SURGICAL HISTORY: . Chronic obstructive pulmonary disease. Carcinoma, prostatic. Hyper tension. Renal cancer. Atrial fibrillation. Meniere's Disease. . Appendectomy. Tonsillectomy. Geoff c olectomy. COMPARISON: No prior exams available for comparison. FINDINGS: The lumbar vertebral bodies are normal in height. There is minimal posterior subluxation of L2 on L3 and L3 on L4. The alignment is maintained in this configuration in flexion and extension. Significant abnormal motion is not clearly identified. There is disc space narrowing and osteophytes at the T12- L1 through L3-L4 levels. The disc space narrowing is most prominent at the L2-L3 and L3-L4 levels. Sc attered surgical clips are seen in the abdomen and pelvis. CONCLUSION: Posterior subluxation of L2 on L3 and L3 on L4. No abnormal motion is detected. Electronically signed by: Alejandro Persaud MD Board Certified Radiologist 04/02/2018 11:49 AM EST
[2018-04-02] MEDS ORDERED: Loperamide 2 MG Capsule PO PRN (12:22)
--- NOTE | 2018-04-02 15:25 | US ---
EXAM DATE: 04/02/2018 3:18 PM EST AGE/SEX: 82 years / Male INDICATIONS: CVA. CLINICAL DATA: This is the patient's initial encounter. Patient reports that signs and symptoms have been present for 1 day and indicates a pain score of 0/10. MEDICAL/SURGICAL HISTORY: Chronic obstructive pulmonary disease. Hypertension. A-fib. Meniere' s disease. Carcinoma, kidney. CHF. Appendectomy. Tonsillectomy. Hemicolectomy. COMPARISON: No prior exams available for comparison. VELOCITY PARAMETERS: ICA/CCA Ratio: Right 2.0 , Left 1.8 ICA: Right 82 cm/sec, Left 91 cm/sec CCA: Right 41 cm/sec, Left 50 cm/sec ECA: Right 69 cm/sec, Left 75 cm/sec Vertebral: Right 36 cm/sec antegrade, Left 32 cm/sec antegrade FINDINGS: Right Carotid: No significant plaque is visualized.The waveforms are within normal limits. Left Carotid: No significant plaque is visualized. The waveforms are within normal limits. Other: None. CONCLUSION: 1. Right Internal Carotid Artery: No significant stenosis or atherosclerotic plaque is visualized. 2. Left Internal Carotid Artery: No significant stenosis or atherosclerotic plaque is visualized. Electronically signed by: Brandon Stewart MD Board Certified Radiologist 04/02/2018 3:24 PM EST
[2018-04-02] MEDS: Lactobacillus Acidophilus/L. Spores Tablet PO SCH (22:48)
[2018-04-02] MEDS: traZODone 50 MG Tablet PO SCH (22:48)
[2018-04-03] MEDS: Sod Chloride 0.9% Inj 1,000 ML IV.CONT SCH ×3 (04:32→22:30)
--- NOTE | 2018-04-03 07:00 | P.PNNEU ---
Subjective Active Medications: Active Medications Acetaminophen (Tylenol) 650 mg PO Q4H PRN PRN Reason: Temp > 100.4 Al Hydroxide/Mg Hydroxide (Milk Of Magnesia Liq) 30 ml PO Q12H PRN PRN Reason: Mild Constipation Albuterol (Duoneb Neb (Prn)) 1 ampul NEB Q4HR NEB PRN PRN Reason: SOB/wheezing Last Admin: 04/03/18 00:29 Dose: 1 ampul Aspirin (Aspirin Chew) 81 mg PO DAILY [facility] Bisacodyl (Dulcolax Supp) 10 mg RECTAL DAILY PRN PRN Reason: SEVERE CONSITIPATION Heparin Sodium (Porcine) (Heparin Inj) 5,000 units SQ Q12H [facility] Last Admin: 04/02/18 22:48 Dose: 5,000 units Cefepime HCl 1,000 mg/ Sodium (Chloride) 100 mls @ 200 mls/hr IV.SIG Q24H [facility] Last Infusion: 04/02/18 08:55 Dose: Infused Sodium Chloride (Ns Inj) 1,000 mls @ 84 mls/hr IV.CONT .[id number] [facility] Last Admin: 04/03/18 04:32 Dose: 84 mls/hr Lactobacillus Acidophilus (Lactinex) 1 tab PO BID [facility] Last Admin: 04/02/18 22:48 Dose: 1 tab Lactulose (Lactulose Liq) 30 ml PO DAILY PRN PRN Reason: SEVERE CONSITIPATION Loperamide HCl (Imodium) 2 mg PO Q4H PRN PRN Reason: DIARRHEA Metoprolol Tartrate (Lopressor) 25 mg PO BID [facility] Last Admin: 04/02/18 22:47 Dose: 25 mg Ondansetron HCl (Zofran Inj) 4 mg IV.PUSH Q6H PRN PRN Reason: NAUSEA OR VOMITING Senna/Docusate Sodium (July-Colace) 1 tab PO BID [facility] Last Admin: 04/02/18 22:48 Dose: 1 tab Sennosides (Senokot) 17.2 mg PO Q12H PRN PRN Reason: Moderate Constipation Sodium Chloride (Ns Flush) 2 ml IV.FLUSH BID [facility] Last Admin: 04/02/18 22:49 Dose: 2 ml Sodium Chloride (Ns Flush) 2 ml IV.FLUSH PRN PRN PRN Reason: FLUSH AFTER USING IV ACCESS Last Admin: 04/02/18 22:48 Dose: 2 ml Tamsulosin HCl (Flomax) 0.4 mg PO DAILY [facility] Last Admin: 04/02/18 08:15 Dose: 0.4 mg Trazodone HCl (Desyrel) 50 mg PO HS [facility] Last Admin: 04/02/18 22:48 Dose: 50 mg Allergies/Adverse Reactions: Allergies Allergy/AdvReac Type Severity Reaction Status Date / Time citalopram Allergy Severe Itching Verified 03/30/18 19:01 Physical Exam Vital signs: Vital Signs 04/02/18 08:20 04/02/18 11:36 04/02/18 16:35 Temperature 98.1 F 98.1 F 98.2 F Pulse Rate 60 60 75 Respiratory Rate 20 20 18 Blood Pressure 135/73 135/73 160/70 H Pulse Oximetry 98 98 99 04/02/18 17:53 04/02/18 20:00 04/03/18 00:00 Temperature 98.0 F 97.6 F Pulse Rate 68 72 85 Respiratory Rate 16 19 20 Blood Pressure 142/63 H 142/76 H Pulse Oximetry 98 99 04/03/18 00:30 Temperature Pulse Rate 71 Respiratory Rate 20 Blood Pressure Pulse Oximetry Intake & Output 04/02/18 04/03/18 04/03/18 18:59 06:59 18:59 Intake Total 1100 / 1100 1000 / 1000 Output Total 500 / 500 Balance 600 / 600 1000 / 1000 Intake: IV 1100 / 1100 1000 / 1000 NS Inj 1,000 ML @ 84 mls/hr IV. 1000 / 1000 1000 / 1000 CONT .[id number] [facility] Rx#: [id number] Maxipime Inj 1,000 MG In NS Inj 100 / 100 100 ML @ 200 mls/hr IV.SIG Q24H [facility] Rx#:[id number] Output: Urine Amount (Catheter) 500 / 500 Indwelling Urethral Catheter 500 / 500 Other: Date of Last Bowel Movement 04/01/18 04/02/18 - Urinary Catheter Management Indwelling Urethral Catheter Cath placed during this visit: yes Urethral indwelling: Yes Reason for continuing: Chronic Urinary Retention Insertion date: 03/29/18 Insertion time: 08:00 Objective Laboratory Results - last 24 hr 03/30/18 04/02/18 04/02/18 19:22 05:20 05:20 ESR 30 H Total Creatine Kinase 23 L Triglycerides Cholesterol LDL Cholesterol, Calc HDL Cholesterol Cholesterol/HDL Ratio Vitamin B12 Urine Color Yellow Urine Clarity Slightly cloudy Urine pH 5.5 Ur Specific Zeigler Greater/equal 1.030 Urine Protein 100 H Urine Glucose (UA) Negative Urine Ketones Trace H Urine Occult Blood Moderate H Urine Nitrate Negative Urine Bilirubin Negative Urine Urobilinogen 0.2 Ur Leukocyte Esterase Moderate H Urine RBC 4-15 H Urine WBC 21-50 H Ur Squamous Epith Cells 0-5 Urine Bacteria Few H Micro UA Comment Cath-culture ind Ur Microscopic Review Microscopic reviewed Urine Culture Comments Cath-cult indicated 04/02/18 05:20 ESR Total Creatine Kinase Triglycerides 97 Cholesterol 126 LDL Cholesterol, Calc 54 HDL Cholesterol 52.4 Cholesterol/HDL Ratio 2.40 Vitamin B12 179 L Urine Color Urine Clarity Urine pH Ur Specific Zeigler Urine Protein Urine Glucose (UA) Urine Ketones Urine Occult Blood Urine Nitrate Urine Bilirubin Urine Urobilinogen Ur Leukocyte Esterase Urine RBC Urine WBC Ur Squamous Epith Cells Urine Bacteria Micro UA Comment Ur Microscopic Review Urine Culture Comments Microbiology 03/30/18 19:22 Urine Culture - Final Catheterized Urine Julia tropicalis Review/Management - Diagnosis (1) Lumbar spinal stenosis Code(s): M48.061 - Spinal stenosis, lumbar region without neurogenic claudication Status: Acute Current Visit: Yes (2) Urinary tract infection Code(s): N39.0 - Urinary tract infection, site not specified Status: Acute Current Visit: Yes (3) Generalized weakness Code(s): R53.1 - Weakness Status: Acute Current Visit: No (4) Acute on chronic systolic (congestive) heart failure Code(s): I50.23 - Acute on chronic systolic (congestive) heart failure Status : Acute Current Visit: No (5) Mnire's disease in remission Code(s): H81.09 - Meniere's disease, unspecified ear Status: Acute Current Visit: Yes - Review/Management Plan: Currently do not detect any focal weakness on his exam he has got good strength upper lower limbs good distal foot strength Given acute decompensation spasm versus lumbar spinal stenosis although he denies any back pain. Spinal cord TIA or bilateral SIXTO territory TIA would be another possibility although less likely culprits mra brain-nml Recommendation f/u mri cspine Therapy Aspirin Can get EMG nerve conduction studies in outpatient setting Can be discharged from neurology standpoint after the above completed follow-up outpatient
--- NOTE | 2018-04-03 09:28 | MR ---
EXAM DATE: 04/03/2018 9:23 AM EST AGE/SEX: 82 years / Male INDICATIONS: . Abnormal gait. CLINICAL DATA: This is the patient's initial encounter. Patient reports that signs and symptoms have been present for 1 week and indicates a pain score of 8/10. MEDICAL/SURGICAL HISTORY: Carcinoma, prostatic. Chronic obstructive pulmonary disease. Meniere 's disease. Appendectomy. Tonsillectomy. COMPARISON: [facility], CT HEAD W/O CONTRAST, 03/31/2018. C, MR HEAD W/O CONTRAST, 04/03/2018. . TECHNIQUE: 3D [id number] MRA was performed. Source images, multiplanar STS MIP, and 3D volum e MIP reconstructions were reviewed. FINDINGS: There is excellent visualization of the major intracranial arteries out to the second-order branch ve ssels. There is no evidence for aneurysm, vessel truncation or stenosis, and no evidence for vascula r malformation. Patent right posterior communicating artery fills the right posterior cerebral artery. CONCLUSION: 1. Negative MRA Cow ([place]) non contrast. Electronically signed by: Brandon Stewart MD Board Certified Radiologist 04/03/2018 9:26 AM EST
--- NOTE | 2018-04-03 09:36 | MR ---
EXAM DATE: 04/03/2018 9:29 AM EST AGE/SEX: 82 years / Male INDICATIONS: CVA. CLINICAL DATA: This is the patient's initial encounter. Patient reports that signs and symptoms have been present for 1 week and indicates a pain score of 8/10. MEDICAL/SURGICAL HISTORY: Carcinoma, prostatic. Chronic obstructive pulmonary disease. Meniere 's disease. Appendectomy. Tonsillectomy. COMPARISON: [facility] [place] HEAD W/O CONTRAST, 04/03/2018. . TECHNIQUE: Multiplanar, multisequence examination of the brain was performed without contrast. FINDINGS: There is moderate central and cortical atrophic change. There is patchy moderate T2 prolongation in d eep white matter which appears chronic and benign. There is no evidence of mass or hemorrhage. There is nothing to suggest acute infarction. The extracranial structures are benign and intact. CONCLUSION: No acute intracranial findings Electronically signed by: Alejandro Rodriguez MD Board Certified Radiologist 04/03/2018 9:34 AM EST
--- NOTE | 2018-04-03 09:50 | MR ---
EXAM DATE: 04/03/2018 9:43 AM EST AGE/SEX: 82 years / Male INDICATIONS: . Abnormal gait. CLINICAL DATA: This is the patient's initial encounter. Patient reports that signs and symptoms have been present for 1 week and indicates a pain score of 8/10. MEDICAL/SURGICAL HISTORY: Carcinoma, prostatic. Chronic obstructive pulmonary disease. Meniere 's disease. Appendectomy. Tonsillectomy. COMPARISON: No prior exams available for comparison. TECHNIQUE: Multiplanar, multisequence MRI examination of the cervical spine was performed without co ntrast. FINDINGS: Vertebrae: Normal vertebral body height. Homogeneous marrow signal. There are degenerative type savage nges throughout the entire cervical spine. There is some disc degeneration with disc space narrowing throughout the entire cervical spine. No compression fracture injuries are demonstrated. No abnormal bone marrow edema is demonstrated. Alignment: Normal. Cord: Normal configuration and signal. Post Fossa: The cerebellar tonsils are normal in position. C2-C3: The thecal sac has a normal configuration. There is no evidence of disc herniation or spinal canal stenosis. The neural foramina are patent bilaterally. C3-C4: Mild broad-based bulging with narrowing of the right neural foramina. The left neural foramin a is patent. C4-C5: Mild diffuse broad-based bulging and left paracentral bulging/protrusion. The neural foramina appear patent bilaterally. There is mild bilateral facet arthritis. C5-C6: Moderate diffuse broad-based bulging with narrowing of the neural foramina bilaterally. Bilat eral facet arthritis. No significant spinal canal stenosis. C6-C7: Broad-based bulging and right lateral bulging with some narrowing of the right neural foramin a. The left neural foramina appears patent. Bilateral facet arthritis. No significant spinal canal st enosis. C7-T1: No epidural impressions seen. CONCLUSION: 1. There are primary bony degenerative changes, disc degeneration and some disc space narrowing thro ughout the entire cervical spine. 2. There is disc bulging at multiple levels as described above. 3. There is bilateral facet arthritis at multiple levels. Electronically signed by: Jason Wang MD Board Certified Radiologist 04/03/2018 9:48 AM EST
[2018-04-03] MEDS: Lactobacillus Acidophilus/L. Spores Tablet PO SCH ×2 (10:27→21:35)
[2018-04-03] MEDS: Heparin - SQ 10,000 UNITS/ML Vial SQ SCH ×2 (10:28→21:36)
[2018-04-03] MEDS: Senna/Docusate Sodium 8.6/50 MG Tablet PO SCH ×2 (10:28→21:35)
[2018-04-03] MEDS: Metoprolol Tartrate 25 MG Tablet PO SCH ×2 (10:29→21:36)
--- NOTE | 2018-04-03 12:24 | P.PNNS ---
Subjective Interval history: 82-year-old male admitted for difficulty with ambulation secondary to acute weakness. Denies any pain any spinal pain or radicular symptomatology. Denies any history of TIA or stroke. Does all his ADLs independently. Denies any head or neck trauma. He is being treated for chronic UTI does have a indwelling catheter in place. MRI T-spine L-spine performed L-spine MRI shows multiple areas of moderate to severe spinal canal stenosis. Worst at L2/3 and L3/4. It has been evaluated by my partner Dr. Aleman,([facility]), who suggested physical therapy. He does have a history of gait imbalance from time to time as well as dizziness related to a diagnosis of Mnire's disease. Denies any current vertigo. Denies any lightheadedness going from sitting to standing or any tremors. Denies bowel/bladder dysfunction. States that his weakness is gone today. Physical Exam Vital signs: Vital Signs 04/02/18 16:35 04/02/18 17:53 04/02/18 20:00 Temperature 98.2 F 98.0 F Pulse Rate 75 68 72 Respiratory Rate 18 16 19 Blood Pressure 160/70 H 142/63 H Pulse Oximetry 99 98 04/03/18 00:00 04/03/18 00:30 04/03/18 04:00 Temperature 97.6 F 97.6 F Pulse Rate 85 71 69 Respiratory Rate 20 20 18 Blood Pressure 142/76 H 158/73 H Pulse Oximetry 99 99 Intake & Output 04/02/18 04/03/18 04/03/18 18:59 06:59 18:59 Intake Total 1100 / 1100 1000 / 1000 1000 / 1000 Output Total 500 / 500 1150 / 1150 Balance 600 / 600 -150 / -150 1000 / 1000 Weight 72.5 kg Intake: IV 1100 / 1100 1000 / 1000 1000 / 1000 NS Inj 1,000 ML @ 84 mls/hr IV. 1000 / 1000 1000 / 1000 1000 / 1000 CONT .[id number] JEANMARIE Rx#: [id number] Maxipime Inj 1,000 MG In NS Inj 100 / 100 100 ML @ 200 mls/hr IV.SIG Q24H JEANMARIE Rx#:[id number] Output: Urine Amount (Catheter) 500 / 500 1150 / 1150 Indwelling Urethral Catheter 500 / 500 1150 / 1150 Other: Date of Last Bowel Movement 04/01/18 04/02/18 04/03/18 # Bowel Movements 1 - Constitutional no acute distress, average body habitus, cooperative, somnolent - Routine HEENT Exam Head: Present: normocephalic, atraumatic Eye: Present: EOMI, PERRL, normal accommodation ENT: Present: mucous membranes moist, oropharynx clear, nares patent, external ear normal, TM's clear bilaterally - Routine Neck Exam Present: supple, full ROM, trachea midline - Routine Respiratory Exam Present: CTA bilaterally - Routine Cardiovascular Exam Present: irregular rhythm - Routine Abdominal Exam Present: soft, normoactive bowel sounds - Routine Extremities Exam Comments: Negative clubbing, cyanosis or edema - Routine Skin Exam Present: intact - Routine Neurological Exam Present: alert Mental status: AAOX3 Speech: slow Cranial nerve testing 2 through 12 are grossly intact. Motor examination:5/5, R=L Tone is mildly increased in all 4 extremities. There is mild interosseous wasting bilaterally. Deep tendon reflexes 2-3+ and symmetric in his upper extremities and diminished to absent in his lower extremities. He remains nonambulatory. There is a Gann catheter in place. - Detailed Neurological Exam: Coma Scale Eye Opening: Spontaneous Verbal Response: Confused Motor Response: Obey commands Andria Coma Scale Total: 14 - Routine Psychiatric Exam Present: unable to assess - Urinary Catheter Management Indwelling Urethral Catheter Cath placed during this visit: yes Urethral indwelling: Yes Reason for continuing: Chronic Urinary Retention Insertion date: 03/29/18 Insertion time: 08:00 Assessment and Plan - Plan April 02, 2018 This patient continues to suffer with chronic progressive lower extremity weakness the etiology of which is unclear. He has moderate to severe multilevel lumbar spinal stenosis with lateral recess stenosis from L2 through L5. A neurology consultation has been obtained and appreciated. He has been scheduled to undergo further imaging including an MRI scan of brain and cervical spine as well as MRA of the brain. He is also scheduled to undergo dynamic lumbosacral spine x-rays as well as a whole-body bone scan. I have ordered an EMG with nerve conduction velocity of both lower extremities, and this might be done as an outpatient. Physical therapy and also been ordered for evaluation and treatment as well as mobilization. In any case, depending on the results of the workup as well as clinical course will determine the appropriate further diagnostic and therapeutic approach. Neurosurgery will follow. 04/03/18 i did not detect an obvious bilateral focal weakness on Neurologic exam today. he has got good strength in both upper and lower limbs Given acute decompensation, most likely spasm or musculoskeletal sprain versus lumbar spinal stenosis although he denies any back pain. MRI/MRA of brain does show areas of marked cortical and central atrophy. 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 However, the patient had an acute decompensation and there is no evidence of an acute vascular injury. Would manage conservatively with Physical therapy. EMG can be done as an outpatient.
--- NOTE | 2018-04-03 12:27 | NM ---
INDICATIONS: Metastatic disease. CLINICAL DATA: This is the patient's initial encounter. Patient reports that signs and symptoms have been present for 1 day and indicates a pain score of 0/10. MEDICAL/SURGICAL HISTORY: Chronic obstructive pulmonary disease. Hypertension. Congestive hea rt failure. Renal carcinoma and prostate cancer. Appendectomy. Tonsillectomy. COMPARISON: No prior exams available for comparison. TECHNIQUE: . . Whole body bone scan was performed at 2-3 hours. No correlative bone scan available for comparison. DOSE: 30.1 mCi Tc99m MDP IV FINDINGS: There is increased focal radiotracer uptake involving the lateral left 10th rib in the costochondral junction region which is felt likely traumatic. There is degenerative type uptake in the thoracic and lumbosacral spine. Arthritic uptake in the thumb carpal joint regions bilaterally and in the AC join ts bilaterally, right worse than left. No significant focal abnormal radiotracer accumulation to spec ifically suggest metastatic disease to bone. CONCLUSION: No suspicious areas of uptake. Electronically signed by: Alejanrdo Rodriguez MD Board Certified Radiologist 04/03/2018 12:26 PM EST
--- NOTE | 2018-04-03 12:42 | P.PNIM ---
Subjective Interval history: Follow up for inability to ambulate, BLE weakness, lumbar spinal stenosis, HUSSEIN. Patient still feels weak at time. He feels PT will not help him. Denies any pain. Physical Exam Vital signs: Last Vital Signs Temp 97.6 F 04/03/18 04:00 Pulse 69 04/03/18 04:00 Resp 18 04/03/18 04:00 BP 158/73 H 04/03/18 04:00 Pulse Ox 99 04/03/18 04:00 Intake & Output 04/01/18 04/02/18 04/03/18 04/04/18 06:59 06:59 06:59 06:59 Intake Total 3700 / 3700 2460 / 2460 2100 / 2100 1100 / 1100 Output Total 1300 / 1300 1875 / 1875 1650 / 1650 Balance 2400 / 2400 585 / 585 450 / 450 1100 / 1100 Weight 71.2 kg 72.5 kg 72.5 kg Narrative: GENERAL: Well-nourished, well-developed elderly frail male patient in [facility]. SKIN: Warm and dry. No rash. HEENT: Normocephalic. Atraumatic. Pupils equal and round. Mucous membranes pink and moist. CARDIOVASCULAR: Regular rate and rhythm. No murmur appreciated. RESPIRATORY: No accessory muscle use. Clear to auscultation. Breath sounds equal bilaterally. GASTROINTESTINAL: Abdomen soft, non-tender, nondistended. Normoactive bowel sounds x4. MUSCULOSKELETAL: No obvious deformities. Extremities without clubbing, cyanosis , or edema. NEUROLOGICAL: Awake and alert. No obvious cranial nerve deficits. Motor grossly within normal limits. Moving all extremities spontaneously. 4/5 bilateral lower extremity weakness. 5/5 strength of bilateral upper extremities. Normal speech. PSYCHIATRIC: Appropriate mood and affect; insight and judgment normal. Urinary Catheter Management Indwelling Urethral Catheter: Cath placed during this visit: yes Urethral indwelling: Yes Reason for continuing: Chronic Urinary Retention Insertion date: 03/29/18 Insertion time: 08:00 Results Labs CBC & Chem 7: 04/02/18 05:20 04/02/18 05:20 Labs: Microbiology 03/30/18 19:22 Catheterized Urine Urine Culture - Final Julia tropicalis Imaging Imaging: Impressions Carotid Doppler Study 04/02/18 10:14 CONCLUSION: 1. Right Internal Carotid Artery: No significant stenosis or atherosclerotic plaque is visualized. 2. Left Internal Carotid Artery: No significant stenosis or atherosclerotic plaque is visualized. Bone Scan Nuclear Medicine 04/03/18 00:00 CONCLUSION: No suspicious areas of uptake. Head MRI 04/03/18 00:00 CONCLUSION: No acute intracranial findings Cervical Spine MRI 04/03/18 10:14 CONCLUSION: 1. There are primary bony degenerative changes, disc degeneration and some disc space narrowing throughout the entire cervical spine. 2. There is disc bulging at multiple levels as described above. 3. There is bilateral facet arthritis at multiple levels. Head MRA 04/03/18 10:14 CONCLUSION: 1. Negative MRA Cow ([place] [facility] [place]) non contrast. Assessment and Plan (1) Lumbar spinal stenosis: Code(s): M48.061 - Spinal stenosis, lumbar region without neurogenic claudication Status: Acute (2) Urinary tract infection: Code(s): N39.0 - Urinary tract infection, site not specified Status: Acute (3) Generalized weakness: Code(s): R53.1 - Weakness Status: Acute (4) Acute on chronic systolic (congestive) heart failure: Code(s): I50.23 - Acute on chronic systolic (congestive) heart failure Status: Acute (5) Mnire's disease in remission: Code(s): H81.09 - Meniere's disease, unspecified ear Status: Acute Plan 2-year-old male with: Inability to ambulate Spinal Stenosis -Patient does have history of chronic back pain and problems. Patient indicates that he does have episodes of the symptoms of inability to ambulate. States that his legs are very weak and gives out on him. Patient does also have urinary retention and fecal incontinence -CT brain did not indicate any acute abnormality -MRI lumbar spine did indicate moderate to severe spinal stenosis at L3-L4, L4- L5 -MRI t-spine unremarkable -Neurosurgical consultation has been requested. Recommends PT and EMG testing outpatient -Neurology consulted and has signed off -Physical therapy evaluated patient recommending home with home health care PT and wheelchair -Consult case management for possible placement vs homehealth -Nuclear medicine bone scan planned for tomorrow 04/03 -MRI cervical spine, MRI brain, MRA head, and carotid ultrasound all ordered and pending. Urinary tract infection -Patient is being treated in outpatient setting with IV cefepime -Continue to follow culture for appropriate antibiotics Acute renal failure superimposed on chronic kidney disease stage III, improving -Continue cautious hydration -Continue monitor renal function -Avoid nephrotoxins -Renal function slowly improving, creatinine 2.2 --> 1.90 --> 1.80 --> 1.69, labs in am Hypertension, atrial fibrillation, congestive heart failure -Continue home medications Diarrhea -Patient reports chronic history of diarrhea however with hospitalizations, will check C. difficile -Start Lactinex -Imodium as needed if C. difficile negative COPD/emphysema: Chronic -Continue patient's duo nebs as needed DVT prevention -Sequential compression devices -Subcutaneous heparin Progress Note: Quality VTE Deep Vein Thrombosis/Pulmonary Embolism Present on Admission: No _ (1) Urinary tract infection Qualifiers: Encounter type: Hematuria presence: Indwelling urinary catheter type: Urinary tract infection type: (2) Lumbar spinal stenosis Qualifiers: Neurogenic claudication status: (3) Mnire's disease in remission Qualifiers: Laterality:
--- NOTE | 2018-04-03 16:57 | ECHRPT ---
Indication: A-FIB CONCLUSIONS The left ventricular systolic function is mildly reduced with an estimated ejection fraction of 45%. Septal wall motion abnormality. Normal left ventricular size. Mild concentric left ventricular hypertrophy. The left atrial size is moderately dilated. The right atrial size is moderately dilated. Mild thickening and calcification of both mitral valve leaflets. Moderate mitral valve regurgitation. Mitral annular calcification is present. Aortic valve sclerosis is present. Trace aortic valve regurgitation. Mild thickening of the tricuspid valve leaflets. There is mild to moderate tricuspid valve regurgitation. The estimated pulmonary arterial pressure is 41 mmHg. BP: / HR: Rhythm: Atrial fibrillation MEASUREMENTS (Male / Female) Normal Values Technical Quality:Fair 2D ECHO LV Diastolic Diameter PLAX 4.9 cm 4.2 - 5.9 / 3.9 - 5.3 cm LV Systolic Diameter PLAX 4.2 cm IVS Diastolic Thickness 1.3 cm 0.6 - 1.0 / 0.6 - 0.9 cm LVPW Diastolic Thickness 1.3 cm 0.6 - 1.0 / 0.6 - 0.9 cm LV Relative Wall Thickness 0.5 LVOT Diameter 1.9 cm LA Systolic Diameter LX 4.7 cm 3.0 - 4.0 / 2.7 - 3.8 cm LV Ejection Fraction MOD 4C 39.8 % LV Ejection Fraction 4C AL 43.7 % M-MODE Aortic Root Diameter MM 3.0 cm LA Systolic Diameter MM 4.4 cm LA Ao Ratio MM 1.5 AV Cusp Separation MM 1.4 cm DOPPLER AV Peak Velocity 204.0 cm/s AV Peak Gradient 16.6 mmHg AI Peak Velocity 124.0 cm/s AI Peak Gradient 6.2 mmHg AI Pressure Half Time 3318.0 ms LVOT Peak Velocity 124.0 cm/s LVOT Peak Gradient 6.2 mmHg AV Area Cont Eq pk 1.7 cm MV Area PHT 3.3 cm LV E' Lateral Velocity 9.3 cm/s LV E' Septal Velocity 3.6 cm/s TR Peak Velocity 277.3 cm/s TR Peak Gradient 30.8 mmHg Right Atrial Pressure 10.0 mmHg Pulmonary Artery Systolic Pressu 40.8 mmHg Right Ventricular Systolic Press 40.8 mmHg PV Peak Velocity 103.0 cm/s PV Peak Gradient 4.2 mmHg FINDINGS LEFT VENTRICLE The left ventricular systolic function is mildly reduced with an estimated ejection fraction of 45%. Septal wall motion abnormality. Normal left ventricular size. Mild concentric left ventricular hypertrophy. RIGHT VENTRICLE Normal right ventricular size and systolic function. LEFT ATRIUM The left atrial size is moderately dilated. RIGHT ATRIUM The right atrial size is moderately dilated. ATRIAL SEPTUM Normal atrial septal thickness without atrial level shunting by limited color doppler interrogation. AORTA The aortic root and proximal ascending aorta are normal in size on limited imaging. MITRAL VALVE Mild thickening of the mitral valve leaflets. Calcification of both mitral valve leaflets. Moderate mitral valve regurgitation. Mitral annular calcification is present. AORTIC VALVE Trileaflet aortic valve. Aortic valve sclerosis is present. Trace aortic valve regurgitation. TRICUSPID VALVE Mild thickening of the tricuspid valve leaflets. There is mild to moderate tricuspid valve regurgitation. The estimated pulmonary arterial pressure is 40.8 mmHg. PULMONARY VALVE Trivial pulmonary valve regurgitation. VESSELS The inferior vena cava is normal in size. PERICARDIUM No pericardial effusion. Ian Packer MD, FACC (Electronically Signed) Final Date:03 April 2018 16:57
--- NOTE | 2018-04-03 17:05 | P.DCO ---
Diagnosis (1) Lumbar spinal stenosis: Status: Acute (2) Generalized weakness: Status: Acute Physical Therapy Order: Evaluate and treat, Improve ambulation and Strength and gait training Home Health Nursing Order: Medical education, Signs/symptoms of disease process, Nursing assessment with vital signs and Gann catheter maintenance Case Management Consult Case Management Consult-Home Health: Yes I have seen patient Aris Lee on 04/03/18. My clinical findings support the need for the requested home health care services because: Limited mobility due to disease progression, Deconditioned with increased weakness and High risk of falls I certify that my clinical findings support that this patient is homebound because: Unsteady gait/balance, Unsafe to leave home unassisted and Unable to use public transportation _ (1) Lumbar spinal stenosis Qualifiers: Neurogenic claudication status:
[2018-04-03 17:30] LABS: Hemoglobin A1c 5.8 % (4.3-6.0)
[2018-04-03] MEDS: traZODone 50 MG Tablet PO SCH (21:36)
[2018-04-04] MEDS: Sod Chloride 0.9% Inj 1,000 ML IV.CONT SCH (08:37)
[2018-04-04] MEDS: Metoprolol Tartrate 25 MG Tablet PO SCH ×2 (08:38→22:44)
[2018-04-04] MEDS: Senna/Docusate Sodium 8.6/50 MG Tablet PO SCH ×2 (08:38→22:45)
[2018-04-04] MEDS: Lactobacillus Acidophilus/L. Spores Tablet PO SCH ×2 (08:39→22:44)
--- NOTE | 2018-04-04 09:44 | P.PNNEU ---
Subjective Subjective Comments: no cp, dyspnea, or focal weakness. feels stronger Active Medications: Active Medications Acetaminophen (Tylenol) 650 mg PO Q4H PRN PRN Reason: Temp > 100.4 Al Hydroxide/Mg Hydroxide (Milk Of Magnesia Liq) 30 ml PO Q12H PRN PRN Reason: Mild Constipation Albuterol (Duoneb Neb (Prn)) 1 ampul NEB Q4HR NEB PRN PRN Reason: SOB/wheezing Last Admin: 04/03/18 20:45 Dose: 1 ampul Aspirin (Aspirin Chew) 81 mg PO DAILY [facility] Last Admin: 04/04/18 08:38 Dose: 81 mg Bisacodyl (Dulcolax Supp) 10 mg RECTAL DAILY PRN PRN Reason: SEVERE CONSITIPATION Heparin Sodium (Porcine) (Heparin Inj) 5,000 units SQ Q12H [facility] Last Admin: 04/03/18 21:36 Dose: 5,000 units Cefepime HCl 1,000 mg/ Sodium (Chloride) 100 mls @ 200 mls/hr IV.SIG Q24H [facility] Last Admin: 04/04/18 08:39 Dose: 200 mls/hr Sodium Chloride (Ns Inj) 1,000 mls @ 84 mls/hr IV.CONT .[id number] [facility] Last Admin: 04/04/18 08:37 Dose: Not Given Lactobacillus Acidophilus (Lactinex) 1 tab PO BID [facility] Last Admin: 04/04/18 08:39 Dose: 1 tab Lactulose (Lactulose Liq) 30 ml PO DAILY PRN PRN Reason: SEVERE CONSITIPATION Loperamide HCl (Imodium) 2 mg PO Q4H PRN PRN Reason: DIARRHEA Metoprolol Tartrate (Lopressor) 25 mg PO BID [facility] Last Admin: 04/04/18 08:38 Dose: 25 mg Ondansetron HCl (Zofran Inj) 4 mg IV.PUSH Q6H PRN PRN Reason: NAUSEA OR VOMITING Senna/Docusate Sodium (July-Colace) 1 tab PO BID [facility] Last Admin: 04/04/18 08:38 Dose: 1 tab Sennosides (Senokot) 17.2 mg PO Q12H PRN PRN Reason: Moderate Constipation Sodium Chloride (Ns Flush) 2 ml IV.FLUSH BID [facility] Last Admin: 12/26/18 21:36 Dose: 2 ml Sodium Chloride (Ns Flush) 2 ml IV.FLUSH PRN PRN PRN Reason: FLUSH AFTER USING IV ACCESS Last Admin: 04/02/18 22:48 Dose: 2 ml Tamsulosin HCl (Flomax) 0.4 mg PO DAILY [facility] Last Admin: 04/04/18 08:38 Dose: 0.4 mg Trazodone HCl (Desyrel) 50 mg PO HS [facility] Last Admin: 04/03/18 21:36 Dose: 50 mg Allergies/Adverse Reactions: Allergies Allergy/AdvReac Type Severity Reaction Status Date / Time citalopram Allergy Severe Itching Verified 03/30/18 19:01 Review of Systems All other systems reviewed negative except as stated in HPI Physical Exam Vital signs: Vital Signs 04/03/18 20:00 04/03/18 20:46 04/04/18 00:00 Temperature 98.6 F 98.4 F Pulse Rate 73 73 62 Respiratory Rate 18 22 18 Blood Pressure 146/66 H 132/78 Pulse Oximetry 98 98 04/04/18 04:00 04/04/18 07:58 04/04/18 08:31 Temperature 98.5 F 98.0 F Pulse Rate 81 67 Respiratory Rate 20 20 Blood Pressure 138/69 150/79 H Pulse Oximetry 97 97 97 Intake & Output 04/03/18 04/04/18 04/04/18 18:59 06:59 18:59 Intake Total 1100 / 1100 1000 / 1000 Output Total 1800 / 1800 225 / 225 Balance 1100 / 1100 -800 / -800 -225 / -225 Weight 72.5 kg Intake: IV 1100 / 1100 1000 / 1000 NS Inj 1,000 ML @ 84 mls/hr IV. 1000 / 1000 1000 / 1000 CONT .[id number] JEANMARIE Rx#: [id number] Maxipime Inj 1,000 MG In NS Inj 100 / 100 100 ML @ 200 mls/hr IV.SIG Q24H JEANMARIE Rx#:[id number] Output: Urine 1800 / 1800 225 / 225 Other: # Voids 1 Date of Last Bowel Movement 04/03/18 04/03/18 04/03/18 # Bowel Movements 1 Narrative: GENERAL: in NAD, eating breakfast SKIN: Warm and dry. HEAD: Atraumatic. Normocephalic. EYES: Pupils equal and round. No scleral icterus. ENT: No nasal bleeding or discharge. NECK: Trachea midline. No JVD. RESPIRATORY: No accessory muscle use. MUSCULOSKELETAL: Extremities without clubbing, cyanosis, or edema. No obvious deformities. NEUROLOGICAL: Awake and alert. No aphasia, oriented x3 fluent articulate, No facial asymmetry, eomi, VFF, No drift, Motor grossly within normal limits. Able raise all 4 extremity gravity without difficulty distal foot strength 5 out of 5 dorsiflexion and plantar flexion, mild calf atrophy.gait not assessed secondary fall risk PSYCHIATRIC: Appropriate mood and affect; insight and judgment normal. - Constitutional no acute distress - Routine HEENT Exam Head: Present: normocephalic Eye: Present: EOMI - Urinary Catheter Management Indwelling Urethral Catheter Cath placed during this visit: yes Urethral indwelling: Yes Reason for continuing: Chronic Urinary Retention Insertion date: 03/29/18 Insertion time: 08:00 Objective Laboratory Results - last 24 hr 04/02/18 05:20 Hemoglobin A1c 5.8 Review/Management - Diagnosis (1) Lumbar spinal stenosis Code(s): M48.061 - Spinal stenosis, lumbar region without neurogenic claudication Status: Acute Current Visit: Yes (2) Urinary tract infection Code(s): N39.0 - Urinary tract infection, site not specified Status: Acute Current Visit: Yes (3) Generalized weakness Code(s): R53.1 - Weakness Status: Acute Current Visit: No (4) Acute on chronic systolic (congestive) heart failure Code(s): I50.23 - Acute on chronic systolic (congestive) heart failure Status : Acute Current Visit: No (5) Mnire's disease in remission Code(s): H81.09 - Meniere's disease, unspecified ear Status: Acute Current Visit: Yes - Review/Management Plan: Currently do not detect any focal weakness on his exam he has got good strength upper lower limbs good distal foot strength Given acute decompensation spasm versus lumbar spinal stenosis although he denies any back pain. Spinal cord TIA or bilateral SIXTO territory TIA would be another possibility although less likely culprits mra brain-nml mri brain no acute lesion mri cspine no cord lesion or compression Recommendation neuro stable Can get EMG nerve conduction studies in outpatient setting Can be discharged from neurology standpoint. outpatient f/u sign off
[2018-04-04] MEDS: Heparin - SQ 10,000 UNITS/ML Vial SQ SCH ×2 (09:54→22:50)
--- NOTE | 2018-04-04 10:34 | P.PN ---
Subjective Interval history: Follow up for bilateral leg weakness: Patient seen and examined, awake, alert oriented x3. Indicates that he was able to get out of bed to the commode and was able to transfer himself. Indicates leg weakness is improved, his legs at times feel like they are going to give out. Endorses history of leg weakness in the past after he fell off scaffolding approximately 18 feet and injured his lower back. No chest pain, no shortness of breath, no fever. Has a chronic indwelling catheter, his urologist is Dr. Roberts. Indicates that he was doing self-catheterization until recently. Request that I speak to his ex- who is his POA and also a nurse and was assisting him at home. Indicates that he was on cefepime at home but he is not sure when it was going to be completed. Physical Exam Vital signs: Vital Signs 04/03/18 20:00 04/03/18 20:46 04/04/18 00:00 Temperature 98.6 F 98.4 F Pulse Rate 73 73 62 Respiratory Rate 18 22 18 Blood Pressure 146/66 H 132/78 Pulse Oximetry 98 98 04/04/18 04:00 04/04/18 07:58 04/04/18 08:31 Temperature 98.5 F 98.0 F Pulse Rate 81 67 Respiratory Rate 20 20 Blood Pressure 138/69 150/79 H Pulse Oximetry 97 97 97 Intake & Output 04/03/18 04/04/18 04/04/18 18:59 06:59 18:59 Intake Total 1100 / 1100 1000 / 1000 100 / 100 Output Total 1800 / 1800 225 / 225 Balance 1100 / 1100 -800 / -800 -125 / -125 Weight 72.5 kg Intake: IV 1100 / 1100 1000 / 1000 100 / 100 NS Inj 1,000 ML @ 84 mls/hr IV. 1000 / 1000 1000 / 1000 CONT .[id number] JEANMARIE Rx#: [id number] Maxipime Inj 1,000 MG In NS Inj 100 / 100 100 / 100 100 ML @ 200 mls/hr IV.SIG Q24H JEANMARIE Rx#:[id number] Output: Urine 1800 / 1800 225 / 225 Other: # Voids 1 Date of Last Bowel Movement 04/03/18 04/03/18 04/03/18 # Bowel Movements 1 Narrative: GENERAL: 82-year-old elderly male, pleasant. No apparent distress SKIN: Warm and dry. HEAD: Atraumatic. Normocephalic. EYES: Pupils equal and round. No scleral icterus. ENT: No nasal bleeding or discharge. NECK: Trachea midline. No JVD. RESPIRATORY: No accessory muscle use. MUSCULOSKELETAL: Extremities without clubbing, cyanosis, or edema. No obvious deformities. NEUROLOGICAL: Awake, alert oriented x3. No slurring of the speech. No drift. Bilateral upper extremity strength 5 out of 5. Able to lift both legs off the bed, dorsiflexion 5 out of 5. Gait not assessed PSYCHIATRIC: Appropriate mood and affect; insight and judgment normal. - Urinary Catheter Management Indwelling Urethral Catheter Cath placed during this visit: yes Urethral indwelling: Yes Reason for continuing: Chronic Urinary Retention Insertion date: 03/29/18 Insertion time: 08:00 Results - Labs CBC & Chem 7: 04/02/18 05:20 04/02/18 05:20 Laboratory Results - last 24 hr 04/02/18 05:20 Hemoglobin A1c 5.8 - Imaging Impressions Bone Scan Nuclear Medicine 04/03/18 00:00 CONCLUSION: No suspicious areas of uptake. 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 fib. Patient presented to the emergency room with complaint of weakness, difficulty ambulating. Inability to ambulate, hx of falls, weakness. Spinal Stenosis -Patient does have history of chronic back pain and problems. Patient indicates that he does have episodes of the symptoms of inability to ambulate. States that his legs are very weak and gives out on him. Patient does also have urinary retention and fecal incontinence -CT brain did not indicate any acute abnormality -MRI lumbar spine did indicate moderate to severe spinal stenosis at L3-L4, L4- L5 -MRI t-spine unremarkable -Neurosurgical consultation has been requested. Recommends PT and EMG testing outpatient -Physical therapy asked to re-evaluate and ambulate. Pt. only able to walk a few feet, SNF recommended -Consult case management for possible placement vs homehealth -Nuclear medicine bone scan planned for tomorrow 04/03 -MRI cervical spine degenerative changes noted, no spinal cord compression, no masses. Disc protrusion. MRI of brain and head negative. -MRI brain, MRA head, and carotid ultrasound showed no carotids stenosis -repeat Echo showed improved EF 45%, mod. tricuspid regurgitation. Had prior echo in 2017 with EF 35% -D/W neurology, cleared for dc. Recommends EMG and PT -Neurosurgery cleared for dc as well. -D/W pt and POA, both agree with SNF placement. Urinary tract infection Recently treated for Pseudomonas in urine, had PICC line placed March 25 in order cefepime as outpatient, due to be completed on March 31 UA done on 1221, positive for Julia tropicalis. -We will discontinue cefepime and PICC line Start Diflucan 100 mg p.o. daily for 14 days -D/w Dr. Roberts, agrees with above. Urinary retention, poss neurogenic bladder Pt. was self-catherizing at home until 03/29 he was not able to do and ex who is nurse placed horton -D/W Dr. Rboerts, recommends he continue with horton now and f/u as OP. Acute renal failure superimposed on chronic kidney disease stage III, improving Hx urinary retention, right renal cancer -was given IVF, will dc today. -Continue Flomax -Continue monitor renal function -Avoid nephrotoxins -Renal function slowly improving, creatinine 2.2 --> 1.90 --> 1.80 --> 1.69 Hx of right renal cancer, clear cell carcinoma, S/P cryoablation and right renal bx Hx of prostate cancer Follows up with Dr. Roberts -D/W Dr. Roberts, can f/u as OP. Will do PSA when horton has been removed. Recommends to continue for now due to urinary retention Hypertension Atrial fibrillation, has declined anticoagulation in the past Chronic CHF, recent exacerbation in February -repeat echo results noted, improved EF 45% -resume Aldactone -Continue Lopressor 25 mg PO BID -DC IVF, pt. doesn't appear to be in fluid overload Diarrhea -Patient reports chronic history of diarrhea however with hospitalizations, will check C. difficile -continue Lactinex -Imodium as needed if C. difficile negative -no more diarrhea reported, continue to monitor COPD/emphysema: Chronic -Continue patient's duo nebs as needed -monitor sats per protocol DVT prevention: Sequential compression devices/Subcutaneous heparin CM consult for SNF placement Discharge when bed arranged needs to f/u with Dr. Roberts in 1-2 weeks Continue with [facility]ord for now. Code Status: DNR Discussed Condition With: RN, pt and POA/samy, physical therapy, Dr. Jimenez, CM Discharge Planning: to SNF, waiting for authorization. [facility] pending authorization
[2018-04-04] MEDS: Fluconazole 100 MG Tablet PO SCH (10:51)
--- NOTE | 2018-04-04 11:21 | P.PNNS ---
Subjective Interval history: 04/03 82-year-old male admitted for difficulty with ambulation secondary to acute weakness. Denies any pain any spinal pain or radicular symptomatology. Denies any history of TIA or stroke. Does all his ADLs independently. Denies any head or neck trauma. He is being treated for chronic UTI does have a indwelling catheter in place. MRI T-spine L-spine performed L-spine MRI shows multiple areas of moderate to severe spinal canal stenosis. Worst at L2/3 and L3/4. It has been evaluated by my partner Dr. Aelman,([facility]), who suggested physical therapy. He does have a history of gait imbalance from time to time as well as dizziness related to a diagnosis of Mnire's disease. Denies any current vertigo. Denies any lightheadedness going from sitting to standing or any tremors. Denies bowel/bladder dysfunction. States that his weakness is gone today. 04/04 No events overnight Stable Neuro exam Physical Exam Vital signs: Vital Signs 04/03/18 20:00 04/03/18 20:46 04/04/18 00:00 Temperature 98.6 F 98.4 F Pulse Rate 73 73 62 Respiratory Rate 18 22 18 Blood Pressure 146/66 H 132/78 Pulse Oximetry 98 98 04/04/18 04:00 04/04/18 07:58 04/04/18 08:31 Temperature 98.5 F 98.0 F Pulse Rate 81 67 Respiratory Rate 20 20 Blood Pressure 138/69 150/79 H Pulse Oximetry 97 97 97 04/04/18 10:38 Temperature Pulse Rate Respiratory Rate Blood Pressure Pulse Oximetry 94 L Intake & Output 04/03/18 04/04/18 04/04/18 18:59 06:59 18:59 Intake Total 1100 / 1100 1000 / 1000 100 / 100 Output Total 1800 / 1800 225 / 225 Balance 1100 / 1100 -800 / -800 -125 / -125 Weight 72.5 kg Intake: IV 1100 / 1100 1000 / 1000 100 / 100 NS Inj 1,000 ML @ 84 mls/hr IV. 1000 / 1000 1000 / 1000 CONT .[id number] JEANMARIE Rx#: [id number] Maxipime Inj 1,000 MG In NS Inj 100 / 100 100 / 100 100 ML @ 200 mls/hr IV.SIG Q24H JEANMARIE Rx#:[id number] Output: Urine 1800 / 1800 225 / 225 Other: # Voids 1 Date of Last Bowel Movement 04/03/18 04/03/18 04/03/18 # Bowel Movements 1 - Constitutional no acute distress, average body habitus, cooperative - Routine HEENT Exam Head: Present: normocephalic, atraumatic, scalp tenderness Eye: Present: EOMI ENT: Present: mucous membranes moist, oropharynx clear, nares patent, external ear normal, TM's clear bilaterally - Routine Neck Exam Present: supple, full ROM, trachea midline - Routine Respiratory Exam Present: CTA bilaterally - Routine Cardiovascular Exam Present: irregular rhythm - Routine Abdominal Exam Present: soft, normoactive bowel sounds - Routine Extremities Exam Present: normal capillary refill - Routine Skin Exam Present: intact - Routine Neurological Exam Present: alert Mental status: AAOX3 Speech: slow Cranial nerve testing 2 through 12 are grossly intact. Motor examination:5/5, R=L Tone is mildly increased in all 4 extremities. There is mild interosseous wasting bilaterally. Deep tendon reflexes 2-3+ and symmetric in his upper extremities and diminished to absent in his lower extremities. He remains nonambulatory. There is a Gann catheter in place. - Detailed Neurological Exam: Coma Scale Eye Opening: Spontaneous Verbal Response: Oriented Motor Response: Obey commands Andria Coma Scale Total: 15 - Routine Psychiatric Exam Present: normal affect, normal thought process, cooperative - Urinary Catheter Management Indwelling Urethral Catheter Cath placed during this visit: yes Urethral indwelling: Yes Reason for continuing: Chronic Urinary Retention Insertion date: 03/29/18 Insertion time: 08:00 Assessment and Plan - Plan April 02, 2018 This patient continues to suffer with chronic progressive lower extremity weakness the etiology of which is unclear. He has moderate to severe multilevel lumbar spinal stenosis with lateral recess stenosis from L2 through L5. A neurology consultation has been obtained and appreciated. He has been scheduled to undergo further imaging including an MRI scan of brain and cervical spine as well as MRA of the brain. He is also scheduled to undergo dynamic lumbosacral spine x-rays as well as a whole-body bone scan. I have ordered an EMG with nerve conduction velocity of both lower extremities, and this might be done as an outpatient. Physical therapy and also been ordered for evaluation and treatment as well as mobilization. In any case, depending on the results of the workup as well as clinical course will determine the appropriate further diagnostic and therapeutic approach. Neurosurgery will follow. 04/03/18 i did not detect an obvious bilateral focal weakness on Neurologic exam today. he has got good strength in both upper and lower limbs Given acute decompensation, most likely spasm or musculoskeletal sprain versus lumbar spinal stenosis although he denies any back pain. MRI/MRA of brain does show areas of marked cortical and central atrophy. 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 However, the patient had an acute decompensation and there is no evidence of an acute vascular injury. Would manage conservatively with Physical therapy. EMG can be done as an outpatient. 04/04/18 In speaking with the patient today, the patient related, that he has had similar episodes every few years, since he fell off a roof, landing on his buttocks approx. 60 years ago. No indication for Neurosurgical intervention at this time Would continue conservative management to include PT and, rehab and possible pain management Will sign off and be available as needed.
--- NOTE | 2018-04-04 18:56 | P.DS ---
Date of admission: 03/30/18 20:58 Primary care physician: Salas Lema Attending physician on discharge: Linnea Ewing Anticipated date of discharge: 04/04/18 (pending authorization from insurance) Brief History from admission: 82-year-old male with known history of hypertension, atrial fibrillation, congestive heart failure, chronic obstructive pulmonary disease urinary retention, chronic back pain, renal cell carcinoma who presented the hospital because of inability to ambulate. Patient indicates that he was just recently in the hospital little over month ago. It appears as if he was discharged 02/12/18 which he went to rehab facility. He states that he got home approximately 2 weeks ago and has been undergoing outpatient IV antibiotics for urinary tract infection, chronic Horton for urinary retention, home health care with physical therapy. Patient states that he was actually improving until yesterday when he tried to get up and he could not stand or walk. Because of that he came to the emergency department for evaluation. Upon workup patient was found to have acute renal failure superimposed on chronic kidney disease stage III. Patient cannot ambulate so was recommended by the ER physician that the patient be observed in the hospital for possible placement to rehab facility. Upon evaluating the patient he was able to get out of bed and transferred to a bedside commode. He appears to be doing well. Only complaint was his difficulty in ambulating and transferring. He denies any fever, chills , chest pain, shortness of breath, abdominal pain, unilateral weakness. He indicates that he has chronic back pain and this happens to him quite frequently. Patient indicates that he has had multiple evaluations with x-rays , MRI studies of his lumbar spine. 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 fib. Patient presented to the emergency room with complaint of weakness, difficulty ambulating. Pt. admitted for the following: Inability to ambulate, hx of falls, weakness. Spinal Stenosis -Patient does have history of chronic back pain and problems. Patient indicates that he does have episodes of the symptoms of inability to ambulate. States that his legs are very weak and gives out on him. Patient does also have urinary retention and fecal incontinence. Prior hx of falling from scaffolding 18 feet many years ago with frequent episodes of weakness. Admitted in 2017 with similar episode. -CT brain did not indicate any acute abnormality -MRI lumbar spine did indicate moderate to severe spinal stenosis at L3-L4, L4- L5 -MRI t-spine unremarkable -Neurosurgical consultation was requested. Recommended PT and EMG testing outpatient. No surgical intervention recommended. -Physical therapy asked to re-evaluate and ambulate. Pt. only able to walk a few feet, SNF recommended -Consulted case management for possible placement vs homehealth-decided on SNF -Neurology consulted as well. Work up done -Nuclear medicine bone scan done, no uptake -MRI cervical spine degenerative changes noted, no spinal cord compression, no masses. Disc protrusion. -MRI brain, MRA head, and carotid ultrasound showed no carotids stenosis -repeat Echo showed improved EF 45%, mod. tricuspid regurgitation. Had prior echo in 2017 with EF 35% -D/W neurology, cleared for dc. Recommended EMG and PT. No evidence of stroke -Neurosurgery cleared for dc as well. -D/W pt and POA, both agree with SNF placement. -Pt. was able to transfer with assistance. Recurrent Urinary tract infection Recently treated for Pseudomonas in urine, had PICC line placed March 25 and ordered cefepime as outpatient, due to be completed on March 31 UA done on 03/30, positive for Julia tropicalis. -Discontinued cefepime and PICC line Started Diflucan 100 mg p.o. daily for 14 days -D/w Dr. Roberts, agrees with above. Urinary retention, poss neurogenic bladder Pt. was self-catherizing at home until 03/29 he was not able to do and ex who is nurse placed horton -D/W Dr. Roberts, recommends he continue with horton now and f/u as OP. Acute renal failure superimposed on chronic kidney disease stage III, improved Hx urinary retention, right renal cancer -was given IVF -Continued Flomax -Avoided nephrotoxins -Renal function slowly improving, creatinine 2.2 --> 1.90 --> 1.80 --> 1.69 Hx of right renal cancer, clear cell carcinoma, S/P cryoablation and right renal bx Hx of prostate cancer Follows up with Dr. Roberts -D/W Dr. Roberts, can f/u as OP. Will do PSA when horton has been removed. Recommends to continue for now due to urinary retention Hypertension Atrial fibrillation, has declined anticoagulation in the past Chronic CHF, recent exacerbation in February -repeated echo results noted, improved EF 45% -resumed Aldactone -Continued Lopressor 25 mg PO BID -DCd IVF, pt.did not appear to be in fluid overload Diarrhea -Patient reports chronic history of diarrhea however with hospitalizations, ordered to check C. difficile -started on Lactinex -Imodium as needed if C. difficile negative -no more diarrhea reported COPD/emphysema: Chronic -Continued patient's duo nebs as needed -monitored sats per protocol Pt. stable, cleared for dc. Discharged to SNF in stable condition Instructed to f/u as OP with neurology for OP EMG testing. F/U Dr. Roberts. - Time Spent with Patient Total time spent providing and/or coordinating discharge services: 40 minutes Greater than 30 minutes - Quality: VTE Deep Vein Thrombosis/Pulmonary Embolism Present on Admission: No Exam Vital signs: Vital Signs 04/03/18 20:00 04/03/18 20:46 04/04/18 00:00 Temperature 98.6 F 98.4 F Pulse Rate 73 73 62 Respiratory Rate 18 22 18 Blood Pressure 146/66 H 132/78 Pulse Oximetry 98 98 04/04/18 04:00 04/04/18 07:58 04/04/18 08:31 Temperature 98.5 F 98.0 F Pulse Rate 81 67 Respiratory Rate 20 20 Blood Pressure 138/69 150/79 H Pulse Oximetry 97 97 97 04/04/18 10:38 04/04/18 12:00 04/04/18 14:48 Temperature 97.4 F L Pulse Rate 73 65 Respiratory Rate 20 18 Blood Pressure 134/62 Pulse Oximetry 94 L 98 04/04/18 16:00 Temperature 98.0 F Pulse Rate 84 Respiratory Rate 20 Blood Pressure 112/65 Pulse Oximetry 97 Intake & Output 04/03/18 04/04/18 04/04/18 18:59 06:59 18:59 Intake Total 1100 / 1100 1000 / 1000 1100 / 1100 Output Total 2300 / 2300 225 / 225 Balance 1100 / 1100 -1300 / -1300 875 / 875 Weight 72.5 kg Intake: IV 1100 / 1100 1000 / 1000 1100 / 1100 NS Inj 1,000 ML @ 84 mls/hr IV. 1000 / 1000 1000 / 1000 1000 / 1000 CONT .[id number] JEANMARIE Rx#: [id number] Maxipime Inj 1,000 MG In NS Inj 100 / 100 100 / 100 100 ML @ 200 mls/hr IV.SIG Q24H JEANMARIE Rx#:[id number] Output: Urine 2300 / 2300 225 / 225 Other: # Voids 1 1 Date of Last Bowel Movement 04/03/18 04/03/18 04/03/18 # Bowel Movements 1 Results Procedures completed during hospitalization: none Labs on day of discharge: Labs from last 24 hours 04/02/18 05:20 Hemoglobin A1c 5.8 - Impressions ITS Impressions Lumbar Spine MRI 03/31/18 09:55 CONCLUSION: 1. Moderate to severe stenosis at the L3-L4 and L4-L5 levels. 2. Moderate stenosis at the L2-L3 level. 3. Mild disc bulge without significant stenosis at the L1-L2 level. 4. Neural foraminal narrowing at the L2-L3 and L3-L4 levels. Head CT 03/31/18 10:28 CONCLUSION: 1. No acute abnormality seen. 2. Cortical atrophy. 3. Suspected old lacunar infarct at the posterior right basal ganglia and the inferior right caudate head. . Thoracic Spine MRI 04/01/18 00:00 CONCLUSION: No acute findings Carotid Doppler Study 04/02/18 10:14 CONCLUSION: 1. Right Internal Carotid Artery: No significant stenosis or atherosclerotic plaque is visualized. 2. Left Internal Carotid Artery: No significant stenosis or atherosclerotic plaque is visualized. Lumbar Spine X-Ray 04/02/18 10:27 CONCLUSION: Posterior subluxation of L2 on L3 and L3 on L4. No abnormal motion is detected. Bone Scan Nuclear Medicine 04/03/18 00:00 CONCLUSION: No suspicious areas of uptake. Head MRI 04/03/18 00:00 CONCLUSION: No acute intracranial findings Cervical Spine MRI 04/03/18 10:14 CONCLUSION: 1. There are primary bony degenerative changes, disc degeneration and some disc space narrowing throughout the entire cervical spine. 2. There is disc bulging at multiple levels as described above. 3. There is bilateral facet arthritis at multiple levels. Head MRA 04/03/18 10:14 CONCLUSION: 1. Negative MRA Cow ([place] [facility] [place]) non contrast. Discharge Plan - Discharge Disposition Patient Disposition: Discharge to SNF - Discharge Condition Condition: Good - Discharge Order Discharge Orders: Discharge Order (Routine); Ordered 04/04/18 Ordered By: Rebecca Martinez - Discharge Details Anticipated Discharge Date: 04/04/18 - Physicians Team Primary Care Provider: Salas Lema Attending Provider: Linnea Ewing Other Providers: Louis Myers ; Michael Aleman MD ; Antonio Jimenez MD ; [facility],[place] ; [facility],[place]
[2018-04-04] MEDS: traZODone 50 MG Tablet PO SCH (22:43)
[2018-04-05] MEDS: Fluconazole 100 MG Tablet PO SCH (09:03)
[2018-04-05] MEDS: Heparin - SQ 10,000 UNITS/ML Vial SQ SCH ×2 (09:03→22:22)
[2018-04-05] MEDS: Spironolactone 25 MG Tablet PO SCH (09:03)
[2018-04-05] MEDS: Ascorbic Acid 500 MG Tablet PO SCH (09:04)
[2018-04-05] MEDS: Metoprolol Tartrate 25 MG Tablet PO SCH ×2 (09:04→22:21)
[2018-04-05] MEDS: Senna/Docusate Sodium 8.6/50 MG Tablet PO SCH ×2 (09:04→22:21)
[2018-04-05] MEDS: Lactobacillus Acidophilus/L. Spores Tablet PO SCH ×2 (09:05→22:21)
--- NOTE | 2018-04-05 11:41 | P.PNIM ---
Subjective Interval history: Follow up generalized weakness Patient is resting in bed. He denies pain or discomfort. He states he was able to walk and forth from the bathroom and tolerated this well. He reports days where he feels a little bit stronger and other days where he feels very weak. Patient in agreement with rehab placement. Insurance authorization pending for placement. Physical Exam Vital signs: Last Vital Signs Temp 97.7 F 04/05/18 08:22 Pulse 85 04/05/18 08:22 Resp 20 04/05/18 08:22 BP 159/89 H 04/05/18 08:22 Pulse Ox 100 04/05/18 08:22 Intake & Output 04/03/18 04/04/18 04/05/18 04/06/18 06:59 06:59 06:59 06:59 Intake Total 2100 / 2100 2100 / 2100 1340 / 1340 Output Total 1650 / 1650 2300 / 2300 925 / 925 Balance 450 / 450 -200 / -200 415 / 415 Weight 72.5 kg 72.5 kg 73.1 kg Narrative: GENERAL: 82-year-old elderly male, pleasant. No apparent distress SKIN: Warm and dry. HEAD: Atraumatic. Normocephalic. EYES: Pupils equal and round. No scleral icterus. ENT: No nasal bleeding or discharge. NECK: Trachea midline. No JVD. RESPIRATORY: No accessory muscle use. MUSCULOSKELETAL: Extremities without clubbing, cyanosis, or edema. No obvious deformities. NEUROLOGICAL: Awake, alert oriented x3. No slurring of the speech. No drift. Bilateral upper extremity strength 5 out of 5. Able to lift both legs off the bed, dorsiflexion 5 out of 5. Gait not assessed PSYCHIATRIC: Appropriate mood and affect; insight and judgment normal. Urinary Catheter Management Indwelling Urethral Catheter: Cath placed during this visit: yes Urethral indwelling: Yes Reason for continuing: Acute urinary retention Insertion date: 03/29/18 Insertion time: 08:00 Results Labs CBC & Chem 7: 04/02/18 05:20 04/02/18 05:20 Procedures Procedures: none Assessment and Plan (1) Lumbar spinal stenosis: Code(s): M48.061 - Spinal stenosis, lumbar region without neurogenic claudication Status: Acute (2) Generalized weakness: Code(s): R53.1 - Weakness Status: Acute (3) Renal cancer: Code(s): C64.9 - Malignant neoplasm of unspecified kidney, except renal pelvis Status: Acute (4) Prostate cancer: Code(s): C61 - Malignant neoplasm of prostate Status: Acute (5) Urinary retention: Code(s): R33.9 - Retention of urine, unspecified Status: Acute (6) Acute renal failure superimposed on stage 3 chronic kidney disease: Code(s): N17.9 - Acute kidney failure, unspecified; N18.3 - Chronic kidney disease, stage 3 (moderate) Status: Acute Plan 82-year-old elderly male with significant past medical history of right renal cancer, 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 fib. Patient presented to the emergency room with complaint of weakness, difficulty ambulating. Inability to ambulate, hx of falls, weakness. Spinal Stenosis -Patient does have history of chronic back pain and problems. Patient indicates that he does have episodes of the symptoms of inability to ambulate. States that his legs are very weak and gives out on him. Patient does also have urinary retention and fecal incontinence -CT brain did not indicate any acute abnormality -MRI lumbar spine did indicate moderate to severe spinal stenosis at L3-L4, L4- L5 -MRI t-spine unremarkable -Neurosurgical consultation has been requested. Recommends PT and EMG testing outpatient -Physical therapy asked to re-evaluate and ambulate. Pt. only able to walk a few feet, SNF recommended -Consulted case management for possible placement vs homehealth -Nuclear medicine bone scan 04/03 -> no suspicious areas of uptake -MRI cervical spine degenerative changes noted, no spinal cord compression, no masses. Disc protrusion. MRI of brain and head negative. -MRI brain, MRA head, and carotid ultrasound showed no carotids stenosis -repeat Echo showed improved EF 45%, mod. tricuspid regurgitation. Had prior echo in 2017 with EF 35% -D/W neurology, cleared for dc. Recommends EMG and PT -Neurosurgery cleared for dc as well. -D/W pt and POA, both agree with SNF placement. Urinary tract infection Recently treated for Pseudomonas in urine, had PICC line placed March 25 in order cefepime as outpatient, due to be completed on March 31 UA done on 03/30, positive for Julia tropicalis. -We will discontinue cefepime and PICC line Start Diflucan 100 mg p.o. daily for 14 days Urinary retention, poss neurogenic bladder Pt. was self-catheterizing at home until 03/29 he was not able to do and ex who is nurse placed horton -Dr. Spangler recommends he continue with horton now and f/u as OP. Acute renal failure superimposed on chronic kidney disease stage III, improving Hx urinary retention, right renal cancer -was given IVF, will dc today. -Continue Flomax -Continue monitor renal function -Avoid nephrotoxins -Renal function slowly improving, creatinine 2.2 --> 1.90 --> 1.80 --> 1.69 Hx of right renal cancer, clear cell carcinoma, S/P cryoablation and right renal bx Hx of prostate cancer Follows up with Dr. Roberts -D/W Dr. Roberts, can f/u as OP. Will do PSA when horton has been removed. Recommends to continue for now due to urinary retention Hypertension Atrial fibrillation, has declined anticoagulation in the past Chronic CHF, recent exacerbation in February -repeat echo results noted, improved EF 45% -resume Aldactone -Continue Lopressor 25 mg PO BID -DC IVF, pt. doesn't appear to be in fluid overload Diarrhea -Patient reports chronic history of diarrhea however with hospitalizations, will check C. difficile -continue Lactinex -Imodium as needed if C. difficile negative -no more diarrhea reported, continue to monitor COPD/emphysema: Chronic -Continue patient's duo nebs as needed -monitor sats per protocol DVT prevention: Sequential compression devices/Subcutaneous heparin CM consult for SNF placement Discharge when bed arranged needs to f/u with Dr. Roberts in 1-2 weeks Continue with horton for now. Code Status: DNR Code Status: DNR Discussed Condition With: RN, patient, CM Discharge Planning: Awaiting insurance authorization for discharge to [facility]. Progress Note: Quality VTE Deep Vein Thrombosis/Pulmonary Embolism Present on Admission: No _ (1) Lumbar spinal stenosis Qualifiers: Neurogenic claudication status: (2) Acute renal failure superimposed on stage 3 chronic kidney disease Qualifiers: Acute renal failure type:
[2018-04-05] MEDS: traZODone 50 MG Tablet PO SCH (22:21)
[2018-04-06] MEDS: Spironolactone 25 MG Tablet PO SCH (08:35)
[2018-04-06] MEDS: Lactobacillus Acidophilus/L. Spores Tablet PO SCH ×2 (08:35→20:41)
[2018-04-06] MEDS: Metoprolol Tartrate 25 MG Tablet PO SCH ×2 (08:35→20:41)
[2018-04-06] MEDS: Senna/Docusate Sodium 8.6/50 MG Tablet PO SCH ×2 (08:35→20:41)
[2018-04-06] MEDS: Fluconazole 100 MG Tablet PO SCH (08:35)
[2018-04-06] MEDS: Ascorbic Acid 500 MG Tablet PO SCH (08:35)
[2018-04-06] MEDS: Heparin - SQ 10,000 UNITS/ML Vial SQ SCH ×2 (10:25→22:42)
--- NOTE | 2018-04-06 13:50 | P.PNIM ---
Subjective Interval history: Follow up generalized weakness Patient is resting in bed. He states he is unable to afford co-pay for rehab placement. Patient has run out of rehab days for calender year. CM looking into options. Patient remains weak and requires assistance as well as assistive device for ambulation. He denies chest pain, shortness of breath, cough, fevers or chills. Tolerating PO diet. Physical Exam Vital signs: Last Vital Signs Temp 97.7 F 04/06/18 12:29 Pulse 70 04/06/18 12:29 Resp 20 04/06/18 12:29 BP 151/81 H 04/06/18 12:29 Pulse Ox 100 04/06/18 12:29 Intake & Output 04/04/18 04/05/18 04/06/18 04/07/18 06:59 06:59 06:59 06:59 Intake Total 2100 / 2100 1340 / 1340 Output Total 2300 / 2300 925 / 925 650 / 650 Balance -200 / -200 415 / 415 -650 / -650 Weight 72.5 kg 73.1 kg 75 kg Narrative: GENERAL: 82-year-old elderly male, pleasant. No apparent distress SKIN: Warm and dry. HEAD: Atraumatic. Normocephalic. EYES: Pupils equal and round. No scleral icterus. ENT: No nasal bleeding or discharge. NECK: Trachea midline. No JVD. RESPIRATORY: No accessory muscle use. MUSCULOSKELETAL: Extremities without clubbing, cyanosis, or edema. No obvious deformities. NEUROLOGICAL: Awake, alert oriented x3. No slurring of the speech. No drift. Bilateral upper extremity strength 5 out of 5. Able to lift both legs off the bed, dorsiflexion 5 out of 5. Gait not assessed PSYCHIATRIC: Appropriate mood and affect; insight and judgment normal. Urinary Catheter Management Indwelling Urethral Catheter: Cath placed during this visit: yes Urethral indwelling: Yes Reason for continuing: Acute urinary retention Insertion date: 03/29/18 Insertion time: 08:00 Results Labs CBC & Chem 7: 04/02/18 05:20 04/02/18 05:20 Procedures Procedures: none Assessment and Plan (1) Lumbar spinal stenosis: Code(s): M48.061 - Spinal stenosis, lumbar region without neurogenic claudication Status: Acute (2) Generalized weakness: Code(s): R53.1 - Weakness Status: Acute (3) Renal cancer: Code(s): C64.9 - Malignant neoplasm of unspecified kidney, except renal pelvis Status: Acute (4) Prostate cancer: Code(s): C61 - Malignant neoplasm of prostate Status: Acute (5) Urinary retention: Code(s): R33.9 - Retention of urine, unspecified Status: Acute (6) Acute renal failure superimposed on stage 3 chronic kidney disease: Code(s): N17.9 - Acute kidney failure, unspecified; N18.3 - Chronic kidney disease, stage 3 (moderate) Status: Acute Plan 82-year-old elderly male with significant past medical history of right renal cancer, 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 fib. Patient presented to the emergency room with complaint of weakness, difficulty ambulating. Patient evaluated 04/06/18. No active medical issues at present time. Continuing to await placement. Inability to ambulate, hx of falls, weakness Spinal Stenosis -Patient does have history of chronic back pain and problems. Patient indicates that he does have episodes of the symptoms of inability to ambulate. States that his legs are very weak and gives out on him. Patient does also have urinary retention and fecal incontinence -CT brain did not indicate any acute abnormality -MRI lumbar spine did indicate moderate to severe spinal stenosis at L3-L4, L4- L5 -MRI t-spine unremarkable -Neurosurgical consultation has been requested. Recommends PT and EMG testing outpatient -Physical therapy asked to re-evaluate and ambulate. Pt. only able to walk a few feet, SNF recommended -Consulted case management for possible placement vs homehealth -Nuclear medicine bone scan 04/03 -> no suspicious areas of uptake -MRI cervical spine degenerative changes noted, no spinal cord compression, no masses. Disc protrusion. MRI of brain and head negative. -MRI brain, MRA head, and carotid ultrasound showed no carotids stenosis -repeat Echo showed improved EF 45%, mod. tricuspid regurgitation. Had prior echo in 2017 with EF 35% -D/W neurology, cleared for dc. Recommends EMG and PT -Neurosurgery cleared for dc as well. -D/W pt and POA, both agree with SNF placement. Urinary tract infection Recently treated for Pseudomonas in urine, had PICC line placed March 25 in order cefepime as outpatient, due to be completed on March 31 UA done on 03/30, positive for Julia tropicalis. -We will discontinue cefepime and PICC line Start Diflucan 100 mg p.o. daily for 14 days Urinary retention, poss neurogenic bladder Pt. was self-catheterizing at home until 03/29 he was not able to do and ex who is nurse placed horton -Dr. Spangler recommends he continue with horton now and f/u as OP. Acute renal failure superimposed on chronic kidney disease stage III, improving Hx urinary retention, right renal cancer -was given IVF, will dc today. -Continue Flomax -Continue monitor renal function -Avoid nephrotoxins -Renal function slowly improving, creatinine 2.2 --> 1.90 --> 1.80 --> 1.69 Hx of right renal cancer, clear cell carcinoma, S/P cryoablation and right renal bx Hx of prostate cancer Follows up with Dr. Roberts -D/W Dr. Roberts, can f/u as OP. Will do PSA when horton has been removed. Recommends to continue for now due to urinary retention Hypertension Atrial fibrillation, has declined anticoagulation in the past Chronic CHF, recent exacerbation in February -repeat echo results noted, improved EF 45% -resume Aldactone -Continue Lopressor 25 mg PO BID -DC IVF, pt. doesn't appear to be in fluid overload Diarrhea -Patient reports chronic history of diarrhea however with hospitalizations, will check C. difficile -continue Lactinex -Imodium as needed if C. difficile negative -no more diarrhea reported, continue to monitor COPD/emphysema: Chronic -Continue patient's duo nebs as needed -monitor sats per protocol DVT prevention: Sequential compression devices/Subcutaneous heparin CM consult for SNF placement Discharge when bed arranged needs to f/u with Dr. Roberts in 1-2 weeks Continue with horton for now. Code Status: DNR Discharge Planning: Awaiting insurance authorization for discharge to [facility]. Progress Note: Quality VTE Deep Vein Thrombosis/Pulmonary Embolism Present on Admission: No _ (1) Lumbar spinal stenosis Qualifiers: Neurogenic claudication status: (2) Acute renal failure superimposed on stage 3 chronic kidney disease Qualifiers: Acute renal failure type:
[2018-04-06] MEDS: traZODone 50 MG Tablet PO SCH (20:41)
[2018-04-07] MEDS: Fluconazole 100 MG Tablet PO SCH (08:57)
[2018-04-07] MEDS: Spironolactone 25 MG Tablet PO SCH (08:58)
[2018-04-07] MEDS: Ascorbic Acid 500 MG Tablet PO SCH (08:58)
[2018-04-07] MEDS: Metoprolol Tartrate 25 MG Tablet PO SCH ×2 (08:58→20:47)
[2018-04-07] MEDS: Senna/Docusate Sodium 8.6/50 MG Tablet PO SCH ×2 (08:59→20:49)
[2018-04-07] MEDS: Lactobacillus Acidophilus/L. Spores Tablet PO SCH ×2 (09:09→20:47)
[2018-04-07] MEDS: Heparin - SQ 10,000 UNITS/ML Vial SQ SCH ×2 (11:22→22:14)
--- NOTE | 2018-04-07 13:07 | P.PNIM ---
Subjective Interval history: Follow-up visit for generalized weakness Patient is resting in bed. He states he exercised with physical therapy earlier today but feels very unsteady on his feet. Patient lives alone. He expresses concern over not being bale to properly care for himself if he were to be discharged home. Patient complains of moderate to severe generalized weakness. No chest pain, shortness of breath or palpitations. He has a cough and is wheezing. Physical Exam Vital signs: Last Vital Signs Temp 97.7 F 04/07/18 12:00 Pulse 72 04/07/18 12:00 Resp 20 04/07/18 12:00 BP 189/74 H 04/07/18 12:00 Pulse Ox 96 04/07/18 12:00 Intake & Output 04/05/18 04/06/18 04/07/18 04/08/18 06:59 06:59 06:59 06:59 Intake Total 1340 / 1340 1500 / 1500 Output Total 925 / 925 650 / 650 550 / 550 Balance 415 / 415 -650 / -650 950 / 950 Weight 73.1 kg 75 kg 72.2 kg Narrative: GENERAL: 82-year-old elderly male, pleasant. No apparent distress SKIN: Warm and dry. HEAD: Atraumatic. Normocephalic. EYES: Pupils equal and round. No scleral icterus. ENT: No nasal bleeding or discharge. NECK: Trachea midline. No JVD. RESPIRATORY: No accessory muscle use. Mild, diffuse expiratory wheezing throughout all lung robertson. MUSCULOSKELETAL: Extremities without clubbing, cyanosis, or edema. No obvious deformities. NEUROLOGICAL: Awake, alert oriented x3. No slurring of the speech. No drift. Bilateral upper extremity strength 5 out of 5. Able to lift both legs off the bed, dorsiflexion 5 out of 5. Gait not assessed PSYCHIATRIC: Appropriate mood and affect; insight and judgment normal. Urinary Catheter Management Indwelling Urethral Catheter: Cath placed during this visit: yes Urethral indwelling: Yes Reason for continuing: Acute urinary retention Insertion date: 03/29/18 Insertion time: 08:00 Results Labs CBC & Chem 7: 04/02/18 05:20 04/02/18 05:20 Procedures Procedures: none Assessment and Plan (1) Lumbar spinal stenosis: Code(s): M48.061 - Spinal stenosis, lumbar region without neurogenic claudication Status: Acute (2) Generalized weakness: Code(s): R53.1 - Weakness Status: Acute (3) Renal cancer: Code(s): C64.9 - Malignant neoplasm of unspecified kidney, except renal pelvis Status: Acute (4) Prostate cancer: Code(s): C61 - Malignant neoplasm of prostate Status: Acute (5) Urinary retention: Code(s): R33.9 - Retention of urine, unspecified Status: Acute (6) Acute renal failure superimposed on stage 3 chronic kidney disease: Code(s): N17.9 - Acute kidney failure, unspecified; N18.3 - Chronic kidney disease, stage 3 (moderate) Status: Acute Plan 82-year-old elderly male with significant past medical history of right renal cancer, 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 fib. Patient presented to the emergency room with complaint of weakness, difficulty ambulating. Patient evaluated 04/07/18. Inability to ambulate, hx of falls, weakness Unsafe discharge at present time. Patient has exhausted his rehab days for the calender year and he is unable to afford the co-pays required out of pocket for short term rehab. He was evaluated by physical therapy today with documentation that patient is unable to stand for 10 seconds with narrow base of support ( high risk for fall). Patient lives alone and does not have assistance at the home. Spinal Stenosis -Patient does have history of chronic back pain and problems. Patient indicates that he does have episodes of the symptoms of inability to ambulate. States that his legs are very weak and gives out on him. Patient does also have urinary retention and fecal incontinence -CT brain did not indicate any acute abnormality -MRI lumbar spine did indicate moderate to severe spinal stenosis at L3-L4, L4- L5 -MRI t-spine unremarkable -Neurosurgical consultation has been requested. Recommends PT and EMG testing outpatient -Physical therapy asked to re-evaluate and ambulate. Pt. only able to walk a few feet, SNF recommended -Consulted case management for possible placement vs homehealth -Nuclear medicine bone scan 04/03 -> no suspicious areas of uptake -MRI cervical spine degenerative changes noted, no spinal cord compression, no masses. Disc protrusion. MRI of brain and head negative. -MRI brain, MRA head, and carotid ultrasound showed no carotids stenosis -repeat Echo showed improved EF 45%, mod. tricuspid regurgitation. Had prior echo in 2017 with EF 35% -D/W neurology, cleared for dc. Recommends EMG and PT -Neurosurgery cleared for dc as well. -D/W pt and POA, both agree with SNF placement. Urinary tract infection Recently treated for Pseudomonas in urine, had PICC line placed March 25 in order cefepime as outpatient, due to be completed on March 31 UA done on 03/30, positive for Julia tropicalis. -We will discontinue cefepime and PICC line Start Diflucan 100 mg p.o. daily for 14 days Urinary retention, poss neurogenic bladder Pt. was self-catheterizing at home until 03/29 he was not able to do and ex who is nurse placed horton -Dr. Roberts recommends he continue with horton now and f/u as OP. Acute renal failure superimposed on chronic kidney disease stage III, improving Hx urinary retention, right renal cancer -was given IVF, will dc today. -Continue Flomax -Continue monitor renal function -Avoid nephrotoxins -Renal function slowly improving, creatinine 2.2 --> 1.90 --> 1.80 --> 1.69 Hx of right renal cancer, clear cell carcinoma, S/P cryoablation and right renal bx Hx of prostate cancer Follows up with Dr. Roberts -D/W Dr. Roberts, can f/u as OP. Will do PSA when horton has been removed. Recommends to continue for now due to urinary retention Hypertension, chronic - SBP 180's -continue current meds -monitor vital signs per unit protocol Atrial fibrillation, has declined anticoagulation in the past Chronic CHF, recent exacerbation in February -repeat echo results noted, improved EF 45% -resume Aldactone -Continue Lopressor 25 mg PO BID -DC IVF, pt. doesn't appear to be in fluid overload Diarrhea -Patient reports chronic history of diarrhea however with hospitalizations, will check C. difficile -continue Lactinex -Imodium as needed if C. difficile negative -no more diarrhea reported, continue to monitor COPD/emphysema: Chronic -Continue patient's duo nebs as needed -add Mucinex -monitor sats per protocol DVT prevention: Sequential compression devices/Subcutaneous heparin CM consult for SNF placement Discharge when bed arranged needs to f/u with Dr. Roberts in 1-2 weeks Continue with horton for now. MDM: self Code Status: DNR GI ppx: not indicated DVT ppx: Heparin SQ Discussed with: RN, CM, patient Dispo: patient has exhausted max rehab days for calender year and he is unable to afford co-pays. Presents high fall risk if he were to be discharged home. Unsafe discharge at present time. Discharge Planning: Awaiting insurance authorization for discharge to [facility]. Progress Note: Quality VTE Deep Vein Thrombosis/Pulmonary Embolism Present on Admission: No _ (1) Lumbar spinal stenosis Qualifiers: Neurogenic claudication status: (2) Acute renal failure superimposed on stage 3 chronic kidney disease Qualifiers: Acute renal failure type:
[2018-04-07] MEDS: guaiFENesin 600 MG ER Tablet PO SCH (20:48)
[2018-04-07] MEDS: traZODone 50 MG Tablet PO SCH (20:48)
[2018-04-08] MEDS: Metoprolol Tartrate 25 MG Tablet PO SCH ×2 (09:32→21:12)
[2018-04-08] MEDS: Lactobacillus Acidophilus/L. Spores Tablet PO SCH ×2 (09:32→21:12)
[2018-04-08] MEDS: guaiFENesin 600 MG ER Tablet PO SCH ×2 (09:33→21:12)
[2018-04-08] MEDS: Spironolactone 25 MG Tablet PO SCH (09:33)
[2018-04-08] MEDS: Senna/Docusate Sodium 8.6/50 MG Tablet PO SCH ×2 (09:33→21:13)
[2018-04-08] MEDS: Ascorbic Acid 500 MG Tablet PO SCH (09:33)
[2018-04-08] MEDS: Fluconazole 100 MG Tablet PO SCH (09:35)
[2018-04-08] MEDS: Heparin - SQ 10,000 UNITS/ML Vial SQ SCH ×2 (09:48→21:13)
--- NOTE | 2018-04-08 09:49 | P.PNIM ---
Subjective Interval history: Follow-up visit generalized weakness Patient is sitting up in bed with breakfast tray in front of him. He states he got up last night and walked to the bathroom without calling for help. He also stood up again this morning and used the bedside commode. Patient educated and advised to call for assistance prior to getting out of bed. He states he understands but wanted to see how much he would be able to do by himself if he were to go home. Patient deemed to be high risk for falls per physical therapy. He was educated that if he ended up falling he may end up with fractures with could results in prolonged hospitalization and worsening weakness including longer recovery period. Discussed technician terminal and repeater care placement with patient given his recurrent episodes of generalized weakness and longer recovery periods in between as well as not having 24 hr line service attendant in home environment. Patient states he is convinced he will continue to get better and able to function independently with continued therapy. He states he is not ready at this time to consider prison placement option. Physical Exam Vital signs: Last Vital Signs Temp 98.1 F 04/08/18 08:00 Pulse 63 04/08/18 08:00 Resp 20 04/08/18 08:00 BP 154/74 H 04/08/18 08:00 Pulse Ox 95 04/08/18 08:00 Intake & Output 04/06/18 04/07/18 04/08/18 04/09/18 06:59 06:59 06:59 06:59 Intake Total 1500 / 1500 Output Total 650 / 650 550 / 550 1825 / 1825 Balance -650 / -650 950 / 950 -1825 / -1825 Weight 75 kg 72.2 kg 71.5 kg Narrative: GENERAL: 82-year-old elderly male, pleasant. No apparent distress. SKIN: Warm and dry. HEAD: Atraumatic. Normocephalic. EYES: Pupils equal and round. No scleral icterus. ENT: No nasal bleeding or discharge. NECK: Trachea midline. No JVD. RESPIRATORY: No accessory muscle use. Mild, diffuse expiratory wheezing throughout all lung robertson. MUSCULOSKELETAL: Extremities without clubbing, cyanosis, or edema. No obvious deformities. NEUROLOGICAL: Awake, alert oriented x3. No slurring of the speech. No drift. Bilateral upper extremity strength 5 out of 5. Able to lift both legs off the bed, dorsiflexion 5 out of 5. Gait not assessed PSYCHIATRIC: Appropriate mood and affect; insight and judgment normal. Urinary Catheter Management Indwelling Urethral Catheter: Cath placed during this visit: yes Urethral indwelling: Yes Reason for continuing: Acute urinary retention Insertion date: 03/29/18 Insertion time: 08:00 Results Labs CBC & Chem 7: 04/02/18 05:20 04/02/18 05:20 Procedures Procedures: none Assessment and Plan (1) Lumbar spinal stenosis: Code(s): M48.061 - Spinal stenosis, lumbar region without neurogenic claudication Status: Acute (2) Generalized weakness: Code(s): R53.1 - Weakness Status: Acute (3) Renal cancer: Code(s): C64.9 - Malignant neoplasm of unspecified kidney, except renal pelvis Status: Acute (4) Prostate cancer: Code(s): C61 - Malignant neoplasm of prostate Status: Acute (5) Urinary retention: Code(s): R33.9 - Retention of urine, unspecified Status: Acute (6) Acute renal failure superimposed on stage 3 chronic kidney disease: Code(s): N17.9 - Acute kidney failure, unspecified; N18.3 - Chronic kidney disease, stage 3 (moderate) Status: Acute Plan 82-year-old elderly male with significant past medical history of right renal cancer, 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 fib. Patient presented to the emergency room with complaint of weakness, difficulty ambulating. Patient evaluated 04/08/18. Inability to ambulate, hx of falls, weakness -Unsafe discharge at present time. Patient has exhausted his rehab days for the calender year and he is unable to afford the co-pays required out of pocket for short term rehab. He was evaluated by physical therapy with documentation that patient is unable to stand for 10 seconds with narrow base of support (high risk for fall). Patient lives alone and does not have assistance at the home. -states not ready for prison care at present time. He believes he will continue to get stronger with therapy and function independently again. Spinal Stenosis -Patient does have history of chronic back pain and problems. Patient indicates that he does have episodes of the symptoms of inability to ambulate. States that his legs are very weak and gives out on him. He states increased time of recovery with each subsequent episode of weakness. Patient does also have urinary retention and fecal incontinence. -CT brain did not indicate any acute abnormality -MRI lumbar spine did indicate moderate to severe spinal stenosis at L3-L4, L4- L5 -MRI t-spine unremarkable -Neurosurgical consultation has been requested. Recommends PT and EMG testing outpatient -Physical therapy asked to re-evaluate and ambulate. Pt. only able to walk a few feet, SNF recommended -pt exhausted rehab days for calender year, unable to afford out of pocket co- pays. Not interested in prison care placement at present time. -Nuclear medicine bone scan 04/03 -> no suspicious areas of uptake -MRI cervical spine degenerative changes noted, no spinal cord compression, no masses. Disc protrusion. MRI of brain and head negative. -MRI brain, MRA head, and carotid ultrasound showed no carotids stenosis -repeat Echo showed improved EF 45%, mod. tricuspid regurgitation. Had prior echo in 2017 with EF 35% -D/W neurology, cleared for dc. Recommends EMG and PT -Neurosurgery cleared for dc as well. Urinary tract infection Recently treated for Pseudomonas in urine, had PICC line placed March 25 in order cefepime as outpatient, due to be completed on March 31 UA done on 03/30, positive for Julia tropicalis. -We will discontinue cefepime and PICC line -Start Diflucan 100 mg p.o. daily for 14 days Urinary retention, poss neurogenic bladder Pt. was self-catheterizing at home until 03/29 he was not able to do and ex who is nurse placed horton -Dr. Roberts recommends he continue with horton now and f/u as OP. Acute renal failure superimposed on chronic kidney disease stage III, improving Hx urinary retention, right renal cancer -was given IVF, now discontinued -Continue Flomax -Continue monitor renal function -Avoid nephrotoxins -Renal function slowly improving, creatinine 2.2 --> 1.90 --> 1.80 --> 1.69 Hx of right renal cancer, clear cell carcinoma, S/P cryoablation and right renal bx Hx of prostate cancer Follows up with Dr. Roberts -D/W Dr. Roberts, can f/u as OP. Will do PSA when horton has been removed. Recommends to continue for now due to urinary retention Hypertension, chronic - SBP 140-150's, stable -continue current meds -monitor vital signs per unit protocol Atrial fibrillation, has declined anticoagulation in the past - rate controlled Chronic CHF, recent exacerbation in February -repeat echo results noted, improved EF 45% -resume Aldactone -Continue Lopressor 25 mg PO BID -DC IVF, pt. doesn't appear to be in fluid overload Diarrhea -Patient reports chronic history of diarrhea however with hospitalizations, will check C. difficile -continue Lactinex -no more diarrhea reported, continue to monitor COPD/emphysema: Chronic -Continue patient's duo nebs as needed -add Mucinex -monitor sats per protocol DVT prevention: Sequential compression devices/Subcutaneous heparin CM consult for SNF placement Discharge when bed arranged needs to f/u with Dr. Roberts in 1-2 weeks Continue with [facility] for now. MDM: self Code Status: DNR GI ppx: not indicated DVT ppx: Heparin SQ Discussed with: RN, JANET, patient Dispo: patient has exhausted max rehab days for calender year and he is unable to afford co-pays. Presents high fall risk if he were to be discharged home. Declining prison care. Unsafe discharge at present time. Discharge Planning: Awaiting insurance authorization for discharge to [facility]. Progress Note: Quality VTE Deep Vein Thrombosis/Pulmonary Embolism Present on Admission: No _ (1) Lumbar spinal stenosis Qualifiers: Neurogenic claudication status: (2) Acute renal failure superimposed on stage 3 chronic kidney disease Qualifiers: Acute renal failure type:
--- NOTE | 2018-04-08 12:07 | P.DCO ---
Diagnosis (1) Lumbar spinal stenosis: Status: Acute (2) Generalized weakness: Status: Acute (3) Urinary retention: Status: Acute (4) Acute renal failure superimposed on stage 3 chronic kidney disease: Status: Acute Physical Therapy Order: Evaluate and treat, Improve ambulation and Strength and gait training Home Health Nursing Order: Medical education, Signs/symptoms of disease process, Medication education-adverse effect and Gann catheter maintenance Home Health Aide Order: To assist in: Bathing and personal care and beater lead and meal prep Case Management Consult Case Management Consult-Home Health: Yes I have seen patient Aris Lee on 04/08/18. My clinical findings support the need for the requested home health care services because: Limited mobility due to disease progression, Deconditioned with increased weakness and Limited ability to care for self I certify that my clinical findings support that this patient is homebound because: Unsteady gait/balance and Unsafe to leave home unassisted _ (1) Lumbar spinal stenosis Qualifiers: Neurogenic claudication status: (2) Acute renal failure superimposed on stage 3 chronic kidney disease Qualifiers: Acute renal failure type:
[2018-04-08] MEDS: traZODone 50 MG Tablet PO SCH (21:12)
[2018-04-09] MEDS: Heparin - SQ 10,000 UNITS/ML Vial SQ SCH ×2 (10:02→21:36)
[2018-04-09] MEDS: Senna/Docusate Sodium 8.6/50 MG Tablet PO SCH ×2 (10:04→21:36)
[2018-04-09] MEDS: Lactobacillus Acidophilus/L. Spores Tablet PO SCH ×2 (10:04→21:35)
[2018-04-09] MEDS: Ascorbic Acid 500 MG Tablet PO SCH (10:05)
[2018-04-09] MEDS: Spironolactone 25 MG Tablet PO SCH (10:05)
[2018-04-09] MEDS: Metoprolol Tartrate 25 MG Tablet PO SCH ×2 (10:05→21:36)
[2018-04-09] MEDS: Fluconazole 100 MG Tablet PO SCH (10:05)
[2018-04-09 10:51] LABS: Hematocrit 31.6 % (39.0-51.0); Hemoglobin 10.6 gm/dL (13.0-17.0); Mean Corpuscular HGB Conc 33.6 % (32.0-36.0); Mean Corpuscular Hemoglobin 33.9 pg (27.0-34.0); Mean Corpuscular Volume 101.1 fL (80.0-100.0); Mean Platelet Volume 8.1 fL (7.0-11.0); Platelet Count 252 th/mm3 (150-450); Red Blood Count 3.12 mil/mm3 (4.50-5.90); Red Cell Distribution Width 14.3 % (11.6-17.2); White Blood Count 7.4 th/mm3 (4.0-11.0)
--- NOTE | 2018-04-09 10:56 | P.PNIM ---
Physical Exam Vital signs: Last Vital Signs Temp 98.1 F 04/09/18 08:05 Pulse 72 04/09/18 08:05 Resp 20 04/09/18 08:05 BP 138/77 04/09/18 08:05 Pulse Ox 97 04/09/18 08:05 Intake & Output 04/07/18 04/08/18 04/09/18 04/10/18 06:59 06:59 06:59 06:59 Intake Total 1500 / 1500 Output Total 550 / 550 1825 / 1825 Balance 950 / 950 -1825 / -1825 Weight 72.2 kg 71.5 kg 69.1 kg Narrative: GENERAL: 82-year-old elderly male, pleasant. No apparent distress. SKIN: Warm and dry. HEAD: Atraumatic. Normocephalic. EYES: Pupils equal and round. No scleral icterus. ENT: No nasal bleeding or discharge. NECK: Trachea midline. No JVD. RESPIRATORY: No accessory muscle use. Mild, diffuse expiratory wheezing throughout all lung robertson. MUSCULOSKELETAL: Extremities without clubbing, cyanosis, or edema. No obvious deformities. NEUROLOGICAL: Awake, alert oriented x3. No slurring of the speech. No drift. Bilateral upper extremity strength 5 out of 5. Able to lift both legs off the bed, dorsiflexion 5 out of 5. Gait not assessed PSYCHIATRIC: Appropriate mood and affect; insight and judgment normal. Urinary Catheter Management Indwelling Urethral Catheter: Cath placed during this visit: yes Urethral indwelling: Yes Insertion date: 03/29/18 Insertion time: 08:00 Results Labs CBC & Chem 7: 04/09/18 10:13 04/02/18 05:20 Procedures Procedures: none Assessment and Plan (1) Lumbar spinal stenosis: Code(s): M48.061 - Spinal stenosis, lumbar region without neurogenic claudication Status: Acute (2) Generalized weakness: Code(s): R53.1 - Weakness Status: Acute (3) Urinary retention: Code(s): R33.9 - Retention of urine, unspecified Status: Acute (4) Acute renal failure superimposed on stage 3 chronic kidney disease: Code(s): N17.9 - Acute kidney failure, unspecified; N18.3 - Chronic kidney disease, stage 3 (moderate) Status: Acute Plan 82-year-old elderly male with significant past medical history of right renal cancer, 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 fib. Patient presented to the emergency room with complaint of weakness, difficulty ambulating. Patient evaluated 04/08/18. Inability to ambulate, hx of falls, weakness -Unsafe discharge at present time. Patient has exhausted his rehab days for the calender year and he is unable to afford the co-pays required out of pocket for short term rehab. He was evaluated by physical therapy with documentation that patient is unable to stand for 10 seconds with narrow base of support (high risk for fall). Patient lives alone and does not have assistance at the home. -states not ready for buttermaker care at present time. He believes he will continue to get stronger with therapy and function independently again. Spinal Stenosis -Patient does have history of chronic back pain and problems. Patient indicates that he does have episodes of the symptoms of inability to ambulate. States that his legs are very weak and gives out on him. He states increased time of recovery with each subsequent episode of weakness. Patient does also have urinary retention and fecal incontinence. -CT brain did not indicate any acute abnormality -MRI lumbar spine did indicate moderate to severe spinal stenosis at L3-L4, L4- L5 -MRI t-spine unremarkable -Neurosurgical consultation has been requested. Recommends PT and EMG testing outpatient -Physical therapy asked to re-evaluate and ambulate. Pt. only able to walk a few feet, SNF recommended -pt exhausted rehab days for calender year, unable to afford out of pocket co- pays. Not interested in buttermaker care placement at present time. -Nuclear medicine bone scan 04/03 -> no suspicious areas of uptake -MRI cervical spine degenerative changes noted, no spinal cord compression, no masses. Disc protrusion. MRI of brain and head negative. -MRI brain, MRA head, and carotid ultrasound showed no carotids stenosis -repeat Echo showed improved EF 45%, mod. tricuspid regurgitation. Had prior echo in 2017 with EF 35% -D/W neurology, cleared for dc. Recommends EMG and PT -Neurosurgery cleared for dc as well. Urinary tract infection Recently treated for Pseudomonas in urine, had PICC line placed March 25 in order cefepime as outpatient, due to be completed on March 31 UA done on 03/30, positive for Julia tropicalis. -We will discontinue cefepime and PICC line -Start Diflucan 100 mg p.o. daily for 14 days Urinary retention, poss neurogenic bladder Pt. was self-catheterizing at home until 03/29 he was not able to do and ex who is nurse placed horton -Dr. Roberts recommends he continue with horton now and f/u as OP. Acute renal failure superimposed on chronic kidney disease stage III, improving Hx urinary retention, right renal cancer -was given IVF, now discontinued -Continue Flomax -Continue monitor renal function -Avoid nephrotoxins -Renal function slowly improving, creatinine 2.2 --> 1.90 --> 1.80 --> 1.69 Hx of right renal cancer, clear cell carcinoma, S/P cryoablation and right renal bx Hx of prostate cancer Follows up with Dr. Roberts -D/W Dr. Roberts, can f/u as OP. Will do PSA when horton has been removed. Recommends to continue for now due to urinary retention Hypertension, chronic - SBP 140-150's, stable -continue current meds -monitor vital signs per unit protocol Atrial fibrillation, has declined anticoagulation in the past - rate controlled Chronic CHF, recent exacerbation in February -repeat echo results noted, improved EF 45% -resume Aldactone -Continue Lopressor 25 mg PO BID -DC IVF, pt. doesn't appear to be in fluid overload Diarrhea -Patient reports chronic history of diarrhea however with hospitalizations, will check C. difficile -continue Lactinex -no more diarrhea reported, continue to monitor COPD/emphysema: Chronic -Continue patient's duo nebs as needed -add Mucinex -monitor sats per protocol DVT prevention: Sequential compression devices/Subcutaneous heparin CM consult for SNF placement Discharge when bed arranged needs to f/u with Dr. Roberts in 1-2 weeks Continue with horton for now. MDM: self Code Status: DNR GI ppx: not indicated DVT ppx: Heparin SQ Discussed with: RN, CM, patient Dispo: patient has exhausted max rehab days for calender year and he is unable to afford co-pays. Presents high fall risk if he were to be discharged home. Declining buttermaker care. Unsafe discharge at present time. Discharge Planning: Awaiting insurance authorization for discharge to [facility]. Progress Note: Quality VTE Deep Vein Thrombosis/Pulmonary Embolism Present on Admission: No _ (1) Lumbar spinal stenosis Qualifiers: Neurogenic claudication status: (2) Acute renal failure superimposed on stage 3 chronic kidney disease Qualifiers: Acute renal failure type:
[2018-04-09 11:10] LABS: Calcium 8.8 mg/dL (8.5-10.1); Carbon Dioxide 24.3 meq/L (21.0-32.0); Potassium 5.7 meq/L (3.5-5.1)
[2018-04-09] MEDS ORDERED: Sodium Polystyrene Sulfonate/Sorbitol Liq 15 GM/60 ML UDC PO ONE (11:18)
--- NOTE | 2018-04-09 11:27 | P.PNIM ---
Subjective Interval history: Follow-up visit generalized weakness Patient seen and examined while eating breakfast. He states he feels a little bit more confident about ambulating with assistance of a walker. He continues to experience alternating days of severe generalized weakness and improvement. Denies chest pain, shortness of breath or palpitations. Denies cough, fever or chills. Physical Exam Vital signs: Last Vital Signs Temp 98.1 F 04/09/18 08:05 Pulse 72 04/09/18 08:05 Resp 20 04/09/18 08:05 BP 138/77 04/09/18 08:05 Pulse Ox 97 04/09/18 08:05 Intake & Output 04/07/18 04/08/18 04/09/18 04/10/18 06:59 06:59 06:59 06:59 Intake Total 1500 / 1500 Output Total 550 / 550 1825 / 1825 Balance 950 / 950 -1825 / -1825 Weight 72.2 kg 71.5 kg 69.1 kg Narrative: GENERAL: no acute distress, well developed, well nourished SKIN: warm and dry HEAD: Normocephalic, atraumatic EYES: No scleral icterus. No injection or drainage. NECK: Supple, trachea midline. No JVD or lymphadenopathy. CARDIOVASCULAR: Regular rate and rhythm without murmurs, gallops, or rubs. RESPIRATORY: Breath sounds decreased bilaterally. No wheezing. No accessory muscle use. GASTROINTESTINAL: Abdomen soft, non-tender, nondistended. MUSCULOSKELETAL: No cyanosis, or edema. Urinary Catheter Management Indwelling Urethral Catheter: Cath placed during this visit: yes Urethral indwelling: Yes Reason for continuing: Acute urinary retention Insertion date: 03/29/18 Insertion time: 08:00 Results Labs CBC & Chem 7: 04/09/18 10:13 04/09/18 10:13 Assessment and Plan (1) Lumbar spinal stenosis: Code(s): M48.061 - Spinal stenosis, lumbar region without neurogenic claudication Status: Acute (2) Generalized weakness: Code(s): R53.1 - Weakness Status: Acute (3) Urinary retention: Code(s): R33.9 - Retention of urine, unspecified Status: Acute (4) Acute renal failure superimposed on stage 3 chronic kidney disease: Code(s): N17.9 - Acute kidney failure, unspecified; N18.3 - Chronic kidney disease, stage 3 (moderate) Status: Acute Plan 82-year-old elderly male with significant past medical history of right renal cancer, 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 fib. Patient presented to the emergency room with complaint of weakness, difficulty ambulating. Inability to ambulate, hx of falls, weakness -Patient has exhausted his rehab days for the calender year and he is unable to afford the co-pays required out of pocket for short term rehab. He was evaluated by physical therapy with documentation that patient is unable to stand for 10 seconds with narrow base of support (high risk for fall). Patient lives alone and does not have assistance at the home. -states not ready for nursing home care at present time. He believes he will continue to get stronger with therapy and function independently again. -PT eval/treat, improved mobility 04/08/18, rec Home with HH. Patient with hx of falls without warning. Has 3 walkers at home. Spinal Stenosis -Patient does have history of chronic back pain and problems. Patient indicates that he does have episodes of the symptoms of inability to ambulate. States that his legs are very weak and gives out on him. He states increased time of recovery with each subsequent episode of weakness. Patient does also have urinary retention and fecal incontinence. -CT brain did not indicate any acute abnormality -MRI lumbar spine did indicate moderate to severe spinal stenosis at L3-L4, L4- L5 -MRI t-spine unremarkable -Neurosurgical consultation has been requested. Recommends PT and EMG testing outpatient -Physical therapy asked to re-evaluate and ambulate. Pt. only able to walk a few feet, SNF recommended -pt exhausted rehab days for calender year, unable to afford out of pocket co- pays. Not interested in terminal block assembler care placement at present time. -Nuclear medicine bone scan 04/03 -> no suspicious areas of uptake -MRI cervical spine degenerative changes noted, no spinal cord compression, no masses. Disc protrusion. MRI of brain and head negative. -MRI brain, MRA head, and carotid ultrasound showed no carotids stenosis -repeat Echo showed improved EF 45%, mod. tricuspid regurgitation. Had prior echo in 2017 with EF 35% -D/W neurology, cleared for dc. Recommends EMG and PT -Neurosurgery cleared for dc as well. Hyperkalemia -K 5.7 -check STAT EKG -Kayexalate x 1 -repeat K level this afternoon Urinary tract infection Recently treated for Pseudomonas in urine, had PICC line placed March 25 in order cefepime as outpatient, due to be completed on March 31 UA done on 03/30, positive for Julia tropicalis. -We will discontinue cefepime and PICC line -Start Diflucan 100 mg p.o. daily for 14 days Urinary retention, poss neurogenic bladder Pt. was self-catheterizing at home until 03/29 he was not able to do and ex who is nurse placed horton -Dr. Roberts recommends he continue with horton now and f/u as OP. Acute renal failure superimposed on chronic kidney disease stage III - slightly worse Hx urinary retention, right renal cancer -gentle hydration -Continue Flomax -Continue monitor renal function -Avoid nephrotoxins -Renal function: creatinine 2.2 --> 1.90 --> 1.80 --> 1.69 04/02->1.8 04/09/18 Hx of right renal cancer, clear cell carcinoma, S/P cryoablation and right renal bx Hx of prostate cancer Follows up with Dr. Roberts -D/W Dr. Roberts, can f/u as OP. Will do PSA when horton has been removed. Recommends to continue for now due to urinary retention Hypertension, chronic - SBP 140-150's, stable -continue current meds -monitor vital signs per unit protocol Atrial fibrillation, has declined anticoagulation in the past - rate controlled Chronic CHF, recent exacerbation in February -repeat echo results noted, improved EF 45% -resume Aldactone -Continue Lopressor 25 mg PO BID -DC IVF, pt. doesn't appear to be in fluid overload Diarrhea -chronic history of diarrhea -continue Lactinex -no more diarrhea reported, continue to monitor COPD/emphysema: Chronic -Continue patient's duo nebs as needed -add Mucinex -monitor sats per protocol DVT prevention: Sequential compression devices/Subcutaneous heparin CM consult for SNF placement Discharge when bed arranged needs to f/u with Dr. Roberts in 1-2 weeks Continue with [facility] for now. MDM: self Code Status: DNR GI ppx: not indicated DVT ppx: Heparin SQ Discussed with: RN, CM, patient Dispo: PT notes improved mobility and recommends Home with . CM consulted for assistance. Progress Note: Quality VTE Deep Vein Thrombosis/Pulmonary Embolism Present on Admission: No _ (1) Lumbar spinal stenosis Qualifiers: Neurogenic claudication status: (2) Acute renal failure superimposed on stage 3 chronic kidney disease Qualifiers: Acute renal failure type:
[2018-04-09] MEDS: guaiFENesin 600 MG ER Tablet PO SCH ×2 (12:51→21:36)
[2018-04-09] MEDS: Sod Chloride 0.9% Inj 1,000 ML IV.CONT SCH ×2 (12:51→21:37)
[2018-04-09] MEDS: traZODone 50 MG Tablet PO SCH (21:36)
[2018-04-10] MEDS: Sod Chloride 0.9% Inj 1,000 ML IV.CONT SCH ×2 (03:07→14:52)
[2018-04-10 09:04] LABS: Hematocrit 30.7 % (39.0-51.0); Hemoglobin 10.6 gm/dL (13.0-17.0); Mean Corpuscular HGB Conc 34.5 % (32.0-36.0); Mean Corpuscular Hemoglobin 34.1 pg (27.0-34.0); Mean Corpuscular Volume 98.6 fL (80.0-100.0); Platelet Count 267 th/mm3 (150-450); Red Blood Count 3.12 mil/mm3 (4.50-5.90); Red Cell Distribution Width 14.6 % (11.6-17.2); White Blood Count 7.1 th/mm3 (4.0-11.0)
[2018-04-10 09:19] LABS: Calcium 8.4 mg/dL (8.5-10.1); Carbon Dioxide 23.3 meq/L (21.0-32.0)
[2018-04-10] MEDS: Spironolactone 25 MG Tablet PO SCH (09:54)
[2018-04-10] MEDS: Heparin - SQ 10,000 UNITS/ML Vial SQ SCH (09:54)
[2018-04-10] MEDS: Metoprolol Tartrate 25 MG Tablet PO SCH (09:54)
[2018-04-10] MEDS: guaiFENesin 600 MG ER Tablet PO SCH (09:54)
[2018-04-10] MEDS: Ascorbic Acid 500 MG Tablet PO SCH (09:54)
[2018-04-10] MEDS: Fluconazole 100 MG Tablet PO SCH (09:54)
[2018-04-10] MEDS: Lactobacillus Acidophilus/L. Spores Tablet PO SCH (09:54)
[2018-04-10] MEDS: Senna/Docusate Sodium 8.6/50 MG Tablet PO SCH (10:09)
--- NOTE | 2018-04-10 10:12 | ECG ---
Date Performed: 04/09/2018 Time Performed: 12:38:32 PTAGE: 83 years EKG: Atrial fibrillation. Left axis deviation IV conduction defect Inferior infarct - age undete rmined Possible anteroseptal infarct - age undetermined Lateral ST-T changes are nonspecific Low QRS voltages in limb leads Abnormal ECG NO PREVIOUS TRACING DOCTOR: Michael Bach Interpretating Date/Time 04/10/2018 10:10:11
--- NOTE | 2018-04-10 11:19 | P.PNIM ---
Subjective Interval history: Follow-up visit hyperkalemia, acute on chronic kidney injury, generalized weakness Patient seen shortly after completing his breakfast. He states he is ready to go home. He has been ambulating to and from the bathroom and reports feeling stronger. He states his ex- who works for a home health agency will assist him at home. Case management arranged for Home Health and PT will be out to see patient tomorrow 04/11/17. Hyperkalemia resolved, renal function improved. Patient denies joint pain or discomfort. Able to move all extremities. Tolerating PO intake. ED precautions discussed for worsening signs and/or symptoms. Patient is hemodynamically stable. Physical Exam Vital signs: Last Vital Signs Temp 98.1 F 04/10/18 08:00 Pulse 65 04/10/18 08:00 Resp 20 04/10/18 08:00 BP 140/71 04/10/18 08:00 Pulse Ox 95 04/10/18 08:00 Intake & Output 04/08/18 04/09/18 04/10/18 04/11/18 06:59 06:59 06:59 06:59 Intake Total 1000 / 1000 Output Total 1825 / 1825 1999 / 1999 700 / 700 Balance -1825 / -1825 -1000 / -1000 -700 / -700 Weight 71.5 kg 69.1 kg 73.1 kg Narrative: GENERAL: no acute distress, well developed, well nourished SKIN: warm and dry HEAD: Normocephalic, atraumatic EYES: No scleral icterus. No injection or drainage. NECK: Supple, trachea midline. No JVD or lymphadenopathy. CARDIOVASCULAR: Regular rate and rhythm without murmurs, gallops, or rubs. RESPIRATORY: Breath sounds decreased bilaterally. No wheezing. No accessory muscle use. GASTROINTESTINAL: Abdomen soft, non-tender, nondistended. MUSCULOSKELETAL: No cyanosis, or edema. Urinary Catheter Management Indwelling Urethral Catheter: Cath placed during this visit: yes Urethral indwelling: Yes Reason for continuing: Acute urinary retention Insertion date: 03/29/18 Insertion time: 08:00 Results Labs CBC & Chem 7: 04/10/18 08:20 04/10/18 08:20 Assessment and Plan (1) Lumbar spinal stenosis: Code(s): M48.061 - Spinal stenosis, lumbar region without neurogenic claudication Status: Acute (2) Generalized weakness: Code(s): R53.1 - Weakness Status: Acute (3) Urinary retention: Code(s): R33.9 - Retention of urine, unspecified Status: Acute (4) Acute renal failure superimposed on stage 3 chronic kidney disease: Code(s): N17.9 - Acute kidney failure, unspecified; N18.3 - Chronic kidney disease, stage 3 (moderate) Status: Acute Plan 82-year-old elderly male with significant past medical history of right renal cancer, 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 fib. Patient presented to the emergency room with complaint of weakness, difficulty ambulating. Please refer to d/c summary completed 04/04/18 by Rebecca Martinez Inability to ambulate, hx of falls, weakness -Patient has exhausted his rehab days for the calender year and he is unable to afford the co-pays required out of pocket for short term rehab. He was evaluated by physical therapy with documentation that patient is unable to stand for 10 seconds with narrow base of support (high risk for fall). Patient lives alone and does not have assistance at the home. He states his ex- who works for a home health agency will assist with his care. -states not ready for senior care care at present time. He believes he will continue to get stronger with therapy and function independently again. -PT eval/treat, improved mobility 04/08/18, rec Home with . Patient with hx of falls without warning. Has 3 walkers at home and is requesting to go home. Spinal Stenosis -Patient does have history of chronic back pain and problems. Patient indicates that he does have episodes of the symptoms of inability to ambulate. States that his legs are very weak and gives out on him. He states increased time of recovery with each subsequent episode of weakness. Patient does also have urinary retention and fecal incontinence. -CT brain did not indicate any acute abnormality -MRI lumbar spine did indicate moderate to severe spinal stenosis at L3-L4, L4- L5 -MRI t-spine unremarkable -Neurosurgical consultation has been requested. Recommends PT and EMG testing outpatient -Physical therapy asked to re-evaluate and ambulate. Pt. only able to walk a few feet, SNF recommended -pt exhausted rehab days for calender year, unable to afford out of pocket co- pays. Not interested in senior care care placement at present time. -Nuclear medicine bone scan 04/03 -> no suspicious areas of uptake -MRI cervical spine degenerative changes noted, no spinal cord compression, no masses. Disc protrusion. MRI of brain and head negative. -MRI brain, MRA head, and carotid ultrasound showed no carotids stenosis -repeat Echo showed improved EF 45%, mod. tricuspid regurgitation. Had prior echo in 2017 with EF 35% -D/W neurology, cleared for dc. Recommends EMG and PT -Neurosurgery cleared for dc as well. Hyperkalemia - resolved -K 5.7->5.0 -check STAT EKG -Kayexalate x 1 Urinary tract infection Recently treated for Pseudomonas in urine, had PICC line placed March 25 in order cefepime as outpatient, due to be completed on March 31 UA done on 03/30, positive for Julia tropicalis. -continue Diflucan 100 mg p.o. daily for 14 days. RX provided at time of discharge. Urinary retention, poss neurogenic bladder Pt. was self-catheterizing at home until 03/29 he was not able to do and ex who is nurse placed horton -Dr. Roberts recommends he continue with horton now and f/u as OP. Acute renal failure superimposed on chronic kidney disease stage III - slightly worse Hx urinary retention, right renal cancer -improved s/p gentle hydration -Continue Flomax -pt to f/u with PCP for continued monitoring of renal function -Avoid nephrotoxins -Renal function: creatinine 2.2 --> 1.90 --> 1.80 --> 1.69 04/02->1.8 04/09/18-> 1.55 04/10/18 Hx of right renal cancer, clear cell carcinoma, S/P cryoablation and right renal bx Hx of prostate cancer Follows up with Dr. Roberts -D/W Dr. Roberts, can f/u as OP. Will do PSA when horton has been removed. Recommends to continue for now due to urinary retention Hypertension, chronic - SBP 140-150's, stable -continue current meds -monitor vital signs per unit protocol Atrial fibrillation, has declined anticoagulation in the past - rate controlled Chronic CHF, recent exacerbation in February -repeat echo results noted, improved EF 45% -resume Aldactone -Continue Lopressor 25 mg PO BID Diarrhea -chronic history of diarrhea -continue Lactinex -no more diarrhea reported, continue to monitor COPD/emphysema: Chronic -Continue patient's duo nebs as needed -add Mucinex -monitor sats per protocol DVT prevention: Sequential compression devices/Subcutaneous heparin CM consult for SNF placement Discharge when bed arranged needs to f/u with Dr. Roberts in 1-2 weeks Continue with [facility] for now. MDM: self Code Status: DNR GI ppx: not indicated DVT ppx: Heparin SQ Discussed with: RN, CM, patient Dispo: PT notes improved mobility and recommends Home with HH. CM consulted for assistance. Discharge patient: Home with HH, half-way and PT eval/treat Condition on discharge: stable Diet: cardiac Activity: as tolerated, with assistance of a walker Rx written: Diflucan Follow-up with primary care physician, Urology Progress Note: Quality VTE Deep Vein Thrombosis/Pulmonary Embolism Present on Admission: No _ (1) Lumbar spinal stenosis Qualifiers: Neurogenic claudication status: (2) Acute renal failure superimposed on stage 3 chronic kidney disease Qualifiers: Acute renal failure type:
== END 2018-04-10 16:12 | disposition home or self-care (01) ==
LOC: PHED 18:52 → PHEDA 18:52 → PH3 22:02 → N05 04-01 18:00
PROVIDERS: ADMIT Internal Medicine; ATTEND Internal Medicine
CPT/HCPCS: 70450; 70544; 70551; 72120; 72141; 72146; 72148; 78306; 80048; 80053; 80061; 81001; 82550; 82607; 83036; 83735; 84132; 84484; 85025; 85027; 85651; 85652; 87077; 87086; 90774; 93005; 93306; 93880; 94640; 94665; 96361; 96365; 96366; 96374; 97110; 97163; 97164; 97530; 99285; A9503; C8952; G0378; G8987; G8988; J0692; J1644; J7030